=== PATIENT | female | born 1975 ===

== ENCOUNTER 2020-01-28 14:04 | Outpatient (REF) | payer OTHER, SELFPAY ==
[2020-01-29 14:53] LABS: CT PCR NOT DETECTED (Not Detect.); NG PCR NOT DETECTED (Not Detect.)
[2020-01-30 12:30] LABS: BV Int Neg Control Negative (Negative); BV Int Pos Control Positive (Positive)
== END 2020-01-28 14:05 | disposition home or self-care (01) ==
LOC: HO.LAB 14:04
PROVIDERS: PCP Internal Medicine; Visit Provider Obstetrics & Gynecology
DX: Z11.3 Encounter for screening for infections with a predominantly sexual mode of transmission (principal); Z11.8 Encounter for screening for other infectious and parasitic diseases
CPT/HCPCS: 87480; 87491; 87510; 87591; 87660

== ENCOUNTER → 2020-03-01 11:35 | Outpatient (BNVA) | payer OTHER, SELFPAY | PROVIDERS: PCP Internal Medicine; Referring Provider Internal Medicine; Visit Provider Advanced Practice Midwife | DX: Z76.89 Persons encountering health services in other specified circumstances (principal) ==

== ENCOUNTER → 2020-05-16 11:03 | Outpatient (BNVA) | payer OTHER, SELFPAY | PROVIDERS: PCP Internal Medicine; Visit Provider Surgery | DX: K64.8 Other hemorrhoids (principal) | CPT/HCPCS: 46600 ==

== ENCOUNTER 2020-08-25 11:00 | Outpatient (REF) | payer OTHER, SELFPAY ==
--- NOTE | ~2020-08-25 | MM_ITS ---
EXAMINATION: MM SCREENING DIGITAL BREAST TOMOSYNTHESIS, BILATERAL CLINICAL INFORMATION: Screening. Asymptomatic. The lifetime risk of breast cancer based on the Tyrer-Cuzick Model is 7%. COMPARISON: Mammography: 04/06/2017, 04/21/2012, breast ultrasound 04/17/2017 TECHNIQUE: Digital breast tomosynthesis is performed in both the craniocaudal and mediolateral oblique views along with computer-aided detection (CAD). Synthesized 2D images are generated from the tomosynthesis. FINDINGS: The breasts are heterogeneously dense, which may obscure small masses (ACR BI-RADS breast composition Category c). Breast tissue composition borders on average fibroglandular. There is fine fibronodular parenchymal pattern similar to prior exams. Circumscribed nodule anterior 3:00 left breast is stable. Cyst mid upper inner right breast is decreased in size since 2017. There is no interval developing density or architectural abnormality. No abnormal calcifications. The axilla and skin contours are unremarkable. MM/MM tomosynthesis screening BI IMPRESSION: No mammographic evidence of malignancy. Cyst upper inner right breast decreased since prior imaging 2017. ASSESSMENT: BI-RADS 2: Benign RECOMMENDATION: Routine annual mammography screening. This patient's information was entered into a reminder system with a target due date for their next mammogram.
== END 2020-08-25 11:01 | disposition home or self-care (01) ==
LOC: HO.MAMMO 11:00
PROVIDERS: Visit Provider Advanced Practice Midwife
DX: Z12.31 Encounter for screening mammogram for malignant neoplasm of breast (principal)
CPT/HCPCS: 77063; 77067

== ENCOUNTER 2020-09-20 10:32 | Emergency (ER) | payer OTHER, SELFPAY ==
--- NOTE | 2020-09-20 | ECG_ITS ---
Test Reason : CHEST PAIN Blood Pressure : / mmHG Vent. Rate : 075 BPM Atrial Rate : 075 BPM P-R Int : 172 ms QRS Dur : 072 ms QT Int : 388 ms P-R-T Axes : 039 035 030 degrees QTc Int : 433 ms Normal sinus rhythm Normal ECG When compared with ECG of 09-DEC-2014 13:25, No significant change was found Referred By: Generic ED Physician Electronically Signed By:REZA FOSTER
--- NOTE | ~2020-09-20 | XR_ITS ---
EXAMINATION: XR CHEST CLINICAL INFORMATION: Chest pressure COMPARISON: Previous chest x-ray and chest CTA December 2014 TECHNIQUE: 2 views of the chest were obtained. FINDINGS: No significant abnormality is noted involving the heart, lungs, mediastinum, bony thorax or soft tissues. XR/XR chest 2V IMPRESSION: Unremarkable examination.
[2020-09-20 10:51] VITALS: BP 160/89; PULSE 80; RESP 18; TEMP 36.6; O2SAT 99; BMI 26.5
[2020-09-20 12:09] LABS: Hemoglobin 15.5 g/dl (12.0-16.0); Imm Gran Abs Auto 0.02 X10*3/uL (0.00-0.03); Imm Gran Pct Auto 0.3 % (0.0-0.4); MANUAL DIFF FLAG SCAN; Mean Corpuscular Hemoglobin 32.8 pg (27.0-33.0); Neutrophils Percent Auto 72.1 % (45-73); PLT CLUMP 1; SCAN SMEAR FLAG 1
[2020-09-20 12:11] LABS: Basophils Absolute Auto 0.1 X10*3/uL (0.0-0.2); Basophils Percent Auto 0.7 % (0-2); Eosinophils Absolute Auto 0.1 X10*3/uL (0.0-0.4); Eosinophils Percent Auto 1.4 % (0-4); Hematocrit 45.4 % (37-47); Lymphocytes Absolute Auto 1.6 X10*3/uL (1.2-4.9); Lymphocytes Percent Auto 21.6 % (20-40); Mean Corpuscular HGB Conc 34.1 g/dl (31.0-35.0); Mean Corpuscular Volume 96.2 fL (80-98); Monocytes Absolute Auto 0.3 X10*3/uL (0.1-1.2); Monocytes Percent Auto 3.9 % (2-11); Neutrophils Absolute Auto 5.2 X10*3/uL (2.0-8.3); Red Blood Count 4.72 X10*6/uL (4.20-5.50); White Blood Count 7.2 X10*3/uL (4.8-10.8)
[2020-09-20 12:34] LABS: Anion Gap 15 (12-20); Blood Urea Nitrogen 9 mg/dL (9-16); Calcium 9.4 mg/dL (8.4-10.2); Carbon Dioxide 25 mmol/L (22-29); Chloride 105 mmol/L (96-108); Creatinine Clr Calc Pharmacy 81.9; Estimated Glomerular Filt Rate > 60; Glucose Random 100 mg/dL (60-115); Sodium 141 mmol/L (135-145)
[2020-09-20 12:37] LABS: Platelet Count 313 X10*3/uL (160-400)
[2020-09-20 12:39] LABS: Mean Platelet Volume 9.4 fL (9.4-12.3)
[2020-09-20 12:40] LABS: SLIDE REVIEW VERIFIED
[2020-09-20 12:41] LABS: Troponin-I High Sensitivity < 3.5 ng/L (<3.5-17.0)
--- NOTE | 2020-09-20 13:54 | ED_ITS ---
HPI - General Adult General Chief complaint: General Medical Stated complaint: Chest pain Time Seen by Provider: 09/20/20 13:54 Source: patient Mode of arrival: ambulatory Limitations: no limitations History of Present Illness HPI narrative: chest pain yesterday and again today. History of anxiety. patient is also concerned that she has a tick bite. Onset (ago): day(s) Quality: sharp Pain Consistency: intermittent Associated symptoms: other (anxiety) Related Data Home Medications Medication Instructions Recorded Confirmed amitriptyline 10 mg tablet 10 mg PO BEDTIME 01/25/20 05/16/20 Previous Rx's Medication Instructions Recorded amitriptyline 10 mg tablet 10 mg PO BEDTIME #90 tab 02/03/20 metronidazole 500 mg tablet 500 mg PO BID 7 Days #14 tab 05/03/20 tramadol 50 mg tablet 50 mg PO DAILY #90 tab 06/14/20 Allergies Allergy/AdvReac Type Severity Reaction Status Date / Time hydrocodone [From Vicodin] Allergy Mild RASH Verified 05/16/20 11:10 Vicodin Allergy Unknown rash Verified 05/16/20 11:10 Review of Systems Constitutional: Constitutional: Reports no additional constitutional complaints Eyes: Eyes: Reports no additional eye complaints ENT: Denies dizziness Cardiovascular: Cardiovascular: Reports no additional cardiovascular complaints Respiratory: Respiratory: Reports as per HPI Gastrointestinal: Gastrointestinal: Reports no additional gastrointestinal complaints Genitourinary: Genitourinary: Reports no additional female genitourinary complaints Musculoskeletal: Musculoskeletal: Reports no additional musculoskeletal complaints Integumentary/Breasts: Skin/Breast: Denies rash Neurologic: Reports system reviewed and no additional complaints, except as documented, Denies dizziness and Denies Sensory deficit (Neuro) Psychiatric: Psychiatric: Denies anxiety [facility] Past Medical History Medical History ASHIA positive Constipation Deep vein thrombosis (DVT) of calf muscle vein of left lower extremity Environmental allergies Fibromyalgia Genital herpes IBS (irritable bowel syndrome) Migraine headache Prolapsed hemorrhoids Pulmonary emboli Surgical History History of tubal ligation Status post reimplantation of ureter Family History Family History Mother DVT (deep venous thrombosis) Colonic mass Brother Autism Social History Social History Alcohol intake: current Alcohol intake frequency: a few times a week Cigarettes Per Day: 10 Advance Directives: No Advance Directives Information Provided: No Patient : No Gender identity: female Physical Exam 2 Vital Signs: Vital Signs: Last Vital Signs Temp 98 F 09/20/20 10:51 Pulse 80 09/20/20 10:51 Resp 18 09/20/20 10:51 BP 160/89 H 09/20/20 10:51 Pulse Ox 99 09/20/20 10:51 Body Mass Index 26.5 Const: General: healthy appearing Nutritional Appearance: average body habitus Orientation/consciousness: oriented to person and patient oriented x3 Limitations: no limitations HENMT: Head: Yes normal to inspection Ears: external ears normal General nose exam: Normal external nose present Mouth: Normal oral and palatal mucosa present and oropharynx normal Throat: Yes posterior oropharynx normal Eyes: General: appearance normal, both eyes and all related structures Neck: Other: supple Neck: Yes normal visual inspection Chest: Chest palpation & inspection: normal inspection of the chest Resp: Auscultation: clear to auscultation bilaterally Cardio: Jugular venous distension: no JVD Rate: regular rate Rhythm: regular rhythm Heart sounds: S1 normal heart sound present and S2 normal heart sound present GI: Inspection: Yes normal to inspection Palpation (GI): Soft to palpation, nontender and No hepatosplenomegaly present Auscultation: normal bowel sounds : General: Yes no CVA tenderness Back/Spine/Pelvis: Back: no CVA tenderness Skin: General skin exam: no rashes or lesions noted Neuro: General: oriented to person and patient oriented x3 Cranial nerves: Yes CN's II-XII intact bilaterally Motor exam (neuro): 5/5 motor strength present throughout Sensory Exam: No Sensory deficit (Neuro) Extrem: General: Yes normal to inspection Psych: Appearance: grossly normal Course Reevaluation(s) Reevaluation #1: Patient with no cardiac risk factors, normal EKG, troponin and normal exam. Patient with small insect bite that does not look like a tick bite and certainly does not look like lyme. Will dc home Time: 14:06 Medical Decision Making Lab Data Result diagrams: 09/20/20 12:04 09/20/20 12:04 Labs: Lab Results 09/20/20 09/20/2009/20/21 Range/Units 12:04 12:04 12:04 WBC 7.2 (4.8-10.8) X10*3/uL RBC 4.72 (4.20-5.50) X10*6/uL Hgb 15.5 (12.0-16.0) g/dl Hct 45.4 (37-47) % MCV 96.2 (80-98) fL MCH 32.8 (27.0-33.0) pg MCHC 34.1 (31.0-35.0) g/dl RDW 12.0 (11.0-16.0) % Plt Count 313 (160-400) X10*3/uL MPV 9.4 (9.4-12.3) fL Immature Gran % (Auto) 0.3 (0.0-0.4) % Neut % (Auto) 72.1 (45-73) % Lymph % (Auto) 21.6 (20-40) % [place] % (Auto) 3.9 (2-11) % Eos % (Auto) 1.4 (0-4) % Baso % (Auto) 0.7 (0-2) % Lymph # (Auto) 1.6 (1.2-4.9) X10*3/uL Oxford # (Auto) 0.3 (0.1-1.2) X10*3/uL Eos # (Auto) 0.1 (0.0-0.4) X10*3/uL Baso # (Auto) 0.1 (0.0-0.2) X10*3/uL Abs Immat Gran (auto) 0.02 (0.00-0.03) X10*3/uL Absolute Neuts (auto) 5.2 (2.0-8.3) X10*3/uL Absolute Nucleated RBC 0.000 (0.0-0.012) X10*3/uL Nucleated RBC % (auto) 0.0 (0.0-0.2) /100WBC Smear Tech's Comments VERIFIED Sodium 141 (135-145) mmol/L Potassium 4.0 (3.3-5.1) mmol/L Chloride 105 (96-108) mmol/L Carbon Dioxide 25 (22-29) mmol/L Anion Gap 15 (12-20) BUN 9 (9-16) mg/dL Creatinine 0.78 (0.5-1.4) mg/dL Estim Creat Clear Calc 81.9 Estimated GFR > 60 Random Glucose 100 (60-115) mg/dL Calcium 9.4 (8.4-10.2) mg/dL Troponin I High Sens < 3.5 (<3.5-17.0) ng/L ECG Data Attestation: I personally reviewed and interpreted this ECG as follows: Interpretation: normal sinus rate [address] or twave changes Discharge Plan Discharge Clinical Impression: Chest pain Qualifiers: Chest pain type: unspecified Qualified Code(s): R07.9 - Chest pain, unspecified Patient Disposition: Home, Self-Care Instructions: Chest Pain (ED) Prescriptions: No Action amitriptyline 10 mg tablet 10 mg PO BEDTIME Qty: 90 RF: 1 metronidazole [Flagyl] 500 mg tablet 500 mg PO BID 7 Days Qty: 14 RF: 0 tramadol 50 mg tablet 50 mg PO DAILY Qty: 90 RF: 1 amitriptyline 10 mg tablet 10 mg PO BEDTIME RF: 0 Referrals: Ashia Ventura MD [Primary Care Provider] - 1 week
[2020-09-20 14:44] VITALS: BP 159/93; PULSE 77; RESP 16; O2SAT 99
== END 2020-09-20 14:59 | disposition home or self-care (01) ==
PROVIDERS: Emergency Provider Emergency Medicine; PCP Internal Medicine
DX: R07.9 Chest pain, unspecified (principal); T14.8XXA Other injury of unspecified body region, initial encounter; W57.XXXA Bitten or stung by nonvenomous insect and other nonvenomous arthropods, initial encounter; Y93.9 Activity, unspecified; Y92.9 Unspecified place or not applicable; Y99.9 Unspecified external cause status
CPT/HCPCS: 36415; 71046; 80048; 84484; 85025; 93005; 99283; 99284

== ENCOUNTER 2020-09-28 17:29 | Outpatient (REF) | payer OTHER, SELFPAY ==
[2020-09-28 18:20] LABS: Appearance Urine HAZY; Color Urine YELLOW; Glucose Urine UA NEG (NEG); Leukocyte Esterase Urine NEG (NEG); Nitrite Urine NEG (NEG); Urine Blood 3+ (NEG); Urine Ketones NEG (NEG); Urine Protein 2+ MG/DL (NEG-TRACE)
[2020-09-28 18:30] LABS: Bacteria Urine 1+ /LPF; Squamous Epithelial Cell Urine 2+ /LPF; WBC Urine 0 /HPF (0-4)
== END 2020-09-28 17:30 | disposition home or self-care (01) ==
LOC: HO.LAB 17:29
PROVIDERS: PCP Internal Medicine; Visit Provider Internal Medicine
DX: R30.0 Dysuria (principal)
CPT/HCPCS: 81001

== ENCOUNTER 2020-10-18 06:16 | Day surgery (SDC) | payer OTHER, SELFPAY ==
--- NOTE | 2020-10-17 08:46 | HO.ANESPROP2 ---
Documented by User: Heather Garcianey 10/17/20 08:51 HPI - Anesthesia Eval Consult details Narrative: 45yo F for Hemorrhoidectomy, EUA h/o DVT/PE 2008 r/t control - no anticoag now PMFSH Active Problems Active Problems: All Active Problems (Updated 10/14/20 @ 13:36 by SOREN Snell) Gum lesion (Acute) Prolapsed hemorrhoids (Acute) IUD surveillance (Acute) Frequent headaches (Acute) Past Medical History Medical History SAMIA positive Constipation Deep vein thrombosis (DVT) of calf muscle vein of left lower extremity Environmental allergies Fibromyalgia Genital herpes IBS (irritable bowel syndrome) Migraine headache Prolapsed hemorrhoids Pulmonary emboli Family History Family History Mother DVT (deep venous thrombosis) Colonic mass Mental health disorder Brother Autism Surgical History Surgical History History of tubal ligation Status post reimplantation of ureter Social History Social History Housing: House Alcohol intake: current Alcohol intake frequency: a few times a week Patient Tobacco Use Status: Current everyday Tobacco user Tobacco use type: Cigarette Cigarettes Per Day: 10 Use of substances other than those prescribed or required for medical reasons: No Are you DNR?: No Advance Directives: No Advance Directives Information Provided: Yes service: No Current occupational status: employed Gender identity: female Meds Allergies Allergy/AdvReac Type Severity Reaction Status Date / Time sulfamethoxazole Allergy Severe throat Verified 10/18/20 06:23 [From Bactrim] closing trimethoprim [From Bactrim] Allergy Severe throat Verified 10/18/20 06:23 closing hydrocodone [From Vicodin] Allergy Mild RASH Verified 10/18/20 06:23 Vicodin Allergy Unknown rash Verified 10/18/20 06:23 Home Medications Medication Instructions Recorded Confirmed Last Taken Type amitriptyline 10 mg tablet 10 mg PO BEDTIME 01/25/20 10/14/20 Unknown History Exam Exam Date and Time: October 17, 2020 0846 Pertinent Lab Results Pertinent Lab Results: Laboratory Tests 09/20/20 09/20/20 12:04 12:04 WBC 7.2 Hgb 15.5 Hct 45.4 Plt Count 313 Sodium 141 Potassium 4.0 Chloride 105 Carbon Dioxide 25 BUN 9 Creatinine 0.78 Narrative Narrative: EKG 09/2020 Vent. Rate : 075 BPM Atrial Rate : 075 BPM P-R Int : 172 ms QRS Dur : 072 ms QT Int : 388 ms P-R-T Axes : 039 035 030 degrees QTc Int : 433 ms Normal sinus rhythm Normal ECG When compared with ECG of 09-DEC-2014 13:25, No significant change was found Assessment and Plan Assessment Anesthesia Assessment: Chart Reviewed Documented by User: Leann Lynch 10/18/20 07:00 PMFSH Past Medical History Medical History SAMIA positive Constipation Deep vein thrombosis (DVT) of calf muscle vein of left lower extremity Environmental allergies Fibromyalgia Genital herpes IBS (irritable bowel syndrome) Migraine headache Prolapsed hemorrhoids Pulmonary emboli Family History Family History Mother DVT (deep venous thrombosis) Colonic mass Mental health disorder Brother Autism Surgical History Surgical History History of tubal ligation Status post reimplantation of ureter Social History Social History Housing: House Alcohol intake: current Alcohol intake frequency: a few times a week Patient Tobacco Use Status: Current everyday Tobacco user Tobacco use type: Cigarette Cigarettes Per Day: 10 Use of substances other than those prescribed or required for medical reasons: No Are you DNR?: No Advance Directives: No Advance Directives Information Provided: Yes service: No Current occupational status: employed Gender identity: female Meds Allergies Allergy/AdvReac Type Severity Reaction Status Date / Time sulfamethoxazole Allergy Severe throat Verified 10/18/20 06:23 [From Bactrim] closing trimethoprim [From Bactrim] Allergy Severe throat Verified 07/13/21 06:23 closing hydrocodone [From Vicodin] Allergy Mild RASH Verified 10/18/20 06:23 Vicodin Allergy Unknown rash Verified 10/18/20 06:23 Home Medications Medication Instructions Recorded Confirmed Last Taken Type amitriptyline 10 mg tablet 10 mg PO BEDTIME 01/25/20 10/14/20 Unknown History Exam Airway Mallampati Class: II TM Dist: >3cm Neck ROM: Full Assessment and Plan Assessment Anesthesia Assessment: Anesthesia Plan Discussed and Chart Reviewed Final Anesthetic Review NPO: Yes ASA Class: II Final Preanesthetic Review: No Changes in Pt Med Stat, Meds/Allgs Chart Reviewed and Consent Obtained/Reviewed Patient Risk: Low Procedure Risk: Low Assessment/Block/Sedation in SS: Assess/Block/Sedation-SS Anesthetic Plan Anesthetic Plan: GA Disposition: Standard PACU
[2020-10-18] VITALS (8 sets, daily range): BP systolic 119–149; BP diastolic 67–115; PULSE 70–77; RESP 16–18; TEMP 36.4–36.6; O2SAT 97–100; BMI 27.2
[2020-10-18] MEDS: Lactated Ringers 1,000 ML 100 ML IVCONT (06:55)
--- NOTE | 2020-10-18 07:07 | MHC.SHP ---
Pre-Procedural Eval Section A Date of Service: 10/18/20 Section B Chief Complaint: Prolapsed hemorrhoids Details of Present Illness: has long hx of prolapsing hemorrhoids Relevant Family History (Specify if Yes): No Relevant Social History: None Present Medications: see Short Stay Collaborative assessment Medical History: No relevant PMH History of Previous Operations: No relevant previous surgery Allergies: Allergies Allergy/AdvReac Type Severity Reaction Status Date / Time sulfamethoxazole Allergy Severe throat Verified 10/18/20 06:23 [From Bactrim] closing trimethoprim [From Bactrim] Allergy Severe throat Verified 10/18/20 06:23 closing hydrocodone [From Vicodin] Allergy Mild RASH Verified 10/18/20 06:23 Vicodin Allergy Unknown rash Verified 10/18/20 06:23 Review of Systems Sugical H&P ROS: Negative: Constitution, Cardiovascular, Respiratory, Neurological, Psychiatric, Hem-Onc, Allergic/Immunologic, Gastrointestinal, Genitourinary, Musculoskeletal, Integumentary, Endocrine and Eyes/Ears/Nose/Throat Exam Surgical H&P Exam: Normal: HEENT, Normal: Heart, Normal: Lungs, Normal: Extremities, Normal: Abdomen, Normal: Skin and Normal: Neurological Plan Diagnosis/Plan: Unchanged I have reviewed the history and physical and performed a pertinent physical examination on my patient. No changes have occurred unless specified.
--- NOTE | 2020-10-18 08:05 | P.OP_ITS ---
Operative Note Operative Note Date of Service: 10/18/20 Narrative: Preop diagnosis: Prolapsed hemorrhoids Postop diagnosis: Prolapsed hemorrhoids Procedure: Exam under anesthesia, hemorrhoidectomy x2 columns Surgeon: Delroy Easley MD Patient is a 45-year-old female who has had chronic prolapse of her hemorrhoids. In view of discomfort associated with this, she wanted to proceed with hemorrhoidectomy. She understood the technique of the procedure. She was aware of the risks, benefits, and alternatives She was brought to the operating placed in prone jaylen-knife position under general anesthesia via LMA.. The buttocks were retracted with wide tape laterally. The perianal area was prepped and draped in the usual sterile fashion. A surgical time-out was done. The patient received Cefotan 2 g IV preoperatively. Examination of the anal orifice revealed a bulky prolapsing internal external hemorrhoidal column on the right anterior area. There was note of a moderate- sized external hemorrhoid on the left side as well. I inserted Macrina-Tao retractor and examined the anal canal circumferentially. Again this bulky mixed internal external hemorrhoid column was noted on the right anterior area. There were no other lesions seen in the anal canal. There was no bleeding. There was no induration or any fissure. I applied a Friedman grasper at the bulky hemorrhoidal column on the right side and retracted this out into the field. I made a mwjajf-bm-bcoxg stitch at the pedicle proximal to the dentate line. I made an incision around this hemorrhoidal column to the perianal skin using blade 15 and excised this hemorrhoidal column above the plane of the sphincters using Metzenbaum scissors. I closed this incision with a running chromic 3-0 stitch with additional hemostatic figure-eight sutures being placed for oozing areas. I then applied a Friedman grasper at the hemorrhoidal column on the left side. I made a hjblgq-ku-bqmop stitch at the pedicle using chromic 3-0 and made an incision around this hemorrhoidal column to the perianal skin using a blade 15. I excised this hemorrhoidal column above the plane of sphincters using scissors and closed this incision with a running chromic 3-0 stitch. Additional hemostatic sutures were placed. Once hemostasis was ensured I inserted a rolled Gelfoam packing into the anal canal. I infiltrated the perianal area with Marcaine 0.5% for postop analgesia. The procedure was then completed The patient tolerated procedure well. There were no complications noted. Initial fine counts of sponges and instruments were correct. Estimated blood loss was about 25 cc. The patient was then extubated and transferred to the recovery room with stable vital signs.
--- NOTE | 2020-10-18 08:10 | PM.OP ---
Brief Operative Note Date of Service: 10/18/20 Pre-op diagnosis: Prolapse hemorrhoids Post-op diagnosis: same Procedure: Exam under anesthesia, with hemorrhoidectomy x2 Surgeon: Delroy Easley MD Anesthesia: GLMA Was an [employer] used for this Procedure?: No Estimated blood loss (mL): 25 Pathology: other (Hemorrhoids x2) Condition: stable Disposition: PACU
[2020-10-18] MEDS: fentaNYL citrate/PF 100 MCG/2 ML VIAL 50 MCG IVPUSH ×2 (08:18→08:25)
[2020-10-18] MEDS: Acetaminophen 325 MG TABLET 650 MG PO (08:18)
[2020-10-18] MEDS: oxyCODONE HCl Immed Release 5 MG TABLET PO (08:18)
== END 2020-10-18 09:15 | disposition home or self-care (01) ==
PROVIDERS: PCP Internal Medicine; Visit Provider Surgery
PROC: (CPT 46260; principal; 2020-10-18 07:30)
DX: K64.8 Other hemorrhoids (principal); K58.9 Irritable bowel syndrome, unspecified; Z86.718 Personal history of other venous thrombosis and embolism; Z79.899 Other long term (current) drug therapy; Z88.2 Allergy status to sulfonamides; Z88.8 Allergy status to other drugs, medicaments and biological substances; F17.210 Nicotine dependence, cigarettes, uncomplicated
CPT/HCPCS: 46260; 88304; J1100; J2250; J2405; J3010

== ENCOUNTER → 2020-11-02 09:43 | Outpatient (BNVA) | payer OTHER, SELFPAY | PROVIDERS: PCP Internal Medicine; Visit Provider Surgery ==

== ENCOUNTER 2020-11-10 14:46 | Outpatient (REF) | payer OTHER, SELFPAY | END 2020-11-10 14:47 | disposition home or self-care (01) | LOC: HO.HMGCLDS 14:46 | PROVIDERS: PCP Internal Medicine; Visit Provider Internal Medicine | DX: Z20.822 Contact with and (suspected) exposure to COVID-19 (principal) | CPT/HCPCS: C9803; U0003; U0005 ==

== ENCOUNTER 2020-11-21 15:19 | Outpatient (REF) | payer OTHER, SELFPAY ==
[2020-11-21 16:53] LABS: Hematocrit 40.6 % (37-47); Hemoglobin 13.8 g/dl (12.0-16.0); Mean Corpuscular Hemoglobin 32.8 pg (27.0-33.0); Mean Corpuscular Volume 96.4 fL (80-98); Mean Platelet Volume 10.2 fL (9.4-12.3); Platelet Count 243 X10*3/uL (160-400); Red Blood Count 4.21 X10*6/uL (4.20-5.50); Red Cell Distribution Width 12.4 % (11.0-16.0); White Blood Count 6.1 X10*3/uL (4.8-10.8)
[2020-11-22 09:17] LABS: BV Int Neg Control Negative (Negative); BV Int Pos Control Positive (Positive)
[2020-11-22 09:24] LABS: CT PCR NOT DETECTED (Not Detect.); NG PCR NOT DETECTED (Not Detect.)
[2020-11-24 01:16] LABS: HPV mRNA E6/E7 rflx Not Detected (Not Detected)
== END 2020-11-21 15:20 | disposition home or self-care (01) ==
LOC: HO.LAB 15:19
PROVIDERS: PCP Internal Medicine; Visit Provider Advanced Practice Midwife
DX: Z01.419 Encounter for gynecological examination (general) (routine) without abnormal findings (principal); N93.9 Abnormal uterine and vaginal bleeding, unspecified; N92.1 Excessive and frequent menstruation with irregular cycle; F17.210 Nicotine dependence, cigarettes, uncomplicated
CPT/HCPCS: 36415; 84443; 85027; 87480; 87491; 87510; 87591; 87624; 87660; 88142

== ENCOUNTER 2020-12-01 16:14 | Emergency (ER) | payer OTHER, SELFPAY ==
[2020-12-01 16:18] VITALS: BP 150/85; PULSE 84; RESP 16; TEMP 37.1; O2SAT 98; BMI 27.1
--- NOTE | 2020-12-01 17:07 | ED_ITS ---
HPI - Female Genitourinary General Chief complaint: Urogenital-Female Stated complaint: UTI Time Seen by Provider: 12/01/20 16:40 Source: patient Mode of arrival: ambulatory Limitations: no limitations History of Present Illness HPI Narrative: 45 y/o female presenting with dysuria for the last 4 days. She has significant burning with urination and bladder pain. No blood in her urine. No vaginal discharge. She was recently diagnosed with BV and is on Flagyl - she was never symptomatic for this. She called her OB to try and get antibiotics for UTI, was told to call her PCP who told her Flagyl will cure it. She has had no fevers, N/V/D or back pain. MD elicited complaint: dysuria and UTI Pertinent past history: recurrent UTIs Onset (ago): day(s) (4) Location of symptoms: external genitalia and urethra Severity: moderate Female Urogenital Radiation: Non-Radiating Severity scale (1-10): 5 Quality of pain: burning Consistency: intermittent Vaginal discharge: none Vaginal bleeding: none Urinary symptoms: Dysuria, Urgency and Frequency Exacerbating factors: urination Relieving factors: none Associated symptoms: denies other symptoms Treatment prior to arrival: none Sexual activity: No Patient : No Related Data Home Medications Medication Instructions Recorded Confirmed amitriptyline 10 mg tablet 10 mg PO BEDTIME 01/25/20 10/14/20 Previous Rx's Medication Instructions Recorded tramadol 50 mg tablet 50 mg PO DAILY #90 tab 06/14/20 ibuprofen 600 mg tablet 600 mg PO Q6H PRN #30 tab 10/18/20 metronidazole 0.75 % vaginal gel 1 appful VAGINAL BEDTIME 5 Days 11/24/20 (Metrogel Vaginal) #70 g nitrofurantoin 100 mg PO Q12H 7 Days #14 cap 12/01/20 monohydrate/macrocrystals 100 mg capsule (Macrobid) phenazopyridine 100 mg tablet 100 mg PO Q8H PRN #6 tab 12/01/20 (Pyridium) Allergies Allergy/AdvReac Type Severity Reaction Status Date / Time sulfamethoxazole Allergy Severe throat Verified 11/21/20 15:49 [From Bactrim] closing trimethoprim [From Bactrim] Allergy Severe throat Verified 11/21/20 15:49 closing hydrocodone [From Vicodin] Allergy Mild RASH Verified 11/21/20 15:49 Vicodin Allergy Unknown rash Verified 11/21/20 15:49 Review of Systems Constitutional: Constitutional: Denies chills and Denies fever(s) Eyes: Eyes: Reports no additional eye complaints ENT: Reports Normal hearing present Gastrointestinal: Gastrointestinal: Denies abdominal pain, Denies diarrhea, Denies nausea and Denies vomiting Genitourinary: Genitourinary: Reports abnormal vaginal bleeding, Denies hematuria, Denies difficulty voiding, Reports dysmenorrhea, Reports dysuria, Reports pelvic pain, Denies flank pain, Denies urinary incontinence, Reports urinary urgency, Denies vaginal discharge and Denies vaginal pruritus Musculoskeletal: Musculoskeletal: Denies back pain Integumentary/Breasts: Skin/Breast: Denies pruritus, Denies lesions and Denies rash Neurologic: Reports Normal hearing present [facility] Past Medical History Attestation statement: The following information was validated with the patient. Medical History SAMIA positive Constipation Deep vein thrombosis (DVT) of calf muscle vein of left lower extremity Environmental allergies Fibromyalgia Genital herpes IBS (irritable bowel syndrome) Migraine headache Prolapsed hemorrhoids Pulmonary emboli Surgical History History of hemorrhoidectomy History of tubal ligation Status post reimplantation of ureter Family History Family History Mother DVT (deep venous thrombosis) Colonic mass Mental health disorder Brother Autism Social History Social History Housing: House Alcohol intake: current Alcohol intake frequency: a few times a week Patient Tobacco Use Status: Current everyday Tobacco user Tobacco use type: Cigarette Cigarettes Per Day: 10 Advance Directives: No Advance Directives Information Provided: No service: No Current occupational status: employed Gender identity: Female Physical Exam Vital Signs: Vital Signs: Last Vital Signs Temp 98.8 F 12/01/20 16:18 Pulse 84 12/01/20 16:18 Resp 16 12/01/20 16:18 BP 150/85 H 12/01/20 16:18 Pulse Ox 98 12/01/20 16:18 Body Mass Index 27.1 Appearance: Alert. Oriented X3. No acute distress. HEENT: Normal external inspection Neck: Normal inspection. Neck supple. CVS: Normal heart rate and rhythm. Pulses normal. Respiratory: No respiratory distress. Breath sounds normal. Abdomen: Soft, mild suprapubic tenderness, no rebound or guarding. No CVA tenderness. pelvic exam deferred. +BS x4 Skin: Skin warm and dry. Normal skin color. Normal skin turgor. No rashes. Neuro: Oriented X 3. No motor deficit. No sensory deficit. Neuro: Cranial nerves: Yes Normal hearing present Course Course Course Narrative: 45 y/o female presenting with dysuria and UTI symptoms x4 days. No systemic signs of infection. She appears well. UA consistent with infection. Will treat with macrobid and have her f/u with PCP. Stable for d/c home. Critical Care Time Critical Care Time Critical Care Time: No Discharge Plan Discharge Clinical Impression: Urinary tract infection Patient Disposition: Home, Self-Care Instructions: Urinary Tract Infection in Women (ED) Additional Instructions: Take the prescribed antibiotic as directed. Stay hydrated, drink plenty of water. Take Pyridium as needed for bladder pain - this will turn your urine orange, this is normal. Follow up with your doctor as needed. If you develop new or worsening symptoms call 911 or come back to the ER for further evaluation. Prescriptions: New phenazopyridine [Pyridium] 100 mg tablet 100 mg PO Q8H PRN (Reason: pain) Qty: 6 RF: 0 nitrofurantoin monohyd/m-cryst [Macrobid] 100 mg capsule 100 mg PO Q12H 7 Days Qty: 14 RF: 0 No Action tramadol 50 mg tablet 50 mg PO DAILY Qty: 90 RF: 1 metronidazole [Metrogel Vaginal] 0.75 % gel 1 appful vaginal BEDTIME 5 Days Qty: 70 RF: 0 ibuprofen 600 mg tablet 600 mg PO Q6H PRN (Reason: pain) Qty: 30 RF: 0 amitriptyline 10 mg tablet 10 mg PO BEDTIME RF: 0
[2020-12-01 17:11] LABS: Glucose Urine UA NEG (NEG); Leukocyte Esterase Urine 2+ (NEG); Nitrite Urine NEG (NEG); Specific Gravity - Urine >= 1.030 (1.005-1.025); UACC Culture Trigger YES; Urine Blood 3+ (NEG); Urine Ketones NEG (NEG); Urine Protein 2+ MG/DL (NEG-TRACE)
[2020-12-01 17:15] LABS: Appearance Urine CLOUDY; Color Urine YELLOW
[2020-12-01 17:59] LABS: Bacteria Urine 3+ /LPF; WBC Urine TNTC /HPF (0-4)
== END 2020-12-01 17:42 | disposition home or self-care (01) ==
LOC: HO.ED 17:11
PROVIDERS: Emergency Provider Emergency Medicine; PCP Internal Medicine
DX: N39.0 Urinary tract infection, site not specified (principal); F17.210 Nicotine dependence, cigarettes, uncomplicated
CPT/HCPCS: 81001; 87086; 87088; 87186; 99283

== ENCOUNTER 2020-12-06 15:54 | Outpatient (REF) | payer OTHER, SELFPAY ==
--- NOTE | ~2020-12-06 | US_ITS ---
EXAMINATION: US PELVIS CLINICAL INFORMATION: Abnormal uterine bleeding COMPARISON: Previous pelvic ultrasound most recent November [address] of the abdomen and pelvis November 2019 TECHNIQUE: Ultrasound of the pelvis is performed using both transabdominal and transvaginal transducers along with Doppler. Transvaginal imaging is performed due to inadequate visualization transabdominally. FINDINGS: The position of the uterus appears variable, anteverted transabdominally and retroverted transvaginally. No focal uterine lesion is seen. Endometrial thickness is normal measuring 0.6 cm. IUD appreciated on November 2019 exam is no longer seen. The ovaries are normal-appearing. The right ovary measures 3 x 1.5 x 2.2 cm. The left ovary measures 3.5 x 1.6 x 3.3 cm. There is no fluid in the pelvis. US/US pelvic and transvaginal IMPRESSION: Unremarkable pelvic ultrasound. IUD no longer seen compared to November 2019 exams.
== END 2020-12-06 15:55 | disposition home or self-care (01) ==
LOC: HO.US 15:54
PROVIDERS: Visit Provider Advanced Practice Midwife
DX: N92.0 Excessive and frequent menstruation with regular cycle (principal)
CPT/HCPCS: 76830; 76856

== ENCOUNTER → 2020-12-15 10:02 | Outpatient (BNVA) | payer OTHER, SELFPAY | PROVIDERS: Visit Provider Student in an Organized Health Care Education/Training Program ==

== ENCOUNTER → 2020-12-20 11:44 | Outpatient (BNVA) | payer OTHER, SELFPAY | PROVIDERS: PCP Internal Medicine; Visit Provider Advanced Practice Midwife ==

== ENCOUNTER 2021-01-09 16:46 | Outpatient (REF) | payer OTHER, SELFPAY | END 2021-01-09 16:47 | disposition home or self-care (01) | LOC: HO.LNP 16:46 | PROVIDERS: Visit Provider Physician Assistant Medical | DX: N39.0 Urinary tract infection, site not specified (principal) | CPT/HCPCS: 87086; 87088; 87186 ==

== ENCOUNTER 2021-01-12 13:56 | Outpatient (REF) | payer OTHER, SELFPAY | END 2021-01-12 13:57 | disposition home or self-care (01) | LOC: HO.LAB 13:56 | PROVIDERS: PCP Internal Medicine; Visit Provider Obstetrics & Gynecology | DX: N92.0 Excessive and frequent menstruation with regular cycle (principal); Z86.711 Personal history of pulmonary embolism; Z86.718 Personal history of other venous thrombosis and embolism | CPT/HCPCS: 58100; 88305 ==

== ENCOUNTER → 2021-02-07 09:44 | Outpatient (BNVA) | payer OTHER, SELFPAY | PROVIDERS: PCP Internal Medicine; Visit Provider Obstetrics & Gynecology ==

== ENCOUNTER 2021-03-15 14:51 | Outpatient (REF) | payer OTHER, SELFPAY | END 2021-03-15 14:52 | disposition home or self-care (01) | LOC: HO.LAB 14:51 | PROVIDERS: PCP Internal Medicine | DX: N39.0 Urinary tract infection, site not specified (principal); M79.7 Fibromyalgia; F17.210 Nicotine dependence, cigarettes, uncomplicated; Z96.89 Presence of other specified functional implants; Z88.1 Allergy status to other antibiotic agents; Z88.5 Allergy status to narcotic agent; Z88.2 Allergy status to sulfonamides | CPT/HCPCS: 87086; 87088; 87186 ==

== ENCOUNTER 2021-04-04 10:37 | Outpatient (REF) | payer OTHER, SELFPAY | END 2021-04-04 10:38 | disposition home or self-care (01) | LOC: HO.HMGCLDS 10:37 | PROVIDERS: Visit Provider Internal Medicine | DX: Z20.822 Contact with and (suspected) exposure to COVID-19 (principal) | CPT/HCPCS: C9803; U0003; U0005 ==

== ENCOUNTER → 2021-04-06 15:31 | Outpatient (BNVA) | payer OTHER, SELFPAY | DX: R30.0 Dysuria (principal); N39.0 Urinary tract infection, site not specified | CPT/HCPCS: 51798 ==

== ENCOUNTER 2021-05-25 14:24 | Outpatient (REF) | payer OTHER, SELFPAY ==
[2021-05-25 16:39] LABS: Urine Cytology See Pathology rpt
== END 2021-05-25 14:25 | disposition home or self-care (01) ==
LOC: HO.LNP 14:24
PROVIDERS: Urology; PCP Internal Medicine
DX: N39.0 Urinary tract infection, site not specified (principal)
CPT/HCPCS: 88112

== ENCOUNTER → 2021-06-01 08:29 | Outpatient (BNVA) | payer OTHER, SELFPAY | PROVIDERS: PCP Internal Medicine ==

== ENCOUNTER 2021-06-06 18:43 | Outpatient (REF) | payer OTHER, SELFPAY | END 2021-06-06 18:44 | disposition home or self-care (01) | LOC: HO.LNP 18:43 | PROVIDERS: Visit Provider Nurse Practitioner Family | DX: R39.15 Urgency of urination (principal); B96.20 Unspecified Escherichia coli [E. coli] as the cause of diseases classified elsewhere; Z16.11 Resistance to penicillins | CPT/HCPCS: 87086; 87088; 87186 ==

== ENCOUNTER → 2021-06-21 13:21 | Outpatient (BNVA) | payer OTHER, SELFPAY | PROVIDERS: PCP Internal Medicine; Visit Provider Nurse Practitioner Family | DX: M79.7 Fibromyalgia (principal); M54.30 Sciatica, unspecified side; Z86.718 Personal history of other venous thrombosis and embolism; F17.210 Nicotine dependence, cigarettes, uncomplicated; Z79.899 Other long term (current) drug therapy; Z86.16 Personal history of COVID-19 | CPT/HCPCS: 99212 ==

== ENCOUNTER 2021-07-13 08:28 | Outpatient (REF) | payer OTHER, SELFPAY ==
[2021-07-13 11:56] LABS: Alanine Aminotransferase 16 U/L (0-31); Albumin Level 3.9 g/dL (3.5-5.0); Alkaline Phosphatase 63 U/L (39-117); Anion Gap 12 (12-20); Aspartate Amino Transferase 14 U/L (5-31); Bilirubin Total 0.5 mg/dL (0.0-1.0); Blood Urea Nitrogen 17 mg/dL (9-16); Calcium 8.9 mg/dL (8.4-10.2); Carbon Dioxide 23 mmol/L (22-29); Chloride 106 mmol/L (96-108); Estimated Glomerular Filt Rate > 60; Glucose Random 101 mg/dL (60-115); Potassium 4.3 mmol/L (3.3-5.1); Sodium 137 mmol/L (135-145); Total Protein 6.8 g/dL (6.5-8.0)
== END 2021-07-13 08:29 | disposition home or self-care (01) ==
LOC: HO.HMGCLDS 08:28
PROVIDERS: Visit Provider Nurse Practitioner Family
DX: M79.7 Fibromyalgia (principal)
CPT/HCPCS: 36415; 80053

== ENCOUNTER 2021-08-28 16:21 | Outpatient (REF) | payer OTHER, SELFPAY ==
--- NOTE | ~2021-08-28 | MM_ITS ---
EXAMINATION: MM SCREENING DIGITAL BREAST TOMOSYNTHESIS, BILATERAL CLINICAL INFORMATION: Screening. Asymptomatic. The lifetime risk of breast cancer based on the Tyrer-Cuzick Model is 8%. COMPARISON: Mammography: 08/25/2020, 04/06/2017; targeted right breast ultrasound 04/17/2017. TECHNIQUE: Digital breast tomosynthesis is performed in both the craniocaudal and mediolateral oblique views along with computer-aided detection (CAD). Synthesized 2D images are generated from the tomosynthesis. FINDINGS: The breasts are heterogeneously dense, which may obscure small masses (ACR BI-RADS breast composition Category c). There are no significant masses, abnormal calcifications, or other abnormalities. There is fine fibronodular parenchymal pattern similar to prior studies. There is a smooth dominant nodule anterior 3:00 left breast similar to prior exams. No developing density or architectural abnormality. MM/MM tomosynthesis screening BI IMPRESSION: No mammographic evidence of malignancy. ASSESSMENT: BI-RADS 2: Benign RECOMMENDATION: Routine annual mammography screening. This patient's information was entered into a reminder system with a target due date for their next mammogram.
== END 2021-08-28 16:22 | disposition home or self-care (01) ==
LOC: HO.MAMMO 16:21
PROVIDERS: PCP Internal Medicine; Visit Provider Internal Medicine
DX: Z12.31 Encounter for screening mammogram for malignant neoplasm of breast (principal)
CPT/HCPCS: 77063; 77067

== ENCOUNTER 2022-02-14 10:26 | Outpatient (REF) | payer OTHER, SELFPAY ==
[2022-02-14 10:53] LABS: Binax Internal Control QC Valid; Binax Now Covid-19 Ag Negative (Negative)
== END 2022-02-14 10:27 | disposition home or self-care (01) ==
LOC: HO.HMGCLDS 10:26
PROVIDERS: PCP Internal Medicine; Visit Provider Nurse Practitioner Family
DX: Z20.822 Contact with and (suspected) exposure to COVID-19 (principal); J02.9 Acute pharyngitis, unspecified
CPT/HCPCS: 87811; C9803

== ENCOUNTER 2022-02-16 19:34 | Emergency (ER) | payer OTHER, SELFPAY ==
[2022-02-16 19:42] VITALS: BP 168/86; PULSE 94; RESP 20; TEMP 36.7; O2SAT 99; BMI 29.2
[2022-02-16 20:28] LABS: Influenza A PCR NEGATIVE (Negative); Influenza B PCR NEGATIVE (Negative); Resp Syncy Virus RNA Qual PCR NEGATIVE (Negative); SARS COV2 PCR INHOUSE NEGATIVE (Negative)
--- NOTE | 2022-02-16 22:17 | ED_ITS ---
HPI - URI/Sore Throat General Chief Complaint: Upper Respiratory Symptoms Stated Complaint: Sore throat, Cough Time Seen by Provider: 02/16/22 22:12 Source: patient Mode of arrival: ambulatory Limitations: no limitations History of Present Illness HPI Narrative: Patient comes to the emergency room complaining of a sore throat and cough for 2 days, no fever chills. Patient went to an urgent care 2 days ago, she was diagnosed with a viral infection. Patient states that she still has symptoms. Related Data Home Medications Medication Instructions Recorded Confirmed ibuprofen 800 mg tablet 800 mg PO Q8H 12/15/21 12/15/21 Previous Rx's Medication Instructions Recorded ascorbic acid (vitamin C) 1,000 mg 1 g PO DAILY 90 days #90 tabs 04/06/21 tablet methenamine hippurate 1 gram tablet 1 g PO BID #30 tabs 04/06/21 acetaminophen 500 mg tablet 1,000 mg PO Q6H PRN pain #20 tabs 06/06/21 levofloxacin 250 mg tablet 250 mg PO .COMPLEX 1 month #20 tabs 08/15/21 amitriptyline 10 mg tablet 10 mg PO BEDTIME #90 tabs 12/15/21 tramadol 50 mg tablet 50 mg PO BEDTIME pain #90 tabs 12/15/21 Allergies Allergy/AdvReac Type Severity Reaction Status Date / Time sulfamethoxazole Allergy Severe throat Verified 02/14/22 09:24 [From Bactrim] closing trimethoprim [From Bactrim] Allergy Severe throat Verified 02/14/22 09:24 closing hydrocodone [From Vicodin] Allergy Mild RASH Verified 02/14/22 09:24 Vicodin Allergy Unknown rash Verified 02/14/22 09:24 Review of Systems Review of Systems: Constitutional : No Weight loss, No Fever, No Chills, No Night Sweats, No Fatigue, No Malaise ENT/Mouth : No Hearing loss, No Ear Pain, No Nasal Congestion, No Sinus Pain, No Hoarseness, complaining of sore throat, No Rhinorrhea, No Swallowing Difficulty Eyes: No Eye Pain, No Swelling, No Redness, No Foreign Body, No Discharge, No Vision Changes Cardiovascular : No Chest Pain, No SOB, No Dyspnea on Exertion, No Orthopnea, No Edema, No Palpitations Respiratory : Complaining of dry Cough, No Sputum, No Wheezing, No Smoke Exposure, No Dyspnea Gastrointestinal : No Nausea, No Vomiting, No Diarrhea, No Constipation, No abdominal Pain, No Hematochezia, No Melena Genitourinary : no irregular bleeding, No Dysuria, No Urinary Frequency, No Hematuria, No Urinary Incontinence, No Urgency, No Flank Pain, No Urinary Flow Changes, No Hesitancy Musculoskeletal : No joint pain, No Myalgias, No Joint Swelling Skin : No Skin Lesions, No rash Neuro : No Weakness, No Numbness, No Paresthesias, No Loss of Consciousness, No Dizziness, No Headache Psych : No Anxiety/Panic, No Depression, No SI/HI/AH/VH, No Social Issues, Heme/Lymph: No Bruising, No Bleeding,No Lymphadenopathy Endocrine : No Polyuria, No Polydipsia, No Temperature Intolerance [facility] Past Medical History Medical History ASMIA positive Constipation Deep vein thrombosis (DVT) of calf muscle vein of left lower extremity Environmental allergies Fibromyalgia Frequent UTI Genital herpes IBS (irritable bowel syndrome) Migraine headache Prolapsed hemorrhoids Proteinuria Pulmonary emboli Surgical History History of hemorrhoidectomy History of tubal ligation Status post reimplantation of ureter Family History Family History Mother DVT (deep venous thrombosis) Colonic mass Mental health disorder Brother Autism Sister Arthritis Social History Social History Housing: House Alcohol intake: current Alcohol intake frequency: a few times a week Patient Tobacco Use Status: Current everyday Tobacco user Tobacco use type: Cigarette Cigarettes Per Day: 10 Second Hand Smoke Exposure: Yes Advance Directives: No Advance Directives Information Provided: No service: No Current occupational status: employed Current occupation: [employer] Physical Exam Vital Signs: Vital Signs: Last Vital Signs Temp 98.0 F 02/16/22 19:42 Pulse 94 02/16/22 19:42 Resp 20 02/16/22 19:42 BP 168/86 H 02/16/22 19:42 Pulse Ox 99 02/16/22 19:42 O2 Del Method 02/16/22 19:42 BMI result Body Mass Index 29.2 Const: Other: Appearance: Alert. Oriented X3. No acute distress. Well-appearing Eyes: Pupils equal, round and reactive to light. ENT: Pharynx normal. No exudates, no vesicles, no visualized abscesses Neck: Normal inspection. Neck supple. No lymph nodes noted. No crepitus CVS: Normal heart rate and rhythm. Pulses normal. Normal S1 and S2 Respiratory: No respiratory distress. Breath sounds normal. No Wheezing. No rales Abdomen: Soft and nontender. No rigidity. No distention. Skin: Skin warm and dry. Normal skin color. Normal skin turgor. Extremities: No lower extremity edema. No Lacerations. No Rash Neuro: Oriented X 3. No motor deficit. No sensory deficit. Moving all extremities. No slurred speech. CN 2 through 12 grossly intact Psych: calm, cooperative, normal affect Course Course Course Narrative: Patient's physical exam is normal. Patient tested negative for RSV/influenza/COVID. Lungs are clear, vitals stable. Oxygen saturation 99% on room air. Patient was given 1 dose of p.o. Decadron and viscous lidocaine. Patient likely has a viral infection MDM - URI/Sore Throat Lab Data Labs: Lab Results 02/16/22 Range/Units 19:46 Influenza Type A (PCR) NEGATIVE (Negative) Influenza Type B (PCR) NEGATIVE (Negative) RSV RNA Qual (PCR) NEGATIVE (Negative) SARS-CoV-2 RNA (RT-PCR) NEGATIVE (Negative) Discharge Plan Discharge Clinical Impression: Acute viral pharyngitis Patient Disposition: Home, Self-Care Instructions: Pharyngitis (ED) Additional Instructions: Please follow-up with your primary care physician tomorrow. If you have any w orsening or new symptoms, please return to the emergency room or call 911 Prescriptions: No Action levofloxacin 250 mg tablet 250 mg PO .COMPLEX MDD Prophylactic post coital 30 Days Qty: 20 0RF Rx Instructions: 250 mg PO Take as needed prophylactically post coital; acetaminophen 500 mg tablet 1,000 mg PO Q6H PRN (Reason: pain) Qty: 20 0RF ibuprofen 800 mg tablet 800 mg PO Q8H tramadol 50 mg tablet 50 mg PO BEDTIME Qty: 90 1RF amitriptyline 10 mg tablet 10 mg PO BEDTIME Qty: 90 1RF ascorbic acid (vitamin C) 1,000 mg tablet 1 g PO DAILY 90 Days Qty: 90 1RF methenamine hippurate 1 gram tablet 1 g PO BID Qty: 30 3RF
[2022-02-16 22:24] VITALS: BP 160/84; PULSE 94; RESP 18; TEMP 36.9; O2SAT 99
[2022-02-16] MEDS: dexAMETHasone 6 MG TABLET PO (22:24)
[2022-02-16] MEDS: Lidocaine HCl Viscous 2 % 15 ML SOLUTION MUCOUS MEM (22:24)
--- NOTE | 2022-02-16 22:31 | PC.NURSE ---
Pt was given meds on discharge, discharge instructions given and explained to patient, pt does not have any questions. Pt os alert and oriented, steady gait, and safely ambulates
== END 2022-02-16 22:32 | disposition home or self-care (01) ==
PROVIDERS: Emergency Provider Emergency Medicine; PCP Internal Medicine
DX: J02.8 Acute pharyngitis due to other specified organisms (principal); R05.9 Cough, unspecified; F17.210 Nicotine dependence, cigarettes, uncomplicated; Z20.822 Contact with and (suspected) exposure to COVID-19; Z71.6 Tobacco abuse counseling; Z79.899 Other long term (current) drug therapy
CPT/HCPCS: 0241U; 99283; J8540

== ENCOUNTER 2022-02-18 14:59 | Emergency (ER) | payer OTHER, SELFPAY ==
[2022-02-18 15:24] VITALS: BP 183/96; PULSE 87; RESP 18; TEMP 36.8; O2SAT 98; BMI 29.2
[2022-02-18 19:36] VITALS: BP 166/85; PULSE 80; RESP 20; TEMP 36.9; O2SAT 98
--- NOTE | 2022-02-18 19:46 | ED_ITS ---
HPI - Ear Problem General Chief complaint: Ear Problems Stated complaint: when moving neck ear hurts Time Seen by Provider: 02/18/22 19:46 Source: patient Mode of arrival: ambulatory Limitations: no limitations History of Present Illness HPI Narrative: 46 yo female here with 3 days of ear pain muffled sound with recent cough/congestion. no ear drainage or itching or tinnitus Related Data Home Medications Medication Instructions Recorded Confirmed ibuprofen 800 mg tablet 800 mg PO Q8H 12/15/21 12/15/21 Previous Rx's Medication Instructions Recorded ascorbic acid (vitamin C) 1,000 mg 1 g PO DAILY 90 days #90 tabs 04/06/21 tablet methenamine hippurate 1 gram tablet 1 g PO BID #30 tabs 04/06/21 acetaminophen 500 mg tablet 1,000 mg PO Q6H PRN pain #20 tabs 06/06/21 levofloxacin 250 mg tablet 250 mg PO .COMPLEX 1 month #20 tabs 08/15/21 amitriptyline 10 mg tablet 10 mg PO BEDTIME #90 tabs 12/15/21 tramadol 50 mg tablet 50 mg PO BEDTIME pain #90 tabs 12/15/21 amoxicillin 875 mg-potassium 1 tab PO BID #14 tabs 02/18/22 clavulanate 125 mg tablet ciprofloxacin 0.3 %-dexamethasone 4 drp otic (ears) BID 7 days #7.5 02/18/22 0.1 % ear drops,suspension mL (Ciprodex) Allergies Allergy/AdvReac Type Severity Reaction Status Date / Time sulfamethoxazole Allergy Severe throat Verified 02/14/22 09:24 [From Bactrim] closing trimethoprim [From Bactrim] Allergy Severe throat Verified 02/14/22 09:24 closing hydrocodone [From Vicodin] Allergy Mild RASH Verified 02/14/22 09:24 Vicodin Allergy Unknown rash Verified 02/14/22 09:24 Review of Systems Review of Systems: Yes all other systems are reviewed and are negative Constitutional: Constitutional: Reports no additional constitutional complaints, Denies body ache(s), Denies chills, Denies fever(s), Denies headache(s) and Denies weakness Eyes: Eyes: Reports no additional eye complaints and Denies change in vision ENT: Reports system reviewed and no additional complaints, except as documented, Denies dizziness, Denies ear discharge, Reports otalgia, Denies headache(s), Denies nasal congestion, Denies nasal discharge and Denies neck pain Cardiovascular: Cardiovascular: Reports no additional cardiovascular compl aints, Denies chest pain, Denies leg edema and Denies dyspnea Respiratory: Respiratory: Reports no additional respiratory complaints, Denies cough and Denies dyspnea Gastrointestinal: Gastrointestinal: Reports no additional gastrointestinal complaints, Denies abdominal pain, Denies diarrhea, Denies nausea and Denies vomiting Genitourinary: Genitourinary: Reports no additional female genitourinary complaints and Denies urinary incontinence Musculoskeletal: Musculoskeletal: Reports no additional musculoskeletal complaints, Denies back pain, Denies arthralgias, Denies joint swelling, Denies neck pain, Denies numbness and Denies tingling Integumentary/Breasts: Skin/Breast: Reports system reviewed and no additional complaints, except as docu and Denies rash Neurologic: Reports system reviewed and no additional complaints, except as documented, Denies Abnormal speech present, Denies dizziness, Denies headache(s), Denies numbness, Denies tingling and Denies weakness PMFSH Past Medical History Attestation statement: The following information was validated with the patient. Source: old records reviewed and nursing notes reviewed Medical History ASHIA positive Constipation Deep vein thrombosis (DVT) of calf muscle vein of left lower extremity Environmental allergies Fibromyalgia Frequent UTI Genital herpes IBS (irritable bowel syndrome) Migraine headache Prolapsed hemorrhoids Proteinuria Pulmonary emboli Surgical History History of hemorrhoidectomy History of tubal ligation Status post reimplantation of ureter Family History Family History Mother DVT (deep venous thrombosis) Colonic mass Mental health disorder Brother Autism Sister Arthritis Social History Social History Housing: House Alcohol intake: current Alcohol intake frequency: a few times a week Patient Tobacco Use Status: Current everyday Tobacco user Tobacco use type: Cigarette Cigarettes Per Day: 10 Second Hand Smoke Exposure: Yes Advance Directives: No Advance Directives Information Provided: No service: No Current occupational status: employed Current occupation: [employer] Physical Exam Vital Signs: Vital Signs: Last Vital Signs Temp 98.4 F 02/18/22 19:36 Pulse 80 02/18/22 19:36 Resp 20 02/18/22 19:36 BP 166/85 H 02/18/22 19:36 Pulse Ox 98 02/18/22 19:36 O2 Del Method 02/18/22 19:36 BMI result Body Mass Index 29.2 Const: General: cooperative, healthy appearing, comfortable and no acute distress Orientation/consciousness: patient oriented x3 Limitations: no limitations HEENT: Head: Yes normal to inspection Ears: hearing grossly normal bilaterally, mastoids normal, no periauricular adenopathy, Abnormal EAC present erythema, edema and EAC tenderness and TM abnormal erythematous bilateral General nose exam: Normal external nose present Face and sinus: Yes normal facial exam Mouth: Normal oral and palatal mucosa present Throat: Yes posterior oropharynx normal Eyes: General: appearance normal, both eyes and all related structures Pupils: Equal, round and reactive pupils present Neck: Neck: Yes normal visual inspection, Yes full ROM, Yes no lymphadenopathy and Yes no meningeal signs Chest: Chest palpation & inspection: normal inspection of the chest Resp: Effort & Inspection: normal respiratory effort Auscultation: clear to auscultation bilaterally Cardio: Rate: regular rate Rhythm: regular rhythm Peripheral pulses: Peripheral pulses 2+ throughout GI: Inspection: Yes normal to inspection Palpation (GI): Soft to palpation and nontender Auscultation: normal bowel sounds Back/Spine/Pelvis: Thoracic/Lumbar Spine: thoracic and lumbar spine normal to inspection Skin: General skin exam: no rashes or lesions noted Neuro: General: patient oriented x3, no meningeal signs, no focal motor deficits and normal sensation to monofilament Cranial nerves: Yes Equal, round and reactive pupils present Cognition (Neuro): normal cognition Speech: No Abnormal speech present Gait exam (Neuro): Normal gait present Motor exam (neuro): 5/5 motor strength present throughout Extrem: General: Yes normal to inspection MDM - Ear MDM Narrative Medical decision making narrative: 46-year-old female here with bilateral ear pain, popping sensation, muffled sound with a recent URI. Exam is consistent with bilateral otitis media and otitis externa. No evidence of mastoiditis. Patient will be treated with Augmentin, Ciprodex. Reviewed worrisome signs and symptoms when to return to the emergency room. Comfortable discharge home. Differential Diagnosis Differential diagnosis: Likely otitis externa and otitis media Medical Records Attestation: I reviewed the patient's medical records. Lab Data Attestation: I reviewed the patient's lab results. Discharge Plan Discharge Clinical Impression: Otitis externa, Otitis media Patient Disposition: Home, Self-Care Instructions: Otitis Externa (ED), How to Use Ear Drops (ED), Ear Infection (ED) Prescriptions: New amoxicillin-pot clavulanate 875-125 mg tablet 1 tab PO BID Qty: 14 0RF ciprofloxacin-dexamethasone [Ciprodex] 0.3-0.1 % drops,suspension 4 drp otic (ears) BID 7 Days Qty: 7.5 0RF No Action levofloxacin 250 mg tablet 250 mg PO .COMPLEX MDD Prophylactic post coital 30 Days Qty: 20 0RF Rx Instructions: 250 mg PO Take as needed prophylactically post coital; acetaminophen 500 mg tablet 1,000 mg PO Q6H PRN (Reason: pain) Qty: 20 0RF ibuprofen 800 mg tablet 800 mg PO Q8H tramadol 50 mg tablet 50 mg PO BEDTIME Qty: 90 1RF amitriptyline 10 mg tablet 10 mg PO BEDTIME Qty: 90 1RF ascorbic acid (vitamin C) 1,000 mg tablet 1 g PO DAILY 90 Days Qty: 90 1RF methenamine hippurate 1 gram tablet 1 g PO BID Qty: 30 3RF Referrals: Ashia eVntura MD [Primary Care Provider] - Stand Alone Forms: Work/School Release Interventions: ED Discharge Assessment Last Done: 02/18/22 19:57 Discharge Date/Time: 02/18/22 20:03
== END 2022-02-18 20:03 | disposition home or self-care (01) ==
PROVIDERS: Emergency Provider Emergency Medicine; PCP Internal Medicine
DX: H60.93 Unspecified otitis externa, bilateral (principal); H66.93 Otitis media, unspecified, bilateral; M54.2 Cervicalgia; R05.9 Cough, unspecified; Z79.899 Other long term (current) drug therapy; F17.210 Nicotine dependence, cigarettes, uncomplicated; Z71.6 Tobacco abuse counseling
CPT/HCPCS: 99282

== ENCOUNTER → 2022-06-15 14:01 | Outpatient (BNVA) | payer OTHER, SELFPAY | PROVIDERS: PCP Internal Medicine; Visit Provider Student in an Organized Health Care Education/Training Program | DX: Z13.89 Encounter for screening for other disorder (principal) ==

== ENCOUNTER 2022-09-15 09:59 | Outpatient (REF) | payer OTHER, SELFPAY ==
--- NOTE | ~2022-09-15 | MM_ITS ---
EXAMINATION: MM SCREENING DIGITAL BREAST TOMOSYNTHESIS, BILATERAL CLINICAL INFORMATION: Screening. Asymptomatic. The lifetime risk of breast cancer based on the Tyrer-Cuzick Model is 8%. COMPARISON: Mammography: 08/28/2021, 08/25/2020, 04/06/2017; outside mammography 04/21/2012 ([facility]). TECHNIQUE: Digital breast tomosynthesis is performed in both the craniocaudal and mediolateral oblique views along with computer-aided detection (CAD). Synthesized 2D images are generated from the tomosynthesis. FINDINGS: The breasts are heterogeneously dense, which may obscure small masses (ACR BI-RADS breast composition Category c). Fine fibronodular parenchymal pattern is similar to prior exam. No developing density or architectural abnormality. There are no significant masses, abnormal calcifications, or other abnormalities. The axilla and skin contours are unremarkable. MM/MM tomosynthesis screening BI IMPRESSION: No mammographic evidence of malignancy. ASSESSMENT: BI-RADS 2: Benign RECOMMENDATION: Routine annual mammography screening. This patient's information was entered into a reminder system with a target due date for their next mammogram.
== END 2022-09-15 10:00 | disposition home or self-care (01) ==
LOC: HO.MAMMO 09:59
PROVIDERS: PCP Internal Medicine; Visit Provider Internal Medicine
DX: Z12.31 Encounter for screening mammogram for malignant neoplasm of breast (principal)
CPT/HCPCS: 77063; 77067

== ENCOUNTER 2022-10-01 10:23 | Outpatient (REF) | payer OTHER, SELFPAY ==
--- NOTE | ~2022-10-01 | XR_ITS ---
EXAMINATION: XR CHEST CLINICAL INFORMATION: Cough, unspecified COMPARISON: September 2020. TECHNIQUE: 2 views of the chest were obtained. FINDINGS: No significant abnormality is noted involving the heart, lungs, mediastinum, bony thorax or soft tissues. XR/XR chest 2V IMPRESSION: Unremarkable examination.
[2022-10-01 12:56] LABS: Alanine Aminotransferase 15 U/L (0-31); Albumin Level 3.9 g/dL (3.5-5.0); Alkaline Phosphatase 68 U/L (39-117); Anion Gap 11 (12-20); Aspartate Amino Transferase 14 U/L (5-31); Bilirubin Total 0.5 mg/dL (0.0-1.0); Blood Urea Nitrogen 16 mg/dL (9-16); Calcium 8.8 mg/dL (8.4-10.2); Carbon Dioxide 25 mmol/L (22-29); Chloride 106 mmol/L (96-108); Cholesterol 238 mg/dL; Estimated Glomerular Filt Rate > 60; Glucose Fasting 101 mg/dL (60-99); HDL Cholesterol 47 mg/dL; LDL Cholesterol Calculated 161 mg/dl; Potassium 3.9 mmol/L (3.3-5.1); Sodium 138 mmol/L (135-145); Total Protein 7.1 g/dL (6.5-8.0); Triglycerides 151 mg/dL
[2022-10-01 13:00] LABS: Thyroid Stimulating Hormone 1.17 uIU/mL (0.32-4.0); Vitamin D 25-OH Total 21.5 ng/mL (>30)
== END 2022-10-01 10:24 | disposition home or self-care (01) ==
LOC: HO.HMGCLDS 10:23
PROVIDERS: PCP Internal Medicine; Visit Provider Internal Medicine
DX: R05.9 Cough, unspecified (principal); E66.9 Obesity, unspecified; Z68.31 Body mass index [BMI] 31.0-31.9, adult; E55.9 Vitamin D deficiency, unspecified; Z00.00 Encounter for general adult medical examination without abnormal findings
CPT/HCPCS: 36415; 71046; 80053; 80061; 82306; 84443

== ENCOUNTER 2022-12-17 14:36 | Outpatient (AMB) | payer OTHER, SELFPAY ==
[2022-12-17 14:42] VITALS: BP 140/82; PULSE 76; TEMP 36.3; BMI 30.2
--- NOTE | 2022-12-17 14:42 | MHC.OFFVIS ---
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 Accompanied by: Self / Same As Patient Allergies sulfamethoxazole [From Bactrim] Allergy (Severe, Verified 12/17/22 14:43) throat closing trimethoprim [From Bactrim] Allergy (Severe, Verified 12/17/22 14:43) throat closing hydrocodone [From Vicodin] Allergy (Mild, Verified 12/17/22 14:43) RASH acetaminophen [From Vicodin] Allergy (Unknown, Verified 12/17/22 14:43) Rash Medication List - Last Reconciled 12/17/22 by Sulma Kaba MD amitriptyline 10 mg PO BEDTIME ibuprofen 800 mg PO Q8H tramadol 50 mg PO BEDTIME HPI HPI Comments History of Present Illness Details 47-year-old female with fibromyalgia presents for follow-up. On tramadol 50 mg and amitriptyline 10 mg nightly. States that 3 days ago she woke up with acute onset of left upper back and neck pain. The pain radiates to her chest, left ear and shoulder all the way to her elbow. She does not recall any trauma to the area. Denies any heavy lifting. Initial history: 46-year-old female with history of positive SAMIA, history of DVT PE in 2008 and fibromyalgia is here for follow-up. Patient mentioned that in 2008 she had DVT and PE and it was attributed to oral contraceptive pills. She saw a supervisor roving department and she was on Coumadin for about 9 months. Since then she has not had any issues with blood clots. There is also history of proteinuria. She was seen by Nephrology and she was told that it was likely due to urinary tract infections. She does not have frequent UTIs right now. She uses Levaquin as needed. Overall she feels the same. She mentions having some swelling pain and numbness of the tips of her fingers especially in the morning. But this does not happen on the weekends. FORMERLY [facility] Medical History Proteinuria Frequent UTI Prolapsed hemorrhoids Deep vein thrombosis (DVT) of calf muscle vein of left lower extremity Environmental allergies Constipation Genital herpes Pulmonary emboli Migraine headache SAMIA positive Fibromyalgia IBS (irritable bowel syndrome) Surgical History History of hemorrhoidectomy Status post reimplantation of ureter History of tubal ligation Family History Mother DVT (deep venous thrombosis) Colonic mass, Onset Age: 66 Mental health disorder Brother Autism Sister Arthritis Father No problems noted. Social History Housing: House Alcohol intake: current Alcohol intake frequency: a few times a week Alcohol type: hard liquor Patient Tobacco Use Status: Current everyday Tobacco user Tobacco use type: Cigarette Cigarettes Per Day: 10 e-Cigarette/Vaping Use: Never Used Second Hand Smoke Exposure: Yes service: No Current occupational status: employed Current occupation: [employer] Current occupational exposures/hazards: No Cognitive needs: No Hearing needs: No Vision needs: No Female Reproductive History Menstrual Age of Menarche: 12 Review of Systems ENT Reports neck pain Musc Reports back pain, Reports arthralgias, Reports neck pain, Reports radiating pain into limb and Reports stiffness Physical Exam Vital Signs: Last Vital Signs Temp 97.4 F 12/17/22 14:42 Pulse 76 12/17/22 14:42 BP 140/82 H 12/17/22 14:42 BMI result Body Mass Index 30.2 Const General: cooperative, healthy appearing, comfortable and no acute distress Nutritional Appearance: overweight Orientation/consciousness: patient oriented x3 Limitations: no limitations HEENT Head: Yes normocephalic and Yes atraumatic Mouth: moist mucous membranes Resp Effort & Inspection: normal respiratory effort and able to speak in complete sentences Auscultation: clear to auscultation bilaterally Cardio Rate: regular rate Rhythm: regular rhythm Heart sounds: S1 normal heart sound present and S2 normal heart sound present GI Inspection: No distended Palpation (GI): Soft to palpation and nontender Neuro General: patient oriented x3 Extrem Other: Taught muscle band in the left trapezius muscle area, radiating tenderness towards the shoulder and left ear upon palpation hyperextensible PIPs, few fibromyalgia tender points, no synovitis, normal nailfold capillaroscopy General: Yes full ROM Office Procedures Joint Injection/Drain Joint Injection/Drain Details: Left trapezius muscle trigger point Procedure: The patient tolerated the procedure well Coding Details: The area over the myofascial spasm was prepped with ChloraPrep utilizing sterile technique. After isolating it between two palpating fingertips a 25-gauge needle was placed in the center of the myofascial tenderness and a negative aspiration was performed. Then 3.5 cc of 1% lidocaine was injected. The patient tolerated the procedure well without any apparent difficulties or complications. Additional procedure code (CPT) needed (Trigger point) Assessment & Plan Assessment & Plan (1) Fibromyalgia: Code(s): M79.7 - Fibromyalgia Plan: Symptoms overall well controlled. Patient can continue with tramadol 50 mg nightly and amitriptyline 10 mg nightly. (2) SAMIA positive: Code(s): R76.8 - Other specified abnormal immunological findings in serum Plan: She apparently has history of positive SAMIA when checked in the setting of DVT and PE in 2008. See no evidence of autoimmune rheumatic disease upon my evaluation today. No need to check any further serologies at this stage. Her blood clot seems to have been provoked by contraceptive pills. Can consider repeating workup for autoimmune rheumatic disease if patient develops signs and symptoms suspicious of such (3) Trigger point with back pain: Code(s): M54.9 - Dorsalgia, unspecified Plan: With patient's consent, Trigger point injected in clinic today. Will check a neck x-ray. Advised patient that if she does not have relief by tonight she can start taking Flexeril 5 mg nightly for 5 days. If no improvement she can follow up with her chiropractor Plan I spent 28 minutes reviewing patient's chart, evaluating patient, ordering diagnostic workup, counseling patient and documenting in the chart Orders: Orders XR cervical spine 4V Today M54.2 - Cervicalgia AMB Joint Injection/Aspiration Today M54.9 - Dorsalgia, unspecified Medications: New cyclobenzaprine 5 mg PO BEDTIME PRN 5 tabs 0RF muscle spasm Refilled tramadol 50 mg PO BEDTIME 90 tabs 1RF pain M47.816 - Spondylosis without myelopathy or radiculopathy, lumbar region amitriptyline 10 mg PO BEDTIME 90 tabs 1RF Coding Level of Care Code Est Pt Level 4 (01067) Diagnoses Fibromyalgia M79.7 SAMIA positive R76.8 Trigger point with back pain M54.9
== END 2022-12-17 15:30 | disposition home or self-care (01) ==
PROVIDERS: PCP Internal Medicine; Referring Provider Internal Medicine; Visit Provider Student in an Organized Health Care Education/Training Program
DX: M79.7 Fibromyalgia (principal); R76.8 Other specified abnormal immunological findings in serum; M54.9 Dorsalgia, unspecified
CPT/HCPCS: 99214

== ENCOUNTER → 2022-12-17 14:36 | Outpatient (BNVA) | payer OTHER, SELFPAY | PROVIDERS: PCP Internal Medicine; Referring Provider Internal Medicine; Visit Provider Student in an Organized Health Care Education/Training Program ==

== ENCOUNTER 2022-12-19 08:32 | Outpatient (AMB) | payer OTHER, SELFPAY ==
--- NOTE | 2022-12-19 08:33 | MHC.OFFWIV ---
Intake Vital Signs 12/19/22 08:42 Height 5 ft 2 in Weight 164 lb 4 oz BMI 30.0 BP 132/74 Blood Pressure Location Rt brachial Position Sitting Pulse 76 Pulse Source Pulse Oximeter Temp 98.0 F Temp Source Temporal Artery Scan Pulse Oximetry (%) 97 Oxygen Delivery Method Room Air Intake Visit Reasons: Ep, UTI? Intake Note: pt is here for possible uti Patient Tobacco Use Status: Current everyday Tobacco user Allergies sulfamethoxazole [From Bactrim] Allergy (Severe, Verified 12/19/22 08:43) throat closing trimethoprim [From Bactrim] Allergy (Severe, Verified 12/19/22 08:43) throat closing hydrocodone [From Vicodin] Allergy (Mild, Verified 12/19/22 08:43) RASH acetaminophen [From Vicodin] Allergy (Unknown, Verified 12/19/22 08:43) Rash Do you need a note to return to daycare/school/sports/work: Yes HPI Ep, UTI? HPI Details 47-year-old female patient presents today for possible UTI. She reports symptoms of burning, urgency, frequency see started yesterday. History of frequent UTIs. Has seen urology previously. She had been started on Levofloxacin preventatively post-coital, however she ran out of these quite sometime ago. REPLACED BY [facility] Medical History Proteinuria Frequent UTI Prolapsed hemorrhoids Deep vein thrombosis (DVT) of calf muscle vein of left lower extremity Environmental allergies Constipation Genital herpes Pulmonary emboli Migraine headache SAMIA positive Fibromyalgia IBS (irritable bowel syndrome) Surgical History History of hemorrhoidectomy Status post reimplantation of ureter History of tubal ligation Family History Mother DVT (deep venous thrombosis) Colonic mass, Onset Age: 66 Mental health disorder Brother Autism Sister Arthritis Father No problems noted. Social History Housing: House Alcohol intake: current Alcohol intake frequency: a few times a week Alcohol type: hard liquor Patient Tobacco Use Status: Current everyday Tobacco user Tobacco use type: Cigarette Cigarettes Per Day: 10 e-Cigarette/Vaping Use: Never Used Second Hand Smoke Exposure: Yes service: No Current occupational status: employed Current occupation: [employer] Current occupational exposures/hazards: No Cognitive needs: No Hearing needs: No Vision needs: No Female Reproductive History Menstrual Age of Menarche: 12 Review of Systems Const All systems reviewed & are unremarkable except as noted in HPI and below Physical Exam Vital Signs: Last Vital Signs Temp 98.0 F 12/19/22 08:42 Pulse 76 12/19/22 08:42 BP 132/74 12/19/22 08:42 Pulse Ox 97 12/19/22 08:42 Oxygen Delivery Method Room Air 12/19/22 08:42 BMI result Body Mass Index 30.0 Const General: cooperative, healthy appearing, comfortable and no acute distress Resp Effort & Inspection: normal respiratory effort and able to speak in complete sentences Auscultation: clear to auscultation bilaterally Cardio Jugular venous distension: no JVD Palpation: normal PMI Rate: regular rate Rhythm: regular rhythm General: Yes bladder normal to palpation and Yes no CVA tenderness Bimanual exam- vagina & uterus: bladder normal to palpation Back/Spine/Pelvis Back: no CVA tenderness Skin General skin exam: no rashes or lesions noted Psych Appearance: grossly normal Mental Status: mental status grossly normal Speech and movement: Normal speech and movement present Results AMB Urinalysis, Automated UA Leukoctes 15 Bev/uL Last Edit by NASIM Schumacher on 12/19/22 08:49 UA Nitrite Negative Last Edit by NASIM Schumacher on 12/19/22 08:49 UA Urobilinogen 0.2 mg/dL Last Edit by NASIM Schumacher on 12/19/22 08:49 UA Protein 300 mg/dL Last Edit by NASIM Schumacher on 12/19/22 08:49 UA pH 6.0 Last Edit by NASIM Schumacher on 12/19/22 08:49 UA Blood 200 Jeremy/uL Last Edit by NASIM Schumacher on 12/19/22 08:49 UA Specific [place] 1.030 Last Edit by NASIM Schumacher on 12/19/22 08:49 UA Ketone Negative Last Edit by NASIM Schumacher on 12/19/22 08:49 UA Bilirubin 0 mg/dL Last Edit by NASIM Schumacher on 12/19/22 08:49 UA Glucose 0 mg/dL Last Edit by NASIM Schumacher on 12/19/22 08:49 Assessment & Plan Assessment & Plan (1) Frequent UTI: Code(s): N39.0 - Urinary tract infection, site not specified (2) UTI (urinary tract infection): Code(s): N39.0 - Urinary tract infection, site not specified Qualifiers: Urinary tract infection type: acute cystitis Hematuria presence: with hematuria Qualified Code(s): N30.01 - Acute cystitis with hematuria Plan: Patient has done well on levofloxacin previously, so I have ordered this for her acute cystitis. I also refilled her dose of this medication to take post coital, prophylactically. She should return to the clinic if she does not improve with treatment. Advised increase hydration, and may take Tylenol/Motrin for any discomfort. She agrees to plan. Orders: Orders AMB Urinalysis Automated Today Z13.9 - Encounter for screening, unspecified Medications: New levofloxacin 250 mg PO DAILY PRN 20 tabs 1RF take one tab post-coital N39.0 - Urinary tract infection, site not specified levofloxacin 250 mg PO DAILY 3 days 3 tabs 0RF N39.0 - Urinary tract infection, site not specified Coding Level of Care Code Est Pt Level 3 (34597) Diagnoses Frequent UTI N39.0 Acute cystitis with hematuria N30.01 Urinary tract infection type: acute cystitis Hematuria presence: with hematuria
[2022-12-19 08:42] VITALS: BP 132/74; PULSE 76; TEMP 36.7; O2SAT 97
== END 2022-12-19 09:05 | disposition home or self-care (01) ==
PROVIDERS: PCP Internal Medicine; Visit Provider Nurse Practitioner Family
DX: N39.0 Urinary tract infection, site not specified (principal); R35.0 Frequency of micturition
CPT/HCPCS: 81003; 99213

== ENCOUNTER 2022-12-19 08:52 | Outpatient (REF) | payer OTHER, SELFPAY ==
--- NOTE | ~2022-12-19 | XR_ITS ---
EXAMINATION: XR CERVICAL SPINE CLINICAL INFORMATION: Cervicalgia. COMPARISON: Portions of the MRI cervical spine dated 08/05/2019. TECHNIQUE: 3 views of the cervical spine were obtained. FINDINGS: Vertebral body heights are normal. There is mild reversal of the normal lordotic curvature. At C5-C6, there is mild to moderate disc space narrowing. The remaining disc spaces are relatively well-maintained. No acute fracture or spondylolisthesis is seen. There is mild anterior spondylosis at C3-C4. The posterior elements are intact. There is bilateral neural foraminal narrowing at C5-C6. The dens is intact. No prevertebral soft tissue swelling is seen. XR/XR cervical spine 4V IMPRESSION: 1. At C5-C6, there is mild to moderate degenerative disc disease, and bilateral neural foraminal narrowing is seen. 2. There is mild anterior spondylosis at C3-C4. 3. There is mild reversal of the normal lordotic curvature, which can be associated with muscle spasm.
== END 2022-12-19 08:53 | disposition home or self-care (01) ==
LOC: HO.HMGCX 08:52
PROVIDERS: PCP Internal Medicine; Visit Provider Student in an Organized Health Care Education/Training Program
DX: M54.2 Cervicalgia (principal)
CPT/HCPCS: 72050

== ENCOUNTER 2022-12-21 17:59 | Emergency (ER) | payer OTHER, SELFPAY ==
--- NOTE | 2022-12-21 18:19 | ED.GENADULT ---
HPI - General Adult General Stated complaint: Cramping/?Eptopic preg Related Data Home Medications Medication Instructions Recorded Confirmed ibuprofen 800 mg tablet 800 mg PO Q8H 12/15/21 12/17/22 Previous Rx's Medication Instructions Recorded amitriptyline 10 mg tablet 10 mg PO BEDTIME #90 tabs 12/17/22 cyclobenzaprine 5 mg tablet 5 mg PO BEDTIME PRN muscle spasm 12/17/22 #5 tabs tramadol 50 mg tablet 50 mg PO BEDTIME pain #90 tabs 12/17/22 levofloxacin 250 mg tablet 250 mg PO DAILY 3 days #3 tabs 12/19/22 levofloxacin 250 mg tablet 250 mg PO DAILY PRN take one tab 12/19/22 post-coital #20 tabs Allergies Allergy/AdvReac Type Severity Reaction Status Date / Time sulfamethoxazole Allergy Severe throat Verified 12/19/22 08:43 [From Bactrim] closing trimethoprim [From Bactrim] Allergy Severe throat Verified 12/19/22 08:43 closing hydrocodone [From Vicodin] Allergy Mild RASH Verified 12/19/22 08:43 acetaminophen [From Vicodin] Allergy Unknown Rash Verified 12/19/22 08:43 PMF Past Medical History Medical History Proteinuria Frequent UTI Prolapsed hemorrhoids Deep vein thrombosis (DVT) of calf muscle vein of left lower extremity Environmental allergies Constipation Genital herpes Pulmonary emboli Migraine headache SAMIA positive Fibromyalgia IBS (irritable bowel syndrome) Surgical History History of hemorrhoidectomy Status post reimplantation of ureter History of tubal ligation Family History Family History Mother DVT (deep venous thrombosis) Colonic mass, Onset Age: 66 Mental health disorder Brother Autism Sister Arthritis Father No problems noted. Social History Social History Housing: House Alcohol intake: current Alcohol intake frequency: a few times a week Alcohol type: hard liquor Patient Tobacco Use Status: Current everyday Tobacco user Tobacco use type: Cigarette Cigarettes Per Day: 10 e-Cigarette/Vaping Use: Never Used Second Hand Smoke Exposure: Yes service: No Current occupational status: employed Current occupation: [employer] Current occupational exposures/hazards: No Cognitive needs: No Hearing needs: No Vision needs: No Course Course Course Narrative: Patient called multiple times in waiting room without response. Discharge Plan Discharge Clinical Impression: Abdominal cramping Patient Disposition: Left Without Being Seen Prescriptions: No Action levofloxacin 250 mg tablet 250 mg PO DAILY PRN (Reason: take one tab post-coital) Qty: 20 1RF levofloxacin 250 mg tablet 250 mg PO DAILY 3 Days Qty: 3 0RF ibuprofen 800 mg tablet 800 mg PO Q8H tramadol 50 mg tablet 50 mg PO BEDTIME Qty: 90 1RF amitriptyline 10 mg tablet 10 mg PO BEDTIME Qty: 90 1RF cyclobenzaprine 5 mg tablet 5 mg PO BEDTIME PRN (Reason: muscle spasm) Qty: 5 0RF Interventions: LWBS Worksheet Last Done: 12/21/22 19:13 Discharge Date/Time: 12/21/22 19:13
== END 2022-12-21 19:13 | disposition left against medical advice (07) ==
PROVIDERS: Emergency Provider Emergency Medicine; PCP Internal Medicine
DX: R10.9 Unspecified abdominal pain (principal); F17.210 Nicotine dependence, cigarettes, uncomplicated; Z79.899 Other long term (current) drug therapy

== ENCOUNTER 2022-12-27 09:54 | Outpatient (REF) | payer OTHER, SELFPAY ==
[2022-12-27 10:58] LABS: Hematocrit 39.7 % (37.0-47.0); Hemoglobin 13.8 g/dl (12.0-16.0); Mean Corpuscular HGB Conc 34.8 g/dl (31.0-35.0); Mean Platelet Volume 9.4 fL (9.4-12.3); Platelet Count 311 X10*3/uL (160-400); Red Blood Count 4.18 X10*6/uL (4.20-5.50); Red Cell Distribution Width 12.2 % (11.0-16.0); White Blood Count 5.8 X10*3/uL (4.8-10.8)
[2022-12-27 11:54] LABS: HCG Quantitative < 2 mIU/mL; TSH reflex Free T4 0.84 uIU/mL (0.32-4.0)
[2022-12-27 17:35] LABS: CT PCR NOT DETECTED (Not Detect.); NG PCR NOT DETECTED (Not Detect.)
[2022-12-29 02:22] LABS: Prolactin 3.7 ng/mL
== END 2022-12-27 09:55 | disposition home or self-care (01) ==
LOC: HO.LAB 09:54
PROVIDERS: PCP Internal Medicine; Visit Provider Obstetrics & Gynecology
DX: Z00.00 Encounter for general adult medical examination without abnormal findings (principal); N93.9 Abnormal uterine and vaginal bleeding, unspecified; N92.0 Excessive and frequent menstruation with regular cycle; Z20.2 Contact with and (suspected) exposure to infections with a predominantly sexual mode of transmission
CPT/HCPCS: 0353U; 84146; 84443; 84702; 85027

== ENCOUNTER 2022-12-27 09:54 | Outpatient (AMB) | payer OTHER, SELFPAY ==
--- NOTE | 2022-12-27 09:55 | MHC.OFFVIS ---
Intake Vital Signs 12/27/22 09:58 Height 5 ft 2 in Weight 162 lb BMI 29.6 BP 114/78 Intake Visit Reasons: ER follow up Intake Note: went ER 12/22/22 for extreme pain with period Allergies sulfamethoxazole [From Bactrim] Allergy (Severe, Verified 12/27/22 09:58) throat closing trimethoprim [From Bactrim] Allergy (Severe, Verified 12/27/22 09:58) throat closing hydrocodone [From Vicodin] Allergy (Mild, Verified 12/27/22 09:58) RASH acetaminophen [From Vicodin] Allergy (Unknown, Verified 12/27/22 09:58) Rash Is last menstrual period known: Yes Last menstrual period: 12/21/22 HPI HPI Comments History of Present Illness Details Presenting complaining of heavy menstrual cycle associated with passage of blood clots. Last co testing was negative in 09/26 Last mammogram was BI-RADS 2 in 09/28 Screening colonoscopy scheduled in February of 2023 [facility] Medical History Proteinuria Frequent UTI Prolapsed hemorrhoids Deep vein thrombosis (DVT) of calf muscle vein of left lower extremity Environmental allergies Constipation Genital herpes Pulmonary emboli Migraine headache SAMIA positive Fibromyalgia IBS (irritable bowel syndrome) Surgical History History of hemorrhoidectomy Status post reimplantation of ureter History of tubal ligation Family History Mother DVT (deep venous thrombosis) Colonic mass, Onset Age: 66 Mental health disorder Brother Autism Sister Arthritis Father No problems noted. Social History Housing: House Alcohol intake: current Alcohol intake frequency: a few times a week Alcohol type: hard liquor Patient Tobacco Use Status: Current everyday Tobacco user Tobacco use type: Cigarette Cigarettes Per Day: 10 e-Cigarette/Vaping Use: Never Used Second Hand Smoke Exposure: Yes service: No Current occupational status: employed Current occupation: [employer] Current occupational exposures/hazards: No Cognitive needs: No Hearing needs: No Vision needs: No Female Reproductive History Menstrual Age of Menarche: 12 Date of last menstrual period: 12/21/22 Review of Systems Const All systems reviewed & are unremarkable except as noted in HPI and below Card Reports as per HPI Resp Reports as per HPI GI Reports as per HPI and Reports no additional complaints Reports as per HPI Physical Exam Vital Signs: Last Vital Signs BP 114/78 12/27/22 09:58 BMI result Body Mass Index 29.6 Const General: cooperative, healthy appearing and comfortable Chest Chest palpation & inspection: normal inspection of the chest and normal palpation of entire chest wall Breast/axilla inspection: normal inspection of the breasts and normal inspection of the axillae Breast/axilla palpation: normal palpation of the breasts, normal palpation of the axillae and no axillary lymphadenopathy Resp Effort & Inspection: normal respiratory effort Auscultation: clear to auscultation bilaterally Percussion: percussion normal Cardio Palpation: normal PMI Rate: regular rate Rhythm: regular rhythm Heart sounds: no murmurs and no rubs Peripheral pulses: Peripheral pulses 2+ throughout GI Inspection: Yes normal to inspection Palpation (GI): Soft to palpation, nontender, no guarding, not rigid and No hepatosplenomegaly present Percussion: Yes normal to percussion Auscultation: normal bowel sounds Rectal Exam - Female: deferred General: Yes bladder normal to palpation External Female Exam: No lesion Speculum Exam - Vagina: normal appearance of the vagina, normal palpation, normal vaginal discharge and not erythematous Speculum Exam - Cervix: normal appearance of the cervix and normal palpation Bimanual exam- vagina & uterus: normal bimanual exam, normal palpation, uterine size normal, bladder normal to palpation, consistency normal and normal palpation Bimanual Exam- Adnexa, other: normal adnexae, no masses and no tenderness Assessment & Plan Assessment & Plan (1) Heavy menstrual bleeding: Comment: With history of DVT and PE Code(s): N92.0 - Excessive and frequent menstruation with regular cycle Plan: Co testing not indicated this, GC and chlamydia taken CBC, TSH, HCG, and pelvic ultrasound ordered. Discussed with the patient the different causes of abnormal bleeding including thyroid disorders, uterine and ovarian pathology, endometrial hyperplasia, carcinoma and other potential causes. Discussed with the patient the work up including CBC (to r/o anemia), TSH, pelvic Ultrasound, endometrial biopsy to r/o endometrial pathology. All questions answered and the patient verbalized understanding. Instructed the patient to schedule an appointment for an endometrial biopsy in 2 weeks. Orders: Orders TSH reflex Free T4 Today N93.9 - Abnormal uterine and vaginal bleeding, unspecified Prolactin Today N93.9 - Abnormal uterine and vaginal bleeding, unspecified CT NG by PCR Today Z00.00 - Encounter for general adult medical examination without abnormal findings HCG Quantitative Today N93.9 - Abnormal uterine and vaginal bleeding, unspecified Complete Blood Count no Diff Today N93.9 - Abnormal uterine and vaginal bleeding, unspecified US pelvic and transvaginal Today N93.9 - Abnormal uterine and vaginal bleeding, unspecified Coding Level of Care Code Est Pt Level 3 (91399) Diagnoses Heavy menstrual bleeding N92.0
[2022-12-27 09:58] VITALS: BP 114/78; BMI 29.6
== END 2022-12-27 10:19 | disposition home or self-care (01) ==
PROVIDERS: PCP Internal Medicine; Visit Provider Obstetrics & Gynecology
DX: N92.0 Excessive and frequent menstruation with regular cycle (principal)
CPT/HCPCS: 99213

== ENCOUNTER 2022-12-31 14:27 | Outpatient (AMB) | payer OTHER, SELFPAY ==
[2022-12-31 14:32] VITALS: BP 122/78; PULSE 76; TEMP 36.6; O2SAT 97; BMI 29.4
--- NOTE | 2022-12-31 14:32 | AM.OFFWIN_ITS ---
Intake Vital Signs 12/31/22 14:32 Height 5 ft 2 in Weight 161 lb BMI 29.4 BP 122/78 Blood Pressure Location Rt brachial Position Sitting Pulse 76 Pulse Source Pulse Oximeter Temp 97.8 F Temp Source Temporal Artery Scan Pulse Oximetry (%) 97 Oxygen Delivery Method Room Air Intake Visit Reasons: EP ?UTI Intake Note: pt is here for c/o uti Patient Tobacco Use Status: Current everyday Tobacco user Allergies sulfamethoxazole [From Bactrim] Allergy (Severe, Verified 12/31/22 15:22) throat closing trimethoprim [From Bactrim] Allergy (Severe, Verified 12/31/22 15:22) throat closing hydrocodone [From Vicodin] Allergy (Mild, Verified 12/31/22 15:22) RASH acetaminophen [From Vicodin] Allergy (Unknown, Verified 12/31/22 15:22) Rash Medication List - Last Reconciled 12/31/22 by Britton Sanchez MD amitriptyline 10 mg PO BEDTIME cyclobenzaprine 5 mg PO BEDTIME PRN ibuprofen 800 mg PO Q8H tramadol 50 mg PO BEDTIME Do you need a note to return to daycare/school/sports/work: Yes HPI EP ?UTI 2 HPI Details Patient presents for a sick visit. Reports symptoms of increased frequency of urination, burning on urination and discomfort in the suprapubic area. Symptoms started in the past few days. No fevers or chills. No nausea or vomiting. [facility] Medical History Proteinuria Frequent UTI Prolapsed hemorrhoids Deep vein thrombosis (DVT) of calf muscle vein of left lower extremity Environmental allergies Constipation Genital herpes Pulmonary emboli Migraine headache SAMIA positive Fibromyalgia IBS (irritable bowel syndrome) Surgical History History of hemorrhoidectomy Status post reimplantation of ureter History of tubal ligation Family History Mother DVT (deep venous thrombosis) Colonic mass, Onset Age: 66 Mental health disorder Brother Autism Sister Arthritis Father No problems noted. Social History Housing: House Alcohol intake: current Alcohol intake frequency: a few times a week Alcohol type: hard liquor Patient Tobacco Use Status: Current everyday Tobacco user Tobacco use type: Cigarette Cigarettes Per Day: 10 e-Cigarette/Vaping Use: Never Used Second Hand Smoke Exposure: Yes service: No Current occupational status: employed Current occupation: [employer] Current occupational exposures/hazards: No Cognitive needs: No Hearing needs: No Vision needs: No Female Reproductive History Menstrual Age of Menarche: 12 Physical Exam Vital Signs: Last Vital Signs Temp 97.8 F 12/31/22 14:32 Pulse 76 12/31/22 14:32 BP 122/78 12/31/22 14:32 Pulse Ox 97 12/31/22 14:32 Oxygen Delivery Method Room Air 12/31/22 14:32 BMI result Body Mass Index 29.4 General: Yes bladder normal to palpation and Yes no CVA tenderness Bimanual exam- vagina & uterus: bladder normal to palpation Back/Spine/Pelvis Back: no CVA tenderness Results AMB Urinalysis, Automated UA Leukoctes 70 Bev/uL Last Edit by Mark Pride CMA on 12/31/22 14:39 UA Nitrite Negative Last Edit by Mark Pride CMA on 12/31/22 14:39 UA Urobilinogen 0.2 mg/dL Last Edit by Mark Pride CMA on 12/31/22 14 :39 UA Protein 300 mg/dL Last Edit by Mark Pride CMA on 12/31/22 14:39 UA pH 6.0 Last Edit by Mark Pride CMA on 12/31/22 14:39 UA Blood 200 Jeremy/uL Last Edit by Mark Pride CMA on 12/31/22 14:39 UA Specific [place] 1.030 Last Edit by Mark Pride CMA on 12/31/22 14:39 UA Ketone Negative Last Edit by Mark Pride CMA on 12/31/22 14:39 UA Bilirubin 0 mg/dL Last Edit by Mark Pride CMA on 12/31/22 14:39 UA Glucose 0 mg/dL Last Edit by Mark Pride CMA on 12/31/22 14:39 Results Reviewed Results Reviewed: Laboratory Last Values Urine pH (Auto) 6.0 12/31/22 14:38 Specific [place] (Auto) 1.030 12/31/22 14:38 Urine Protein (Auto) 300 mg/dL 12/31/22 14:38 Glucose (UA)(Auto) 0 mg/dL 12/31/22 14:38 Urine Ketones (Auto) Negative 12/31/22 14:38 Urine Blood (Auto) 200 Jeremy/uL 12/31/22 14:38 Urine Nitrite (Auto) Negative 12/31/22 14:38 Urine Bilirubin (Auto) 0 mg/dL 12/31/22 14:38 Urine Urobilinogen (Auto) 0.2 mg/dL 12/31/22 14:38 Leukocyte Esterase (Auto) 70 Ebv/uL 12/31/22 14:38 Assessment & Plan Assessment & Plan (1) UTI (urinary tract infection): Code(s): N39.0 - Urinary tract infection, site not specified Qualifiers: Urinary tract infection type: acute cystitis Hematuria presence: with hematuria Qualified Code(s): N30.01 - Acute cystitis with hematuria Plan: Take antibiotics and Pyridium as directed. Increase fluid intake. If symptoms of burning persist, new onset of fever or lower back pain, to follow-up at the clinic. Orders: Orders AMB Urinalysis Automated Today Z13.9 - Encounter for screening, unspecified Coding Level of Care Code Est Pt Level 3 (46833) Diagnoses Acute cystitis with hematuria N30.01 Urinary tract infection type: acute cystitis Hematuria presence: with hematuria
== END 2022-12-31 15:34 | disposition home or self-care (01) ==
PROVIDERS: PCP Internal Medicine; Visit Provider Internal Medicine
DX: N30.01 Acute cystitis with hematuria (principal); R35.0 Frequency of micturition
CPT/HCPCS: 81003; 99213

== ENCOUNTER 2023-01-11 16:16 | Outpatient (REF) | payer OTHER, SELFPAY ==
--- NOTE | ~2023-01-11 | US_ITS ---
EXAMINATION: US PELVIS CLINICAL INFORMATION: Abnormal uterine bleeding; the last menstrual period was 3 weeks prior. COMPARISON: Pelvic ultrasound dated 12/06/2020. TECHNIQUE: Ultrasound of the pelvis is performed using both transabdominal and transvaginal transducers along with Doppler. Transvaginal imaging is performed due to inadequate visualization transabdominally. FINDINGS: Uterus: The uterus is anteverted and anteflexed. The uterus measures 11.1 x 4.7 x 6.2 cm. The double wall endometrial thickness is 0.6 mm. The uterus is smooth in contour and has normal myometrial echogenicity. No visible fibroid. Adnexa: Both ovaries are visualized. There is normal color flow to the adnexa. There is no ovarian torsion. There is no pelvic ascites or fluid collection. Right ovary measures 3.3 x 1.5 x 1.8 cm, volume 4.7 mL. Left ovary measures 3.0 x 2.1 x 2.5 cm, volume 8.2 mL. A 2.2 x 1.7 x 2.3 cm left ovarian resorbing corpus luteum cyst is seen. This requires no imaging follow-up. US/US pelvic and transvaginal IMPRESSION: Unremarkable examination.
== END 2023-01-11 16:17 | disposition home or self-care (01) ==
LOC: HO.US 16:16
PROVIDERS: PCP Internal Medicine; Visit Provider Obstetrics & Gynecology
DX: N93.9 Abnormal uterine and vaginal bleeding, unspecified (principal)
CPT/HCPCS: 76830; 76856

== ENCOUNTER 2023-02-25 15:23 | Outpatient (REF) | payer OTHER, SELFPAY | END 2023-02-25 15:24 | disposition home or self-care (01) | LOC: HO.LNP 15:23 | PROVIDERS: PCP Internal Medicine; Visit Provider Obstetrics & Gynecology | DX: N93.9 Abnormal uterine and vaginal bleeding, unspecified (principal); N92.0 Excessive and frequent menstruation with regular cycle; Z86.711 Personal history of pulmonary embolism; Z86.718 Personal history of other venous thrombosis and embolism | CPT/HCPCS: 58100; 81025; 88305 ==

== ENCOUNTER 2023-02-25 15:23 | Outpatient (AMB) | payer OTHER, SELFPAY ==
--- NOTE | 2023-02-25 15:27 | MHC.OFFVIS ---
Intake Vital Signs 02/25/23 15:28 Height 5 ft 2 in Weight 163 lb BMI 29.8 BP 132/86 Intake Visit Reasons: US FOLLOW UP/EMB Prior Authorization Technician: Prior Authorization Technician Present Allergies sulfamethoxazole [From Bactrim] Allergy (Severe, Verified 02/25/23 15:27) throat closing trimethoprim [From Bactrim] Allergy (Severe, Verified 02/25/23 15:27) throat closing hydrocodone [From Vicodin] Allergy (Mild, Verified 02/25/23 15:27) RASH Is last menstrual period known: Yes Last menstrual period: 02/09/23 HPI HPI Comments History of Present Illness Details Here for EMB [facility] Medical History (Updated 02/06/23 @ 19:33 by Denia Mejía RN) Smoker GERD (gastroesophageal reflux disease) History of migraine Proteinuria Frequent UTI Prolapsed hemorrhoids Deep vein thrombosis (DVT) of calf muscle vein of left lower extremity Environmental allergies Constipation Genital herpes Pulmonary emboli Migraine headache SAMIA positive Fibromyalgia IBS (irritable bowel syndrome) Surgical History (Updated 02/06/23 @ 19:34 by Denia Mejía RN) History of colonoscopy History of hemorrhoidectomy Status post reimplantation of ureter History of tubal ligation Family History Mother DVT (deep venous thrombosis) Colonic mass, Onset Age: 66 Mental health disorder Brother Autism Sister Arthritis Father No problems noted. Social History Housing: House Alcohol intake: current Alcohol intake frequency: a few times a month Alcohol type: hard liquor Patient Tobacco Use Status: Current everyday Tobacco user Tobacco use type: Cigarette Cigarette Packs Per Day: 0.5 Cigarettes Per Day: 10.0 Years Smoked: 30 e-Cigarette/Vaping Use: Never Used Second Hand Smoke Exposure: Yes service: No Current occupational status: employed Current occupation: [email or web address] Current occupational exposures/hazards: No Cognitive needs: No Hearing needs: No Vision needs: No Female Reproductive History Menstrual Age of Menarche: 12 Date of last menstrual period: 02/09/23 Physical Exam Vital Signs: Last Vital Signs BP 132/86 02/25/23 15:28 BMI result Body Mass Index 29.8 Office Procedures Endometrial Biopsy Details: The patient was counseled regarding the indication and benefits of endometrial sampling to rule out endometrial pathology including not limited to endometrial hyperplasia or endometrial cancer and others; The alternatives (Either do nothing vs. hysteroscopy D&C) & the risks were discussed with the patient including but not limited: pain, uterine perforation, bleeding, infection, possible injury to bladder, bowel, ureter, possible need for blood transfusion with all its possible risks. The patient verbalized understanding all questions answered and signed consent. Urine test done in the office was negative The patient was placed into the dorsal lithotomy position; a speculum was inserted in the vagina. Using aseptic technique for the procedure, the cervix was cleansed with Betadine. The anterior lip of the cervix was grasped with a single tooth tenaculum. The uterus was sounded to 7 cm with a 4 mm Pipelle was used. Tissues samples were obtained and placed in formalin, in a patient labeled container and sent to the pathology department. At the end of the procedure, there was minimal bleeding noted The patient tolerated the procedure well and was discharged in good condition with the following instructions: Nothing in the vagina until the bleeding stops. No sex until the bleeding stops, to call if any of the following occurs: fever (>100.4), flu-like symptoms, abdominal pain, heavy bleeding, four smelling vaginal discharge. The patient was instructed to schedule a Follow up appointment in 2 weeks to discuss pathology results of the biopsy and treatment options. This note was generated with a voice recognition program. Some errors may have been overlooked during the review of this note. Sometimes these errors may affect the content or meaning of a given sentence. [id number] Biopsy Results AMB Test Urine AMB Test Urine Negative Last Edit by ALEXANDER Armenta on 02/25/23 15:37 Results Reviewed Results Reviewed: Laboratory Last Values Tst Clinic Negative 02/25/23 15:36 Assessment & Plan Assessment & Plan (1) Heavy menstrual bleeding: Comment: With history of DVT and PE Code(s): N92.0 - Excessive and frequent menstruation with regular cycle Plan: EMB done, see procedure note Orders: Orders AMB HCG Urine Test Today Z32.02 - Encounter for test, result negative AMB Endometrial Biopsy Today N92.0 - Excessive and frequent menstruation with regular cycle Coding Level of Care Code Procedure Only Diagnoses Heavy menstrual bleeding N92.0 CPT Codes Endometrial Biopsy - CPT: 31078-[id number] Biopsy ([id number])
[2023-02-25 15:28] VITALS: BP 132/86; BMI 29.8
== END 2023-02-25 15:49 | disposition home or self-care (01) ==
LOC: HO.HWS 15:23
PROVIDERS: PCP Internal Medicine; Visit Provider Obstetrics & Gynecology
DX: N92.0 Excessive and frequent menstruation with regular cycle (principal); Z32.02 Encounter for pregnancy test, result negative
CPT/HCPCS: 58100

== ENCOUNTER 2023-03-18 15:38 | Outpatient (AMB) | payer OTHER, SELFPAY ==
[2023-03-18 15:48] VITALS: BP 130/70; BMI 29.4
--- NOTE | 2023-03-18 15:48 | A.OFFVIS_ITS ---
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 The following workup was done.: H&H= 13.8/39.7 TSH, hCG, GC and chlamydia were negative. Endometrial biopsy pathology showed early proliferative endometrium with no evidence of hyperplasia and/or malignancy. Co testing was done in 2020 was negative. Mammogram was done in 09/28 was BI-RADS 2 Pelvic ultrasound was unremarkable [facility] Medical History Smoker GERD (gastroesophageal reflux disease) History of migraine Proteinuria Frequent UTI Prolapsed hemorrhoids Deep vein thrombosis (DVT) of calf muscle vein of left lower extremity Environmental allergies Constipation Genital herpes Pulmonary emboli Migraine headache SAMIA positive Fibromyalgia IBS (irritable bowel syndrome) Surgical History History of colonoscopy History of hemorrhoidectomy Status post reimplantation of ureter History of tubal ligation Family History Mother DVT (deep venous thrombosis) Colonic mass, Onset Age: 66 Mental health disorder Brother Autism Sister Arthritis Father No problems noted. Social History Housing: House Alcohol intake: current Alcohol intake frequency: a few times a month Alcohol type: hard liquor Comment: medicated in pacu Patient Tobacco Use Status: Current everyday Tobacco user Tobacco use type: Cigarette Cigarette Packs Per Day: 0.5 Cigarettes Per Day: 10.0 Years Smoked: 30 e-Cigarette/Vaping Use: Never Used Second Hand Smoke Exposure: Yes service: No Current occupational status: employed Current occupation: [employer] Current occupational exposures/hazards: No Cognitive needs: No Hearing needs: No Vision needs: No Female Reproductive History Menstrual Age of Menarche: 12 Duration of menses: 3-5 days Date of last menstrual period: 03/08/23 Review of Systems Const All systems reviewed & are unremarkable except as noted in HPI and below Reports as per HPI and Reports no additional complaints GI Reports no additional complaints Reports no additional complaints Physical Exam Vital Signs: Last Vital Signs BP 130/70 03/18/23 15:48 BMI result Body Mass Index 29.4 Assessment & Plan Assessment & Plan (1) Abnormal uterine bleeding: Comment: With dysmenorrhea Code(s): N93.9 - Abnormal uterine and vaginal bleeding, unspecified Plan: Discussed with the patient the results of the work up done and options of treatment including Lysteda, BCP's, both contraindicated with history of PE, Mirena IUD, endometrial ablation and hysterectomy. All pros, cons, risks and benefits if each option was discussed with the patient and the patient decided to think about it and get back to us. All questions answered the patient verbalized understanding. Coding Level of Care Code Est Pt Level 3 (45909) Diagnoses Abnormal uterine bleeding N93.9
== END 2023-03-18 16:10 | disposition home or self-care (01) ==
LOC: HO.HWS 15:38
PROVIDERS: PCP Internal Medicine; Visit Provider Obstetrics & Gynecology
DX: N93.9 Abnormal uterine and vaginal bleeding, unspecified (principal)
CPT/HCPCS: 99213

== ENCOUNTER → 2023-03-18 15:38 | Outpatient (BNVA) | payer OTHER, SELFPAY | PROVIDERS: PCP Internal Medicine; Visit Provider Obstetrics & Gynecology ==

== ENCOUNTER 2023-03-19 15:35 | Outpatient (AMB) | payer OTHER, SELFPAY ==
--- NOTE | 2023-03-19 15:41 | A.OFFVIS_ITS ---
Intake Vital Signs 03/19/23 15:47 Height 5 ft 2 in Weight 169 lb 12.095 oz BMI 31.0 BP 110/100 H Blood Pressure Location Rt brachial Position Sitting Pulse 66 Pulse Source Pulse Oximeter Temp 97 F Temp Source Skin Pulse Oximetry (%) 99 Oxygen Delivery Method Room Air Intake Visit Reasons: FMS Intake Note: Patient last seen 12/17/22, presents today for follow up and test results. 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 Accompanied by: Self / Same As Patient Allergies sulfamethoxazole [From Bactrim] Allergy (Severe, Verified 03/19/23 15:42) throat closing trimethoprim [From Bactrim] Allergy (Severe, Verified 03/19/23 15:42) throat closing hydrocodone [From Vicodin] Allergy (Mild, Verified 03/19/23 15:42) RASH Medication List - Last Reconciled 03/19/23 by Sulma Kaba MD amitriptyline 10 mg PO BEDTIME bisacodyl (Dulcolax (bisacodyl)) 20 mg (4 x 5 mg) PO ONCE 1 day cyclobenzaprine 5 mg PO BEDTIME PRN ibuprofen 800 mg PO Q8H peg 3350-electrolytes 236-22.74-6.74 -5.86 gram 240 mL PO Q10M tramadol 50 mg PO BEDTIME HPI HPI Comments History of Present Illness Details 47-year-old female with fibromyalgia pre sents for follow-up. On tramadol 50 mg and amitriptyline 10 mg nightly. Trigger point injection done last visit was helpful. She did not need to take the Flexeril. She states that for the last 2 weeks she has been having a persistent headache. The headache is bitemporal, headache is constant. Nothing makes it better or worse. In the past ibuprofen use to help the headaches but not currently. Denies any vision changes. Denies any fevers. She denies symptoms suggestive of aura. Sitting in a quiet dark room does not help her symptoms. She has been having dysmenorrhea symptoms recently and she was recently worked up by OBGYN and according to patient the evaluation was unremarkable. Initial history: 46-year-old female with history of positive SAMIA, history of DVT PE in 2008 and fibromyalgia is here for follow-up. Patient mentioned that in 2008 she had DVT and PE and it was attributed to oral contraceptive pills. She saw a secret service agent and she was on Coumadin for about 9 months. Since then she has not had any issues with blood clots. There is also history of proteinuria. She was seen by Nephrology and she was told that it was likely due to urinary tract infections. She does not have frequent UTIs right now. She uses Levaquin as needed. Overall she feels the same. She mentions having some swelling pain and numbness of the tips of her fingers especially in the morning. But this does not happen on the weekends. [facility] Medical History Smoker GERD (gastroesophageal reflux disease) History of migraine Proteinuria Frequent UTI Prolapsed hemorrhoids Deep vein thrombosis (DVT) of calf muscle vein of left lower extremity Environmental allergies Constipation Genital herpes Pulmonary emboli Migraine headache SAMIA positive Fibromyalgia IBS (irritable bowel syndrome) Surgical History History of colonoscopy History of hemorrhoidectomy Status post reimplantation of ureter History of tubal ligation Family History Mother DVT (deep venous thrombosis) Colonic mass, Onset Age: 66 Mental health disorder Brother Autism Sister Arthritis Father No problems noted. Social History Housing: House Alcohol intake: current Alcohol intake frequency: a few times a month Alcohol type: hard liquor Comment: medicated in pacu Patient Tobacco Use Status: Current everyday Tobacco user Tobacco use type: Cigarette Cigarette Packs Per Day: 0.5 Cigarettes Per Day: 10.0 Years Smoked: 30 e-Cigarette/Vaping Use: Never Used Second Hand Smoke Exposure: Yes service: No Current occupational status: employed Current occupation: [employer] Current occupational exposures/hazards: No Cognitive needs: No Hearing needs: No Vision needs: No Female Reproductive History Menstrual Age of Menarche: 12 Review of Systems Const Reports headache(s) ENT Reports headache(s) Musc Reports back pain and Reports arthralgias Neuro Reports headache(s) Physical Exam Vital Signs: Last Vital Signs Temp 97 F 03/19/23 15:47 Pulse 66 03/19/23 15:47 BP 110/100 H 03/19/23 15:47 Pulse Ox 99 03/19/23 15:47 Oxygen Delivery Method Room Air 03/19/23 15:47 BMI result Body Mass Index 31.0 Const General: cooperative Nutritional Appearance: overweight Orientation/consciousness: patient oriented x3 Limitations: no limitations HEENT Other: Bitemporal tenderness Head: Yes normocephalic and Yes atraumatic Mouth: moist mucous membranes Resp Effort & Inspection: normal respiratory effort and able to speak in complete sentences Auscultation: clear to auscultation bilaterally Cardio Rate: regular rate Rhythm: regular rhythm Heart sounds: S1 normal heart sound present and S2 normal heart sound present GI Inspection: No distended Palpation (GI): Soft to palpation and nontender Skin General skin exam: no rashes or lesions noted Neuro General: patient oriented x3 Extrem Other: Normal range of motion of her neck hyperextensible PIPs, few fibromyalgia tender points, no synovitis, normal nailfold capillaroscopy General: Yes full ROM Assessment & Plan Assessment & Plan (1) Fibromyalgia: Code(s): M79.7 - Fibromyalgia Plan: Symptoms overall well controlled. Patient can continue with tramadol 50 mg nightly and amitriptyline 10 mg nightly. (2) SAMIA positive: Code(s): R76.8 - Other specified abnormal immunological findings in serum Plan: She apparently has history of positive SAMIA when checked in the setting of DVT and PE in 2008. See no evidence of autoimmune rheumatic disease upon my evalua tion today. No need to check any further serologies at this stage. Her blood clot seems to have been provoked by contraceptive pills. Can consider repeating workup for autoimmune rheumatic disease if patient develops signs and symptoms suspicious of such (3) Headache: Code(s): R51.9 - Headache, unspecified Qualifiers: Headache type: tension-type Headache chronicity pattern: unspecified pattern Intractability: not intractable Qualified Code(s): G44.209 - Tension- type headache, unspecified, not intractable Plan: Advised patient to reach out to her PCP. Consider referral to a neurologist Plan I spent 26 minutes reviewing patient's chart, evaluating patient, placing orders, counseling patient and documenting in the chart Medications: Refilled amitriptyline 10 mg PO BEDTIME 90 tabs 1RF tramadol 50 mg PO BEDTIME 90 tabs 1RF pain M47.816 - Spondylosis without myelopathy or radiculopathy, lumbar region Discontinued cyclobenzaprine Discontinued Reason: Patient Completed Course 5 mg PO BEDTIME PRN 5 tabs 0RF muscle spasm Coding Level of Care Code Est Pt Level 4 (40793) Diagnoses Fibromyalgia M79.7 SAMIA positive R76.8 Tension-type headache, not intractable, unspecified chronicity pattern G44.209 Headache type: tension-type Headache chronicity pattern: unspecified pattern Intractability: not intractable
[2023-03-19 15:47] VITALS: BP 110/100; PULSE 66; TEMP 36.1; O2SAT 99; BMI 31.0
== END 2023-03-19 15:58 | disposition home or self-care (01) ==
PROVIDERS: PCP Internal Medicine; Visit Provider Student in an Organized Health Care Education/Training Program
DX: M79.7 Fibromyalgia (principal); R76.8 Other specified abnormal immunological findings in serum; G44.209 Tension-type headache, unspecified, not intractable
CPT/HCPCS: 99214

== ENCOUNTER → 2023-03-19 15:35 | Outpatient (BNVA) | payer OTHER, SELFPAY | PROVIDERS: PCP Internal Medicine; Visit Provider Student in an Organized Health Care Education/Training Program ==

== ENCOUNTER 2023-05-13 14:17 | Outpatient (AMB) | payer OTHER, SELFPAY ==
[2023-05-13 14:21] VITALS: BP 132/86; BMI 30.9
--- NOTE | 2023-05-13 14:21 | MHC.PC.OV ---
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 Accompanied by: Self / Same As Patient Allergies sulfamethoxazole [From Bactrim] Allergy (Severe, Verified 05/13/23 14:35) throat closing trimethoprim [From Bactrim] Allergy (Severe, Verified 05/13/23 14:35) throat closing hydrocodone [From Vicodin] Allergy (Mild, Verified 05/13/23 14:35) RASH Medication List - Last Reconciled 05/13/23 by Ashia Park MD amitriptyline 10 mg PO BEDTIME bisacodyl (Dulcolax (bisacodyl)) 20 mg (4 x 5 mg) PO ONCE 1 day ibuprofen 800 mg PO Q8H peg 3350-electrolytes 236-22.74-6.74 -5.86 gram 240 mL PO Q10M tramadol 50 mg PO BEDTIME Tobacco use date assessed: 05/13/23 Dental Screening Dental Screen Date: 05/13/23 Did you have a dental visit in the last 12 months?: Yes Did you have a dental problem in the last 6 months where you did not have access to dental care?: No Was dental information given to patient?: Patient has dentist HPI HPI Comments History of Present Illness Details This is a 47-year-old female that comes for her physical exam. Last mammogram was September 2022. Last Pap smear was 2020. Last colonoscopy was 2013 and was normal but has family history of colon cancer in mother in her 60s. No chest pain or shortness of breath. Complains of frequent headaches that has been happening recently. Also has daily nausea and occasional vomiting with abdominal bloating. [facility] Medical History Smoker GERD (gastroesophageal reflux disease) History of migraine Proteinuria Frequent UTI Prolapsed hemorrhoids Deep vein thrombosis (DVT) of calf muscle vein of left lower extremity Environmental allergies Constipation Genital herpes Pulmonary emboli Migraine headache ASHIA positive Fibromyalgia IBS (irritable bowel syndrome) Surgical History History of colonoscopy History of hemorrhoidectomy Status post reimplantation of ureter History of tubal ligation Family History Mother DVT (deep venous thrombosis) Colonic mass, Onset Age: 66 Mental health disorder Brother Autism Sister Arthritis Father No problems noted. Social History Housing: House Alcohol intake: current Alcohol intake frequency: a few times a month Alcohol type: hard liquor Comment: medicated in pacu Patient Tobacco Use Status: Current everyday Tobacco user Tobacco use type: Cigarette Cigarette Packs Per Day: 0.5 Cigarettes Per Day: 10.0 Years Smoked: 30 e-Cigarette/Vaping Use: Never Used Second Hand Smoke Exposure: Yes service: No Current occupational status: employed Current occupation: [employer] Current occupational exposures/hazards: No Cognitive needs: No Hearing needs: No Vision needs: Yes Female Reproductive History Menstrual Age of Menarche: 12 Questionnaire PHQ-9 Over the last 2 weeks, how often have you been bothered by any of the following problems? 1. Little interest or pleasure in doing things: not at all 2. Feeling down, depressed, or hopeless: not at all 3. Trouble falling or staying asleep, or sleeping too much: not at all 4. Feeling tired or having little energy: not at all 5. Poor appetite or overeating: not at all 6. Feeling bad about yourself - or that you are a failure or have let yourself or your family down: not at all 7. Trouble concentrating on things, such as reading the newspaper or watching television: not at all 8. Moving or speaking so slowly that other people could have noticed. Or the opposite - being so fidgety or restless that you have been moving around a lot more than usual: not at all 9. Thoughts that you would be better off or of hurting yourself in some way: not at all Total score: 0 Depression Screening Interpretation: Negative Depression Screening Done: Yes 81585 - PHQ-9 Billing: Yes Source: Developed by Drs. Kenton Givens, Lori Dooley, Jeff Jordan and colleagues, with an educational dorota from [employer]. Thrive Questionnaire Date Thrive assessed: 05/13/23 I am a: Patient What is your living situation today?: I have a steady place to live Within the past 12 months, did the food you bought not last and you didn't have the money to get more?: Never true Within the past 12 months, did you worry whether your food would run out before you got money to buy more?: Never true Do you have trouble paying for medicines?: No Do you have trouble getting transportation to medical appointments?: No Do you have trouble paying your heating and electricity bill?: No Do you have trouble taking care of your child, family member or friend?: No Do you have trouble with day-to-day activities such as bathing, preparing meals, shopping, managing finances, etc.?: No Are you currently unemployed and looking for a job?: No Are you interested in more education?: No Please select the resources that you would like help with: None Currently or been in a relationship where the following occur: no concerns reported THRIVE Score: 0 AUDIT C Alcohol Use Questionnaire (AUDIT-C) 1. How often do you have a drink containing alcohol?: Monthly or less 2. How many drinks containing alcohol do you have on a typical day when you are drinking?: 1 or 2 3. How often do you have six or more drinks on one occasion?: Never Total Score: 1 BORA-7 AMB Questionnaire BORA-7 Date BORA - 7 assessed: 05/13/23 Feeling nervous, anxious, or on edge: 0 = Not at all Not being able to stop or control worryin = Not at all Worrying too much about different things: 0 = Not at all Trouble relaxin = Not at all Being so restless that it is hard to sit still: 0 = Not at all Becoming easily annoyed or irritable: 0 = Not at all Feeling afraid as if something awful might happen: 0 = Not at all Total BORA-7 score (0-4 normal; 5-9 mild; 10-14 moderate; 15-21 severe): 0 Source: Developed by Drs. Kenton Givens, Lori Dooley, Jeff Jordan and colleagues, with an educational dorota from [employer]. BORA-7 Assessment Billing BORA-7 Assessment Tool: BORA-7 Assessment 29488 Review of Systems Const All systems reviewed & are unremarkable except as noted in HPI and below Reports headache(s) Eyes Reports no additional complaints, Denies change in vision and Denies other visual disturbances ENT Reports headache(s) Card Denies chest pain at rest, Denies chest pain with activity, Denies edema, Denies irregular heart rhythm, Denies claudication, Denies dyspnea, Denies dyspnea on exertion, Denies orthopnea, Denies paroxysmal nocturnal dyspnea and Denies slow heart rate Resp Denies cough, Denies dyspnea and Denies dyspnea on exertion GI Denies abdominal pain, Reports bloating, Denies change in bowel habits, Denies excessive flatus, Reports nausea and Reports vomiting Denies urinary incontinence, Denies urinary hesitancy and Denies urinary urgency Musc Denies abnormal gait, Denies atrophy, Denies deformity and Denies limited range of motion Skin/Breast Denies bleeding lesions, Denies changing lesions and Denies rash Neuro Denies abnormal gait, Denies behavioral changes, Denies confusion, Reports headache(s) and Denies lack of coordination Psych Denies behavioral changes and Denies confusion Physical exam (Primary Care) Vital Signs: Last Vital Signs BP 132/86 05/13/23 14:21 BMI result Body Mass Index 30.9 Tobacco/Smoking Status: Tobacco use Status Tobacco use date assessed 05/13/23 05/13/23 14:30 Patient Tobacco Use Status Current everyday Tobacco 05/13/23 14:30 Tobacco use type Cigarette 05/13/23 14:30 e-Cigarette/Vaping Use Never Used 05/13/23 14:30 PHQ-9: PHQ-9 Score PHQ-9: Total score 0 05/13/23 14:30 Depression Screening Interpretation: Negative Thrive Assessment: Date of Thrive Assessment Date Thrive assessed 05/13/23 05/13/23 14:30 Currently or been in a relationship where the following occur: no concerns reported Const General: No confusion Orientation/consciousness: patient oriented x3 and No confusion HENMT Head: Yes normal to inspection, Yes normocephalic and Yes atraumatic Ears: external ears normal Eyes General: appearance normal, both eyes and all related structures Eyelids: Yes eyelids normal Conjunctivae: conjunctivae normal Neck Neck: Yes normal visual inspection and Yes supple Resp Effort & Inspection: normal respiratory effort Auscultation: clear to auscultation bilaterally Cardio Jugular venous distension: no JVD Rate: regular rate Rhythm: regular rhythm Heart sounds: S1 normal heart sound present and S2 normal heart sound present GI Inspection: Yes normal to inspection Palpation (GI): Soft to palpation and nontender Auscultation: normal bowel sounds Skin General skin exam: no rashes or lesions noted Neuro General: patient oriented x3, no focal motor deficits and No confusion Extrem General: Yes full ROM Psych Appearance: grossly normal Assessment and Plan Assessment & Plan (1) Physical exam: Code(s): Z00.00 - Encounter for general adult medical examination without abnormal findings Plan: Repeat in a year. Orders: Orders Lipid Panel Today E78.5 - Hyperlipidemia, unspecified IRON PROFILE Today D64.9 - Anemia, unspecified Vitamin D 25-OH Total Today E55.9 - Vitamin D deficiency, unspecified XR sinus ortiz view Today J34.89 - Other specified disorders of nose and nasal sinuses Comprehensive [place] [facility] Panel Fast Today Z00.00 - Encounter for general adult medical examination without abnormal findings Complete Blood Count Auto Diff Today D64.9 - Anemia, unspecified Referrals Neurology Referral R51.9 - Headache, unspecified Gastroenterology Referral R11.10 - Vomiting, unspecified, R14.0 - Abdominal distension (gaseous) Coding Level of Care Code Est Pt Prev Care 40-64y(59685) Diagnoses Physical exam Z00.00 Additional Codes BORA-7 Assessment Billing - BORA-7 Assessment Tool: BORA-7 Assessment 79838 ([id number]) Time Spent (min) 35
== END 2023-05-13 14:52 | disposition home or self-care (01) ==
PROVIDERS: Visit Provider Internal Medicine
DX: Z00.00 Encounter for general adult medical examination without abnormal findings (principal)
CPT/HCPCS: 99396

== ENCOUNTER 2023-07-09 14:55 | Outpatient (AMB) | payer OTHER, SELFPAY ==
[2023-07-09 15:00] VITALS: BP 130/72; PULSE 102; TEMP 36.6; O2SAT 98; BMI 30.7
--- NOTE | 2023-07-09 15:00 | MHC.OFFWIV ---
Intake Vital Signs 07/09/23 15:00 Height 5 ft 2 in Weight 168 lb BMI 30.7 BP 130/72 Blood Pressure Location Lt brachial Position Sitting Pulse 102 H Pulse Source Pulse Oximeter Temp 97.8 F Temp Source Temporal Artery Scan Pulse Oximetry (%) 98 Oxygen Delivery Method Room Air Intake Visit Reasons: EP Cold like symptoms/ Ear pain Intake Note: pt is here for body ache, chills, chest congestion, ear pain Patient Tobacco Use Status: Current everyday Tobacco user Allergies sulfamethoxazole [From Bactrim] Allergy (Severe, Verified 07/09/23 15:32) throat closing trimethoprim [From Bactrim] Allergy (Severe, Verified 07/09/23 15:32) throat closing hydrocodone [From Vicodin] Allergy (Mild, Verified 07/09/23 15:32) RASH Medication List - Last Reconciled 07/09/23 by Britton Sanchez MD amitriptyline 10 mg PO BEDTIME bisacodyl (Dulcolax (bisacodyl)) 20 mg (4 x 5 mg) PO ONCE 1 day ibuprofen 800 mg PO Q8H tramadol 50 mg PO BEDTIME Do you need a note to return to daycare/school/sports/work: Yes HPI EP Cold like symptoms/ Ear pain HPI Details Patient presents for a sick visit. Reporting symptoms of sinus congestion, sore throat and difficulty swallowing. Low-grade fever. No family member is sick. No recent travel. Patient reports symptoms of malaise and fatigue. [facility] Medical History (Updated 07/04/23 @ 16:09 by ARGELIA Mckenzie) Tenderness over frontal sinus Headache Trigger point with back pain Cervicalgia Hordeolum externum right lower eyelid Toe pain, bilateral Cough Physical exam Urinary urgency Impacted cerumen of right ear UTI (urinary tract infection) Dysuria Encounter to discuss test results Leg pain COVID-19 Gum lesion Prolapsed hemorrhoids IUD surveillance Frequent headaches Smoker GERD (gastroesophageal reflux disease) History of migraine Proteinuria Frequent UTI Deep vein thrombosis (DVT) of calf muscle vein of left lower extremity Environmental allergies Constipation Genital herpes Pulmonary emboli Migraine headache ASHIA positive Fibromyalgia IBS (irritable bowel syndrome) Surgical History History of colonoscopy History of hemorrhoidectomy Status post reimplantation of ureter History of tubal ligation Family History Mother DVT (deep venous thrombosis) Colonic mass, Onset Age: 66 Mental health disorder Brother Autism Sister Arthritis Father No problems noted. Social History Housing: House Alcohol intake: current Alcohol intake frequency: a few times a month Alcohol type: hard liquor Comment: medicated in pacu Patient Tobacco Use Status: Current everyday Tobacco user Tobacco use type: Cigarette Cigarette Packs Per Day: 0.5 Cigarettes Per Day: 10.0 Years Smoked: 30 e-Cigarette/Vaping Use: Never Used Second Hand Smoke Exposure: Yes service: No Current occupational status: employed Current occupation: [employer] Current occupational exposures/hazards: No Cognitive needs: No Hearing needs: No Vision needs: Yes Female Reproductive History Menstrual Age of Menarche: 12 Physical Exam Vital Signs: Last Vital Signs Temp 97.8 F 07/09/23 15:00 Pulse 102 H 07/09/23 15:00 BP 130/72 07/09/23 15:00 Pulse Ox 98 07/09/23 15:00 Oxygen Delivery Method Room Air 07/09/23 15:00 BMI result Body Mass Index 30.7 Const General: cooperative and healthy appearing Nutritional Appearance: well nourished Orientation/consciousness: patient oriented x3 Limitations: no limitations HEENT Head: Yes normal to inspection Eyes General: appearance normal, both eyes and all related structures Neck Neck: Yes normal visual inspection Chest Chest palpation & inspection: normal palpation of entire chest wall Resp Effort & Inspection: normal respiratory effort Neuro General: patient oriented x3 Assessment & Plan Assessment & Plan (1) Upper respiratory tract infection: Code(s): J06.9 - Acute upper respiratory infection, unspecified Plan: Antibiotics ordered. Increase fluid intake. Tylenol for aches and pains. If symptoms worsen, follow-up here for a recheck. Coding Level of Care Code Est Pt Level 3 (45357) Diagnoses Upper respiratory tract infection J06.9
== END 2023-07-09 15:39 | disposition home or self-care (01) ==
PROVIDERS: PCP Internal Medicine; Visit Provider Internal Medicine
DX: J06.9 Acute upper respiratory infection, unspecified (principal)
CPT/HCPCS: 99213

== ENCOUNTER 2023-08-27 08:45 | Outpatient (AMB) | payer OTHER, SELFPAY ==
[2023-08-27 08:49] VITALS: BP 137/76; PULSE 76; BMI 30.2
--- NOTE | 2023-08-27 08:49 | MHC.OFFVIS ---
Vital Signs 08/27/23 08:49 Height 5 ft 2 in Weight 165 lb 5.547 oz BMI 30.2 BP 137/76 Blood Pressure Location Lt brachial Position Sitting Pulse 76 Intake Visit Reasons: epigastric pain Intake Note: New patient in office today for evaluation and management of epigastric pain. CC: Patient c/o epigastric pain, acid reflux, constipation with a lot of pain (lower abdominal pain when pushing) with onset of symptoms about a year ago. She also reports random nausea usually in the morning, dizziness with onset of symptoms about 3 months ago. Patient states she gets abdominal bloating after eating even when meal portions are small. Cardiovascular Physician Assistant Required: No Allergies sulfamethoxazole [From Bactrim] Allergy (Severe, Verified 08/28/23 13:50) throat closing trimethoprim [From Bactrim] Allergy (Severe, Verified 08/28/23 13:50) throat closing hydrocodone [From Vicodin] Allergy (Mild, Verified 08/28/23 13:50) RASH HPI HPI epigastric pain: Details: 71-year-old female with past medical history of migraine, obesity, DVT, fibromyalgia is here today for initial consultation. Patient reports that for the past year or so she has been experiencing constipation no bowel movements for few days. Abdominal pain and cramping in the RLQ and LLQ. Patient denies any fever or chills. Feels like this is associated with her being constipation patient also reports epigastric pain and dyspepsia. Denies any dysphagia or odynophagia reports feeling nauseous in the morning. Occasionally eats late at night. Patient is trying to avoid food that is greasy or fried. Patient denies melena, hematochezia, unintentional weight loss or ribbon like stools. [facility] Medical History (Updated 09/01/23 @ 19:00 by Jenny Rea, GLIDING PILOT INSTRUCTOR-) Anemia Tenderness over frontal sinus Headache Trigger point with back pain Cervicalgia Hordeolum externum right lower eyelid Toe pain, bilateral Cough Physical exam Urinary urgency Impacted cerumen of right ear UTI (urinary tract infection) Dysuria Encounter to discuss test results Leg pain COVID-19 Gum lesion Prolapsed hemorrhoids IUD surveillance Frequent headaches Smoker GERD (gastroesophageal reflux disease) History of migraine Proteinuria Frequent UTI Deep vein thrombosis (DVT) of calf muscle vein of left lower extremity Environmental allergies Constipation Genital herpes Pulmonary emboli Migraine headache SAMIA positive Fibromyalgia IBS (irritable bowel syndrome) Surgical History History of colonoscopy History of hemorrhoidectomy Status post reimplantation of ureter History of tubal ligation Family History Mother DVT (deep venous thrombosis) Colonic mass, Onset Age: 66 Mental health disorder Colon cancer Brother Autism Sister Arthritis Father Cancer Social History Housing: House Alcohol intake: current Alcohol intake frequency: a few times a month Alcohol type: hard liquor Comment: medicated in pacu Patient Tobacco Use Status: Current everyday Tobacco user Tobacco use type: Cigarette Cigarette Packs Per Day: 0.5 Cigarettes Per Day: 10.0 Years Smoked: 30 e-Cigarette/Vaping Use: Never Used Second Hand Smoke Exposure: Yes service: No Current occupational status: employed Current occupation: [employer] Current occupational exposures/hazards: No Cognitive needs: No Hearing needs: No Vision needs: Yes Female Reproductive History Menstrual Age of Menarche: 12 Review of Systems Const Denies weight gain and Denies weight loss ENT Reports no additional complaints, Denies dysphagia and Denies odynophagia Card Reports no additional complaints Resp Reports no additional complaints GI Reports abdominal pain (LLQ, RLQ), Denies belching, Denies melena, Reports bloating, Reports constipation, Denies dysphagia, Denies excessive flatus, Reports dyspepsia, Reports heartburn, Denies diarrhea, Denies loose stools, Denies nausea, Denies odynophagia and Denies vomiting Reports no additional complaints Musc Reports no additional complaints Neuro Reports no additional complaints Psych Reports no additional complaints Endo Reports no additional complaints Physical Exam Vital Signs: Last Vital Signs Pulse 76 08/27/23 08:49 BP 137/76 08/27/23 08:49 BMI result Body Mass Index 30.2 Const General: healthy appearing and no acute distress Nutritional Appearance: obese Orientation/consciousness: patient oriented x3 Resp Effort & Inspection: normal respiratory effort, able to speak in complete sentences, no tracheal deviation and symmetric chest movement Auscultation: clear to auscultation bilaterally Cardio Rate: regular rate GI Inspection: Yes normal to inspection, No distended and Yes obesity Palpation (GI): Soft to palpation, not firm, nontender and No hepatosplenomegaly present Auscultation: normal bowel sounds General: Yes no CVA tenderness Back/Spine/Pelvis Back: no CVA tenderness Skin General skin exam: elasticity normal, turgor normal and dry skin Neuro General: patient oriented x3 Psych Appearance: grossly normal Mental Status: mental status grossly normal Assessment & Plan Assessment & Plan (1) Vomiting: Code(s): R11.10 - Vomiting, unspecified Category: Medical Qualifiers: Vomiting type: unspecified Nausea presence: with nausea Qualified Code(s): R11.2 - Nausea with vomiting, unspecified (2) Bloating: Code(s): R14.0 - Abdominal distension (gaseous) Category: Medical (3) LLQ abdominal pain: Code(s): R10.32 - Left lower quadrant pain (4) Postprandial abdominal bloating: Code(s): R14.0 - Abdominal distension (gaseous) Plan Patient reports postprandial epigastric pain will rule out H pylori. Will test in the office today and treat empirically if positive. Will rule out celiac. Patient reports to be constipated for almost a year now. Will check thyroid study. Patient will be started on omeprazole every morning half an hour before breakfast. Avoid dietary triggers and late night snacking. Staying upright for minimum 3 hours after meals discussed with patient. Patient will take Senokot to help her move bowels. If she will continue to be constipated she will call the office and we can switch to Dulcolax. Patient was encouraged to increase fluid intake and activity to promote better bowel motility. I will see patient in 6 months, sooner on as needed basis. Patient is agreeable to this plan and verbalizes understanding of instructions. She was given the opportunity to ask questions and all questions answered. Thank you for allowing me participate in her care Orders: Orders Transglutaminase IgA 08/27/23 R10.9 - Unspecified abdominal pain TSH reflex Free T4 08/27/23 K59.00 - Constipation, unspecified H Pylori Breath Test 08/28/23 K21.9 - Gastro-esophageal reflux disease without esophagitis Transglutaminase Ab IgG 08/27/23 R10.9 - Unspecified abdominal pain Medications: New sennosides (Natural Senna Laxative) 17.2 mg (2 x 8.6 mg) PO BEDTIME 60 tabs 3RF constipation K59.00 - Constipation, unspecified omeprazole 20 mg PO DAILY 30 caps 3RF K21.9 - Gastro-esophageal reflux disease without esophagitis Coding Level of Care Code New Pt Level 4 (61679) Diagnoses Nausea and vomiting, unspecified vomiting type R11.2 Vomiting type: unspecified Nausea presence: with nausea Bloating R14.0 LLQ abdominal pain R10.32 Postprandial abdominal bloating R14.0 Time Spent (min) 45 Comment 30 minutes spent with patient and additional 15 minutes spent reviewing her records
== END 2023-08-27 09:42 | disposition home or self-care (01) ==
PROVIDERS: PCP Internal Medicine; Visit Provider Nurse Practitioner Family
DX: R11.2 Nausea with vomiting, unspecified (principal); R14.0 Abdominal distension (gaseous); R10.32 Left lower quadrant pain
CPT/HCPCS: 99204

== ENCOUNTER → 2023-08-27 08:45 | Outpatient (BNVA) | payer OTHER, SELFPAY | PROVIDERS: PCP Internal Medicine; Visit Provider Nurse Practitioner Family ==

== ENCOUNTER 2023-08-27 17:26 | Outpatient (REF) | payer OTHER, SELFPAY ==
[2023-08-30 10:05] LABS: H Pylori Breath Test Negative (Negative)
== END 2023-08-27 17:27 | disposition home or self-care (01) ==
LOC: HO.LNP 17:26
PROVIDERS: Visit Provider Nurse Practitioner Family
DX: K21.9 Gastro-esophageal reflux disease without esophagitis (principal)
CPT/HCPCS: 83013

== ENCOUNTER 2023-08-28 13:28 | Outpatient (AMB) | payer OTHER, SELFPAY ==
--- NOTE | 2023-08-28 13:44 | A.OFFVIS_ITS ---
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 been getting headaches usually after my menstrual cycle and it last for a whole week. Very painful and over counter med doesn't help. Allergies sulfamethoxazole [From Bactrim] Allergy (Severe, Verified 08/28/23 13:50) throat closing trimethoprim [From Bactrim] Allergy (Severe, Verified 08/28/23 13:50) throat closing hydrocodone [From Vicodin] Allergy (Mild, Verified 08/28/23 13:50) RASH Medication List - Last Reconciled 08/28/23 by SOREN Weston amitriptyline 10 mg PO BEDTIME ibuprofen 800 mg PO Q8H PRN omeprazole 20 mg PO DAILY sennosides (Natural Senna Laxative) 17.2 mg (2 x 8.6 mg) PO BEDTIME tramadol 50 mg PO BEDTIME HPI Comments Details: 48-yr-old female presents for new pt evaluation of headache disorder. Pt reports she started having post-menstrual headache about 1-2 yrs ago. This is more severe, and does not repsond to ehr OTC analgesics. She has a history of migraine since early 20s, She has a migraine just every once in a while. The typical migraine responds a little to Ibuprfen. Pt endorses the following PMH/ROS:? Musculoskeletal disorders or injury: Has fibromyalgia, has upper back and lower back. Uses Tramadol 50mg qhs- helps her to work better during the day. Cramps: w/ the fibromyalgia Sleep d/o: insomnia- uses Amitriptyline for sleep CV disease: HLD- just recently was told mildly elevated lipids. Clotting or hematology d/o: PE in 2008 d/t her control, her mx has h/o mx DVTs, has + SAMIA- f/b rheumatology for ? lupus. History of seizure, syncope, or drop attacks: Once, as a teenager, had syncope after seeing her brother in the hospital- connected to medical equipment. GI d/o: Constipation and GERD- f/b GI. Was just told to try a FOD Mat diet. Pertinent denials include: History of concussion/head injury, Mood d/o, Respiratory d/o, Endocrine or metabolic d/o, Family history of migraine or other headache disorder Headache questionnaire:? Previous work-up: None Types of headache disorders: 2 Typical post-menstrual headache characteristics: Prodrome symptoms: Feels it come on- feels foggy, mild pain Aura: None Pain intensity: 10/10 Location, quality, characteristics: Bilateral temporal and retroorbital sharp and pressure type. Associated symptoms? Photophobia, phonophobia, nausea, if severe may vomit, brain fog, activity intolerence. Postdrome: lingers Menstrual triggers: Comes on the alst day of menstrual cycle. Menses is regular, but painful and heavy- using Ibuprofen 800mg prn for this. Time of day: Starts in the am but worsens as the day goes on. Duration and Frequency: Can last 2-3 days up to 1-2 weeks. How does headache impact your life? She tries not to miss work. Can miss out on her usual activities. Typical migraine headache characteristics: Prodrome symptoms: None Aura: Sees spots during the headache. Pain intensity: 7/10 Location, quality, characteristics: Unillateral right or left posterior temporal and occipital and behind the ipsilateral eye and ear. Associated symptoms? Photophobia, phonophobia, nausea, activity intolerance, brain fog. Postdrome: None Triggers: Sometimes alcohol. Maybe before her menses come. Time of day: Afternoon. Duration and Frequency: Hours to 1 day. This occurs every once in a while, sometimes not even monthly. How does headache impact your life? Misses her daily activities. Current acute medication use/interventions: Ibuporfen prn. Current preventative medication use: Amitriptyline 10mg qhs- again for sleep. Non-pharmacological interventions: Rest Lifestyle considerations: Sleep routine: Bedtime: 10pm, falls asleep by 1pm, Wake-up time: 6-6:30am. Sleep difficulties: Endorses: Snoring, Excessive daytime sleepiness and Fatigue- worse prior to period, rarely takes naps, has had normal in-lab PSG, Restless sleep, Leg Cramps. Caffeine use: coffee in the am, occasional espresso at lunch. Substance use: Tobacco- 10/day, , Alcohol- social. Exercise:?Started exercising 2 months ago- cycling- has a [place] at home. Employment:?Works in the [employer] Family planning: None PFSH Medical History Tenderness over frontal sinus Headache Trigger point with back pain Cervicalgia Hordeolum externum right lower eyelid Toe pain, bilateral Cough Physical exam Urinary urgency Impacted cerumen of right ear UTI (urinary tract infection) Dysuria Encounter to discuss test results Leg pain COVID-19 Gum lesion Prolapsed hemorrhoids IUD surveillance Frequent headaches Smoker GERD (gastroesophageal reflux disease) History of migraine Proteinuria Frequent UTI Deep vein thrombosis (DVT) of calf muscle vein of left lower extremity Environmental allergies Constipation Genital herpes Pulmonary emboli Migraine headache SAMIA positive Fibromyalgia IBS (irritable bowel syndrome) Surgical History History of colonoscopy History of hemorrhoidectomy Status post reimplantation of ureter History of tubal ligation Family History Mother DVT (deep venous thrombosis) Colonic mass, Onset Age: 66 Mental health disorder Colon cancer Brother Autism Sister Arthritis Father Cancer Social History Housing: House Alcohol intake: current Alcohol intake frequency: a few times a month Alcohol type: hard liquor Comment: medicated in pacu Patient Tobacco Use Status: Current everyday Tobacco user Tobacco use type: Cigarette Cigarette Packs Per Day: 0.5 Cigarettes Per Day: 10.0 Years Smoked: 30 e-Cigarette/Vaping Use: Never Used Second Hand Smoke Exposure: Yes service: No Current occupational status: employed Current occupation: [employer] Current occupational exposures/hazards: No Cognitive needs: No Hearing needs: No Vision needs: Yes Female Reproductive History Menstrual Age of Menarche: 12 Physical Exam Vital Signs: Last Vital Signs Pulse 75 08/28/23 13:51 BP 130/80 08/28/23 13:51 Pulse Ox 93 08/28/23 13:51 Oxygen Delivery Method Room Air 08/28/23 13:51 BMI result Body Mass Index 30.4 Const Orientation/consciousness: patient oriented x3 HEENT Other: No palpable scalp tenderness. Head: Yes normocephalic Resp Effort & Inspection: normal respiratory effort and able to speak in complete sentences Neuro Other: Bilateral posterior cervical tightness and tenderness. General: patient oriented x3 Cranial nerves: Yes CN's II-XII intact bilaterally Cognition (Neuro): normal cognition Gait exam (Neuro): Normal gait present Motor exam (neuro): 5/5 motor strength present throughout Deep tendon reflexes (DTR's): Right triceps reflex intensity grade: 2+, Left triceps reflex intensity grade: 2+, Rt Biceps (C5, C6): 2+, Left biceps reflex intensity grade: 2+, Right brachioradialis reflex intensity grade: 2+, Left brachioradialis reflex intensity grade: 2+, Right patellar reflex intensity grade: 2+ and Left patellar reflex intensity grade: 2+ Coordination: [id number] test normal, tandem gait normal and Romberg test negative Pupils: Normal pupillary reactivity/response: bilateral Psych Appearance: grossly normal Mental Status: mental status grossly normal Speech and movement: Normal speech and movement present Affect: normal affect Attitude: cooperative Thought process: Normal thought process present Assessment & Plan Assessment & Plan (1) Menstrual migraine: Code(s): G43.829 - Menstrual migraine, not intractable, without status migrainosus Category: Medical (2) Migraine with aura: Comment: episodic Code(s): G43.109 - Migraine with aura, not intractable, without status migrainosus Category: Medical Plan Pt advsied to have labs- ferritin, iron studies, b12/folate- drawn on the last day of her menses/1st day of menstrual migraine. For overall headache management: Optimize good self-care, including but not limited to maintaining a healthy diet, adequate fluid intake, adequate sleep, and engaging in regular physical activity. For headache triggers: Track headaches. For acute headache treatment: Discussed importance of taking acute medications at the first sign of headache, however stressed importance of avoiding acute medication overuse (especially with combined headache medications). Trial Sumatriptan 100mg tab, 1/2 - 1 tab (50-100mg) at onset of headache, may repeat in 2 hours. Max of 2 tabs (200mg) per 24 hours. May adjunct with Ibuprofen 800mg q 8 hours. Potential adverse effects of triptans, including but not limited to nausea, fatigue, chest tightness/tingling (usually passes within a few minutes), medication overuse headaches. Previous acute migraine medication trials: Ibuprofen- takes edge off. Acute migraine medication contraindications: None at this time For menstrual migraine: Start Sumatriptan 100mg tab- 1/2 - 1 tab at onset of headache, MR in 2 hrs, max 2 tabs/day or 12 tabs/week. For headache prevention medication: Preventative medications should be taken routinely as prescribed for best effect, it may take several weeks for full effect to take effect. Start Riboflavin 400mg qam Start Propranolol 10mg bid. Continue Amitriptyline 10mg qhs- higher doses causes am sedation. Potential adverse effects of betablockers, including but not limited to fatigue, hypotension, slow heart rate, mood changes, respiratory changes. Previous migraine prevention medication trials: OTC Mag Citrate caused nausea. Migraine prevention medication contraindications: None at this time Information also given on non-pharmacological interventions, such as Cefaly or Nerivio neuromodulation devices. Pt seen in collaboration w/ Dr Eneida Quintana. Pt to call with any untoward effects or concerns. Pt to follow-up in 6 months or sooner prn. Orders: Orders Ferritin Today D64.9 - Anemia, unspecified Vitamin B12 and Folate Today D64.9 - Anemia, unspecified Medications: New sumatriptan succinate (0.5 - 1 x 100 mg) 50 - 100 mg orally at onset of headache, may repeat in 2 hrs PRN; max 2 tabs per day or 12 tabs/week (may take with Ibuprofen) 30 days 12 tabs 6RF migraine headache riboflavin (vitamin B2) 400 mg PO DAILY 30 days 30 tabs 6RF propranolol 10 mg PO BID 30 days 60 tabs 6RF Coding Level of Care Code New Pt Level 4 (11941) Diagnoses Menstrual migraine G43.829 Migraine with aura G43.109
[2023-08-28 13:51] VITALS: BP 130/80; PULSE 75; O2SAT 93; BMI 30.4
== END 2023-08-28 15:02 | disposition home or self-care (01) ==
LOC: HO.HSMS 13:44
PROVIDERS: PCP Internal Medicine; Visit Provider Nurse Practitioner Family
DX: G43.829 Menstrual migraine, not intractable, without status migrainosus (principal); G43.109 Migraine with aura, not intractable, without status migrainosus
CPT/HCPCS: 99204

== ENCOUNTER → 2023-08-28 13:44 | Outpatient (BNVA) | payer OTHER, SELFPAY | PROVIDERS: PCP Internal Medicine; Visit Provider Nurse Practitioner Family ==

== ENCOUNTER 2023-09-07 09:52 | Outpatient (REF) | payer OTHER, SELFPAY ==
[2023-09-07 12:38] LABS: Ferritin 37 ng/mL (10-250)
[2023-09-07 12:44] LABS: Folate 11.4 ng/mL (> or = 4.0); Vitamin B12 556 pg/mL (200-900)
[2023-09-07 13:08] LABS: TSH reflex Free T4 1.24 uIU/mL (0.32-4.0)
[2023-09-10 13:52] LABS: Transglutaminase Ab IgG <1.0 U/mL; Transglutaminase IgA <1.0 U/mL
== END 2023-09-07 09:53 | disposition home or self-care (01) ==
LOC: HO.HMGCLDS 09:52
PROVIDERS: PCP Internal Medicine; Referring Provider Nurse Practitioner Family; Visit Provider Nurse Practitioner Family
DX: D64.9 Anemia, unspecified (principal); R10.9 Unspecified abdominal pain; K59.00 Constipation, unspecified
CPT/HCPCS: 36415; 82607; 82728; 82746; 84443; 86364

== ENCOUNTER 2023-10-07 12:39 | Outpatient (AMB) | payer OTHER, SELFPAY ==
[2023-10-07 12:40] VITALS: BP 130/68; BMI 30.2
--- NOTE | 2023-10-07 12:40 | A.OFFVIS_ITS ---
Vital Signs 10/07/23 12:40 Height 5 ft 2 in Weight 165 lb 5.547 oz BMI 30.2 BP 130/68 Blood Pressure Location Rt brachial Position Sitting Intake Visit Reasons: FMS/cm Intake Note: Pt seen today for FM follow up. 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 Accompanied by: Self / Same As Patient Allergies sulfamethoxazole [From Bactrim] Allergy (Severe, Verified 10/07/23 12:45) throat closing trimethoprim [From Bactrim] Allergy (Severe, Verified 10/07/23 12:45) throat closing hydrocodone [From Vicodin] Allergy (Mild, Verified 10/07/23 12:45) RASH Medication List - Last Reconciled 10/07/23 by Sulma Kaba MD amitriptyline 10 mg PO BEDTIME ibuprofen 800 mg PO Q8H PRN omeprazole 20 mg PO DAILY propranolol 10 mg PO BID 30 days riboflavin (vitamin B2) 400 mg PO DAILY 30 days sennosides (Natural Senna Laxative) 17.2 mg (2 x 8.6 mg) PO BEDTIME sumatriptan succinate 50 - 100 mg orally at onset of headache, may repeat in 2 hrs PRN; max 2 tabs per day or 12 tabs/week (may take with Ibuprofen) 30 days tramadol 50 mg PO BEDTIME HPI Comments Details: 48-year-old female with fibromyalgia presents for follow-up. On tramadol 50 mg and amitriptyline 10 mg nightly. She was recently evaluated by neurologist and started on medications for migraine. She uses the sumatriptan 4 to 5 times a month and it does help relieve the headache. When she forgets to take her tramadol gets restless legs. She gets intermittent pain the base of her thumbs and on the ulnar aspect of her hands, usually when the weather is humid. Initial history: 46-year-old female with history of positive SAMIA, history of DVT PE in 2008 and fibromyalgia is here for follow-up. Patient mentioned that in 2008 she had DVT and PE and it was attributed to oral contraceptive pills. She saw a business administration program chair and she was on Coumadin for about 9 months. Since then she has not had any issues with blood clots. There is also history of proteinuria. She was seen by Nephrology and she was told that it was likely due to urinary tract infections. She does not have frequent UTIs right now. She uses Levaquin as needed. Overall she feels the same. She mentions having some swelling pain and numbness of the tips of her fingers especially in the morning. But this does not happen on the weekends. [facility] Medical History Anemia Tenderness over frontal sinus Headache Trigger point with back pain Cervicalgia Hordeolum externum right lower eyelid Toe pain, bilateral Cough Physical exam Urinary urgency Impacted cerumen of right ear UTI (urinary tract infection) Dysuria Encounter to discuss test results Leg pain COVID-19 Gum lesion Prolapsed hemorrhoids IUD surveillance Frequent headaches Smoker GERD (gastroesophageal reflux disease) History of migraine Proteinuria Frequent UTI Deep vein thrombosis (DVT) of calf muscle vein of left lower extremity Environmental allergies Constipation Genital herpes Pulmonary emboli Migraine headache SAMIA positive Fibromyalgia IBS (irritable bowel syndrome) Surgical History History of colonoscopy History of hemorrhoidectomy Status post reimplantation of ureter History of tubal ligation Family History Mother DVT (deep venous thrombosis) Colonic mass, Onset Age: 66 Mental health disorder Colon cancer Brother Autism Sister Arthritis Father Cancer Social History Housing: House Alcohol intake: current Alcohol intake frequency: a few times a month Alcohol type: hard liquor Comment: medicated in pacu Patient Tobacco Use Status: Current everyday Tobacco user Tobacco use type: Cigarette Cigarette Packs Per Day: 0.5 Cigarettes Per Day: 10.0 Years Smoked: 30 e-Cigarette/Vaping Use: Never Used Second Hand Smoke Exposure: Yes service: No Current occupational status: employed Current occupation: [employer] Current occupational exposures/hazards: No Cognitive needs: No Hearing needs: No Vision needs: Yes Female Reproductive History Menstrual Age of Menarche: 12 Review of Systems Musc Reports arthralgias and Reports stiffness Physical Exam Const General: cooperative Nutritional Appearance: overweight Orientation/consciousness: patient oriented x3 Limitations: no limitations HEENT Head: Yes normocephalic and Yes atraumatic Mouth: moist mucous membranes Resp Effort & Inspection: normal respiratory effort and able to speak in complete sentences Auscultation: clear to auscultation bilaterally Cardio Rate: regular rate Rhythm: regular rhythm Heart sounds: S1 normal heart sound present and S2 normal heart sound present GI Inspection: No distended Palpation (GI): Soft to palpation and nontender Skin General skin exam: no rashes or lesions noted Neuro General: patient oriented x3 Extrem Other: Bilateral 1st CMC joint tenderness Negative Franklyn's test bilaterally hyperextensible PIPs, few fibromyalgia tender points, no synovitis, normal nailfold capillaroscopy Assessment & Plan Assessment & Plan (1) Fibromyalgia: Code(s): M79.7 - Fibromyalgia Category: Medical Plan: Symptoms overall well controlled on tramadol 50 mg daily and amitriptyline 10 mg daily. Patient states that when she misses her tramadol she gets restless legs symptoms. Advised patient to try taking the tablet of tramadol daily. If doing well for a month can stop tramadol. Patient stated that she could not tolerate gabapentin in the past. Other options that can be considered include duloxetine or Lyrica. Medications for restless legs can also be considered Patient takes sumatriptan 4 to 5 times a month (2) SAMIA positive: Code(s): R76.8 - Other specified abnormal immunological findings in serum Category: Medical Plan: She apparently has history of positive SAMIA when checked in the setting of DVT and PE in 2008. See no evidence of autoimmune rheumatic disease upon my evaluation today. No need to check any further serologies at this stage. Her blood clot seems to have been provoked by contraceptive pills. Can consider repeating workup for autoimmune rheumatic disease if patient develops signs and symptoms suspicious of such (3) Headache: Code(s): R51.9 - Headache, unspecified Category: Medical Qualifiers: Headache type: tension-type Headache chronicity pattern: unspecified pattern Intractability: not intractable Qualified Code(s): G44.209 - Tension- type headache, unspecified, not intractable Plan: Evaluated by neurologist and started on multiple medications for migraine including sumatriptan (4) Osteoarthritis of thumbs, bilateral: Code(s): M18.0 - Bilateral primary osteoarthritis of first carpometacarpal joints Category: Medical Plan: Voltaren gel trial Plan I spent 26 minutes reviewing patient's chart, evaluating patient, counseling patient and documenting in the chart Coding Level of Care Code Est Pt Level 4 (52477) Diagnoses Fibromyalgia M79.7 SAMIA positive R76.8 Tension-type headache, not intractable, unspecified chronicity pattern G44.209 Headache type: tension-type Headache chronicity pattern: unspecified pattern Intractability: not intractable Osteoarthritis of thumbs, bilateral M18.0
== END 2023-10-07 12:54 | disposition home or self-care (01) ==
PROVIDERS: PCP Internal Medicine; Visit Provider Student in an Organized Health Care Education/Training Program
DX: M79.7 Fibromyalgia (principal); R76.8 Other specified abnormal immunological findings in serum; G44.209 Tension-type headache, unspecified, not intractable; M18.0 Bilateral primary osteoarthritis of first carpometacarpal joints
CPT/HCPCS: 99214

== ENCOUNTER → 2023-10-07 12:39 | Outpatient (BNVA) | payer OTHER, SELFPAY | PROVIDERS: PCP Internal Medicine; Visit Provider Student in an Organized Health Care Education/Training Program ==

== ENCOUNTER 2023-10-24 14:56 | Outpatient (AMB) | payer OTHER, SELFPAY ==
--- NOTE | 2023-10-24 14:57 | MHC.PC.OV ---
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 Accompanied by: Self / Same As Patient Allergies sulfamethoxazole [From Bactrim] Allergy (Severe, Verified 10/24/23 15:19) throat closing trimethoprim [From Bactrim] Allergy (Severe, Verified 10/24/23 15:19) throat closing hydrocodone [From Vicodin] Allergy (Mild, Verified 10/24/23 15:19) RASH Medication List - Last Reconciled 10/24/23 by Ashia Park MD amitriptyline 10 mg PO BEDTIME ibuprofen 800 mg PO Q8H PRN omeprazole 20 mg PO DAILY propranolol 10 mg PO BID 30 days riboflavin (vitamin B2) 400 mg PO DAILY 30 days sennosides (Natural Senna Laxative) 17.2 mg (2 x 8.6 mg) PO BEDTIME sumatriptan succinate 50 - 100 mg orally at onset of headache, may repeat in 2 hrs PRN; max 2 tabs per day or 12 tabs/week (may take with Ibuprofen) 30 days Tobacco use date assessed: 05/13/23 Dental Screening Dental Screen Date: 05/13/23 HPI HPI Comments History of Present Illness Details This is a 48-year-old female with fibromyalgia, chronic idiopathic constipation and GERD that complains of restless leg syndrome that started recently. I will start her on ropinirole. Fibromyalgia somewhat stable with amitriptyline. Constipation well controlled with senna as needed. GERD stable with PPIs. She does have heavy menses in which have to be absent from work 3 days a month and needs [employer] papers for it. Denies any chest pain or shortness on breath. Has herpes simplex virus type 2 active and I will start her on valacyclovir. [facility] Medical History (Updated 10/25/23 @ 10:16 by Ashia Park MD) Anemia Tenderness over frontal sinus Headache Trigger point with back pain Cervicalgia Hordeolum externum right lower eyelid Toe pain, bilateral Cough Physical exam Urinary urgency Impacted cerumen of right ear UTI (urinary tract infection) Dysuria Encounter to discuss test results Leg pain COVID-19 Gum lesion Prolapsed hemorrhoids IUD surveillance Frequent headaches Smoker GERD (gastroesophageal reflux disease) History of migraine Proteinuria Frequent UTI Deep vein thrombosis (DVT) of calf muscle vein of left lower extremity Environmental allergies Constipation Genital herpes Pulmonary emboli Migraine headache ASHIA positive Fibromyalgia IBS (irritable bowel syndrome) Surgical History History of colonoscopy History of hemorrhoidectomy Status post reimplantation of ureter History of tubal ligation Family History Mother DVT (deep venous thrombosis) Colonic mass, Onset Age: 66 Mental health disorder Colon cancer Brother Autism Sister Arthritis Father Cancer Social History Housing: House Alcohol intake: current Alcohol intake frequency: a few times a month Alcohol type: hard liquor Comment: medicated in pacu Patient Tobacco Use Status: Current everyday Tobacco user Tobacco use type: Cigarette Cigarette Packs Per Day: 0.5 Cigarettes Per Day: 10.0 Years Smoked: 30 e-Cigarette/Vaping Use: Never Used Second Hand Smoke Exposure: Yes service: No Current occupational status: employed Current occupation: [employer] Current occupational exposures/hazards: No Cognitive needs: No Hearing needs: No Vision needs: Yes Female Reproductive History Menstrual Age of Menarche: 12 Questionnaire Thrive Questionnaire Date Thrive assessed: 05/13/23 BORA-7 AMB Questionnaire BORA-7 Date BORA - 7 assessed: 05/13/23 Source: Developed by Drs. Kenton Givens, Lori Dooley, Jeff Jordan and colleagues, with an educational dorota from [employer]. Review of Systems Const All systems reviewed & are unremarkable except as noted in HPI and below Card Denies chest pain at rest, Denies chest pain with activity, Denies edema, Denies irregular heart rhythm, Denies claudication, Denies dyspnea, Denies dyspnea on exertion, Denies orthopnea, Denies paroxysmal nocturnal dyspnea and Denies slow heart rate Resp Denies cough, Denies dyspnea and Denies dyspnea on exertion Physical exam (Primary Care) Vital Signs: Last Vital Signs BP 136/82 10/24/23 15:00 BMI result Body Mass Index 29.4 Tobacco/Smoking Status: Tobacco use Status Tobacco use date assessed 05/13/23 10/24/23 14:59 Patient Tobacco Use Status Current everyday Tobacco 10/24/23 14:59 Tobacco use type Cigarette 10/24/23 14:59 e-Cigarette/Vaping Use Never Used 10/24/23 14:59 Thrive Assessment: Date of Thrive Assessment Date Thrive assessed 05/13/23 10/24/23 14:59 Resp Effort & Inspection: normal respiratory effort Auscultation: clear to auscultation bilaterally Cardio Jugular venous distension: no JVD Rate: regular rate Rhythm: regular rhythm Heart sounds: S1 normal heart sound present and S2 normal heart sound present Extrem General: Yes full ROM Assessment and Plan Assessment & Plan (1) Restless leg syndrome: Code(s): G25.81 - Restless legs syndrome Plan: Start ropinirole. (2) Fibromyalgia: Code(s): M79.7 - Fibromyalgia Plan: Continue amitriptyline. (3) Chronic idiopathic constipation: Code(s): K59.04 - Chronic idiopathic constipation Plan: Continue senna as needed. (4) GERD (gastroesophageal reflux disease): Code(s): K21.9 - Gastro-esophageal reflux disease without esophagitis Qualifiers: Esophagitis presence: esophagitis presence not specified Qualified Code(s): K21.9 - Gastro-esophageal reflux disease without esophagitis Plan: Continue PPIs. (5) HSV-2 (herpes simplex virus 2) infection: Code(s): B00.9 - Herpesviral infection, unspecified Plan: Start valacyclovir. Orders: Orders IRON PROFILE 10/24/23 D64.9 - Anemia, unspecified Complete Blood Count Auto Diff 10/24/23 D64.9 - Anemia, unspecified Medications: New ropinirole administer 1-3 hours before bedtime 0.5 mg PO BEDTIME 30 tabs 1RF 30 days melatonin 10 mg PO BEDTIME PRN 30 caps 1RF sleep 30 days valacyclovir 1,000 mg PO Q12H 10 tabs 3RF 5 days Coding Level of Care Code Est Pt Level 4 (51628) Complex EM visit Add On G2211 Diagnoses Restless leg syndrome G25.81 Fibromyalgia M79.7 Chronic idiopathic constipation K59.04 Gastroesophageal reflux disease, unspecified whether esophagitis present K21.9 Esophagitis presence: esophagitis presence not specified HSV-2 (herpes simplex virus 2) infection B00.9 Time Spent (min) 24
[2023-10-24 15:00] VITALS: BP 136/82; BMI 29.4
== END 2023-10-24 15:39 | disposition home or self-care (01) ==
PROVIDERS: PCP Internal Medicine; Visit Provider Internal Medicine
DX: G25.81 Restless legs syndrome (principal); M79.7 Fibromyalgia; K59.04 Chronic idiopathic constipation; K21.9 Gastro-esophageal reflux disease without esophagitis; B00.9 Herpesviral infection, unspecified
CPT/HCPCS: 99214

== ENCOUNTER 2024-02-13 11:42 | Outpatient (REF) | payer OTHER, SELFPAY ==
[2024-02-13 13:21] LABS: Appearance Urine Clear; Color Urine Yellow; Glucose Urine UA Negative (Negative); Leukocyte Esterase Urine Negative (Negative); Nitrite Urine Negative (Negative); PH 5.5 (5.0-9.0); UMIC TRIGGER UACC YES; Urine Blood Large (3+) (Negative); Urine Ketones Negative (Negative); Urine Protein 300 (3+) mg/dL (Neg-Trace)
[2024-02-13 13:23] LABS: Iron 98 mcg/dL (30-160); Percent Iron Saturation 31 % (15-50); Total Iron Binding Capacity 318 mcg/dL (228-428); Unsaturated Iron Binding 220 ug/dL
[2024-02-13 13:24] LABS: Bacteria Urine 1+ (None Seen); Hyaline Casts Urine 0-2 /LPF (0-2); MANUAL DIFF FLAG NO; WBC Urine 0-5 /HPF (0-5)
[2024-02-13 13:35] LABS: Basophils Percent Auto 0.5 % (0-2); Eosinophils Absolute Auto 0.2 X10*3/uL (0.0-0.4); Eosinophils Percent Auto 2.5 % (0-4); Hematocrit 41.7 % (37.0-47.0); Hemoglobin 14.7 g/dl (12.0-16.0); Imm Gran Abs Auto 0.01 X10*3/uL (0.00-0.03); Imm Gran Pct Auto 0.2 % (0.0-0.4); Lymphocytes Absolute Auto 1.9 X10*3/uL (1.2-4.9); Mean Corpuscular HGB Conc 35.3 g/dl (31.0-35.0); Mean Corpuscular Hemoglobin 34.1 pg (27.0-33.0); Mean Corpuscular Volume 96.8 fL (80.0-98.0); Mean Platelet Volume 9.6 fL (9.4-12.3); Monocytes Absolute Auto 0.4 X10*3/uL (0.1-1.2); Monocytes Percent Auto 5.7 % (2-11); Neutrophils Percent Auto 62.1 % (45-73); Platelet Count 312 X10*3/uL (160-400); Red Blood Count 4.31 X10*6/uL (4.20-5.50); Red Cell Distribution Width 12.6 % (11.0-16.0); White Blood Count 6.5 X10*3/uL (4.8-10.8)
[2024-02-13 13:41] LABS: D Dimer High Sensitivity < 150 NG/ML
== END 2024-02-13 11:43 | disposition home or self-care (01) ==
LOC: HO.HMGCLDS 11:42
PROVIDERS: PCP Internal Medicine; Visit Provider Internal Medicine
DX: D64.9 Anemia, unspecified (principal); Z86.711 Personal history of pulmonary embolism
CPT/HCPCS: 36415; 81001; 81003; 83540; 85025; 85379

== ENCOUNTER 2024-03-12 13:40 | Outpatient (AMB) | payer OTHER, SELFPAY ==
--- NOTE | 2024-03-12 13:51 | MHC.OFFWIV ---
Intake Vital Signs 03/12/24 13:52 Weight 168 lb BP 120/78 Blood Pressure Location Lt brachial Position Sitting Pulse 82 Pulse Source Pulse Oximeter Pulse Oximetry (%) 96 Oxygen Delivery Method Room Air Intake Visit Reasons: EP ?sinus pressure Intake Note: Patient here for sinus pressure for about 1 week . Patient Tobacco Use Status: Current everyday Tobacco user Allergies sulfamethoxazole [From Bactrim] Allergy (Severe, Verified 03/12/24 13:53) throat closing trimethoprim [From Bactrim] Allergy (Severe, Verified 03/12/24 13:53) throat closing hydrocodone [From Vicodin] Allergy (Mild, Verified 03/12/24 13:53) RASH Do you need a note to return to daycare/school/sports/work: No HPI HPI Comments History of Present Illness Details History of Present Illness The patient is a 48-year-old female presenting with sinus pressure and nausea. The symptoms began a week ago, with nausea being particularly severe. She recently discontinued amitriptyline approximately two to three weeks ago and initially attributed her nausea to this medication change. However, the onset of sinus pressure and headaches a week ago has led her to suspect a sinus-related issue. The nausea has persisted as the primary troubling symptom. The patient noted an increasing change in nasal discharge from clear to thick and green in color. She has attempted to manage her symptoms with an [id number] sinus pill taken yesterday. No fever, changes in hearing, or respiratory symptoms like wheezing or shortness of breath were reported. She has also experienced ear fullness with recognition of earwax but has not scheduled an appointment for it. There is no chance of as she just finished menstruation Physical Exam General: Cooperative, healthy appearing, comfortable and no acute distress Orientation/consciousness: Patient oriented x3 Limitations: No limitations Head: Normal to inspection Ears: Hearing grossly normal bilaterally, external ears normal and TM's not visualized due to cerumen blockage Nose: Normal external nose present, Normal nares present and Nasal discharge present Face and sinus: Normal facial exam and Yes sinuses tender Mouth: Normal oral and palatal mucosa present and moist mucous membranes Throat: Yes tonsils normal, Yes uvula midline. Posterior oropharynx erythema Eyes: Appearance normal, both eyes and all related structures Neck: Normal visual inspection Respiratory: Normal respiratory effort, able to speak in complete sentences, no respiratory distress, not tachypneic, no tripod positioning and no use of accessory muscles Skin: No rashes or lesions noted Neuro: Patient oriented x3 Extremities: Normal to inspection and Yes no clubbing, cyanosis or edema PFSH Medical History (Updated 03/12/24 @ 14:21 by Freda Parson PA-C) Anemia Tenderness over frontal sinus Headache Trigger point with back pain Cervicalgia Hordeolum externum right lower eyelid Toe pain, bilateral Cough Physical exam Urinary urgency Impacted cerumen of right ear UTI (urinary tract infection) Dysuria Encounter to discuss test results Leg pain COVID-19 Gum lesion Prolapsed hemorrhoids IUD surveillance Frequent headaches Smoker GERD (gastroesophageal reflux disease) History of migraine Proteinuria Frequent UTI Deep vein thrombosis (DVT) of calf muscle vein of left lower extremity Environmental allergies Constipation Genital herpes Pulmonary emboli Migraine headache ASHIA positive Fibromyalgia IBS (irritable bowel syndrome) Surgical History History of colonoscopy History of hemorrhoidectomy Status post reimplantation of ureter History of tubal ligation Family History Mother DVT (deep venous thrombosis) Colonic mass, Onset Age: 66 Mental health disorder Colon cancer Brother Autism Sister Arthritis Father Cancer Social History Housing: House Alcohol intake: current Alcohol intake frequency: a few times a month Alcohol type: hard liquor Comment: medicated in pacu Patient Tobacco Use Status: Current everyday Tobacco user Tobacco use type: Cigarette Cigarette Packs Per Day: 0.5 Cigarettes Per Day: 10.0 Years Smoked: 30 e-Cigarette/Vaping Use: Never Used Second Hand Smoke Exposure: Yes service: No Current occupational status: employed Current occupation: [employer] Current occupational exposures/hazards: No Cognitive needs: No Hearing needs: No Vision needs: Yes Female Reproductive History Menstrual Age of Menarche: 12 Review of Systems Const All systems reviewed & are unremarkable except as noted in HPI and below Physical Exam Vital Signs: Last Vital Signs Pulse 82 03/12/24 13:52 BP 120/78 03/12/24 13:52 Pulse Ox 96 03/12/24 13:52 Oxygen Delivery Method Room Air 03/12/24 13:52 Office Procedures Cerumen Removal From which ear canal was the cerumen removed: bilateral Removal: irrigation Notes: patient tolerated procedure well, no complications and ear canal clear [id number] Irrigation/Lavage Assessment & Plan Assessment & Plan (1) Sinusitis: Code(s): J32.9 - Chronic sinusitis, unspecified Qualifiers: Chronicity: acute Recurrence: non-recurrent Sinusitis location: maxillary Qualified Code(s): J01.00 - Acute maxillary sinusitis, unspecified Plan: - Sinusitis: The patient will be tested for influenza, COVID-19, and RSV to determine any viral etiology. It was discussed that sinusitis is often viral and may resolve in a couple of weeks without antibiotics. The patient is advised to use Flonase nasal spray directed at the cheekbones to effectively administer the steroid directly into the sinuses. This is to be preceded by nasal irrigation with a neti pot to physically remove any virus, utilizing distilled water according to instruction. - Nausea: Prescription of Zofran, ten tablets, is provided, to be taken sublingually every eight hours as needed. Further evaluation by her primary care provider is advised if symptoms persist or no improvement is noted. Patient was informed and verbally consented to the use of an ambient scribe for clinic note documentation during this visit (2) Impacted cerumen of both ears: Code(s): H61.23 - Impacted cerumen, bilateral Plan: - Earwax Impaction: Ears flushed to remove earwax impaction by TOM Blair. Recommended Debrox drops for maintenance to prevent future impaction of cerumen Medications: New ondansetron 4 mg PO Q8H PRN 10 tabs 0RF nausea and vomiting Coding Level of Care Code Est Pt Level 4 (05734) Diagnoses Acute non-recurrent maxillary sinusitis J01.00 Chronicity: acute Recurrence: non-recurrent Sinusitis location: maxillary Impacted cerumen of both ears H61.23 CPT Codes Office Procedure - CPT: 74250-Dmp Irrigation/Lavage ([id number])
[2024-03-12 13:52] VITALS: BP 120/78; PULSE 82; O2SAT 96
== END 2024-03-12 14:59 | disposition home or self-care (01) ==
PROVIDERS: PCP Internal Medicine; Visit Provider Physician Assistant
DX: J01.00 Acute maxillary sinusitis, unspecified (principal); H61.23 Impacted cerumen, bilateral

== ENCOUNTER 2024-03-12 13:40 | Outpatient (REF) | payer OTHER, SELFPAY ==
[2024-03-13 13:34] LABS: Influenza A PCR NEGATIVE (Negative); Influenza B PCR NEGATIVE (Negative); Resp Syncy Virus RNA Qual PCR NEGATIVE (Negative); SARS COV2 PCR INHOUSE NEGATIVE (Negative)
== END 2024-03-12 13:41 | disposition home or self-care (01) ==
LOC: HO.LNP 13:40
PROVIDERS: PCP Internal Medicine; Visit Provider Physician Assistant
DX: R09.89 Other specified symptoms and signs involving the circulatory and respiratory systems (principal); H61.23 Impacted cerumen, bilateral; J32.9 Chronic sinusitis, unspecified
CPT/HCPCS: 0241U; 69209

== ENCOUNTER 2024-03-13 12:22 | Outpatient (REF) | payer OTHER, SELFPAY | END 2024-03-13 12:23 | disposition home or self-care (01) | LOC: HO.LNP 12:22 | PROVIDERS: Visit Provider Physician Assistant | DX: Z13.89 Encounter for screening for other disorder (principal) ==

== ENCOUNTER 2024-03-19 14:49 | Outpatient (AMB) | payer OTHER, SELFPAY ==
--- NOTE | 2024-03-19 14:58 | A.OFFVIS_ITS ---
Vital Signs 03/19/24 14:59 Height 5 ft 2 in Weight 163 lb 8 oz BMI 29.9 BP 114/86 Blood Pressure Location Lt brachial Position Sitting Pulse 87 Pulse Source Pulse Oximeter Pulse Oximetry (%) 96 Oxygen Delivery Method Room Air Intake Visit Reasons: 7 month F/U Vehicle Trimmer Required: No Allergies sulfamethoxazole [From Bactrim] Allergy (Severe, Verified 03/19/24 15:03) throat closing trimethoprim [From Bactrim] Allergy (Severe, Verified 03/19/24 15:03) throat closing hydrocodone [From Vicodin] Allergy (Mild, Verified 03/19/24 15:03) RASH Medication List - Last Reconciled 03/19/24 by SOREN Weston amoxicillin-pot clavulanate 875-125 mg 1 tab PO Q12H 7 days ibuprofen 800 mg PO Q8H PRN melatonin 10 mg PO BEDTIME PRN 30 days omeprazole 20 mg PO DAILY ondansetron 4 mg PO Q8H PRN riboflavin (vitamin B2) 400 mg PO DAILY 30 days ropinirole 0.5 mg PO BEDTIME 30 days sennosides (Natural Senna Laxative) 17.2 mg (2 x 8.6 mg) PO BEDTIME sumatriptan succinate 50 - 100 mg orally at onset of headache, may repeat in 2 hrs PRN; max 2 tabs per day or 12 tabs/week (may take with Ibuprofen) 30 days valacyclovir 1,000 mg PO Q12H 5 days Do you need a note to return to daycare/school/sports/work: No HPI Comments Details: 48-yr-old female presents for f/u headache d/o. Pt reports she stopped her Tramadol, and then about 6 weeks ago, she stopped Amitriptyline- as she was feeling overwhelmed by her med regimen, She started having nausea about 3 weeks ago, she started having nausea. Then about 2 weeks, she started having increased facial and head pressure a/w change in nasal drainage- thick and green. She states this had pressure is distinctly different than her typical migraine attacks. She saw urgent care last week, was advised to try Flonase- this irritated her nose, Neti-Pot which helps some. She is continuing to have the nasal and sinus congestion/green drng, face and head pressure, post-nasal drip cough. She has not recently taken antibiotics. She works in the [employer]. She continues to have menstrual migraine- now both and pre and post migraine. She did try propranolol 10 mg daily, was tolerating this well, was also stopped due to feeling overwhelmed by medication regimen. If needed, she would be open to retrying this. Sumatriptan is effective and well tolerated. Using sumatriptan for the pre and post menstrual migraine. Typical post-menstrual headache characteristics: Prodrome symptoms: Feels it come on- feels foggy, mild pain Aura: None Pain intensity: 10/10 Location, quality, characteristics: Bilateral temporal and retroorbital sharp and pressure type. Associated symptoms? Photophobia, phonophobia, nausea, if severe may vomit, brain fog, activity intolerence. Postdrome: lingers Typical migraine headache characteristics: Prodrome symptoms: None Aura: Sees spots during the headache. Pain intensity: 7/10 Location, quality, characteristics: Unillateral right or left posterior temporal and occipital and behind the ipsilateral eye and ear. Associated symptoms? Photophobia, phonophobia, nausea, activity intolerance, brain fog. Postdrome: None Triggers: Sometimes alcohol. Maybe before her menses come. [facility] Medical History Anemia Tenderness over frontal sinus Headache Trigger point with back pain Cervicalgia Hordeolum externum right lower eyelid Toe pain, bilateral Cough Physical exam Urinary urgency Impacted cerumen of right ear UTI (urinary tract infection) Dysuria Encounter to discuss test results Leg pain COVID-19 Gum lesion Prolapsed hemorrhoids IUD surveillance Frequent headaches Smoker GERD (gastroesophageal reflux disease) History of migraine Proteinuria Frequent UTI Deep vein thrombosis (DVT) of calf muscle vein of left lower extremity Environmental allergies Constipation Genital herpes Pulmonary emboli Migraine headache SAMIA positive Fibromyalgia IBS (irritable bowel syndrome) Surgical History History of colonoscopy History of hemorrhoidectomy Status post reimplantation of ureter History of tubal ligation Family History Mother DVT (deep venous thrombosis) Colonic mass, Onset Age: 66 Mental health disorder Colon cancer Brother Autism Sister Arthritis Father Cancer Social History Housing: House Alcohol intake: current Alcohol intake frequency: a few times a month Alcohol type: hard liquor Comment: medicated in pacu Patient Tobacco Use Status: Current everyday Tobacco user Tobacco use type: Cigarette Cigarette Packs Per Day: 0.5 Cigarettes Per Day: 10.0 Years Smoked: 30 e-Cigarette/Vaping Use: Never Used Second Hand Smoke Exposure: Yes service: No Current occupational status: employed Current occupation: [employer] Current occupational exposures/hazards: No Cognitive needs: No Hearing needs: No Vision needs: Yes Female Reproductive History Menstrual Age of Menarche: 12 Physical Exam Vital Signs: Last Vital Signs Pulse 87 03/19/24 14:59 BP 114/86 03/19/24 14:59 Pulse Ox 96 03/19/24 14:59 Oxygen Delivery Method Room Air 03/19/24 14:59 BMI result Body Mass Index 29.9 Const Orientation/consciousness: patient oriented x3 HEENT Other: Palpable left greater than right frontal and maxillary sinus tenderness. Mild left ear tenderness on pull Bilateral intranasal redness Audible nasal congestion Head: Yes normocephalic Ears: no periauricular adenopathy and TM abnormal with fluid behind the TM on the left and diffuse Resp Effort & Inspection: normal respiratory effort and able to speak in complete sentences Auscultation: clear to auscultation bilaterally Cardio Rate: regular rate Rhythm: regular rhythm Neuro Other: Bilateral posterior cervical tightness and tenderness. General: patient oriented x3 Cranial nerves: Yes CN's II-XII intact bilaterally Cognition (Neuro): normal cognition Gait exam (Neuro): Normal gait present Motor exam (neuro): 5/5 motor strength present throughout Psych Appearance: grossly normal Mental Status: mental status grossly normal Speech and movement: Normal speech and movement present Affect: normal affect Assessment & Plan Assessment & Plan (1) Menstrual migraine: Code(s): G43.829 - Menstrual migraine, not intractable, without status migrainosus Category: Medical (2) Migraine with aura: Comment: episodic Code(s): G43.109 - Migraine with aura, not intractable, without status migrainosus Category: Medical Plan As current sinusitis and left ear symptoms, are exacerbating patient's headache without associated red flag signs and without risk for antibiotic resistance, start Augmentin 875-125 mg p.o. b.i.d. for 7 days. For overall headache management: Optimize good self-care, including but not limited to maintaining a healthy diet, adequate fluid intake, adequate sleep, and engaging in regular physical activity. For headache triggers: Track headaches. For acute headache treatment: Discussed importance of taking acute medications at the first sign of headache, however stressed importance of avoiding acute medication overuse (especially with combined headache medications). Continue Sumatriptan 100mg tab, 1/2 - 1 tab (50-100mg) at onset of headache, may repeat in 2 hours. Max of 2 tabs (200mg) per 24 hours. May adjunct with Ibuprofen 800mg q 8 hours. Potential adverse effects of triptans, including but not limited to nausea, fatigue, chest tightness/tingling (usually passes within a few minutes), medication overuse headaches. Previous acute migraine medication trials: Ibuprofen- takes edge off. Acute migraine medication contraindications: None at this time For menstrual migraine: Continue Sumatriptan 100mg tab- 1/2 - 1 tab at onset of headache, MR in 2 hrs, max 2 tabs/day or 12 tabs/week. For headache prevention medication: Preventative medications should be taken routinely as prescribed for best effect, it may take several weeks for full effect to take effect. Continue Riboflavin 400mg qam Patient has stopped Propranolol 10mg q.d., may resume if headache frequency increases. Patient has stopped Amitriptyline 10mg qhs- higher doses causes am sedation. Previous migraine prevention medication trials: OTC Mag Citrate caused nausea. Amitriptyline 10mg qhs- higher doses causes am sedation. Migraine prevention medication contraindications: None at this time Updated information shared with patient on nonpharmacological migraine and menstrual migraine treatments, such as recent [employer] podcast article, neuromodulation devices. Pt to follow-up in 6 months or sooner prn. Medications: New amoxicillin-pot clavulanate 875-125 mg 1 tab PO Q12H 7 days 14 tabs 0RF Refilled sumatriptan succinate (0.5 - 1 x 100 mg) 50 - 100 mg orally at onset of headache, may repeat in 2 hrs PRN; max 2 tabs per day or 12 tabs/week (may take with Ibuprofen) 30 days 12 tabs 6RF migraine headache Coding Level of Care Code Est Pt Level 4 (08729) Diagnoses Menstrual migraine G43.829 Migraine with aura G43.109
[2024-03-19 14:59] VITALS: BP 114/86; PULSE 87; O2SAT 96; BMI 29.9
== END 2024-03-19 15:49 | disposition home or self-care (01) ==
LOC: HO.HSMS 14:49
PROVIDERS: PCP Internal Medicine; Visit Provider Nurse Practitioner Family
DX: G43.829 Menstrual migraine, not intractable, without status migrainosus (principal); G43.109 Migraine with aura, not intractable, without status migrainosus
CPT/HCPCS: 99214

== ENCOUNTER 2024-04-10 10:47 | Outpatient (REF) | payer OTHER, SELFPAY | END 2024-04-10 10:48 | disposition home or self-care (01) | LOC: HO.LAB 10:47 | PROVIDERS: PCP Internal Medicine | DX: N30.01 Acute cystitis with hematuria (principal) | CPT/HCPCS: 81003; 87086; 87088; 87186 ==

== ENCOUNTER 2024-04-10 10:47 | Outpatient (AMB) | payer OTHER, SELFPAY ==
--- NOTE | 2024-04-10 11:41 | MHC.OFFWIV ---
Intake Vital Signs 04/10/24 11:49 Height 5 ft 2 in BP 130/90 H Blood Pressure Location Lt brachial Position Sitting Pulse 68 Pulse Source Pulse Oximeter Temp 98.5 F Temp Source Oral Pulse Oximetry (%) 97 Oxygen Delivery Method Room Air Intake Visit Reasons: EP ?UTI Intake Note: Patient here for burning when urination, discomfort lower abd since yesterday Patient Tobacco Use Status: Current everyday Tobacco user Allergies sulfamethoxazole [From Bactrim] Allergy (Severe, Verified 04/10/24 11:50) throat closing trimethoprim [From Bactrim] Allergy (Severe, Verified 04/10/24 11:50) throat closing hydrocodone [From Vicodin] Allergy (Mild, Verified 04/10/24 11:50) RASH Do you need a note to return to daycare/school/sports/work: No HPI HPI Comments History of Present Illness Details History of Present Illness - The patient is a 48-year-old female presenting with a recurrent urinary tract infection. - She reports burning, pain during urination, and increased frequency without associated fever. - She has a longstanding history of recurrent UTIs. - The patient frequently grows the same pathogen, e coli, as per past cultures. - She took Azo recently, which could affect the presentation of her symptoms or test results. - Hematuria is not visibly present but noted in patient?s history. Physical Exam General: Cooperative, healthy appearing, comfortable, no acute distress and well developed Orientation: Patient oriented x3 Limitations: No limitations Head: Normal to inspection Ears: Hearing grossly normal bilaterally Nose: Normal Nxternal nose present Face and sinus: ormal facial exam Eyes: Appearance normal, both eyes and all related structures Neck: Normal visual inspection and Yes full ROM Respiratory: Normal respiratory effort and able to speak in complete sentences. Skin: No rashes or lesions noted Neuro: Patient oriented x3 Extremities: Normal to inspection [facility] Medical History (Updated 04/10/24 @ 11:56 by Freda Parson PA-C) UTI (urinary tract infection) Anemia Tenderness over frontal sinus Headache Trigger point with back pain Cervicalgia Hordeolum externum right lower eyelid Toe pain, bilateral Cough Physical exam Urinary urgency Impacted cerumen of right ear Dysuria Encounter to discuss test results Leg pain COVID-19 Gum lesion Prolapsed hemorrhoids IUD surveillance Frequent headaches Smoker GERD (gastroesophageal reflux disease) History of migraine Proteinuria Frequent UTI Deep vein thrombosis (DVT) of calf muscle vein of left lower extremity Environmental allergies Constipation Genital herpes Pulmonary emboli Migraine headache SAMIA positive Fibromyalgia IBS (irritable bowel syndrome) Surgical History History of colonoscopy History of hemorrhoidectomy Status post reimplantation of ureter History of tubal ligation Family History Mother DVT (deep venous thrombosis) Colonic mass, Onset Age: 66 Mental health disorder Colon cancer Brother Autism Sister Arthritis Father Cancer Social History Housing: House Alcohol intake: current Alcohol intake frequency: a few times a month Alcohol type: hard liquor Comment: medicated in pacu Patient Tobacco Use Status: Current everyday Tobacco user Tobacco use type: Cigarette Cigarette Packs Per Day: 0.5 Cigarettes Per Day: 10.0 Years Smoked: 30 e-Cigarette/Vaping Use: Never Used Second Hand Smoke Exposure: Yes service: No Current occupational status: employed Current occupation: [employer] Current occupational exposures/hazards: No Cognitive needs: No Hearing needs: No Vision needs: Yes Female Reproductive History Menstrual Age of Menarche: 12 Review of Systems Const All systems reviewed & are unremarkable except as noted in HPI and below Assessment & Plan Assessment & Plan (1) UTI (urinary tract infection): Code(s): N39.0 - Urinary tract infection, site not specified Qualifiers: Urinary tract infection type: acute cystitis Hematuria presence: with hematuria Qualified Code(s): N30.01 - Acute cystitis with hematuria Plan: Urinalysis unable to be interpreted as pt took Azo. Urine culture will be conducted to determine the pathogen causing the urinary tract infection. Based on the patient?s prior bacteriologic cultures and history, Ciprofloxacin is chosen for treatment. Ciprofloxacin is prescribed to be taken every 12 hours for three days, with the prescription sent to the patient's chosen pharmacy. Caution concerning physical activity was discussed due to its potential side effects on tendons. Alterations to the treatment will be made if the urine culture presents an unexpected pathogen or resistance. Patient was informed and verbally consented to the use of an ambient scribe for clinic note documentation during this visit. Orders: Orders Urine Culture Today N39.0 - Urinary tract infection, site not specified Medications: New ciprofloxacin HCl 250 mg PO Q12H 6 tabs 0RF Coding Level of Care Code Est Pt Level 3 (99005) Diagnoses Acute cystitis with hematuria N30.01 Urinary tract infection type: acute cystitis Hematuria presence: with hematuria
[2024-04-10 11:49] VITALS: BP 130/90; PULSE 68; TEMP 36.9; O2SAT 97
== END 2024-04-10 12:22 | disposition home or self-care (01) ==
PROVIDERS: PCP Internal Medicine; Visit Provider Physician Assistant
DX: N30.01 Acute cystitis with hematuria (principal); Z13.9 Encounter for screening, unspecified

== ENCOUNTER 2024-04-16 14:10 | Outpatient (AMB) | payer OTHER, SELFPAY ==
[2024-04-16 14:13] VITALS: BP 116/80; PULSE 70; BMI 29.8
--- NOTE | 2024-04-16 14:13 | MHC.OFFVIS ---
Vital Signs 04/16/24 14:13 Height 5 ft 2 in Weight 162 lb 11.218 oz BMI 29.8 BP 116/80 Blood Pressure Location Rt brachial Position Sitting Pulse 70 Pulse Source Pulse Oximeter Intake Visit Reasons: FMS Intake Note: Patient last seen by Doctor Sulma Kaba on 10/07/23. Presents today for FMS follow up. Materials Planning Manager Required: No Accompanied by: Self / Same As Patient Allergies sulfamethoxazole [From Bactrim] Allergy (Severe, Verified 04/16/24 14:17) throat closing trimethoprim [From Bactrim] Allergy (Severe, Verified 04/16/24 14:17) throat closing hydrocodone [From Vicodin] Allergy (Mild, Verified 04/16/24 14:17) RASH Medication List - Last Reconciled 04/16/24 by Sulma Kaba MD ibuprofen 800 mg PO Q8H PRN melatonin 10 mg PO BEDTIME PRN 30 days omeprazole 20 mg PO DAILY ondansetron 4 mg PO Q8H riboflavin (vitamin B2) 400 mg PO DAILY 30 days sennosides (Natural Senna Laxative) 17.2 mg (2 x 8.6 mg) PO BEDTIME sumatriptan succinate 50 - 100 mg orally at onset of headache, may repeat in 2 hrs PRN; max 2 tabs per day or 12 tabs/week (may take with Ibuprofen) 30 days valacyclovir 1,000 mg PO Q12H 5 days HPI Comments Details: 48-year-old female with fibromyalgia presents for follow-up. She has tapered herself off the amitriptyline and the tramadol. She was having much more pains initially but now her pains are tolerated, she does feel more pain now that she is off these meds but she does not want to restart them. She is worried about some discoloration of bilateral 5th toenails, he states that this has been chronic, she states that her toes hurt when she moves them. Initial history: 46-year-old female with history of positive SAMIA, history of DVT PE in 2008 and fibromyalgia is here for follow-up. Patient mentioned that in 2008 she had DVT and PE and it was attributed to oral contraceptive pills. She saw a outsole molder and she was on Coumadin for about 9 months. Since then she has not had any issues with blood clots. There is also history of proteinuria. She was seen by Nephrology and she was told that it was likely due to urinary tract infections. She does not have frequent UTIs right now. She uses Levaquin as needed. Overall she feels the same. She mentions having some swelling pain and numbness of the tips of her fingers especially in the morning. But this does not happen on the weekends. [facility] Medical History UTI (urinary tract infection) Anemia Tenderness over frontal sinus Headache Trigger point with back pain Cervicalgia Hordeolum externum right lower eyelid Toe pain, bilateral Cough Physical exam Urinary urgency Impacted cerumen of right ear Dysuria Encounter to discuss test results Leg pain COVID-19 Gum lesion Prolapsed hemorrhoids IUD surveillance Frequent headaches Smoker GERD (gastroesophageal reflux disease) History of migraine Proteinuria Frequent UTI Deep vein thrombosis (DVT) of calf muscle vein of left lower extremity Environmental allergies Constipation Genital herpes Pulmonary emboli Migraine headache SAMIA positive Fibromyalgia IBS (irritable bowel syndrome) Surgical History History of colonoscopy History of hemorrhoidectomy Status post reimplantation of ureter History of tubal ligation Family History Mother DVT (deep venous thrombosis) Colonic mass, Onset Age: 66 Mental health disorder Colon cancer Brother Autism Sister Arthritis Father Cancer Social History Housing: House Alcohol intake: current Alcohol intake frequency: a few times a month Alcohol type: hard liquor Comment: medicated in pacu Patient Tobacco Use Status: Current everyday Tobacco user Tobacco use type: Cigarette Cigarette Packs Per Day: 0.5 Cigarettes Per Day: 10.0 Years Smoked: 30 e-Cigarette/Vaping Use: Never Used Second Hand Smoke Exposure: Yes service: No Current occupational status: employed Current occupation: [employer] Current occupational exposures/hazards: No Cognitive needs: No Hearing needs: No Vision needs: Yes Female Reproductive History Menstrual Age of Menarche: 12 Physical Exam Vital Signs: Last Vital Signs Pulse 70 04/16/24 14:13 BP 116/80 04/16/24 14:13 BMI result Body Mass Index 29.8 Const General: cooperative Nutritional Appearance: overweight Orientation/consciousness: patient oriented x3 Limitations: no limitations HEENT Head: Yes normocephalic and Yes atraumatic Mouth: moist mucous membranes Resp Effort & Inspection: normal respiratory effort and able to speak in complete sentences Auscultation: clear to auscultation bilaterally Cardio Rate: regular rate Rhythm: regular rhythm Neuro General: patient oriented x3 Extrem Other: Multiple fibromyalgia tender points Bilateral dark discoloration of her 5th toenails. Assessment & Plan Assessment & Plan (1) Fibromyalgia: Code(s): M79.7 - Fibromyalgia Category: Medical Plan: Patient tapered herself off amitriptyline and tramadol. She does not want to take any meds for fibromyalgia Discussed management of fibromyalgia with patient. Is a noninflammatory, non-autoimmune central afferent processing disorder leading to a diffuse pain syndrome. I suggested that patient try to address her underlying psychiatric issues, anxiety. I suggested evaluation by a therapist and/or a psychiatrist. Try to follow sleep hygiene practices. Consider a referral for a sleep study from PCP to rule out LIBAN. Patient would benefit from increased physical activity, either through formal physical therapy or by joining a gym. Advised patient that she should start activity slowly and increase as tolerated. Consider low-impact exercises such as walking, swimming, aqua therapy stretching, yoga, exercise bike I provided patient with a booklet on fibromyalgia management Follow-up as needed (2) SAMIA positive: Code(s): R76.8 - Other specified abnormal immunological findings in serum Category: Medical Plan: She apparently has history of positive SAMIA when checked in the setting of DVT and PE in 2008. See no evidence of autoimmune rheumatic disease upon my evaluation today. No need to check any further serologies at this stage. Her blood clot seems to have been provoked by contraceptive pills. Can consider repeating workup for autoimmune rheumatic disease if patient develops signs and symptoms suspicious of such Advised patient to follow-up with marshmallow machine operator or mangle roller for her darkish discoloration of her bilateral 5th toes Plan I spent 16 minutes reviewing patient's chart, evaluating patient, counseling patient and documenting in the chart Coding Level of Care Code Est Pt Level 3 (40166) Diagnoses Fibromyalgia M79.7 SAMIA positive R76.8
== END 2024-04-16 14:38 | disposition home or self-care (01) ==
PROVIDERS: PCP Internal Medicine; Visit Provider Student in an Organized Health Care Education/Training Program
DX: M79.7 Fibromyalgia (principal); R76.8 Other specified abnormal immunological findings in serum
CPT/HCPCS: 99213

== ENCOUNTER 2024-05-04 10:50 | Outpatient (REF) | payer OTHER, SELFPAY ==
[2024-05-04 16:57] LABS: Urine Cytology See Pathology rpt
--- OUTSIDE RECORDS SUMMARY | 2024-05-04 17:03 | XMS_ITS | Clinical Summary ---
Author Organization [facility] Facility Address [address] [address] Care Team Providers Care Placer Miner Name Role Phone Ashia Ventura MD Primary Care Provider Allergies Active Allergy Reactions Criticality Noted Date [...] series) 07/14 Influenza Vaccine (#1) 2023 Insurance [facility] Care Teams Placer Miner Relationship Specialty Start Date End Date Ashia Ventura MD [address] [place], [place] PCP - General Internal Medicine 06/27/21
== END 2024-05-04 10:51 | disposition home or self-care (01) ==
LOC: HO.LAB 10:50
PROVIDERS: PCP Internal Medicine; Visit Provider Urology
DX: R31.9 Hematuria, unspecified (principal)
CPT/HCPCS: 81003; 88112

== ENCOUNTER 2024-05-04 10:50 | Outpatient (AMB) | payer OTHER, SELFPAY ==
--- NOTE | 2024-05-04 11:27 | MHC.OFFVIS ---
Intake Visit Reasons: proteinuria/hematuria Intake Note: New patient is present for Proteinuria/Hematuria Any Urology Med: Antibiotic Allergy: Sulfa, Trimethoprim Blood Thinner: None Financial Processing Clerk Required: No Accompanied by: Self / Same As Patient Allergies sulfamethoxazole [From Bactrim] Allergy (Severe, Verified 05/04/24 11:49) throat closing trimethoprim [From Bactrim] Allergy (Severe, Verified 05/04/24 11:49) throat closing hydrocodone [From Vicodin] Allergy (Mild, Verified 05/04/24 11:49) RASH Medication List - Last Reconciled 05/04/24 by Elliott Nino MD ibuprofen 800 mg PO Q8H PRN melatonin 10 mg PO BEDTIME PRN 30 days omeprazole 20 mg PO DAILY ondansetron 4 mg PO Q8H riboflavin (vitamin B2) 400 mg PO DAILY 30 days sennosides (Natural Senna Laxative) 17.2 mg (2 x 8.6 mg) PO BEDTIME sumatriptan succinate 50 - 100 mg orally at onset of headache, may repeat in 2 hrs PRN; max 2 tabs per day or 12 tabs/week (may take with Ibuprofen) 30 days valacyclovir 1,000 mg PO Q12H 5 days HPI Comments Details: 46-year-old female here for evaluation microscopic hematuria and proteinuria. Past medical history, follows with Rheumatology-history of positive SAMIA, fibromyalgia. history of DVT PE in 2008. In 2008 she had DVT and PE and it was attributed to oral contraceptive pills. She saw a pointing machine operator and she was on Coumadin for about 9 months. Since then she has not had any issues with blood clots. There is also history of proteinuria. She was seen by Nephrology many years ago and she was told that it was likely due to urinary tract infections. She does not have frequent UTIs right now. I have discussed reasons for blood in the urine may include but are not limited to kidney stones, cancer in the urinary tract, or inflammatory conditions of the urinary tract. I have discussed workup to include ultrasound of urinary tract, urine cytology, cystoscopy evaluation. [facility] Medical History UTI (urinary tract infection) Anemia Tenderness over frontal sinus Headache Trigger point with back pain Cervicalgia Hordeolum externum right lower eyelid Toe pain, bilateral Cough Physical exam Urinary urgency Impacted cerumen of right ear Dysuria Encounter to discuss test results Leg pain COVID-19 Gum lesion Prolapsed hemorrhoids IUD surveillance Frequent headaches Smoker GERD (gastroesophageal reflux disease) History of migraine Proteinuria Frequent UTI Deep vein thrombosis (DVT) of calf muscle vein of left lower extremity Environmental allergies Constipation Genital herpes Pulmonary emboli Migraine headache SAMIA positive Fibromyalgia IBS (irritable bowel syndrome) Surgical History History of colonoscopy History of hemorrhoidectomy Status post reimplantation of ureter History of tubal ligation Family History Mother DVT (deep venous thrombosis) Colonic mass, Onset Age: 66 Mental health disorder Colon cancer Brother Autism Sister Arthritis Father Cancer Social History Housing: House Alcohol intake: current Alcohol intake frequency: a few times a month Alcohol type: hard liquor Comment: medicated in pacu Patient Tobacco Use Status: Current everyday Tobacco user Tobacco use type: Cigarette Cigarette Packs Per Day: 0.5 Cigarettes Per Day: 10.0 Years Smoked: 30 e-Cigarette/Vaping Use: Never Used Second Hand Smoke Exposure: Yes service: No Current occupational status: employed Current occupation: [employer] Current occupational exposures/hazards: No Cognitive needs: No Hearing needs: No Vision needs: Yes Female Reproductive History Menstrual Age of Menarche: 12 Review of Systems Const All systems reviewed & are unremarkable except as noted in HPI and below Reports no additional complaints Eyes Reports no additional complaints ENT Reports no additional complaints Card Reports no additional complaints Resp Reports no additional complaints GI Reports no additional complaints Reports as per HPI Musc Reports no additional complaints Skin/Breast Reports system reviewed and no additional complaints, except as documented Neuro Reports no additional complaints Psych Reports no additional complaints Endo Reports no additional complaints Royal/Lymph Reports no additional complaints Aller/Immun Reports no additional complaints Physical Exam Const General: cooperative, healthy appearing and no acute distress Orientation/consciousness: patient oriented x3 HEENT Head: Yes normal to inspection, Yes normocephalic and Yes atraumatic Eyes Conjunctivae: conjunctivae normal Neck Neck: Yes normal visual inspection and Yes trachea midline Chest Chest palpation & inspection: normal inspection of the chest Resp Effort & Inspection: normal respiratory effort GI Inspection: Yes normal to inspection Neuro General: patient oriented x3 Psych Appearance: grossly normal Results AMB Urinalysis, Automated UA Leukoctes 0 Bev/uL Last Edit by Jennyfer Nino [facility] on 05/04/24 11:51 UA Nitrite Negative Last Edit by Jennyfer Nino [facility] on 05/04/24 11:51 UA Urobilinogen 0.2 mg/dL Last Edit by Jennyfer Nino [facility] on 05/04/24 11:51 UA Protein 300 mg/dL Last Edit by Jennyfer Nino A on 05/04/24 11:51 UA pH 6.0 Last Edit by Jennyfer Nino A on 05/04/24 11:51 UA Blood 200 Jeremy/uL Last Edit by Jennyfer Nino [facility] on 05/04/24 11:51 UA Specific Reserve 1.020 Last Edit by Jennyfer Nino [facility] on 05/04/24 11:51 UA Ketone Negative Last Edit by Jennyfer Nino [facility] on 05/04/24 11:51 UA Bilirubin 0 mg/dL Last Edit by Jennyfer Nino [facility] on 05/04/24 11:51 UA Glucose 0 mg/dL Last Edit by Jennyfer Nino [facility] on 05/04/24 11:51 Results Reviewed Results Reviewed: Laboratory Last Values Urine pH (Auto) 6.0 05/04/24 11:49 Specific Reserve (Auto) 1.020 05/04/24 11:49 Urine Protein (Auto) 300 mg/dL 05/04/24 11:49 Glucose (UA)(Auto) 0 mg/dL 05/04/24 11:49 Urine Ketones (Auto) Negative 05/04/24 11:49 Urine Blood (Auto) 200 Jeremy/uL 05/04/24 11:49 Urine Nitrite (Auto) Negative 05/04/24 11:49 Urine Bilirubin (Auto) 0 mg/dL 05/04/24 11:49 Urine Urobilinogen (Auto) 0.2 mg/dL 05/04/24 11:49 Leukocyte Esterase (Auto) 0 Bev/uL 05/04/24 11:49 Assessment & Plan Assessment & Plan (1) Proteinuria: Code(s): R80.9 - Proteinuria, unspecified Category: Medical (2) Microscopic hematuria: Code(s): R31.29 - Other microscopic hematuria Category: Medical Plan I have discussed workup to include ultrasound of urinary tract, urine cytology, cystoscopy evaluation. Orders: Orders AMB Urinalysis Automated Today Z13.9 - Encounter for screening, unspecified Urine Cytology Today R31.9 - Hematuria, unspecified US retroperitoneal comp Today R31.9 - Hematuria, unspecified Patient Instructions: The patient had an opportunity to ask questions regarding treatment plan. The patient expressed understanding and agreement with the above treatment plan. The patient is aware they should contact our office by phone for worsening of their current condition or the appearance of new symptoms. Compliance is encouraged with any medications and followup testing that is ordered. It is a privilege to be allowed the opportunity to participate in the urologic care of your patient. If you have any questions or concerns regarding treatment for the above conditions please do not hesitate to contact me. The office telephone contact is [phone]. This note is constructed in part using voice recognition software. While every effort has been made to ensure accuracy oil and gas field technician errors may have been included. Yours sincerely, Elliott Nino MD Coding Level of Care Code New Pt Level 4 (69653) Diagnoses Proteinuria R80.9 Microscopic hematuria R31.29
--- OUTSIDE RECORDS SUMMARY | 2024-05-04 15:42 | XMS_ITS | Clinical Summary ---
Author Organization [facility] Facility Address [address] [address] Care Team Providers Care Pulp And Paper Tester Name Role Phone Ashia Ventura MD Primary Care Provider [phone] Allergies Active Allergy Reactions Criticality Noted Date Comments Hydrocodone-Acetaminophen Rash,Other (se e comments) Low 06/07/2021 rash Sulfamethoxazole Other (see comments) High 06/07/2021 Throat closing Sulfamethoxazole-Trimethop rim 12/16/2020 Trimethoprim Other (see comments) High 06/07/2021 Throat closing Medications ascorbic acid (VITAMIN C) 100 MG tablet Take 100 mg by mouth 1 (one) time each day Active methenamine (HIPREX) 1 g tablet Take 1 g by mouth in the morning and 1 g in the evening. Take with meals. Active traMADol (ULTRAM) 50 MG tablet Take 50 mg by mouth 1 (one) time each day 03/27/2021 Active levoFLOXacin (LEVAQUIN) 250 MG tablet Take 1 tablet by mouth 1 (one) time each day if needed 04/27/2021 Active amitriptyline (ELAVIL) 10 MG tablet Take 10 mg by mouth every night Active Active Problems Problem Noted Date Diagnosed Date Recurrent urinary tract infection 06/27/2021 Proteinuria 06/07/2021 Constipation 06/07/2021 Deep venous thrombosis 06/07/2021 Environmental allergy 06/07/2021 Fibromyalgia 06/07/2021 Genital herpes simplex 06/07/2021 Irritable bowel syndrome 06/07/2021 Migraine 06/07/2021 Prolapsed hemorrhoids 06/07/2021 Pulmonary embolism 06/07/2021 Dysuria 06/07/2021 Urinary tract infection 06/07/2021 Family History Medical History Relation Comments Autism Brother Colonic polyp Mother Deep vein thrombosis Mother Mental illness Mother Relation Status Comments Brother Mother Social History Tobacco Use Types Packs/Day Years Used Date Smoking Tobacco: Every Day Cigarettes Smokeless Tobacco: Never Alcohol Use Standard Drinks/Week Comments Yes 0 (1 standard drink = 0.6 oz pur e alcohol) few times a week Comments Unknown Sex and Gender Information Value Date Recorded Sex Assigned at Not on file Legal Sex Female 4:48 PM EST Gender Identity Not on file Sexual Orientation Not on file Last Filed Vital Signs Vital Sign Reading Time Taken Comments Blood Pressure 122/80 06/27/2021 3:20 PM EDT Pulse 85 06/27/2021 3:20 PM EDT Temperature - - Respiratory Rate - - Oxygen Saturation 97% 06/27/2021 3:20 PM EDT Inhaled Oxygen Concentration - - Weight 72.1 kg (159 lb) 06/27/2021 3:20 PM EDT Height 157.5 cm (5' 2 ) 06/27/2021 3:20 PM EDT Body Mass Index 29.08 06/27/2021 3:20 PM EDT Plan of Treatment Health Maintenance Due Date Last Done Comments Pneumococcal Vaccine: Pediat rics (0 to 5 Years) and At-Risk Patients (6 to 64 Years) (1 of 2 - PCV) 1982 Hepatitis B Vaccine (1 of 3 - 19+ 3-dose series) 07/14 Influenza Vaccine (#1) 2023 Insurance [facility] Care Teams Pulp And Paper Tester Relationship Specialty Start Date End Date Ashia Ventura MD [address] [place], [place] PCP - General Internal Medicine 06/27/21
== END 2024-05-04 12:18 | disposition home or self-care (01) ==
PROVIDERS: PCP Internal Medicine; Visit Provider Urology
DX: R80.9 Proteinuria, unspecified (principal); R31.29 Other microscopic hematuria; Z13.9 Encounter for screening, unspecified
CPT/HCPCS: 99204

== ENCOUNTER 2024-06-17 10:27 | Outpatient (REF) | payer OTHER, SELFPAY ==
--- NOTE | ~2024-06-17 | US_ITS ---
EXAMINATION: US RETROPERITONEAL COMPLETE (RENAL) CLINICAL INFORMATION: Hematuria. COMPARISON: December 26, 2012. Correlated to CT dated November 16, 2019. TECHNIQUE: Real-time imaging of the kidneys and bladder using grayscale and color Doppler technique. FINDINGS: RIGHT KIDNEY: 12 x 5 x 5 cm (SAG x AP x TRV). Renal cortical thinning. Normal echotexture. No hydronephrosis. No solid or cystic lesion. Normal flow on color Doppler interrogation of the renal hilum. LEFT KIDNEY: 11 x 5 x 6. cm (SAG x AP x TRV). Cortical thinning. Normal echotexture. No hydronephrosis no solid or cystic lesion. Focal cortical defect in the upper pole. Normal flow on color Doppler interrogation of the renal hilum. BLADDER: Fluid-filled. Bilateral ureteral jets are demonstrated. Prevoid bladder volume is 407 mL. Postvoid bladder volume is 23 mL. US/US retroperitoneal comp IMPRESSION: No hydronephrosis or nephrolithiasis. 23 cc retained urine in a post void image. Focal renal cortical defect upper pole left kidney.. Electronically signed by: Georges Grant MD 06/17/2024 02:19 PM EDT
--- OUTSIDE RECORDS SUMMARY | 2024-06-17 12:01 | XMS_ITS | Clinical Summary ---
Author Organization [facility] Facility Address [address] [address] Care Team Providers Care Rn Complex Care Name Role Phone Ashia Ventura MD Primary Care Provider [phone] Allergies Active Allergy Reactions Criticality Noted Date [...] series) 07/14 Influenza Vaccine (#1) 2023 Insurance [facility] Care Teams Rn Complex Care Relationship Specialty Start Date End Date Ashia Ventura MD [address] [place], [place] PCP - General Internal Medicine 06/27/21
== END 2024-06-17 10:28 | disposition home or self-care (01) ==
LOC: HO.HMGCX 10:27
PROVIDERS: PCP Internal Medicine; Visit Provider Urology
DX: R31.9 Hematuria, unspecified (principal)
CPT/HCPCS: 76770

== ENCOUNTER → 2024-06-17 10:28 | Outpatient (BNV) | payer OTHER, SELFPAY | PROVIDERS: PCP Internal Medicine; Visit Provider Radiology Diagnostic Radiology | DX: R31.9 Hematuria, unspecified (principal) | CPT/HCPCS: 76770 ==

== ENCOUNTER 2024-06-18 11:03 | Emergency (ER) | payer OTHER, SELFPAY ==
--- NOTE | ~2024-06-18 | CT_ITS ---
EXAMINATION: CT HEAD WITHOUT IV CONTRAST HISTORY: headache. TECHNIQUE: Unenhanced helical CT of the head was performed per standard departmental protocol. Coronal and sagittal reformats of the head were also evaluated. One or more of the following techniques was used for dose reduction: Automated exposure control, adjustment of the mA and/or kV according to patient size, use of iterative reconstruction technique. DLP: 670 mGy-cm COMPARISON: There are no prior studies for comparison. FINDINGS: BRAIN: The brain parenchyma is unremarkable. There is normal bell/white differentiation. The ventricular system is normal in size and configuration. There is no mass effect or midline shift. No intra- or extra-axial fluid collections are identified. SINUSES: The visualized paranasal sinuses are clear. The mastoid air cells and middle ear cavities are well pneumatized. ORBITS: The visualized orbits are unremarkable. BONES/SOFT TISSUES: The extracranial soft tissues are unremarkable. The calvarium is intact. No suspicious lytic or sclerotic lesions. CT/CT head/brain wo IV con IMPRESSION: Unremarkable unenhanced head CT. Electronically signed by: Kenton Posey MD 06/18/2024 12:32 PM EDT
--- NOTE | ~2024-06-18 | XR_ITS ---
EXAMINATION: XR WRIST 3 OR MORE VIEWS RIGHT HISTORY: pain COMPARISON: There are no prior studies available for comparison. FINDINGS: Four views of the right wrist including a scaphoid view are submitted. Osseous mineralization is normal. There is no fracture or dislocation. The joint spaces are preserved. The soft tissues are unremarkable. XR/XR wrist RT min 3V IMPRESSION: Unremarkable examination of the right wrist. Electronically signed by: Kenton Posey MD 06/18/2024 12:15 PM EDT
[2024-06-18 11:36] VITALS: BP 157/84; PULSE 67; RESP 16; TEMP 36.4; O2SAT 99; BMI 30.1
--- NOTE | 2024-06-18 11:40 | ED_ITS ---
HPI - General Adult General Chief complaint: General Medical Stated complaint: Pain/weakness R side of body, head pain Time Seen by Provider: 06/18/24 13:38 Source: patient, RN notes reviewed and old records reviewed Mode of arrival: ambulatory History of Present Illness ED Provider: Denia Mcmillan PA-C HPI narrative: 48-year-old female with a past medical history of anemia, GERD, PE, fibromyalgia, IBS, GERD, presenting to the ED complaining of right wrist pain x6 days which progressed to RUE & RLE pain/reported weakness. states pain worse with movement and palpation. Also reports intermittent headache. denies headache at present. Also reports some blurry vision. Denies known injury, trauma, fall, numbness / tingling, CP/SOB Related Data Home Medications ?Medication ?Instructions ?Recorded ?Confirmed ibuprofen 800 mg tablet 800 mg PO Q8H PRN 08/27/23 05/04/24 ondansetron 4 mg disintegrating 4 mg PO Q8H 04/16/24 05/04/24 tablet Previous Rx's ?Medication ?Instructions ?Recorded riboflavin (vitamin B2) 400 mg 400 mg PO DAILY 30 days #30 tabs 08/28/23 tablet valacyclovir 1 gram tablet 1,000 mg PO Q12H 5 days #10 tabs 10/24/23 omeprazole 20 mg capsule,delayed 20 mg PO DAILY #30 caps 01/03/24 release sennosides 8.6 mg tablet (Natural 17.2 mg (2 x 8.6 mg) PO BEDTIME 01/28/24 Senna Laxative) constipation #60 tabs melatonin 10 mg capsule 10 mg PO BEDTIME PRN sleep 30 days 02/25/24 #30 caps sumatriptan succinate 100 mg tablet 50 - 100 mg (0.5 - 1 x 100 mg) PO 03/19/24 .COMPLEX PRN migraine headache 30 days #12 tabs Allergies Allergy/AdvReac Type Severity Reaction Status Date / Time sulfamethoxazole Allergy Severe throat Verified 06/18/24 11:37 [From Bactrim] closing trimethoprim [From Bactrim] Allergy Severe throat Verified 06/18/24 11:37 closing hydrocodone [From Vicodin] Allergy Mild RASH Verified 06/18/24 11:37 Review of Systems 2 Review of Systems: Yes all other systems are reviewed and are negative Constitutional: Constitutional: Reports as per HPI Neurologic: Denies Abnormal speech present [facility] Past Medical History Attestation statement: The following information was validated with the patient. Source: old records reviewed Medical History UTI (urinary tract infection) Anemia Tenderness over frontal sinus Headache Trigger point with back pain Cervicalgia Hordeolum externum right lower eyelid Toe pain, bilateral Cough Physical exam Urinary urgency Impacted cerumen of right ear Dysuria Encounter to discuss test results Leg pain COVID-19 Gum lesion Prolapsed hemorrhoids IUD surveillance Frequent headaches Smoker GERD (gastroesophageal reflux disease) History of migraine Proteinuria Frequent UTI Deep vein thrombosis (DVT) of calf muscle vein of left lower extremity Environmental allergies Constipation Genital herpes Pulmonary emboli Migraine headache ASHIA positive Fibromyalgia IBS (irritable bowel syndrome) Surgical History History of colonoscopy History of hemorrhoidectomy Status post reimplantation of ureter History of tubal ligation Family History Family History Mother DVT (deep venous thrombosis) Colonic mass, Onset Age: 66 Mental health disorder Colon cancer Brother Autism Sister Arthritis Father Cancer Social History Social History Housing: House Alcohol intake: current Alcohol intake frequency: 0-2 drinks per day Alcohol type: hard liquor Comment: medicated in pacu Patient Tobacco Use Status: Current everyday Tobacco user Tobacco use type: Cigarette Cigarette Packs Per Day: 0.5 Cigarettes Per Day: 10.0 Years Smoked: 30 Smoked in Last 30 Days: Yes e-Cigarette/Vaping Use: Never Used Second Hand Smoke Exposure: Yes Use of substances other than those prescribed or required for medical reasons: No Advance Directives: No Advance Directives Information Provided: Yes service: No Current occupational status: employed Current occupation: [employer] Current occupational exposures/hazards: No Cognitive needs: No Hearing needs: No Vision needs: Yes Physical Exam ED Vital Signs: Vital Signs - 24 hr 06/18/24 11:36 06/18/24 15:07 Temperature 97.6 F 97.6 F Pulse Rate 67 67 Respiratory Rate 16 16 Blood Pressure 157/84 H 157/84 H Pulse Oximetry 99 99 Oxygen Delivery Method Room Air Room Air BMI result Body Mass Index 30.1 Const General: cooperative, healthy appearing and no acute distress Orientation/consciousness: patient oriented x3 Limitations: no limitations HENMT Head: Yes normal to inspection and Yes atraumatic Ears: hearing grossly normal bilaterally General nose exam: Normal external nose present Face and sinus: Yes normal facial exam Mouth: Normal oral and palatal mucosa present and no drooling Throat: Yes posterior oropharynx normal and Yes uvula midline Eyes General: appearance normal, both eyes and all related structures Pupils: Equal, round and reactive pupils present EOM: EOMs intact bilaterally Neck Neck: Yes normal visual inspection and Yes no meningeal signs Resp Effort & Inspection: normal respiratory effort and no respiratory distress Auscultation: clear to auscultation bilaterally, no crackles, no rales, no rhonchi and no wheezes Cardio Rate: regular rate Heart sounds: S1 normal heart sound present and S2 normal heart sound present GI Inspection: Yes normal to inspection Palpation (GI): Soft to palpation, nontender, no guarding and not rigid Back/Spine/Pelvis Other: No midline cervical/thoracic/lumbar spinous tenderness/step-off or deformity Skin Rashes: no rashes Wounds: no wounds Neuro General: patient oriented x3, gait normal, tone normal, moves all extremities, no meningeal signs, no focal motor deficits and CN's II-XI intact bilaterally Cranial nerves: Yes CN's II-XII intact bilaterally, Yes Equal, round and reactive pupils present and Yes Bilaterally intact EOM present Cognition (Neuro): normal cognition Speech: No Abnormal speech present Gait exam (Neuro): Normal gait present Motor exam (neuro): 5/5 motor strength present throughout and Pronator motor function not present Extrem Other: Right wrist without appreciable deformity, no erythema/ warmth or crepitus. Mildly tender. Neurovascularly intact. Full range of motion intact. Right shoulder/ elbow nontender no RUE edema General: Yes normal to inspection Course Course Course Narrative: This is an RME: Additional HPI, ROS, PE not included below will be deferred to primary provider. RME assessment and note performed by: Kathia Reyes PA-C This is a 48-year-old female, with a past medical history of fibromyalgia, and a positive, GERD, and pulmonary embolism in the early 1999s, not currently anticoagulated who presents with multiple complaints. Patient states that right wrist was causing her to have pain, unable to make a fist, she felt as though the pain spread up into her arm and down her right leg. She also reports headache. She states that she has had weakness in any increased pain. No focal neurologic deficits on examination. Patient also endorsing pain radiating into her chest. States that she has a history of headaches however states that this headache is different. Plan: Labs, EKG, x-ray right wrist, CT head, further ER evaluation needed. - labs reassuring including negative troponin - viral testing negative XR wrist RT min 3V IMPRESSION: Unremarkable examination of the right wrist. CT head/brain wo IV con IMPRESSION: Unremarkable unenhanced head CT. Results discussed with patient including worrisome signs and symptoms and strict return precautions, and when to return to the emergency department. They verbalized understanding and feel safe for discharge at this time. Medical Decision Making Medical Decision Making [facility] Narrative: 48-year-old female with a past medical history of anemia, GERD, PE, fibromyalgia, IBS, GERD, presenting to the ED complaining of right wrist pain x6 days which progressed to RUE & RLE pain/reported weakness w/ intermittent headache & some blurry vision. on exam vital signs stable, NAD, nontoxic appearing, no midline spinous tenderness, no focal neuro deficits, ambulating with steady gait, no appreciable extremity trauma/ injury deformity. Concern for fibromyalgia vs OA vs atypical ACS vs ?complicated migraine although headache is intermittent. low suspicion for acute CVA /TIA, meningitis or encephalitis. No evidence of septic joint / arthritis. Plan: EKG, labs, wrist x-ray, head CT, re-evaluate Please refer to course for remaining clinical decision making, interpretation of labs/imaging results, and discussions with consultants and/or family members. Differential Diagnosis Differential Diagnoses: The differential diagnosis associated with the presentation includes As above Admission/Observation Consideration of admission/observation: Escalation of care including admission/observation considered Lab Data [facility] Lab Attestation statement: I reviewed the patient's lab results. 06/18/24 12:01 06/18/24 12:01 Labs: Lab Results 06/18/24 Range/Units 12:01 WBC 7.2 (4.8-10.8) X10*3/uL RBC 4.33 (4.20-5.50) X10*6/uL Hgb 14.7 (12.0-16.0) g/dl Hct 40.9 (37.0-47.0) % MCV 94.5 (80.0-98.0) fL MCH 33.9 H (27.0-33.0) pg MCHC 35.9 H (31.0-35.0) g/dl RDW 12.5 (11.0-16.0) % Plt Count 312 (160-400) X10*3/uL MPV 9.1 L (9.4-12.3) fL Immature Gran % (Auto) 0.3 (0.0-0.4) % Neut % (Auto) 67.3 (45-73) % Lymph % (Auto) 23.1 (20-40) % [place] % (Auto) 6.5 (2-11) % Eos % (Auto) 2.2 (0-4) % Baso % (Auto) 0.6 (0-2) % Lymph # (Auto) 1.7 (1.2-4.9) X10*3/uL [place] # (Auto) 0.5 (0.1-1.2) X10*3/uL Eos # (Auto) 0.2 (0.0-0.4) X10*3/uL Baso # (Auto) 0.0 (0.0-0.2) X10*3/uL Abs Immat Gran (auto) 0.02 (0.00-0.03) X10*3/uL Absolute Neuts (auto) 4.9 (2.0-8.3) x10*3/uL Absolute Nucleated RBC 0.000 (0.0-0.012) X10*3/uL Nucleated RBC % (auto) 0.0 (0.0-0.2) /100WBC Sodium 140 (135-145) mmol/L Potassium 3.9 (3.3-5.1) mmol/L Chloride 109 H (96-108) mmol/L Carbon Dioxide 25 (22-29) mmol/L Anion Gap 10 L (12-20) BUN 18 H (9-16) mg/dL Creatinine 0.74 (0.5-1.4) mg/dL Estim Creat Clear Calc 88.9 Estimated GFR > 60 Random Glucose 98 (60-115) mg/dL Calcium 8.5 (8.4-10.2) mg/dL Magnesium 1.6 (1.6-2.6) mg/dL Total Bilirubin 0.5 (0.0-1.0) mg/dL Direct Bilirubin 0.2 (0.0-0.5) mg/dL AST 18 (5-31) U/L ALT 16 (0-31) U/L Alkaline Phosphatase 70 (39-117) U/L Troponin I High Sens < 2.7 (<3.5-17.0) ng/L Total Protein 6.9 (6.5-8.0) g/dL Albumin 3.5 (3.5-5.0) g/dL Influenza Type A (PCR) NEGATIVE (Negative) Influenza Type B (PCR) NEGATIVE (Negative) RSV RNA Qual (PCR) NEGATIVE (Negative) SARS-CoV-2 RNA (RT-PCR) NEGATIVE (Negative) Independent Interpretation I performed an independent interpretation of an: EKG ( my interpretation EKG sinus bradycardia rate of 57. MD interval 176. QTC 412. No significant change when compared to prior. No STEMI), Plain X-Ray and CT Scan Radiology Impression Discussion of test interpretation with radiology: I have reviewed the radiologist's reading. External Record Review External record reviewed: Inpatient record, Office record, Outpatient record, Prior outpatient labs, Prior outpatient radiology, Primary care record and Outside ED record Tests considered The following testing was considered but not selected: As above Prescription Management I considered prescription management with: Pain Medication Chronic Conditions Patient?s care impacted by: Other ( fibromyalgia) Social Determinants Patient?s care significantly limited by Social Determinants of Health including: Other Social Determinant of Health Discharge Plan Discharge Clinical Impression: Right wrist pain, Pain of right side of body, Intermittent headache Patient Disposition: Home, Self-Care Instructions: Acute Headache (DC), Arthralgia (ED) Additional Instructions: your blood work and imaging studies are reassuring Please have close follow-up with your doctor as well as Neurology. Call to make an appointment If your symptoms persist or worsen, you develop focal weakness, persistent or worsening headache, nausea/vomiting return to the ED Prescriptions: No Action omeprazole 20 mg capsule,delayed release(DR/EC) 20 mg PO DAILY Qty: 30 3RF sennosides [Natural Senna Laxative] 8.6 mg tablet 17.2 mg PO BEDTIME Qty: 60 3RF melatonin 10 mg capsule 10 mg PO BEDTIME PRN (Reason: sleep) 30 Days Qty: 30 1RF valacyclovir 1 gram tablet 1,000 mg PO Q12H 5 Days Qty: 10 3RF ibuprofen 800 mg tablet 800 mg PO Q8H PRN riboflavin (vitamin B2) 400 mg tablet 400 mg PO DAILY 30 Days Qty: 30 6RF sumatriptan succinate 100 mg tablet 50 - 100 mg PO .COMPLEX PRN (Reason: migraine headache) 30 Days Qty: 12 6RF Rx Instructions: 50 - 100 mg orally at onset of headache, may repeat in 2 hrs PRN; max 2 tabs per day or 12 tabs/week (may take with Ibuprofen) ondansetron 4 mg tablet,disintegrating 4 mg PO Q8H Referrals: [facility] [Provider Group] - 1 week Ashia Ventura MD [Primary Care Provider] - 5 days Interventions: ED Discharge Assessment Last Done: 06/18/24 15:07 Discharge Date/Time: 06/18/24 15:08 Print Language: Libyan
--- NOTE | 2024-06-18 11:50 | ECG_ITS ---
Test Reason : CHEST PAIN Blood Pressure : */* mmHG Vent. Rate : 57 BPM Atrial Rate : 57 BPM P-R Int : 176 ms QRS Dur : 74 ms QT Int : 424 ms P-R-T Axes : 22 17 15 degrees QTcB Int : 412 ms Sinus bradycardia Otherwise normal ECG When compared with ECG of 20-Sep-2020 11:03, No significant change was found Referred By: Kathia Reyes Electronically Signed By: REZA FOSTER
[2024-06-18 12:06] LABS: MANUAL DIFF FLAG NO
[2024-06-18 12:10] LABS: Basophils Percent Auto 0.6 % (0-2); Eosinophils Absolute Auto 0.2 X10*3/uL (0.0-0.4); Eosinophils Percent Auto 2.2 % (0-4); Hematocrit 40.9 % (37.0-47.0); Hemoglobin 14.7 g/dl (12.0-16.0); Imm Gran Abs Auto 0.02 X10*3/uL (0.00-0.03); Imm Gran Pct Auto 0.3 % (0.0-0.4); Lymphocytes Absolute Auto 1.7 X10*3/uL (1.2-4.9); Lymphocytes Percent Auto 23.1 % (20-40); Mean Corpuscular HGB Conc 35.9 g/dl (31.0-35.0); Mean Corpuscular Hemoglobin 33.9 pg (27.0-33.0); Mean Corpuscular Volume 94.5 fL (80.0-98.0); Mean Platelet Volume 9.1 fL (9.4-12.3); Monocytes Absolute Auto 0.5 X10*3/uL (0.1-1.2); Monocytes Percent Auto 6.5 % (2-11); Neutrophils Absolute Auto 4.9 x10*3/uL (2.0-8.3); Neutrophils Percent Auto 67.3 % (45-73); Platelet Count 312 X10*3/uL (160-400); Red Blood Count 4.33 X10*6/uL (4.20-5.50); Red Cell Distribution Width 12.5 % (11.0-16.0); White Blood Count 7.2 X10*3/uL (4.8-10.8)
--- NOTE | 2024-06-18 12:10 | PC.NURSE ---
NA to name for ED room at 12:10.
--- NOTE | 2024-06-18 12:18 | PC.NURSE ---
NA at 12:10pm for room in ED.
[2024-06-18 12:32] LABS: Alanine Aminotransferase 16 U/L (0-31); Albumin Level 3.5 g/dL (3.5-5.0); Alkaline Phosphatase 70 U/L (39-117); Anion Gap 10 (12-20); Aspartate Amino Transferase 18 U/L (5-31); Bilirubin Direct 0.2 mg/dL (0.0-0.5); Bilirubin Total 0.5 mg/dL (0.0-1.0); Blood Urea Nitrogen 18 mg/dL (9-16); Calcium 8.5 mg/dL (8.4-10.2); Carbon Dioxide 25 mmol/L (22-29); Chloride 109 mmol/L (96-108); Creatinine Clr Calc Pharmacy 88.9; Estimated Glomerular Filt Rate > 60; Glucose Random 98 mg/dL (60-115); Magnesium 1.6 mg/dL (1.6-2.6); Potassium 3.9 mmol/L (3.3-5.1); Sodium 140 mmol/L (135-145); Total Protein 6.9 g/dL (6.5-8.0)
[2024-06-18 12:45] LABS: Influenza A PCR NEGATIVE (Negative); Influenza B PCR NEGATIVE (Negative); Resp Syncy Virus RNA Qual PCR NEGATIVE (Negative); SARS COV2 PCR INHOUSE NEGATIVE (Negative)
[2024-06-18 12:53] LABS: Troponin-I High Sensitivity < 2.7 ng/L (<3.5-17.0)
--- NOTE | 2024-06-18 13:50 | ED_ITS ---
HPI - General Adult General Chief complaint: General Medical Stated complaint: Pain/weakness R side of body, head pain Time Seen by Provider: 06/18/24 13:38 Source: patient, RN notes reviewed and old records reviewed Mode of arrival: ambulatory History of Present Illness ED Provider: Denia Mcmillan PA-C HPI narrative: 48-year-old female with a past medical history of anemia, GERD, PE, fibromyalgia, IBS Related Data Home Medications ?Medication ?Instructions ?Recorded ?Confirmed ibuprofen 800 mg tablet 800 mg PO Q8H PRN 08/27/23 05/04/24 ondansetron 4 mg disintegrating 4 mg PO Q8H 04/16/24 05/04/24 tablet Previous Rx's ?Medication ?Instructions ?Recorded riboflavin (vitamin B2) 400 mg 400 mg PO DAILY 30 days #30 tabs 08/28/23 tablet valacyclovir 1 gram tablet 1,000 mg PO Q12H 5 days #10 tabs 10/24/23 omeprazole 20 mg capsule,delayed 20 mg PO DAILY #30 caps 01/03/24 release sennosides 8.6 mg tablet (Natural 17.2 mg (2 x 8.6 mg) PO BEDTIME 01/28/24 Senna Laxative) constipation #60 tabs melatonin 10 mg capsule 10 mg PO BEDTIME PRN sleep 30 days 02/25/24 #30 caps sumatriptan succinate 100 mg tablet 50 - 100 mg (0.5 - 1 x 100 mg) PO 03/19/24 .COMPLEX PRN migraine headache 30 days #12 tabs Allergies Allergy/AdvReac Type Severity Reaction Status Date / Time sulfamethoxazole Allergy Severe throat Verified 06/18/24 11:37 [From Bactrim] closing trimethoprim [From Bactrim] Allergy Severe throat Verified 06/18/24 11:37 closing hydrocodone [From Vicodin] Allergy Mild RASH Verified 06/18/24 11:37 Review of Systems 2 Review of Systems: Yes all other systems are reviewed and are negative Constitutional: Constitutional: Reports as per [facility] Past Medical History Attestation statement: The following information was validated with the patient. Source: old records reviewed Medical History UTI (urinary tract infection) Anemia Tenderness over frontal sinus Headache Trigger point with back pain Cervicalgia Hordeolum externum right lower eyelid Toe pain, bilateral Cough Physical exam Urinary urgency Impacted cerumen of right ear Dysuria Encounter to discuss test results Leg pain COVID-19 Gum lesion Prolapsed hemorrhoids IUD surveillance Frequent headaches Smoker GERD (gastroesophageal reflux disease) History of migraine Proteinuria Frequent UTI Deep vein thrombosis (DVT) of calf muscle vein of left lower extremity Environmental allergies Constipation Genital herpes Pulmonary emboli Migraine headache SAMIA positive Fibromyalgia IBS (irritable bowel syndrome) Surgical History History of colonoscopy History of hemorrhoidectomy Status post reimplantation of ureter History of tubal ligation Family History Family History Mother DVT (deep venous thrombosis) Colonic mass, Onset Age: 66 Mental health disorder Colon cancer Brother Autism Sister Arthritis Father Cancer Social History Social History Housing: House Alcohol intake: current Alcohol intake frequency: 0-2 drinks per day Alcohol type: hard liquor Comment: medicated in pacu Patient Tobacco Use Status: Current everyday Tobacco user Tobacco use type: Cigarette Cigarette Packs Per Day: 0.5 Cigarettes Per Day: 10.0 Years Smoked: 30 Smoked in Last 30 Days: Yes e-Cigarette/Vaping Use: Never Used Second Hand Smoke Exposure: Yes Use of substances other than those prescribed or required for medical reasons: No Advance Directives: No Advance Directives Information Provided: Yes service: No Current occupational status: employed Current occupation: [employer] Current occupational exposures/hazards: No Cognitive needs: No Hearing needs: No Vision needs: Yes Physical Exam ED Vital Signs: Vital Signs - 24 hr 06/18/24 11:36 Temperature 97.6 F Pulse Rate 67 Respiratory Rate 16 Blood Pressure 157/84 H Pulse Oximetry 99 Oxygen Delivery Method Room Air BMI result Body Mass Index 30.1 Const General: cooperative, healthy appearing and no acute distress Orientation/consciousness: patient oriented x3 Limitations: no limitations HENMT Head: Yes normal to inspection and Yes atraumatic Ears: hearing grossly normal bilaterally General nose exam: Normal external nose present Face and sinus: Yes normal facial exam Eyes General: appearance normal, both eyes and all related structures EOM: EOMs intact bilaterally Neck Neck: Yes normal visual inspection and Yes no meningeal signs Resp Effort & Inspection: normal respiratory effort and no respiratory distress Auscultation: clear to auscultation bilaterally Cardio Rate: regular rate Heart sounds: S1 normal heart sound present and S2 normal heart sound present GI Inspection: Yes normal to inspection Palpation (GI): Soft to palpation, nontender, no guarding and not rigid General: Yes no CVA tenderness Back/Spine/Pelvis Back: no CVA tenderness Skin Rashes: no rashes Wounds: no wounds Neuro General: patient oriented x3, tone normal and no meningeal signs Cranial nerves: Yes CN's II-XII intact bilaterally Gait exam (Neuro): Normal gait present Extrem General: Yes normal to inspection Medical Decision Making Medical Decision Making MDM Narrative: Please refer to course for remaining clinical decision making, interpretation of labs/imaging results, and discussions with consultants and/or family members. Differential Diagnosis Differential Diagnoses: The differential diagnosis associated with the presentation includes As above Admission/Observation Consideration of admission/observation: Escalation of care including admission/observation considered Lab Data [facility] Lab Attestation statement: I reviewed the patient's lab results. 06/18/24 12:01 06/18/24 12:01 Labs: Lab Results 06/18/24 Range/Units 12:01 WBC 7.2 (4.8-10.8) X10*3/uL RBC 4.33 (4.20-5.50) X10*6/uL Hgb 14.7 (12.0-16.0) g/dl Hct 40.9 (37.0-47.0) % MCV 94.5 (80.0-98.0) fL MCH 33.9 H (27.0-33.0) pg MCHC 35.9 H (31.0-35.0) g/dl RDW 12.5 (11.0-16.0) % Plt Count 312 (160-400) X10*3/uL MPV 9.1 L (9.4-12.3) fL Immature Gran % (Auto) 0.3 (0.0-0.4) % Neut % (Auto) 67.3 (45-73) % Lymph % (Auto) 23.1 (20-40) % [place] % (Auto) 6.5 (2-11) % Eos % (Auto) 2.2 (0-4) % Baso % (Auto) 0.6 (0-2) % Lymph # (Auto) 1.7 (1.2-4.9) X10*3/uL [place] # (Auto) 0.5 (0.1-1.2) X10*3/uL Eos # (Auto) 0.2 (0.0-0.4) X10*3/uL Baso # (Auto) 0.0 (0.0-0.2) X10*3/uL Abs Immat Gran (auto) 0.02 (0.00-0.03) X10*3/uL Absolute Neuts (auto) 4.9 (2.0-8.3) x10*3/uL Absolute Nucleated RBC 0.000 (0.0-0.012) X10*3/uL Nucleated RBC % (auto) 0.0 (0.0-0.2) /100WBC Sodium 140 (135-145) mmol/L Potassium 3.9 (3.3-5.1) mmol/L Chloride 109 H (96-108) mmol/L Carbon Dioxide 25 (22-29) mmol/L Anion Gap 10 L (12-20) BUN 18 H (9-16) mg/dL Creatinine 0.74 (0.5-1.4) mg/dL Estim Creat Clear Calc 88.9 Estimated GFR > 60 Random Glucose 98 (60-115) mg/dL Calcium 8.5 (8.4-10.2) mg/dL Magnesium 1.6 (1.6-2.6) mg/dL Total Bilirubin 0.5 (0.0-1.0) mg/dL Direct Bilirubin 0.2 (0.0-0.5) mg/dL AST 18 (5-31) U/L ALT 16 (0-31) U/L Alkaline Phosphatase 70 (39-117) U/L Troponin I High Sens < 2.7 (<3.5-17.0) ng/L Total Protein 6.9 (6.5-8.0) g/dL Albumin 3.5 (3.5-5.0) g/dL Influenza Type A (PCR) NEGATIVE (Negative) Influenza Type B (PCR) NEGATIVE (Negative) RSV RNA Qual (PCR) NEGATIVE (Negative) SARS-CoV-2 RNA (RT-PCR) NEGATIVE (Negative) Radiology Impression Discussion of test interpretation with radiology: I have reviewed the radiologist's reading. External Record Review External record reviewed: Inpatient record, Office record, Outpatient record, Prior outpatient labs, Prior outpatient radiology, Primary care record and Outside ED record Tests considered The following testing was considered but not selected: As above Discharge Plan Discharge Prescriptions: No Action omeprazole 20 mg capsule,delayed release(DR/EC) 20 mg PO DAILY Qty: 30 3RF sennosides [Natural Senna Laxative] 8.6 mg tablet 17.2 mg PO BEDTIME Qty: 60 3RF melatonin 10 mg capsule 10 mg PO BEDTIME PRN (Reason: sleep) 30 Days Qty: 30 1RF valacyclovir 1 gram tablet 1,000 mg PO Q12H 5 Days Qty: 10 3RF ibuprofen 800 mg tablet 800 mg PO Q8H PRN riboflavin (vitamin B2) 400 mg tablet 400 mg PO DAILY 30 Days Qty: 30 6RF sumatriptan succinate 100 mg tablet 50 - 100 mg PO .COMPLEX PRN (Reason: migraine headache) 30 Days Qty: 12 6RF Rx Instructions: 50 - 100 mg orally at onset of headache, may repeat in 2 hrs PRN; max 2 tabs per day or 12 tabs/week (may take with Ibuprofen) ondansetron 4 mg tablet,disintegrating 4 mg PO Q8H Print Language: Malagasy
[2024-06-18 15:07] VITALS: BP 157/84; PULSE 67; RESP 16; TEMP 36.4; O2SAT 99
--- OUTSIDE RECORDS SUMMARY | 2024-06-18 16:04 | XMS_ITS | Clinical Summary ---
Author Organization [facility] Facility Address [address] [address] Care Team Providers Care Microbiology Supervisor Name Role Phone Ashia Ventura MD Primary Care Provider [phone] Allergies Active Allergy Reactions Criticality Noted Date [...] series) 07/14 Influenza Vaccine (#1) 2023 Insurance [facility] Care Teams Microbiology Supervisor Relationship Specialty Start Date End Date Ashia Ventura MD [address] [place], [place] PCP - General Internal Medicine 06/27/21
== END 2024-06-18 15:08 | disposition home or self-care (01) ==
PROVIDERS: Physician Assistant Medical; Emergency Provider Emergency Medicine; PCP Internal Medicine
DX: M25.531 Pain in right wrist (principal); R51.9 Headache, unspecified; M79.7 Fibromyalgia; H53.8 Other visual disturbances; R53.1 Weakness; R07.89 Other chest pain; R00.1 Bradycardia, unspecified; F17.210 Nicotine dependence, cigarettes, uncomplicated; Z03.818 Encounter for observation for suspected exposure to other biological agents ruled out; Z79.899 Other long term (current) drug therapy
CPT/HCPCS: 0241U; 36415; 70450; 73110; 80048; 80076; 83735; 84484; 85025; 93005; 99284

== ENCOUNTER → 2024-06-18 11:50 | Outpatient (BNV) | payer OTHER, SELFPAY | PROVIDERS: Emergency Provider Emergency Medicine; PCP Internal Medicine; Visit Provider Internal Medicine | DX: R00.1 Bradycardia, unspecified (principal) | CPT/HCPCS: 93010 ==

== ENCOUNTER → 2024-06-18 11:50 | Outpatient (BNV) | payer OTHER, SELFPAY | PROVIDERS: PCP Internal Medicine; Visit Provider Radiology Diagnostic Radiology | DX: R51.9 Headache, unspecified (principal); M25.531 Pain in right wrist | CPT/HCPCS: 70450; 73110 ==

== ENCOUNTER 2024-06-25 09:09 | Outpatient (REF) | payer OTHER, SELFPAY ==
--- NOTE | ~2024-06-25 | XR_ITS ---
EXAMINATION: XR CERVICAL SPINE CLINICAL INFORMATION: M54.2 - Cervicalgia COMPARISON: December 19, 2022. TECHNIQUE: 6 views of the cervical spine, inclusive of flexion and extension views, were obtained. FINDINGS: Craniocervical junction is intact. No gross malalignment. Neutral, flexion and or extension position. Mild multilevel neuroforamina narrowing bilaterally on a degenerative basis from C3-4 to C5-6 more conspicuous at C5-6 on the left side. Mild marginal osteophyte formation C4-5 and C5-6. No lytic or blastic lesions. No acute cortical disruption. XR/XR cervical spine w flex/ext IMPRESSION: Mild multilevel cervical spondylosis more conspicuous at C5-6 resulting in left neuroforamina narrowing. Electronically signed by: Georges Grant MD 06/26/2024 08:10 AM EDT
--- OUTSIDE RECORDS SUMMARY | 2024-06-25 09:47 | XMS_ITS | Clinical Summary ---
Author Organization [facility] Facility Address [address] [address] Care Team Providers Care Wardrobe Technician Name Role Phone Ashia Ventura MD Primary Care Provider [phone] Allergies Active Allergy Reactions Criticality Noted Date [...] 07/14 Influenza Vaccine (#1) 2023 Insurance [facility] Care Teams Wardrobe Technician Relationship Specialty Start Date End Date Ashia Ventura MD [address] [place], [place] PCP - General Internal Medicine 06/27/21
[2024-06-25 13:30] LABS: D Dimer High Sensitivity 172 NG/ML
== END 2024-06-25 09:10 | disposition home or self-care (01) ==
LOC: HO.HMGCX 09:09
PROVIDERS: PCP Internal Medicine; Visit Provider Internal Medicine
DX: M54.2 Cervicalgia (principal); Z86.711 Personal history of pulmonary embolism
CPT/HCPCS: 36415; 72052; 85379

== ENCOUNTER → 2024-06-25 09:13 | Outpatient (BNV) | payer OTHER, SELFPAY | PROVIDERS: PCP Internal Medicine; Visit Provider Radiology Diagnostic Radiology | DX: M54.2 Cervicalgia (principal) | CPT/HCPCS: 72052 ==

== ENCOUNTER 2024-07-06 14:21 | Outpatient (AMB) | payer OTHER, SELFPAY ==
--- NOTE | 2024-07-06 14:34 | A.OFFVIS_ITS ---
Intake Visit Reasons: cysto/US Intake Note: Patient is present for cystoscopy/US Any Urology Med:none Antibiotic Allergy: Sulfa, Trimethoprim Blood Thinner: None Housekeeping And Laundry Team Leader Required: No Accompanied by: Self / Same As Patient Allergies sulfamethoxazole [From Bactrim] Allergy (Severe, Verified 08/21/24 14:59) throat closing trimethoprim [From Bactrim] Allergy (Severe, Verified 08/21/24 14:59) throat closing hydrocodone [From Vicodin] Allergy (Mild, Verified 08/21/24 14:59) RASH HPI Comments Details: 07/06/24--here for office cystoscopy: Past medical history, follows with Rheumatology-history of positive SAMIA, fibromyalgia. history of DVT PE in 2008. In 2008 she had DVT and PE and it was attributed to oral contraceptive pills. Cystoscopy findings: bladder within normal limits, no suspicious lesions. Will refer to Nephrology for proteinuria 05/04/24--46-year-old female here for evaluation microscopic hematuria and proteinuria. Past medical history, follows with Rheumatology-history of positive SAMIA, fibromyalgia. history of DVT PE in 2008. In 2008 she had DVT and PE and it was attributed to oral contraceptive pills. She saw a stone engraver and she was on Coumadin for about 9 months. Since then she has not had any issues with blood clots. There is also history of proteinuria. She was seen by Nephrology many years ago and she was told that it was likely due to urinary tract infections. She does not have frequent UTIs right now. I have discussed reasons for blood in the urine may include but are not limited to kidney stones, cancer in the urinary tract, or inflammatory conditions of the urinary tract. I have discussed workup to include ultrasound of urinary tract, urine cytology, cystoscopy evaluation. [facility] Medical History (Updated 08/09/24 @ 17:00 by Cornelius Jo MD) Urinary tract infection symptoms UTI (urinary tract infection) Anemia Tenderness over frontal sinus Headache Trigger point with back pain Cervicalgia Hordeolum externum right lower eyelid Toe pain, bilateral Cough Physical exam Urinary urgency Impacted cerumen of right ear Dysuria Encounter to discuss test results Leg pain COVID-19 Gum lesion Prolapsed hemorrhoids IUD surveillance Frequent headaches Smoker GERD (gastroesophageal reflux disease) History of migraine Proteinuria Frequent UTI Deep vein thrombosis (DVT) of calf muscle vein of left lower extremity Environmental allergies Constipation Genital herpes Pulmonary emboli Migraine headache SAMIA positive Fibromyalgia IBS (irritable bowel syndrome) Surgical History History of colonoscopy History of hemorrhoidectomy Status post reimplantation of ureter History of tubal ligation Family History Mother DVT (deep venous thrombosis) Colonic mass, Onset Age: 66 Mental health disorder Colon cancer Brother Autism Sister Arthritis Father Cancer Social History Housing: House Alcohol intake: current Alcohol intake frequency: 0-2 drinks per day Alcohol type: hard liquor Comment: medicated in pacu Patient Tobacco Use Status: Current everyday Tobacco user Tobacco use type: Cigarette Cigarette Packs Per Day: 0.5 Cigarettes Per Day: 10.0 Years Smoked: 30 e-Cigarette/Vaping Use: Never Used Second Hand Smoke Exposure: Yes service: No Current occupational status: employed Current occupation: [employer] Current occupational exposures/hazards: No Cognitive needs: No Hearing needs: No Vision needs: Yes Female Reproductive History Menstrual Age of Menarche: 12 Office Procedures Cystoscopy Consent Discussed risk and benefit or proposed procedure with the patient. Information consent for procedure given to the patient. Discussed technical aspects, risks, benefits and alternatives in full. Addressed all of the patient's questions and concerns regarding the procedure. The patient demonstrated knowledge and understanding. They wish to proceed with this procedure. Preparation The patient was prepped in the usual manner. A burr grinder was present and in the room. Genitalia was prepped with betadine solution in a sterile manner. Lidocaine Jelly 2% was placed into the urethra and 16Fr flexible Olympus cystoscope was inserted into the meatus after adequate lubrication. Procedure Time out per protocol performed. Speculum used as indicated for adequate visualization of urethra, the flexible cystoscope is passed transurethrally: The bladder was inspected in its entirety with utilization retroflexion displaying: Tumor(s): no suspicious bladder lesions visualized Trabeculation: NA Mucosal Erthema: NA Orifices: normal shape and position Urethra: normal Cystoscopy findings: WNL, no suspicious bladder lesions visualized [id number] DISPOSABLE SCOPE URO-G FLEXIBLE SCOPE Procedure code (CPT) selection complete Office Meds lidocaine HCl 2 % mucosal jelly in applicator Performing Provider: Elliott Nino MD Performing Location: [facility] [place] [facility] Administered by: Michelle Spencer RN on 07/06/24 14:57 Dose Route Admin Location Dispensed Lot Number Expiration Date NDC Fruit Or Nut Farmworker 10 mL intra-urethral 10 mL ciprofloxacin HCl 500 mg tablet Performing Provider: Elliott Nino MD Performing Location: [facility] [place] [facility] Administered by: Michelle Spencer RN on 07/06/24 14:57 Dose Route Admin Location Dispensed Lot Number Expiration Date NDC Fruit Or Nut Farmworker 500 mg PO 1 tab phenazopyridine 200 mg tablet Performing Provider: Elliott Nino MD Performing Location: [facility] [place] [facility] Administered by: Michelle Spencer RN on 07/06/24 14:57 Dose Route Admin Location Dispensed Lot Number Expiration Date NDC Fruit Or Nut Farmworker 200 mg PO 1 tab Results AMB Urinalysis, Automated UA Leukoctes 0 Bev/uL Last Edit by Gunjan Riddle on 07/06/24 16:26 UA Nitrite Negative Last Edit by Crystal Riddle on 07/06/24 16:26 UA Urobilinogen 3.5 mg/dL Last Edit by Crystal Riddle on 07/06/24 16:26 UA Protein 1.0 mg/dL Last Edit by Crystal Riddle on 07/06/24 16:26 UA pH 5.5 Last Edit by Crystal Riddle on 07/06/24 16:26 UA Blood 200 Jeremy/uL Last Edit by Crystal Riddle on 07/06/24 16:26 UA Specific [place] 1.010 Last Edit by Gunjan Riddle on 07/06/24 16:26 UA Ketone Negative Last Edit by Crystal Riddle on 07/06/24 16:26 UA Bilirubin 0 mg/dL Last Edit by Crystal Riddle on 07/06/24 16:26 UA Glucose 0 mg/dL Last Edit by Crystal Riddle on 07/06/24 16:26 Results Reviewed Results Reviewed: Laboratory Last Values Urine pH (Auto) 5.5 07/06/24 16:23 Specific [place] (Auto) 1.010 07/06/24 16:23 Urine Protein (Auto) 1.0 mg/dL 07/06/24 16:23 Glucose (UA)(Auto) 0 mg/dL 07/06/24 16:23 Urine Ketones (Auto) Negative 07/06/24 16:23 Urine Blood (Auto) 200 Jeremy/uL 07/06/24 16:23 Urine Nitrite (Auto) Negative 07/06/24 16:23 Urine Bilirubin (Auto) 0 mg/dL 07/06/24 16:23 Urine Urobilinogen (Auto) 3.5 mg/dL 07/06/24 16:23 Leukocyte Esterase (Auto) 0 Bev/uL 07/06/24 16:23 Date of Service: 06/17/24 S RETROPERITONEAL COMPLETE (RENAL) CLINICAL INFORMATION: Hematuria. COMPARISON: December 26, 2012. Correlated to CT dated November 16, 2019. TECHNIQUE: Real-time imaging of the kidneys and bladder using grayscale and color Doppler technique. FINDINGS: RIGHT KIDNEY: 12 x 5 x 5 cm (SAG x AP x TRV). Renal cortical thinning. Normal echotexture. No hydronephrosis. No solid or cystic lesion. Normal flow on color Doppler interrogation of the renal hilum. LEFT KIDNEY: 11 x 5 x 6. cm (SAG x AP x TRV). Cortical thinning. Normal echotexture. No hydronephrosis no solid or cystic lesion. Focal cortical defect in the upper pole. Normal flow on color Doppler interrogation of the renal hilum. You BLADDER: Fluid-filled. Bilateral ureteral jets are demonstrated. Prevoid bladder volume is 407 mL. Postvoid bladder volume is 23 mL. IMPRESSION: No hydronephrosis or nephrolithiasis. 23 cc retained urine in a post void image. Focal renal cortical defect upper pole left kidney.. Assessment & Plan Assessment & Plan (1) Proteinuria: Code(s): R80.9 - Proteinuria, unspecified Category: Medical (2) Microscopic hematuria: Code(s): R31.29 - Other microscopic hematuria Category: Medical Plan Cystoscopy findings: bladder within normal limits, no suspicious lesions. Nephrology referral for proteinuria Orders: Orders AMB Cystoscopy 07/06/24 N30.01 - Acute cystitis with hematuria, R31.29 - Other microscopic hematuria AMB Urinalysis Automated 07/06/24 Z13.9 - Encounter for screening, unspecified Referrals Nephrology Referral R80.9 - Proteinuria, unspecified Patient Instructions: The patient had an opportunity to ask questions regarding treatment plan. The patient expressed understanding and agreement with the above treatment plan. The patient is aware they should contact our office by phone for worsening of their current condition or the appearance of new symptoms. Compliance is encouraged with any medications and followup testing that is ordered. It is a privilege to be allowed the opportunity to participate in the urologic care of your patient. If you have any questions or concerns regarding treatment for the above conditions please do not hesitate to contact me. The office telephone contact is [phone]. This note is constructed in part using voice recognition software. While every effort has been made to ensure accuracy mechanical facilities technician errors may have been included. Yours sincerely, Elliott Nino MD Coding Level of Care Code Procedure Only Diagnoses Proteinuria R80.9 Microscopic hematuria R31.29 CPT Codes Cystoscopy - CPT: [id number] ([id number])
--- OUTSIDE RECORDS SUMMARY | 2024-07-06 16:12 | XMS_ITS | Clinical Summary ---
Author Organization [facility] Facility Address [address] [address] Care Team Providers Care Cullet Crusher And Washer Name Role Phone Ashia Ventura MD Primary Care Provider [phone] Allergies Active Allergy Reactions Criticality Noted Date [...] series) 07/14 Influenza Vaccine (#1) 2023 Insurance [facility] Care Teams Cullet Crusher And Washer Relationship Specialty Start Date End Date Ashia Ventura MD [address] [place], [place] PCP - General Internal Medicine 06/27/21
== END 2024-07-06 15:08 | disposition home or self-care (01) ==
LOC: HO.HUSH 14:22
PROVIDERS: PCP Internal Medicine; Visit Provider Urology
DX: N30.01 Acute cystitis with hematuria (principal); R31.29 Other microscopic hematuria; Z13.9 Encounter for screening, unspecified
CPT/HCPCS: 52000

== ENCOUNTER → 2024-07-06 14:21 | Outpatient (BNVA) | payer OTHER, SELFPAY | PROVIDERS: PCP Internal Medicine; Visit Provider Urology | DX: R80.9 Proteinuria, unspecified (principal); R31.29 Other microscopic hematuria | CPT/HCPCS: 52000; 81003 ==

== ENCOUNTER 2024-07-13 08:06 | Outpatient (AMB) | payer OTHER, SELFPAY ==
--- OUTSIDE RECORDS SUMMARY | 2024-07-13 08:19 | XMS_ITS | Clinical Summary ---
Author Organization [facility] Facility Address [address] [address] Care Team Providers Care Software Engineer Sales Name Role Phone Ashia Ventura MD Primary Care Provider [phone] Allergies Active Allergy Reactions Criticality Noted Date [...] - 19+ 3-dose series) 07/14 Influenza Vaccine (Season Ended) 2024 Insurance [facility] Care Teams Software Engineer Sales Relationship Specialty Start Date End Date Ashia Ventura MD [address] [place], [place] PCP - General Internal Medicine 06/27/21
--- NOTE | 2024-07-13 08:43 | AM.OFFWIN_ITS ---
Intake Vital Signs 07/13/24 08:47 Weight 164 lb BP 114/76 Blood Pressure Location Rt brachial Position Sitting Pulse 71 Pulse Source Pulse Oximeter Temp 98.3 F Temp Source Oral Pulse Oximetry (%) 98 Oxygen Delivery Method Room Air Intake Visit Reasons: EP ?UTI Intake Note: Patient here for burning sensation on urination, bladder pain tat started ye sterday. Patient Tobacco Use Status: Current everyday Tobacco user Allergies sulfamethoxazole [From Bactrim] Allergy (Severe, Verified 07/13/24 08:47) throat closing trimethoprim [From Bactrim] Allergy (Severe, Verified 07/13/24 08:47) throat closing hydrocodone [From Vicodin] Allergy (Mild, Verified 07/13/24 08:47) RASH Do you need a note to return to daycare/school/sports/work: No HPI HPI Comments History of Present Illness Details 48 y/o female patient who presents to [facility] walk [facility] clinic with c/o Urinary symptoms since yesterday. Pt reports Urinary frequency and burning. C/o Suprapubic Abdominal cramping. She has chronic Hematuria, and follows with Urology - S/p Cystoscopy a week ago. [facility] Medical History (Updated 07/13/24 @ 09:15 by Wen Sánchez NP) Urinary tract infection symptoms UTI (urinary tract infection) Anemia Tenderness over frontal sinus Headache Trigger point with back pain Cervicalgia Hordeolum externum right lower eyelid Toe pain, bilateral Cough Physical exam Urinary urgency Impacted cerumen of right ear Dysuria Encounter to discuss test results Leg pain COVID-19 Gum lesion Prolapsed hemorrhoids IUD surveillance Frequent headaches Smoker GERD (gastroesophageal reflux disease) History of migraine Proteinuria Frequent UTI Deep vein thrombosis (DVT) of calf muscle vein of left lower extremity Environmental allergies Constipation Genital herpes Pulmonary emboli Migraine headache SAMIA positive Fibromyalgia IBS (irritable bowel syndrome) Surgical History History of colonoscopy History of hemorrhoidectomy Status post reimplantation of ureter History of tubal ligation Family History Mother DVT (deep venous thrombosis) Colonic mass, Onset Age: 66 Mental health disorder Colon cancer Brother Autism Sister Arthritis Father Cancer Social History Housing: House Alcohol intake: current Alcohol intake frequency: 0-2 drinks per day Alcohol type: hard liquor Comment: medicated in pacu Patient Tobacco Use Status: Current everyday Tobacco user Tobacco use type: Cigarette Cigarette Packs Per Day: 0.5 Cigarettes Per Day: 10.0 Years Smoked: 30 e-Cigarette/Vaping Use: Never Used Second Hand Smoke Exposure: Yes service: No Current occupational status: employed Current occupation: [employer] Current occupational exposures/hazards: No Cognitive needs: No Hearing needs: No Vision needs: Yes Female Reproductive History Menstrual Age of Menarche: 12 Review of Systems Const All systems reviewed & are unremarkable except as noted in HPI and below Physical Exam Vital Signs: Last Vital Signs Temp 98.3 F 07/13/24 08:47 Pulse 71 07/13/24 08:47 BP 114/76 07/13/24 08:47 Pulse Ox 98 07/13/24 08:47 Oxygen Delivery Method Room Air 07/13/24 08:47 Const General: no acute distress Nutritional Appearance: overweight Orientation/consciousness: patient oriented x3 GI Palpation (GI): Soft to palpation, not firm, Tenderness to palpation present (GI) suprapubicly, no guarding, not rigid and No hepatosplenomegaly present Auscultation: normal bowel sounds Other: Pelvic Exam Deferred. General: Yes no CVA tenderness Back/Spine/Pelvis Back: no CVA tenderness Neuro General: patient oriented x3 Assessment & Plan Assessment & Plan (1) Urinary tract infection symptoms: Code(s): R39.9 - Unspecified symptoms and signs involving the genitourinary system Plan: Urinalysis Negative. Follow up with Urology. Coding Level of Care Code Est Pt Level 4 (61280) Diagnoses Urinary tract infection symptoms R39.9 Time Spent (min) 20
[2024-07-13 08:47] VITALS: BP 114/76; PULSE 71; TEMP 36.8; O2SAT 98
== END 2024-07-13 09:11 | disposition home or self-care (01) ==
PROVIDERS: PCP Internal Medicine; Visit Provider Nurse Practitioner Family
DX: R39.9 Unspecified symptoms and signs involving the genitourinary system (principal); Z13.9 Encounter for screening, unspecified

== ENCOUNTER → 2024-07-13 08:06 | Outpatient (BNVA) | payer OTHER, SELFPAY | PROVIDERS: PCP Internal Medicine; Visit Provider Nurse Practitioner Family | DX: R39.9 Unspecified symptoms and signs involving the genitourinary system (principal) | CPT/HCPCS: 81003 ==

== ENCOUNTER 2024-07-16 08:41 | Outpatient (AMB) | payer OTHER, SELFPAY ==
[2024-07-16 09:00] VITALS: BP 118/72; PULSE 76; O2SAT 98
--- NOTE | 2024-07-16 09:00 | AM.OFFWIN_ITS ---
Intake Vital Signs 07/16/24 09:00 Height 5 ft 2 in Weight 164 lb BMI 30.0 BP 118/72 Blood Pressure Location Rt brachial Position Sitting Pulse 76 Pulse Source Pulse Oximeter Pulse Oximetry (%) 98 Oxygen Delivery Method Room Air Intake Visit Reasons: EP UTI? Patient Tobacco Use Status: Current everyday Tobacco user Allergies sulfamethoxazole [From Bactrim] Allergy (Severe, Verified 07/16/24 09:00) throat closing trimethoprim [From Bactrim] Allergy (Severe, Verified 07/16/24 09:00) throat closing hydrocodone [From Vicodin] Allergy (Mild, Verified 07/16/24 09:00) RASH Do you need a note to return to daycare/school/sports/work: No HPI HPI Comments History of Present Illness Details History of Present Illness - The patient is a 49-year-old female pr esenting with urinary tract infection symptoms. - Symptoms have been worsening over the last 5days, with localized lower abdominal discomfort. - The patient denies low back pain but e xperiences significant pain upon urination and reports cold sweats without fevers. - There is a past history of blood in he r urine; the patient sees urology - Recently underwent cystoscopy last , which could have contributed to current infection Physical Exam General: Cooperative, healthy appearing, comfortable, no acute distress and well developed Orientation: Patient oriented x3 Limitations: No limitations Head: Normal to inspection Ears: Hearing grossly normal bilaterally Nose: Normal External nose present Face and sinus: Normal facial exam Eyes: Appearance normal, both eyes and all related structures Neck: Normal visual inspection and Yes full ROM Respiratory: Normal respiratory effort and able to speak in complete sentences. Skin: No rashes or lesions noted Neuro: Patient oriented x3 Extremities: Normal to inspection [facility] Medical History (Updated 07/13/24 @ 09:15 by Wen Sánchez NP) Urinary tract infection symptoms UTI (urinary tract infection) Anemia Tenderness over frontal sinus Headache Trigger point with back pain Cervicalgia Hordeolum externum right lower eyelid Toe pain, bilateral Cough Physical exam Urinary urgency Impacted cerumen of right ear Dysuria Encounter to discuss test results Leg pain COVID-19 Gum lesion Prolapsed hemorrhoids IUD surveillance Frequent headaches Smoker GERD (gastroesophageal reflux disease) History of migraine Proteinuria Frequent UTI Deep vein thrombosis (DVT) of calf muscle vein of left lower extremity Environmental allergies Constipation Genital herpes Pulmonary emboli Migraine headache SAMIA positive Fibromyalgia IBS (irritable bowel syndrome) Surgical History History of colonoscopy History of hemorrhoidectomy Status post reimplantation of ureter History of tubal ligation Family History Mother DVT (deep venous thrombosis) Colonic mass, Onset Age: 66 Mental health disorder Colon cancer Brother Autism Sister Arthritis Father Cancer Social History Housing: House Alcohol intake: current Alcohol intake frequency: 0-2 drinks per day Alcohol type: hard liquor Comment: medicated in pacu Patient Tobacco Use Status: Current everyday Tobacco user Tobacco use type: Cigarette Cigarette Packs Per Day: 0.5 Cigarettes Per Day: 10.0 Years Smoked: 30 e-Cigarette/Vaping Use: Never Used Second Hand Smoke Exposure: Yes service: No Current occupational status: employed Current occupation: Be[employer] Current occupational exposures/hazards: No Cognitive needs: No Hearing needs: No Vision needs: Yes Female Reproductive History Menstrual Age of Menarche: 12 Review of Systems Const All systems reviewed & are unremarkable except as noted in HPI and below Physical Exam Vital Signs: Last Vital Signs Pulse 76 07/16/24 09:00 BP 118/72 07/16/24 09:00 Pulse Ox 98 07/16/24 09:00 Oxygen Delivery Method Room Air 07/16/24 09:00 BMI result Body Mass Index 30.0 Results AMB Urinalysis, Automated UA Leukoctes 500 Bev/uL Last Edit by Mark Pride CMA on 07/16/24 09:1 1 UA Nitrite Negative Last Edit by Mark Pride CMA on 07/16/24 09:11 UA Urobilinogen 0.2 mg/dL Last Edit by Mark Pride CMA on 07/16/24 09 :11 UA Protein 300 mg/dL Last Edit by Mark Pride CMA on 07/16/24 09:11 UA pH 6.0 Last Edit by Mark Pride CMA on 07/16/24 09:11 UA Blood 200 Jeremy/uL Last Edit by Mark Pride CMA on 07/16/24 09:11 UA Specific [place] 1.025 Last Edit by Mark Pride CMA on 07/16/24 09:11 UA Ketone Negative Last Edit by Mark Pride CMA on 07/16/24 09:11 UA Bilirubin 0 mg/dL Last Edit by Mark Pride CMA on 07/16/24 09:11 UA Glucose 0 mg/dL Last Edit by Mark Pride CMA on 07/16/24 09:11 Results Reviewed Results Reviewed: Laboratory Last Values Urine pH (Auto) 6.0 07/16/24 09:11 Specific [place] (Auto) 1.025 07/16/24 09:11 Urine Protein (Auto) 300 mg/dL 07/16/24 09:11 Glucose (UA)(Auto) 0 mg/dL 07/16/24 09:11 Urine Ketones (Auto) Negative 07/16/24 09:11 Urine Blood (Auto) 200 Jeremy/uL 07/16/24 09:11 Urine Nitrite (Auto) Negative 07/16/24 09:11 Urine Bilirubin (Auto) 0 mg/dL 07/16/24 09:11 Urine Urobilinogen (Auto) 0.2 mg/dL 07/16/24 09:11 Leukocyte Esterase (Auto) 500 Bev/uL 07/16/24 09:11 Assessment & Plan Assessment & Plan (1) UTI (urinary tract infection): Code(s): N39.0 - Urinary tract infection, site not specified Qualifiers: Urinary tract infection type: acute cystitis Hematuria presence: with hematuria Qualified Code(s): N30.01 - Acute cystitis with hematuria Plan: UA 3+ leuks, 3+ protein, 3+ blod, neg nitrites. Will treat for UTI. The patient will begin a five-day course of cefuroxime, dosed at twice daily, to treat the urinary tract infection, covering common causative bacteria. A urine culture has been ordered to ensure the appropriate antibiotic selection, enabling treatment adjustment if required. For symptomatic relief of dysuria, phenazopyridine has been prescribed with strict adherence to the dosing schedule. The patient has been advised to monitor for any worsening of symptoms, particularly watchful for fever or intensified pain, and to report these promptly. Additionally, the connection between her recent cystoscopy and current symptoms was recognized, considering procedural irritation as a contributing factor. Patient was informed and verbally consented to the use of an ambient scribe for clinic note documentation during this visit. Orders: Orders AMB Urinalysis Automated Today Z13.9 - Encounter for screening, unspecified Urine Culture Today N39.0 - Urinary tract infection, site not specified Medications: New cefuroxime axetil 500 mg PO Q12H 10 tabs 0RF phenazopyridine 200 mg (2 x 100 mg) PO Q8H PRN 6 tabs 0RF Pain Coding Level of Care Code Est Pt Level 3 (43055) Diagnoses Acute cystitis with hematuria N30.01 Urinary tract infection type: acute cystitis Hematuria presence: with hematuria
--- OUTSIDE RECORDS SUMMARY | 2024-07-16 09:00 | XMS_ITS | Clinical Summary ---
Author Organization [facility] Facility Address [address] [address] Care Team Providers Care Spot Worker Name Role Phone Ashia Ventura MD Primary Care Provider [phone] Allergies Active Allergy Reactions Criticality Noted Date [...] Due Date Last Done Comments Pneumococcal Vaccine: Peds ( 0 to 5 Years) and At-Risk Patients (6 to 49 Years) (1 of 2 - PCV) 1982 Hepatitis B Vaccine (1 of 3 - 19+ 3-dose series) 07/14 Influenza Vaccine (Season Ended) 2024 Insurance [facility] Care Teams Spot Worker Relationship Specialty Start Date End Date Ashia Ventura MD [address] [place], [place] PCP - General Internal Medicine 06/27/21
== END 2024-07-16 09:19 | disposition home or self-care (01) ==
PROVIDERS: PCP Internal Medicine; Visit Provider Physician Assistant
DX: Z13.9 Encounter for screening, unspecified (principal); N30.01 Acute cystitis with hematuria

== ENCOUNTER 2024-07-16 08:41 | Outpatient (REF) | payer OTHER, SELFPAY ==
--- OUTSIDE RECORDS SUMMARY | 2024-07-16 09:54 | XMS_ITS | Clinical Summary ---
Author Organization [facility] Facility Address [address] [address] Care Team Providers Care Tobacco Feeder Catcher Name Role Phone Ashia Ventura MD Primary Care Provider [phone] Allergies Active Allergy Reactions Criticality Noted Date [...] 07/14 Influenza Vaccine (Season Ended) 2024 Insurance [facility] Care Teams Tobacco Feeder Catcher Relationship Specialty Start Date End Date Ashia Ventura MD [address] [place], [place] PCP - General Internal Medicine 06/27/21
== END 2024-07-16 08:42 | disposition home or self-care (01) ==
LOC: HO.LAB 08:41
PROVIDERS: PCP Internal Medicine; Visit Provider Physician Assistant
DX: N39.0 Urinary tract infection, site not specified (principal)
CPT/HCPCS: 81003

== ENCOUNTER 2024-07-24 14:16 | Outpatient (AMB) | payer OTHER, SELFPAY ==
--- OUTSIDE RECORDS SUMMARY | 2024-07-24 14:37 | XMS_ITS | Clinical Summary ---
Author Organization [facility] Facility Address [address] [address] Care Team Providers Care K 9 Handler/ Deputy Name Role Phone Ashia Ventura MD Primary Care Provider [phone] Allergies Active Allergy Reactions Criticality Noted Date [...] Health Maintenance Due Date Last Done Comments Hepatitis B Vaccine (1 of 3 - 19+ 3-dose series) 07/14 Pneumococcal Vaccine: Peds ( 0 to 5 Years) and At-Risk Patients (6 to 49 Years) (1 of 2 - PCV) 07/15/1995 Influenza Vaccine (Season Ended) 2024 Insurance [facility] Care Teams K 9 Handler/ Deputy Relationship Specialty Start Date End Date Ashia Ventura MD [address] [place], [place] PCP - General Internal Medicine 06/27/21
--- NOTE | 2024-07-24 14:45 | HO.NEPHOV ---
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 She has seen Urology and has even undergone cystoscopy as well as imaging. She has H/O positive SAMIA as well as history of DVT PE in 2008. (DVT and PE and it was attributed to oral contraceptive pills & was on Coumadin for about 9 months). She has history of proteinuria and was thought it was likely due to urinary tract infections, she had at that time. She has normal renal functions. Her BP has been above the target goal. She has no epistaxis, photosensitivity, hearing deficits, recurrent sinusitis, new bone or back pain. She has no H/O malignancy and does not take excessive NSAID's. [facility] Medical History (Updated 08/09/24 @ 17:00 by Conrelius Jo MD) Urinary tract infection symptoms UTI (urinary tract infection) Anemia Tenderness over frontal sinus Headache Trigger point with back pain Cervicalgia Hordeolum externum right lower eyelid Toe pain, bilateral Cough Physical exam Urinary urgency Impacted cerumen of right ear Dysuria Encounter to discuss test results Leg pain COVID-19 Gum lesion Prolapsed hemorrhoids IUD surveillance Frequent headaches Smoker GERD (gastroesophageal reflux disease) History of migraine Proteinuria Frequent UTI Deep vein thrombosis (DVT) of calf muscle vein of left lower extremity Environmental allergies Constipation Genital herpes Pulmonary emboli Migraine headache SAMIA positive Fibromyalgia IBS (irritable bowel syndrome) Surgical History History of colonoscopy History of hemorrhoidectomy Status post reimplantation of ureter History of tubal ligation Family History Mother DVT (deep venous thrombosis) Colonic mass, Onset Age: 66 Mental health disorder Colon cancer Brother Autism Sister Arthritis Father Cancer Social History Housing: House Alcohol intake: current Alcohol intake frequency: 0-2 drinks per day Alcohol type: hard liquor Comment: medicated in pacu Patient Tobacco Use Status: Current everyday Tobacco user Tobacco use type: Cigarette Cigarette Packs Per Day: 0.5 Cigarettes Per Day: 10.0 Years Smoked: 30 e-Cigarette/Vaping Use: Never Used Second Hand Smoke Exposure: Yes service: No Current occupational status: employed 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 Current occupational exposures/hazards: No Cognitive needs: No Hearing needs: No Vision needs: Yes Female Reproductive History Menstrual Age of Menarche: 12 Review of Systems Const All systems reviewed & are unremarkable except as noted in HPI and below Physical Exam Vital Signs: Last Vital Signs BP 140/94 H 07/24/24 14:51 BMI result Body Mass Index 30.0 Const General: comfortable and no acute distress Orientation/consciousness: patient oriented x3 HEENT Head: Yes normocephalic Mouth: Normal oral and palatal mucosa present Eyes EOM: EOMs intact bilaterally Neck Neck: Yes supple Resp Auscultation: clear to auscultation bilaterally Cardio Jugular venous distension: no JVD Rate: regular rate GI Palpation (GI): Soft to palpation Auscultation: normal bowel sounds General: Yes no CVA tenderness Back/Spine/Pelvis Back: no CVA tenderness Skin General skin exam: no rashes or lesions noted Neuro General: patient oriented x3 and moves all extremities Extrem General: Yes no pedal edema Results Reviewed Nephrology Results: Hgb 14.7 g/dl (12.0-16.0) 06/18/24 WBC 7.2 X10*3/uL (4.8-10.8) 06/18/24 Plt Count 312 X10*3/uL (160-400) 06/18/24 Sodium 140 mmol/L (135-145) 06/18/24 Potassium 3.9 mmol/L (3.3-5.1) 06/18/24 Chloride 109 mmol/L (96-108) H 06/18/24 Carbon Dioxide 25 mmol/L (22-29) 06/18/24 BUN 18 mg/dL (9-16) H 06/18/24 Creatinine 0.74 mg/dL (0.5-1.4) 06/18/24 Calcium 8.5 mg/dL (8.4-10.2) 06/18/24 Assessment & Plan Assessment & Plan (1) Microscopic hematuria: Code(s): R31.29 - Other microscopic hematuria Category: Medical (2) Proteinuria: Code(s): R80.9 - Proteinuria, unspecified Category: Medical Qualifiers: Proteinuria type: other Qualified Code(s): R80.8 - Other proteinuria Plan Tonia has microscopic hematuria and protienuria. Her cystoscopy was unremarkable. Her last USS showed right kidney 12 x 5 x 5 cm with renal cortical thinning. It showed normal echotexture. No hydronephrosis. No solid or cystic lesion. Normal flow on color Doppler interrogation of the renal hilum. Left kidney was 11 x 5 x 6. cm with cortical thinning. Normal echotexture. No hydronephrosis no solid or cystic lesion. Focal cortical defect in the upper pole. Normal flow on color Doppler interrogation of the renal hilum. She may have IgA nephropathy. Differential diagnosis includes Alport's syndrome or thin membrane disease. Her renal functions are normal. Her BP was higher than goal. I ordered detailed work up . She may need renal biopsy based on evolving data. I started her on losartan 25 mg daily after explaining all its common side effects and interactions. Answered all questions and follow up given Orders: Orders Protein, 24 Hr Urine Group 07/24/24 R31.29 - Other microscopic hematuria, R80.9 - Proteinuria, unspecified Myeloperoxidase Antibody 07/24/24 R31.29 - Other microscopic hematuria, R80.9 - Proteinuria, unspecified Anti Glomerular Basement Memb 07/24/24 R3.29 - Other microscopic hematuria, R80.9 - Proteinuria, unspecified Complement C3 07/24/24 R31.29 - Other microscopic hematuria, R80.9 - Proteinuria, unspecified Immunofixation Pnl, Serum 07/24/24 R3. - Other microscopic hematuria, R80.9 - Proteinuria, unspecified Phospholipase A2 Receptor Pnl 07/24/24 R31.29 - Other microscopic hematuria, R80.9 - Proteinuria, unspecified Protein Creatinine Ratio, Ur 07/24/24 R31.29 - Other microscopic hematuria, R80.9 - Proteinuria, unspecified Complete Blood Count Auto Diff 07/24/24 R3.29 - Other microscopic hematuria, R80.9 - Proteinuria, unspecified Creatinine 07/24/24 R31.29 - Other microscopic hematuria, R80.9 - Proteinuria, unspecified Anti DNA DS Antibody 07/24/24 R3. - Other microscopic hematuria, R80.9 - Proteinuria, unspecified Proteinase 3 PR3 Antibodies 07/24/24 R3. - Other microscopic hematuria, R80.9 - Proteinuria, unspecified Complement C4 07/24/24 R3. - Other microscopic hematuria, R80.9 - Proteinuria, unspecified Prothrombin Time INR 07/24/24 R3.29 - Other microscopic hematuria, R80.9 - Proteinuria, unspecified Electrolytes 07/24/24 R3. - Other microscopic hematuria, R80.9 - Proteinuria, unspecified Blood Urea Nitrogen 07/24/24 R3. - Other microscopic hematuria, R80.9 - Proteinuria, unspecified Medications: New losartan 25 mg PO DAILY 30 tabs 3RF 30 days Coding Level of Care Code New Pt Level 4 (23617) Diagnoses Microscopic hematuria R31.29 Other proteinuria R80.8 Proteinuria type: other
[2024-07-24 14:51] VITALS: BP 140/94
== END 2024-07-24 15:31 | disposition home or self-care (01) ==
LOC: HO.HKA 14:17
PROVIDERS: PCP Internal Medicine; Referring Provider Urology; Visit Provider Internal Medicine Nephrology
DX: R31.29 Other microscopic hematuria (principal); R80.8 Other proteinuria
CPT/HCPCS: 99204

== ENCOUNTER → 2024-07-24 14:16 | Outpatient (BNVA) | payer OTHER, SELFPAY | PROVIDERS: PCP Internal Medicine; Referring Provider Urology; Visit Provider Internal Medicine Nephrology ==

== ENCOUNTER 2024-08-18 09:12 | Outpatient (REF) | payer OTHER, SELFPAY ==
--- OUTSIDE RECORDS SUMMARY | 2024-08-18 09:40 | XMS_ITS | Clinical Summary ---
Author Organization [facility] Facility Address [address] [address] Care Team Providers Care Logistics Engineer Name Role Phone Ashia Ventura MD Primary Care Provider [phone] Allergies Active Allergy Reactions Criticality Noted Date [...] 07/15/1995 Influenza Vaccine (Season Ended) 2024 Insurance [facility] Care Teams Logistics Engineer Relationship Specialty Start Date End Date Ashia Ventura MD [address] [place], [place] PCP - General Internal Medicine 06/27/21
[2024-08-18 10:08] LABS: MANUAL DIFF FLAG NO
[2024-08-18 10:25] LABS: Basophils Percent Auto 0.7 % (0-2); Eosinophils Absolute Auto 0.2 X10*3/uL (0.0-0.4); Hematocrit 40.4 % (37.0-47.0); Hemoglobin 13.7 g/dl (12.0-16.0); INTERNATIONAL NORM RATIO 0.9 (0.9-1.1); Imm Gran Abs Auto 0.02 X10*3/uL (0.00-0.03); Imm Gran Pct Auto 0.3 % (0.0-0.4); Lymphocytes Absolute Auto 1.3 X10*3/uL (1.2-4.9); Lymphocytes Percent Auto 23.2 % (20-40); Mean Corpuscular HGB Conc 33.9 g/dl (31.0-35.0); Mean Corpuscular Hemoglobin 32.8 pg (27.0-33.0); Mean Corpuscular Volume 96.7 fL (80.0-98.0); Mean Platelet Volume 9.8 fL (9.4-12.3); Monocytes Absolute Auto 0.4 X10*3/uL (0.1-1.2); Monocytes Percent Auto 6.5 % (2-11); Neutrophils Absolute Auto 3.8 x10*3/uL (2.0-8.3); Neutrophils Percent Auto 66.3 % (45-73); Platelet Count 270 X10*3/uL (160-400); Prothrombin Time 9.8 SEC (10.9-12.4); Red Blood Count 4.18 X10*6/uL (4.20-5.50); Red Cell Distribution Width 12.1 % (11.0-16.0); White Blood Count 5.7 X10*3/uL (4.8-10.8)
[2024-08-18 11:19] LABS: Anion Gap 13 (12-20); Blood Urea Nitrogen 20 mg/dL (9-16); Carbon Dioxide 22 mmol/L (22-29); Chloride 108 mmol/L (96-108); Estimated Glomerular Filt Rate > 60; Potassium 3.9 mmol/L (3.3-5.1); Sodium 139 mmol/L (135-145)
[2024-08-19 20:29] LABS: Complement C3 153 mg/dL (83-193)
[2024-08-20 23:09] LABS: IgA 259 mg/dL (47-310); IgG 934 mg/dL (600-1640); IgM 160 mg/dL (50-300)
[2024-08-21 22:09] LABS: Anti DNA DS Antibody 1 IU/mL; Anti Glomerular Basement Memb <1.0 AI; Myeloperoxidase Antibody <1.0 AI; Proteinase 3 PR3 Antibodies <1.0 AI
[2024-08-23 16:14] LABS: Phospholipase A2 IgG ELISA <4 RU/mL; Phospholipase A2 IgG IFA NEGATIVE (NEGATIVE)
== END 2024-08-18 09:13 | disposition home or self-care (01) ==
LOC: HO.HMGCLDS 09:12
PROVIDERS: PCP Internal Medicine; Visit Provider Internal Medicine Nephrology
DX: R31.29 Other microscopic hematuria (principal); R80.9 Proteinuria, unspecified
CPT/HCPCS: 36415; 80051; 82565; 82784; 83520; 84520; 85025; 85610; 86021; 86160; 86225; 86255; 86334

== ENCOUNTER 2024-08-19 07:15 | Outpatient (REF) | payer OTHER, SELFPAY ==
--- OUTSIDE RECORDS SUMMARY | 2024-08-19 08:51 | XMS_ITS | Clinical Summary ---
Author Organization [facility] Facility Address [address] [address] Care Team Providers Care Art Coordinator Name Role Phone Ashia Ventura MD Primary Care Provider [phone] Allergies Active Allergy Reactions Criticality Noted Date [...] 07/15/1995 Influenza Vaccine (Season Ended) 2024 Insurance [facility] Care Teams Art Coordinator Relationship Specialty Start Date End Date Ashia Ventura MD [address] [place], [place] PCP - General Internal Medicine 06/27/21
[2024-08-19 10:25] LABS: Creatinine Urine 69.12 mg/dL; Total Protein Urine Random 159 mg/dL (<12)
[2024-08-19 10:44] LABS: Creatinine, mg/dL 59.64; Protein mg/dL 121 mg/dL
[2024-08-19 12:27] LABS: Creatinine, 24Hr Urine 1.3 G/Day (1.0-2.0); Protein 24 Hr Urine 2723 mg/Day (<150); Total Volume 24 Hour Urine 2250 mL
== END 2024-08-19 07:16 | disposition home or self-care (01) ==
LOC: HO.HMGCLNP 07:15
PROVIDERS: PCP Internal Medicine; Visit Provider Internal Medicine Nephrology
DX: R31.29 Other microscopic hematuria (principal); R80.9 Proteinuria, unspecified; N39.0 Urinary tract infection, site not specified
CPT/HCPCS: 82570; 84156; 87086

== ENCOUNTER 2024-08-21 14:48 | Outpatient (AMB) | payer OTHER, SELFPAY ==
--- OUTSIDE RECORDS SUMMARY | 2024-08-21 14:52 | XMS_ITS | Clinical Summary ---
Author Organization [facility] Facility Address [address] [address] Care Team Providers Care Sales Representative Meats Name Role Phone Ashia Ventura MD Primary Care Provider [phone] Allergies Active Allergy Reactions Criticality Noted Date [...] 07/15/1995 Influenza Vaccine (Season Ended) 2024 Insurance [facility] Care Teams Sales Representative Meats Relationship Specialty Start Date End Date Ashia Ventura MD [address] [place], [place] PCP - General Internal Medicine 06/27/21
--- NOTE | 2024-08-21 14:58 | HO.NEPHOV ---
Vital Signs 08/21/24 14:59 Height 5 ft 2 in Weight 162 lb 6 oz BMI 29.7 BP 110/66 Blood Pressure Location Rt brachial Position Sitting Intake Visit Reasons: 1 MO FU-Conf Pleat Patternmaker Required: No Accompanied by: Self / Same As Patient Allergies sulfamethoxazole [From Bactrim] Allergy (Severe, Verified 08/21/24 14:59) throat closing trimethoprim [From Bactrim] Allergy (Severe, Verified 08/21/24 14:59) throat closing hydrocodone [From Vicodin] Allergy (Mild, Verified 08/21/24 14:59) RASH HPI Comments Details: I had the privilege of seeing Tonia who is a 46-year old female for follow up of microscopic hematuria and proteinuria. She has seen Urology and has even undergone cystoscopy as well as imaging. She has H/O positive SAMIA as well as history of DVT. PE in 2008.(DVT and PE and it was attributed to oral contraceptive pills & was on Coumadin for about 9 months). She has history of proteinuria and was thought it was likely due to urinary tract infections, she had at that time. She has normal renal functions. Her BP has been above the target goal. She has no epistaxis, photosensitivity, hearing deficits, recurrent sinusitis, new bone or back pain. She has no H/O malignancy and does not take excessive NSAID's. [facility] Medical History (Updated 08/09/24 @ 17:00 by Cornelius Jo MD) Urinary tract infection symptoms UTI (urinary tract infection) Anemia Tenderness over frontal sinus Headache Trigger point with back pain Cervicalgia Hordeolum externum right lower eyelid Toe pain, bilateral Cough Physical exam Urinary urgency Impacted cerumen of right ear Dysuria Encounter to discuss test results Leg pain COVID-19 Gum lesion Prolapsed hemorrhoids IUD surveillance Frequent headaches Smoker GERD (gastroesophageal reflux disease) History of migraine Proteinuria Frequent UTI Deep vein thrombosis (DVT) of calf muscle vein of left lower extremity Environmental allergies Constipation Genital herpes Pulmonary emboli Migraine headache SAMIA positive Fibromyalgia IBS (irritable bowel syndrome) Surgical History History of colonoscopy History of hemorrhoidectomy Status post reimplantation of ureter History of tubal ligation Family History Mother DVT (deep venous thrombosis) Colonic mass, Onset Age: 66 Mental health disorder Colon cancer Brother Autism Sister Arthritis Father Cancer Social History Housing: House Alcohol intake: current Alcohol intake frequency: 0-2 drinks per day Alcohol type: hard liquor Comment: medicated in pacu Patient Tobacco Use Status: Current everyday Tobacco user Tobacco use type: Cigarette Cigarette Packs Per Day: 0.5 Cigarettes Per Day: 10.0 Years Smoked: 30 e-Cigarette/Vaping Use: Never Used Second Hand Smoke Exposure: Yes service: No Current occupational status: employed Current occupation: [employer] Current occupational exposures/hazards: No Cognitive needs: No Hearing needs: No Vision needs: Yes Female Reproductive History Menstrual Age of Menarche: 12 Review of Systems Const All systems reviewed & are unremarkable except as noted in HPI and below Physical Exam Vital Signs: Last Vital Signs BP 110/66 08/21/24 14:59 BMI result Body Mass Index 29.7 Const General: comfortable and no acute distress Orientation/consciousness: patient oriented x3 HEENT Head: Yes normocephalic Mouth: Normal oral and palatal mucosa present Eyes EOM: EOMs intact bilaterally Neck Neck: Yes supple Resp Auscultation: clear to auscultation bilaterally Cardio Jugular venous distension: no JVD Rate: regular rate Heart sounds: Murmur heart sound present GI Palpation (GI): Soft to palpation Auscultation: normal bowel sounds General: Yes no CVA tenderness Back/Spine/Pelvis Back: no CVA tenderness Skin General skin exam: no rashes or lesions noted Neuro General: patient oriented x3 and moves all extremities Extrem General: Yes edema Results Reviewed Nephrology Results: Hgb 13.7 g/dl (12.0-16.0) 08/18/24 WBC 5.7 X10*3/uL (4.8-10.8) 08/18/24 Plt Count 270 X10*3/uL (160-400) 08/18/24 Sodium 139 mmol/L (135-145) 08/18/24 Potassium 3.9 mmol/L (3.3-5.1) 08/18/24 Chloride 108 mmol/L (96-108) 08/18/24 Carbon Dioxide 22 mmol/L (22-29) 08/18/24 BUN 20 mg/dL (9-16) H 08/18/24 Creatinine 0.74 mg/dL (0.5-1.4) 08/18/24 Urine Creatinine 69.12 mg/dL 08/19/24 Protein/Creatinin Ratio 2.30 (<0.2) H 08/19/24 Assessment & Plan Assessment & Plan (1) Proteinuria: Code(s): R80.9 - Proteinuria, unspecified Category: Medical Qualifiers: Proteinuria type: other Qualified Code(s): R80.8 - Other proteinuria Plan Tonia has microscopic hematuria and protienuria. Her cystoscopy was unremarkable. Her last USS showed right kidney 12 x 5 x 5 cm with renal cortical thinning. It showed normal echotexture. No hydronephrosis. No solid or cystic lesion. Normal flow on color Doppler interrogation of the renal hilum. Left kidney was 11 x 5 x 6. cm with cortical thinning. Normal echotexture. No hydronephrosis no solid or cystic lesion. Focal cortical defect in the upper pole. Normal flow on color Doppler interrogation of the renal hilum. She may have IgA nephropathy. Differential diagnosis includes Alport's syndrome or thin membrane disease. Her renal functions are normal. Her BP was higher than goal. I ordered detailed work up, some results are pending . She may need renal biopsy based on evolving data. I increased her losartan to 50 mg daily after explaining all its common side effects and interactions. Answered all questions and follow up given Orders: Orders Blood Urea Nitrogen 1 Month R80.8 - Other proteinuria Electrolytes 1 Month R80.8 - Other proteinuria Creatinine 1 Month R80.8 - Other proteinuria Protein Creatinine Ratio, Ur 1 Month R80.8 - Other proteinuria Medications: Changed From losartan 25 mg PO DAILY 30 days 30 tabs 3RF To losartan 50 mg (2 x 25 mg) PO DAILY 30 days 60 tabs 3RF Coding Level of Care Code Est Pt Level 4 (71077) Diagnoses Other proteinuria R80.8 Proteinuria type: other
[2024-08-21 14:59] VITALS: BP 110/66; BMI 29.7
== END 2024-08-21 15:31 | disposition home or self-care (01) ==
LOC: HO.HKA 14:49
PROVIDERS: PCP Internal Medicine; Visit Provider Internal Medicine Nephrology
DX: R80.8 Other proteinuria (principal)
CPT/HCPCS: 99214

== ENCOUNTER → 2024-08-21 14:48 | Outpatient (BNVA) | payer OTHER, SELFPAY | PROVIDERS: PCP Internal Medicine; Visit Provider Internal Medicine Nephrology ==

== ENCOUNTER 2024-09-29 13:22 | Outpatient (REF) | payer OTHER, SELFPAY ==
--- OUTSIDE RECORDS SUMMARY | 2024-09-29 15:21 | XMS_ITS | Clinical Summary ---
Author Organization [facility] Facility Address [address] [address] Care Team Providers Care Drier Tender Naphthalene Name Role Phone Ashia Ventura MD Primary [...] Influenza Vaccine (Season Ended) 2024 Insurance [facility] Care Teams Drier Tender Naphthalene Relationship Specialty Start Date End Date Ashia Ventura MD [address] [place], [place] PCP - General Internal Medicine 06/27/21
[2024-09-29 16:26] LABS: Anion Gap 13 (12-20); Blood Urea Nitrogen 14 mg/dL (9-16); Carbon Dioxide 23 mmol/L (22-29); Chloride 108 mmol/L (96-108); Estimated Glomerular Filt Rate > 60; Potassium 3.5 mmol/L (3.3-5.1); Sodium 140 mmol/L (135-145)
[2024-09-29 17:17] LABS: Creatinine Urine 56.74 mg/dL; Total Protein Urine Random 187 mg/dL (<12)
== END 2024-09-29 13:23 | disposition home or self-care (01) ==
LOC: HO.HMGCLDS 13:22
PROVIDERS: PCP Internal Medicine; Visit Provider Internal Medicine Nephrology
DX: R80.8 Other proteinuria (principal)
CPT/HCPCS: 36415; 80051; 82565; 82570; 84156; 84520

== ENCOUNTER 2024-09-30 14:46 | Outpatient (AMB) | payer OTHER, SELFPAY ==
--- NOTE | 2024-09-30 14:54 | HO.NEPHOV ---
Vital Signs 09/30/24 14:55 Height 5 ft 2 in Weight 164 lb 2 oz BMI 30.0 BP 120/80 Blood Pressure Location Lt brachial Position Sitting Pulse 66 Pulse Source Pulse Oximeter Pulse Oximetry (%) 96 Oxygen Delivery Method Room Air Intake Visit Reasons: 1 MO FU Intake Note: Patient here for a follow-up. Print Journalist Required: No Accompanied by: Self / Same As Patient Allergies sulfamethoxazole (From Bactrim) Allergy (Severe, Verified 09/30/24 14:57) throat closing trimethoprim (From Bactrim) Allergy (Severe, Verified 09/30/24 14:57) throat closing hydrocodone (From Vicodin) Allergy (Mild, Verified 09/30/24 14:57) RASH Do you need a note to return to daycare/school/sports/work: No HPI Comments Details: Tonia who is a 49-year old female for follow up of microscopic hematuria and proteinuria. She has seen Urology and has even undergone cystoscopy as well as imaging. She has H/O positive SAMIA as well as history of DVT. PE in 2008.(DVT and PE and it was attributed to oral contraceptive pills & was on Coumadin for about 9 months). She has history of proteinuria and was thought it was likely due to urinary tract infections, she had at that time. She has normal renal functions. Her BP has been above the target goal. She has no epistaxis, photosensitivity, hearing deficits, recurrent sinusitis, new bone or back pain. She has no H/O malignancy and does not take excessive NSAID's. She has been started on ARB with no improvement in proteinuria. [facility] Medical History Urinary tract infection symptoms UTI (urinary tract infection) Anemia Tenderness over frontal sinus Headache Trigger point with back pain Cervicalgia Hordeolum externum right lower eyelid Toe pain, bilateral Cough Physical exam Urinary urgency Impacted cerumen of right ear Dysuria Encounter to discuss test results Leg pain COVID-19 Gum lesion Prolapsed hemorrhoids IUD surveillance Frequent headaches Smoker GERD (gastroesophageal reflux disease) History of migraine Proteinuria Frequent UTI Deep vein thrombosis (DVT) of calf muscle vein of left lower extremity Environmental allergies Constipation Genital herpes Pulmonary emboli Migraine headache SAMIA positive Fibromyalgia IBS (irritable bowel syndrome) Surgical History History of colonoscopy History of hemorrhoidectomy Status post reimplantation of ureter History of tubal ligation Family History Mother DVT (deep venous thrombosis) Colonic mass, Onset Age: 66 Mental health disorder Colon cancer Brother Autism Sister Arthritis Father Cancer Social History Housing: House Alcohol intake: current Alcohol intake frequency: 0-2 drinks per day Alcohol type: hard liquor Comment: medicated in pacu Patient Tobacco Use Status: Current everyday Tobacco user Tobacco use type: Cigarette Cigarette Packs Per Day: 0.5 Cigarettes Per Day: 10.0 Years Smoked: 30 e-Cigarette/Vaping Use: Never Used Second Hand Smoke Exposure: Yes service: No Current occupational status: employed Current occupation: [employer] Current occupational exposures/hazards: No Cognitive needs: No Hearing needs: No Vision needs: Yes Female Reproductive History Menstrual Age of Menarche: 12 Review of Systems Const All systems reviewed & are unremarkable except as noted in HPI and below Physical Exam Vital Signs: Last Vital Signs Pulse 66 09/30/24 14:55 BP 120/80 09/30/24 14:55 Pulse Ox 96 09/30/24 14:55 Oxygen Delivery Method Room Air 09/30/24 14:55 BMI result Body Mass Index 30.0 Const General: comfortable and no acute distress Orientation/consciousness: patient oriented x3 HEENT Head: Yes normocephalic Mouth: Normal oral and palatal mucosa present Eyes EOM: EOMs intact bilaterally Neck Neck: Yes supple Resp Auscultation: clear to auscultation bilaterally Cardio Jugular venous distension: no JVD Rate: regular rate GI Palpation (GI): Soft to palpation Auscultation: normal bowel sounds General: Yes no CVA tenderness Back/Spine/Pelvis Back: no CVA tenderness Skin General skin exam: no rashes or lesions noted Neuro General: patient oriented x3 and moves all extremities Results Reviewed Nephrology Results: Hgb, (12.0-16.0) 13.7 g/dl 08/18/24 WBC, (4.8-10.8) 5.7 X10*3/uL 08/18/24 Plt Count, (160-400) 270 X10*3/uL 08/18/24 Sodium, (135-145) 140 mmol/L 09/29/24 Potassium, (3.3-5.1) 3.5 mmol/L 09/29/24 Chloride, (96-108) 108 mmol/L 09/29/24 Carbon Dioxide, (22-29) 23 mmol/L 09/29/24 BUN, (9-16) 14 mg/dL 09/29/24 Creatinine, (0.5-1.4) 0.71 mg/dL 09/29/24 Urine Creatinine 56.74 mg/dL 09/29/24 Protein/Creatinin Ratio, (<0.2) 3.30 H 09/29/24 Assessment & Plan Assessment & Plan (1) Proteinuria: Code(s): R80.9 - Proteinuria, unspecified Category: Medical Qualifiers: Proteinuria type: other Qualified Code(s): R80.8 - Other proteinuria (2) Hematuria: Code(s): R31.9 - Hematuria, unspecified Category: Medical Qualifiers: Hematuria type: asymptomatic microscopic Qualified Code(s): R31.21 - Asymptomatic microscopic hematuria Plan Tonia has microscopic hematuria and protienuria. Her cystoscopy was unremarkable. Her last USS showed right kidney 12 x 5 x 5 cm with renal cortical thinning. It showed normal echotexture. No hydronephrosis. No solid or cystic lesion. Normal flow on color Doppler interrogation of the renal hilum. Left kidney was 11 x 5 x 6. cm with cortical thinning. Normal echotexture. No hydronephrosis no solid or cystic lesion. Focal cortical defect in the upper pole. Normal flow on color Doppler interrogation of the renal hilum. She may have IgA nephropathy. Differential diagnosis includes Alport's syndrome or thin membrane disease. Her renal functions are normal. Her BP is at goal. I increased her losartan to 50 mg twice daily after explaining all its common side effects and interactions. I ordered renal biopsy.Answered all questions and follow up given Orders: Orders Electrolytes 4 Weeks R80.8 - Other proteinuria Protein Creatinine Ratio, Ur 4 Weeks R80.8 - Other proteinuria Creatinine 4 Weeks R80.8 - Other proteinuria Blood Urea Nitrogen 4 Weeks R80.8 - Other proteinuria CT biopsy renal LT Today R31.9 - Hematuria, unspecified, R80.8 - Other proteinuria Medications: Changed From losartan 50 mg (2 x 25 mg) PO DAILY 30 days 60 tabs 3RF To losartan 50 mg PO BID 60 tabs 3RF 30 days Coding Level of Care Code Est Pt Level 4 (42478) Diagnoses Other proteinuria R80.8 Proteinuria type: other Asymptomatic microscopic hematuria R31.21 Hematuria type: asymptomatic microscopic
[2024-09-30 14:55] VITALS: BP 120/80; PULSE 66; O2SAT 96
--- OUTSIDE RECORDS SUMMARY | 2024-09-30 17:40 | XMS_ITS | Clinical Summary ---
Author Organization [facility] Facility Address [address] [address] Care Team Providers Care Conveyor Belt Installer Name Role Phone Ashia Ventura MD Primary Care Provider [phone] Allergies Active Allergy Reactions Criticality Noted Date [...] 07/15/1995 Influenza Vaccine (Season Ended) 2024 Insurance [facility] Care Teams Conveyor Belt Installer Relationship Specialty Start Date End Date Ashia Ventura MD [address] [place], [place] PCP - General Internal Medicine 06/27/21
== END 2024-09-30 15:23 | disposition home or self-care (01) ==
LOC: HO.HKA 14:46
PROVIDERS: PCP Internal Medicine; Visit Provider Internal Medicine Nephrology
DX: R80.8 Other proteinuria (principal); R31.21 Asymptomatic microscopic hematuria
CPT/HCPCS: 99214

== ENCOUNTER 2024-10-14 15:44 | Outpatient (AMB) | payer OTHER, SELFPAY ==
--- OUTSIDE RECORDS SUMMARY | 2024-10-14 15:46 | XMS_ITS | Clinical Summary ---
Author Organization [facility] Facility Address [address] [address] Care Team Providers Care Nurse Wound Care Name Role Phone Ashia Ventura MD Primary Care Provider [phone] Allergies Active Allergy Reactions Criticality Noted Date [...] of 2 - PCV) 07/15/1995 Influenza Vaccine (#1) 2024 Insurance [facility] Care Teams Nurse Wound Care Relationship Specialty Start Date End Date Ashia Ventura MD [address] [place], [place] PCP - General Internal Medicine 06/27/21
--- NOTE | 2024-10-14 15:56 | A.OFFPC_ITS ---
Vital Signs 10/14/24 16:01 Height 5 ft 2 in Weight 161 lb BMI 29.4 BP 130/82 Blood Pressure Location Lt brachial Position Sitting Intake Visit Reasons: f/u Home Care Aide Required: No Accompanied by: Self / Same As Patient Allergies sulfamethoxazole (From Bactrim) Allergy (Severe, Verified 10/14/24 16:17) throat closing trimethoprim (From Bactrim) Allergy (Severe, Verified 10/14/24 16:17) throat closing hydrocodone (From Vicodin) Allergy (Mild, Verified 10/14/24 16:17) RASH Medication List - Last Reconciled 10/14/24 by Ashia Park MD ibuprofen 800 mg PO Q8H PRN losartan 50 mg PO BID 30 days omeprazole 20 mg PO DAILY propranolol 10 mg PO .Once a day sennosides (senna) 17.2 mg (2 x 8.6 mg) PO BEDTIME sumatriptan succinate 50 - 100 mg orally at onset of headache, may repeat in 2 hrs PRN; max 2 tabs per day or 12 tabs/week (may take with Ibuprofen) 30 days valacyclovir 1,000 mg PO Q12H 30 days Tobacco use date assessed: 10/14/24 Dental Screening Dental Screen Date: 10/14/24 Did you have a dental visit in the last 12 months?: Yes Did you have a dental problem in the last 6 months where you did not have access to dental care?: No Was dental information given to patient?: Patient has dentist HPI HPI Comments History of Present Illness Details The patient is a 49-year-old female presenting for follow-up on her chronic conditions including GERD, constipation, fibromyalgia, migraines, essential hypertension, proteinuria, and abnormal uterine bleeding. Gastroesophageal Reflux Disease (GERD) has been stable with dietary management and the use of proton pump inhibitors (PPIs). Constipation is noted but not further elaborated upon in the conversation. The patient experiences migraines for which she uses sumatriptan as needed and propranolol for prophylaxis. These interventions have been effective in managing her migraine symptoms. Fibromyalgia is well-controlled with ibuprofen as needed, indicating effective symptom management. The patient has essential hypertension, which is well-managed with losartan, resulting in good blood pressure control. Proteinuria is being monitored by nephrology, and a renal biopsy is planned to further investigate the condition. Abnormal uterine bleeding is under the care of an toll line inspector-multiple tube winding machine operator, and the patient expresses a desire for hormone testing due to associated fatigue and tiredness. The patient is attempting to manage her weight through diet and exercise but reports difficulty in losing weight. [facility] Medical History (Updated 10/14/24 @ 16:33 by Ashia Park MD) Urinary tract infection symptoms UTI (urinary tract infection) Anemia Tenderness over frontal sinus Headache Trigger point with back pain Cervicalgia Hordeolum externum right lower eyelid Toe pain, bilateral Cough Physical exam Urinary urgency Impacted cerumen of right ear Dysuria Encounter to discuss test results Leg pain COVID-19 Gum lesion Prolapsed hemorrhoids IUD surveillance Frequent headaches Smoker GERD (gastroesophageal reflux disease) History of migraine Proteinuria Frequent UTI Deep vein thrombosis (DVT) of calf muscle vein of left lower extremity Environmental allergies Constipation Genital herpes Pulmonary emboli Migraine headache ASHIA positive Fibromyalgia IBS (irritable bowel syndrome) Surgical History History of colonoscopy History of hemorrhoidectomy Status post reimplantation of ureter History of tubal ligation Family History Mother DVT (deep venous thrombosis) Colonic mass, Onset Age: 66 Mental health disorder Colon cancer Brother Autism Sister Arthritis Father Cancer Social History (Updated 10/14/24 @ 16:23 by Ashia Park MD) Housing: House Alcohol intake: current Alcohol intake frequency: 0-2 drinks per day Alcohol type: hard liquor Comment: medicated in pacu Patient Tobacco Use Status: Current everyday Tobacco user Tobacco use type: Cigarette Cigarette Packs Per Day: 0.5 Cigarettes Per Day: 10.0 Years Smoked: 30 e-Cigarette/Vaping Use: Never Used Second Hand Smoke Exposure: Yes service: No Current occupational status: employed Current occupation: [employer] Current occupational exposures/hazards: No Cognitive needs: No Hearing needs: No Vision needs: Yes Female Reproductive History Menstrual Age of Menarche: 12 Questionnaire PHQ-9 Over the last 2 weeks, how often have you been bothered by any of the following problems? 1. Little interest or pleasure in doing things: not at all 2. Feeling down, depressed, or hopeless: not at all 3. Trouble falling or staying asleep, or sleeping too much: several days 4. Feeling tired or having little energy: nearly every day 5. Poor appetite or overeating: not at all 6. Feeling bad about yourself - or that you are a failure or have let yourself or your family down: not at all 7. Trouble concentrating on things, such as reading the newspaper or watching television: not at all 8. Moving or speaking so slowly that other people could have noticed. Or the opposite - being so fidgety or restless that you have been moving around a lot more than usual: not at all 9. Thoughts that you would be better off or of hurting yourself in some way: not at all Total score: 4 Depression Screening Interpretation: Negative Depression Screening Done: Yes 12761 - PHQ-9 Billing: Yes Source: Developed by Drs. Kenton Givens, Lori Dooley, Jeff Jordan and colleagues, with an educational dorota from [employer]. Thrive Questionnaire Date Thrive assessed: 10/14/24 I am a: Patient What is your living situation today?: I have a steady place to live Within the past 12 months, did the food you bought not last and you didn't have the money to get more?: Never true Within the past 12 months, did you worry whether your food would run out before you got money to buy more?: Never true Do you have trouble paying for medicines?: No Do you have trouble getting transportation to medical appointments?: No Do you have trouble paying your heating and electricity bill?: No Do you have trouble taking care of your child, family member or friend?: No Do you have trouble with day-to-day activities such as bathing, preparing meals, shopping, managing finances, etc.?: No Are you currently unemployed and looking for a job?: No Are you interested in more education?: No Please select the resources that you would like help with: None Currently or been in a relationship where the following occur: No concerns reported THRIVE Score: 0 AUDIT C Alcohol Use Questionnaire (AUDIT-C) 1. How often do you have a drink containing alcohol?: 2-3 times a week 2. How many drinks containing alcohol do you have on a typical day when you are drinking?: 1 or 2 3. How often do you have six or more drinks on one occasion?: Never Total Score: 3 BORA-7 AMB Questionnaire BORA-7 Date BORA - 7 assessed: 10/14/24 Feeling nervous, anxious, or on edge: 0 = Not at all Not being able to stop or control worryin = Not at all Worrying too much about different things: 0 = Not at all Trouble relaxin = Not at all Being so restless that it is hard to sit still: 0 = Not at all Becoming easily annoyed or irritable: 0 = Not at all Feeling afraid as if something awful might happen: 0 = Not at all Total BORA-7 score (0-4 normal; 5-9 mild; 10-14 moderate; 15-21 severe): 0 Source: Developed by Drs. Kenton Givens, Lori Dooley, Jeff Jordan and colleagues, with an educational dorota from [employer]. BORA-7 Assessment Billing BORA-7 Assessment Tool: BORA-7 Assessment 28772 Review of Systems Const All systems reviewed & are unremarkable except as noted in HPI and below Card Denies chest pain at rest, Denies chest pain with activity, Denies edema, Denies irregular heart rhythm, Denies claudication, Denies dyspnea, Denies dyspnea on exertion, Denies orthopnea, Denies paroxysmal nocturnal dyspnea and Denies slow heart rate Resp Denies cough, Denies dyspnea and Denies dyspnea on exertion GI Denies abdominal pain, Denies change in bowel habits, Denies excessive flatus, Denies nausea and Denies vomiting Denies urinary incontinence, Denies urinary hesitancy and Denies urinary urgency Physical exam (Primary Care) Vital Signs: Last Vital Signs BP 130/82 10/14/24 16:01 BMI result Body Mass Index 29.4 Tobacco/Smoking Status: Tobacco use Status Tobacco use date assessed 10/14/24 10/14/24 16:08 Patient Tobacco Use Status Current everyday Tobacco 10/14/24 16:23 Tobacco use type Cigarette 10/14/24 16:23 e-Cigarette/Vaping Use Never Used 10/14/24 16:23 PHQ-9: PHQ-9 Score PHQ-9: Total score 4 10/14/24 16:24 Depression Screening Interpretation: Negative Thrive Assessment: Date of Thrive Assessment Date Thrive assessed 10/14/24 10/14/24 16:01 Currently or been in a relationship where the following occur: No concerns reported Resp Effort & Inspection: normal respiratory effort Auscultation: clear to auscultation bilaterally Cardio Jugular venous distension: no JVD Rate: regular rate Rhythm: regular rhythm Heart sounds: S1 normal heart sound present and S2 normal heart sound present Extrem General: Yes full ROM Coding Level of Care Code Est Pt Level 4 (91491) Complex EM visit Add On G2211 Diagnoses Chronic idiopathic constipation K59.04 Gastroesophageal reflux disease, unspecified whether esophagitis present K21.9 Esophagitis presence: esophagitis presence not specified Abnormal uterine bleeding N93.9 Fibromyalgia M79.7 Other proteinuria R80.8 Proteinuria type: other Additional Codes BORA-7 Assessment Billing - BORA-7 Assessment Tool: BORA-7 Assessment 74291 ([id number]) PHQ-9 - 68731 - PHQ-9 Billing: Yes ([id number]) Time Spent (min) 25 Assessment & Plan Assessment & Plan (1) Chronic idiopathic constipation: Code(s): K59.04 - Chronic idiopathic constipation Category: Medical (2) GERD (gastroesophageal reflux disease): Code(s): K21.9 - Gastro-esophageal reflux disease without esophagitis Category: Medical Qualifiers: Esophagitis presence: esophagitis presence not specified Qualified Code(s): K21.9 - Gastro-esophageal reflux disease without esophagitis (3) Abnormal uterine bleeding: Comment: With dysmenorrhea Code(s): N93.9 - Abnormal uterine and vaginal bleeding, unspecified Category: Medical (4) Fibromyalgia: Code(s): M79.7 - Fibromyalgia Category: Medical (5) Proteinuria: Code(s): R80.9 - Proteinuria, unspecified Category: Medical Qualifiers: Proteinuria type: other Qualified Code(s): R80.8 - Other proteinuria Plan The patient will continue with dietary management and proton pump inhibitors for GERD, as these have been effective in maintaining stability. For migraines, the patient will continue using sumatriptan as needed and propranolol for prophylaxis, given their effectiveness in symptom control. Fibromyalgia management with ibuprofen as needed will continue, as it has been effective in controlling symptoms. Essential hypertension will continue to be managed with losartan, which has resulted in good blood pressure control. Proteinuria will be further evaluated with a renal biopsy as planned by nephrology. The patient will follow up with her toll line inspector-multiple tube winding machine operator for abnormal uterine bleeding and pursue hormone testing to address fatigue and tiredness. Orders: Orders Saliva Cortisol Today R63.4 - Abnormal weight loss Lutenizing Hormone Today N93.9 - Abnormal uterine and vaginal bleeding, unspecified Follicle Stimulating Hormone Today N93.9 - Abnormal uterine and vaginal bleeding, unspecified Magnesium Today R25.2 - Cramp and spasm Potassium Today R25.2 - Cramp and spasm Estrogen Today N92.6 - Irregular menstruation, unspecified Progesterone Today N93.9 - Abnormal uterine and vaginal bleeding, unspecified Medications: New magnesium oxide 400 mg PO DAILY 90 tabs 1RF 90 days
[2024-10-14 16:01] VITALS: BP 130/82; BMI 29.4
== END 2024-10-14 16:35 | disposition home or self-care (01) ==
LOC: HO.HMCH 15:45
PROVIDERS: PCP Internal Medicine; Visit Provider Internal Medicine
DX: K59.04 Chronic idiopathic constipation (principal); K21.9 Gastro-esophageal reflux disease without esophagitis; N93.9 Abnormal uterine and vaginal bleeding, unspecified; M79.7 Fibromyalgia; R80.8 Other proteinuria

== ENCOUNTER → 2024-10-14 15:44 | Outpatient (BNVA) | payer OTHER, SELFPAY | PROVIDERS: PCP Internal Medicine; Visit Provider Internal Medicine | DX: K21.9 Gastro-esophageal reflux disease without esophagitis (principal); M79.7 Fibromyalgia; K59.04 Chronic idiopathic constipation; G43.909 Migraine, unspecified, not intractable, without status migrainosus; I10 Essential (primary) hypertension; N93.9 Abnormal uterine and vaginal bleeding, unspecified; R80.8 Other proteinuria | CPT/HCPCS: 96127 ==

== ENCOUNTER 2024-10-29 08:47 | Day surgery (SDC) | payer OTHER, SELFPAY ==
--- OUTSIDE RECORDS SUMMARY | 2024-10-21 13:09 | XMS_ITS | Clinical Summary ---
Author Organization [facility] Facility Address [address] [address] Care Team Providers Care Hanging Flags Decorator Name Role Phone Ashia Ventura MD Primary [...] PCV) 07/15/1995 Influenza Vaccine (#1) 2024 Insurance [facility] Care Teams Hanging Flags Decorator Relationship Specialty Start Date End Date Ashia Ventura MD [address] [place], [place] PCP - General Internal Medicine 06/27/21
[2024-10-29] VITALS (13 sets, daily range): BP systolic 123–155; BP diastolic 62–101; PULSE 63–82; RESP 12–18; TEMP 36.6–36.8; O2SAT 95–100; BMI 29.4
--- NOTE | ~2024-10-29 | CT_ITS ---
PROCEDURE: CT GUIDED BIOPSY, KIDNEY CLINICAL INFORMATION: Proteinuria, hematuria and compression renal insufficiency COMPARISON: None available. TECHNIQUE: Following explaining CT fluoroscopy guided left renal biopsy procedure, benefits and risk a written consent was obtained. Patient was placed prone on fluoroscopy table and coronary CT imaging was obtained through the posterior abdomen. An optimal slice was selected and lead markers were placed along the left posterior abdomen and repeat CT imaging was performed. An optimal marker was selected and marked on the skin site. The skin site was cleaned and draped with 2% chlorhexidine solution. 1% lidocaine was injected at puncture site. There is small skin incision a 20-gauge short guide needle was inserted from the skin site into the left renal cortex. Coaxially a 20-gauge biopsy gun was administered and 3 pass core biopsy of kidney was performed. Repeat CT imaging was performed post procedure revealed no evidence of perinephric hematoma. Sterile dressing applied post procedure without immediate complications. Conscious sedation was utilized during exam and patient monitored by and IR nurse and IR physician. This CT examination was performed using dose optimization techniques as appropriate, variously including the following: *Automated exposure control *Adjustment of mA and/or kV according to patient size (this includes techniques or standardized protocols for targeted exams where dose is matched to indication/reason for exam; i.e. extremities or head) *Use of iterative reconstruction technique DLP: 147 mGy/cm. FINDINGS: On coronary CT imaging both kidneys are symmetrical in size, position and cortical thickness. A CT fluoroscopy guided left renal core biopsy was performed x3. There were no immediate complications. Specimen was sent on saline infused tefla to pathology. Post procedure CT imaging revealed no perinephric hematoma. CT/CT biopsy renal LT IMPRESSION: Successful CT fluoroscopy guided left renal core biopsy performed. Electronically signed by: Gustavo Aldrich MD 10/29/2024 03:21 PM EDT
[2024-10-29 09:20] LABS: UPreg QC Valid YES
[2024-10-29 09:34] LABS: MANUAL DIFF FLAG NO
[2024-10-29 09:35] LABS: Hematocrit 38.8 % (37.0-47.0); Hemoglobin 13.4 g/dl (12.0-16.0); Imm Gran Abs Auto 0.02 X10*3/uL (0.00-0.03); Imm Gran Pct Auto 0.3 % (0.0-0.4); Lymphocytes Absolute Auto 1.6 X10*3/uL (1.2-4.9); Mean Corpuscular HGB Conc 34.5 g/dl (31.0-35.0); Mean Corpuscular Hemoglobin 33.2 pg (27.0-33.0); Mean Corpuscular Volume 96.0 fL (80.0-98.0); NRBC Abs Auto 0.000 X10*3/uL (0.0-0.012); NRBC Pct Auto 0.0 /100WBC (0.0-0.2); Platelet Count 268 X10*3/uL (160-400); Red Blood Count 4.04 X10*6/uL (4.20-5.50); White Blood Count 5.9 X10*3/uL (4.8-10.8)
[2024-10-29 09:50] LABS: INTERNATIONAL NORM RATIO 0.8 (0.9-1.1); Prothrombin Time 9.7 SEC (10.9-12.4)
== END 2024-10-29 13:00 | disposition home or self-care (01) ==
PROVIDERS: Anesthesiology; Radiology Diagnostic Radiology; PCP Internal Medicine; Visit Provider Internal Medicine Nephrology
DX: R80.8 Other proteinuria (principal); R31.29 Other microscopic hematuria; N19 Unspecified kidney failure; R39.15 Urgency of urination; R30.0 Dysuria; Z87.440 Personal history of urinary (tract) infections; D64.9 Anemia, unspecified; R03.0 Elevated blood-pressure reading, without diagnosis of hypertension; J30.2 Other seasonal allergic rhinitis; M79.7 Fibromyalgia; R51.9 Headache, unspecified; Z86.2 Personal history of diseases of the blood and blood-forming organs and certain disorders involving the immune mechanism; Z86.718 Personal history of other venous thrombosis and embolism; Z86.711 Personal history of pulmonary embolism; Z88.2 Allergy status to sulfonamides; Z88.5 Allergy status to narcotic agent; Z87.898 Personal history of other specified conditions; F17.210 Nicotine dependence, cigarettes, uncomplicated
CPT/HCPCS: 36415; 50200; 77012; 81025; 85025; 85610; 86850; 86900; 86901; 88300; 88305; 88313; 88346; 88348; 88350; 99152; J2003; J2250; J3010

== ENCOUNTER → 2024-10-29 10:36 | Outpatient (BNV) | payer OTHER, SELFPAY | PROVIDERS: PCP Internal Medicine; Visit Provider Radiology Diagnostic Radiology | DX: R80.9 Proteinuria, unspecified (principal); R31.9 Hematuria, unspecified; N28.9 Disorder of kidney and ureter, unspecified | CPT/HCPCS: 50200; 77012 ==

== ENCOUNTER 2024-11-02 16:01 | Outpatient (REF) | payer OTHER, SELFPAY ==
--- OUTSIDE RECORDS SUMMARY | 2024-11-02 16:09 | XMS_ITS | Clinical Summary ---
Author Organization [facility] Facility Address [address] [address] Care Team Providers Care Leather Production Worker Name Role Phone Ashia Ventura MD Primary Care Provider [phone] Allergies Active Allergy Reactions Criticality Noted Date [...] PCV) 07/15/1995 Influenza Vaccine (#1) 2024 Insurance [facility] Care Teams Leather Production Worker Relationship Specialty Start Date End Date Ashia Ventura MD [address] [place], [place] PCP - General Internal Medicine 06/27/21
[2024-11-02 17:30] LABS: Anion Gap 13 (12-20); Blood Urea Nitrogen 19 mg/dL (9-16); Carbon Dioxide 23 mmol/L (22-29); Chloride 110 mmol/L (96-108); Estimated Glomerular Filt Rate 59; Magnesium 1.7 mg/dL (1.6-2.6); Potassium 4.0 mmol/L (3.3-5.1); Sodium 142 mmol/L (135-145)
[2024-11-02 17:43] LABS: Protein/Creatinine Ratio, Ur 2.16 (<0.2); Total Protein Urine Random 239 mg/dL (<12)
[2024-11-03 06:54] LABS: Follicle Stimulating Hormone 2.7 mIU/mL
== END 2024-11-02 16:02 | disposition home or self-care (01) ==
LOC: HO.LAB 16:01
PROVIDERS: Absent Provider Internal Medicine; PCP Internal Medicine; Visit Provider Internal Medicine Nephrology
DX: N93.9 Abnormal uterine and vaginal bleeding, unspecified (principal); N92.6 Irregular menstruation, unspecified; R25.2 Cramp and spasm; R80.8 Other proteinuria
CPT/HCPCS: 36415; 80051; 82565; 82570; 82672; 83001; 83002; 83735; 84144; 84156; 84520

== ENCOUNTER 2024-11-04 14:52 | Outpatient (AMB) | payer OTHER, SELFPAY ==
--- NOTE | 2024-11-04 14:57 | HO.NEPHOV ---
Vital Signs 11/04/24 14:59 Height 5 ft 2 in Weight 161 lb 8 oz BMI 29.5 BP 104/70 Blood Pressure Location Rt brachial Position Sitting Intake Visit Reasons: 1 MO FU-Conf Dethistler Operator Required: No Accompanied by: Self / Same As Patient Allergies sulfamethoxazole (From Bactrim) Allergy (Severe, Verified 11/04/24 14:58) throat closing trimethoprim (From Bactrim) Allergy (Severe, Verified 11/04/24 14:58) throat closing hydrocodone (From Vicodin) Allergy (Mild, Verified 11/04/24 14:58) RASH HPI Comments Details: Tonia who is a 49-year old female for follow up of microscopic hematuria and proteinuria. She has seen Urology and has even undergone cystoscopy as well as imaging. She has H/O positive ASHIA as well as history of DVT. PE in 2008.(DVT and PE and it was attributed to oral contraceptive pills & was on Coumadin for about 9 months). She has history of proteinuria and was thought it was likely due to urinary tract infections, she had at that time. She has normal renal functions. Her BP has been at goal. She has no epistaxis, photosensitivity, hearing deficits, recurrent sinusitis, new bone or back pain. She has no H/O malignancy and does not take excessive NSAID's. She has been started on ARB with some improvement in proteinuria. She had renal biopsy of left kidney 2 days ago and has been having left flank pain with radiation to left groin without any hematuria. [facility] Medical History Urinary tract infection symptoms UTI (urinary tract infection) Anemia Tenderness over frontal sinus Headache Trigger point with back pain Cervicalgia Hordeolum externum right lower eyelid Toe pain, bilateral Cough Physical exam Urinary urgency Impacted cerumen of right ear Dysuria Encounter to discuss test results Leg pain COVID-19 Gum lesion Prolapsed hemorrhoids IUD surveillance Frequent headaches Smoker GERD (gastroesophageal reflux disease) History of migraine Proteinuria Frequent UTI Deep vein thrombosis (DVT) of calf muscle vein of left lower extremity Environmental allergies Constipation Genital herpes Pulmonary emboli Migraine headache ASHIA positive Fibromyalgia IBS (irritable bowel syndrome) Surgical History History of colonoscopy History of hemorrhoidectomy Status post reimplantation of ureter History of tubal ligation Family History Mother DVT (deep venous thrombosis) Colonic mass, Onset Age: 66 Mental health disorder Colon cancer Brother Autism Sister Arthritis Father Cancer Social History Housing: House Are you a primary small animal caretaker to a significant other at home: No Do you presently have visiting nurse or other home services: No Alcohol intake: current Alcohol intake frequency: 0-2 drinks per day Alcohol type: hard liquor Comment: medicated in pacu Patient Tobacco Use Status: Current everyday Tobacco user Tobacco use type: Cigarette Cigarette Packs Per Day: 0.5 Cigarettes Per Day: 10 Years Smoked: 30 e-Cigarette/Vaping Use: Never Used Second Hand Smoke Exposure: Yes service: No Current occupational status: employed Current occupation: [employer] Current occupational exposures/hazards: No Cognitive needs: No Hearing needs: No Vision needs: Yes Female Reproductive History Menstrual Age of Menarche: 12 Review of Systems Const All systems reviewed & are unremarkable except as noted in HPI and below Physical Exam Vital Signs: Last Vital Signs BP 104/70 11/04/24 14:59 BMI result Body Mass Index 29.5 Const General: comfortable and no acute distress Orientation/consciousness: patient oriented x3 HEENT Head: Yes normocephalic Mouth: Normal oral and palatal mucosa present Eyes EOM: EOMs intact bilaterally Neck Neck: Yes supple Resp Auscultation: clear to auscultation bilaterally Cardio Jugular venous distension: no JVD Rate: regular rate GI Palpation (GI): Soft to palpation Auscultation: normal bowel sounds General: Yes no CVA tenderness Back/Spine/Pelvis Back: no CVA tenderness Skin General skin exam: no rashes or lesions noted Neuro General: patient oriented x3 and moves all extremities Extrem General: Yes no pedal edema Results Reviewed Nephrology Results: Hgb, (12.0-16.0) 13.4 g/dl 10/29/24 WBC, (4.8-10.8) 5.9 X10*3/uL 10/29/24 Plt Count, (160-400) 268 X10*3/uL 10/29/24 Sodium, (135-145) 142 mmol/L 11/02/24 Potassium, (3.3-5.1) 4.0 mmol/L 11/02/24 Chloride, (96-108) 110 mmol/L H 11/02/24 Carbon Dioxide, (22-29) 23 mmol/L 11/02/24 BUN, (9-16) 19 mg/dL H 11/02/24 Creatinine, (0.5-1.4) 1.00 mg/dL 11/02/24 Urine Creatinine 110.50 mg/dL 11/02/24 Protein/Creatinin Ratio, (<0.2) 2.16 H 11/02/24 Assessment & Plan Assessment & Plan (1) Proteinuria: Code(s): R80.9 - Proteinuria, unspecified Category: Medical Qualifiers: Proteinuria type: other Qualified Code(s): R80.8 - Other proteinuria Plan Tonia who is a 49-year old female for follow up of microscopic hematuria and proteinuria. She has seen Urology and has even undergone cystoscopy as well as imaging. She has H/O positive ASHIA as well as history of DVT. PE in 2008.(DVT and PE and it was attributed to oral contraceptive pills & was on Coumadin for about 9 months). She has history of proteinuria and was thought it was likely due to urinary tract infections, she had at that time. She has normal renal functions. Her BP has been above the target goal. She has no epistaxis, photosensitivity, hearing deficits, recurrent sinusitis, new bone or back pain. She has no H/O malignancy and does not take excessive NSAID's. She has been started on ARB with marginal improvement in proteinuria. I increased her losartan to 25 mg PO bid. She needs an urgent CT scan with IV contrast to R/O herminia renal hematoma. She was asked to hold ARB on the day of IV contrast. I also started her on Prednisone 60 mg daily to be taken at 8 AM with food after explaining its side effects. She may need Jardiance. Further continued care is based on evolving data. Time spent co ordianting care, reaching out to [facility] for biopsy report, organising CT scan, patient encounter and documentation 40 minutes. Answered all questions Orders: Orders Protein Creatinine Ratio, Ur 3 Weeks R80.8 - Other proteinuria Creatinine 3 Weeks R80.8 - Other proteinuria Electrolytes 3 Weeks R80.8 - Other proteinuria Albumin Level 3 Weeks R80.8 - Other proteinuria Blood Urea Nitrogen 3 Weeks R80.8 - Other proteinuria CT abdomen pelvis w IV con Today R80.8 - Other proteinuria Medications: New prednisone 60 mg (3 x 20 mg) PO DAILY 90 tabs 1RF 30 days Coding Level of Care Code Est Pt Level 5 (35974) Diagnoses Other proteinuria R80.8 Proteinuria type: other
[2024-11-04 14:59] VITALS: BP 104/70; BMI 29.5
--- OUTSIDE RECORDS SUMMARY | 2024-11-04 15:36 | XMS_ITS | Clinical Summary ---
Author Organization [facility] Facility Address [address] [address] Care Team Providers Care Toe Former Stitchdowns Name Role Phone Ashia Ventura MD Primary Care Provider [phone] Allergies Active Allergy Reactions Criticality Noted Date [...] PCV) 07/15/1995 Influenza Vaccine (#1) 2024 Insurance [facility] Care Teams Toe Former Stitchdowns Relationship Specialty Start Date End Date Ashia Ventura MD [address] [place], [place] PCP - General Internal Medicine 06/27/21
== END 2024-11-04 15:37 | disposition home or self-care (01) ==
LOC: HO.HKA 14:53
PROVIDERS: PCP Internal Medicine; Visit Provider Internal Medicine Nephrology
DX: R80.8 Other proteinuria (principal)
CPT/HCPCS: 99215

== ENCOUNTER 2024-11-06 13:18 | Outpatient (REF) | payer OTHER, SELFPAY ==
--- NOTE | ~2024-11-06 | CT_ITS ---
EXAMINATION: CT ABDOMEN AND PELVIS WITH CONTRAST CLINICAL INFORMATION: Proteinuria , posterior inferior left renal biopsy on October 29, 2024 COMPARISON: 10/29/2024 biopsy and November 16, 2019 TECHNIQUE: Multidetector volumetric images were obtained from the superior aspect of the liver through the pubic symphysis following administration 85 mL of Omnipaque 350 intravenous contrast. Sagittal and coronal reformatted images were obtained on the technologist's workstation. Oral contrast: No This CT examination was performed using dose optimization techniques as appropriate, variously including the following: *Automated exposure control *Adjustment of mA and/or kV according to patient size (this includes techniques or standardized protocols for targeted exams where dose is matched to indication/reason for exam; i.e. extremities or head) *Use of iterative reconstruction technique DLP: 384 mGY*cm FINDINGS: LUNG BASES: The visualized lung bases are unremarkable. LIVER, GALLBLADDER, AND BILIARY TREE: Hypoattenuating lesion in the liver dome probably represents a small simple hepatic cyst Liver and gallbladder are otherwise unremarkable. PANCREAS: Unremarkable. SPLEEN: Unremarkable. ADRENAL GLANDS: Unremarkable. KIDNEYS AND URETERS: Small linear hypodensity is seen in the posterior lower pole the left kidney related to recent biopsy. There is trace perinephric fluid. There is no associated mass effect. Kidneys and ureters are otherwise unremarkable. BLADDER: Unremarkable. GASTROINTESTINAL TRACT: The small and large bowel are unremarkable. The appendix is nonvisualized.. ABDOMINAL WALL: No significant hernia is appreciated. LYMPH NODES: Normal. VASCULAR: Unremarkable. PELVIC VISCERA: Uterus and ovaries are unremarkable. OSSEOUS STRUCTURES: Severe facet arthropathy is present in the right at L5-S1. CT/CT abdomen pelvis w IV con IMPRESSION: Trace perinephric fluid/hematoma following biopsy of the lower pole the left kidney. Severe facet arthropathy is present on the right at L5-S1. Fleischner guidelines were followed. Electronically signed by: Howard Sneed MD 11/06/2024 02:23 PM EDT
--- OUTSIDE RECORDS SUMMARY | 2024-11-06 13:22 | XMS_ITS | Clinical Summary ---
Author Organization [facility] Facility Address [address] [address] Care Team Providers Care Laborer Prestressed Concrete Name Role Phone Ashia Ventura MD Primary Care Provider [phone] Allergies Active Allergy Reactions Criticality Noted Date [...] PCV) 07/15/1995 Influenza Vaccine (#1) 2024 Insurance [facility] Care Teams Laborer Prestressed Concrete Relationship Specialty Start Date End Date Ashia Ventura MD [address] [place], [place] PCP - General Internal Medicine 06/27/21
[2024-11-06] MEDS: iohexoL 350 MG/ML 100 ML INFUS..BTL IV (14:07)
== END 2024-11-06 13:19 | disposition home or self-care (01) ==
LOC: HO.CT 13:18
PROVIDERS: PCP Internal Medicine; Visit Provider Internal Medicine Nephrology
DX: R80.8 Other proteinuria (principal)
CPT/HCPCS: 74177; Q9967

== ENCOUNTER → 2024-11-06 13:21 | Outpatient (BNV) | payer OTHER, SELFPAY | PROVIDERS: PCP Internal Medicine; Visit Provider Radiology Diagnostic Radiology | DX: R80.9 Proteinuria, unspecified (principal) | CPT/HCPCS: 74177 ==

== ENCOUNTER 2024-11-18 06:42 | Outpatient (REF) | payer OTHER, SELFPAY ==
--- OUTSIDE RECORDS SUMMARY | 2024-11-20 08:41 | XMS_ITS | Clinical Summary ---
Author Organization [facility] Facility Address [address] [address] Care Team Providers Care Yard Warehouse Worker Name Role Phone Ashia Ventura MD Primary Care Provider [phone] Allergies Active Allergy Reactions Criticality Noted Date [...] PCV) 07/15/1995 Influenza Vaccine (#1) 2024 Insurance [facility] Care Teams Yard Warehouse Worker Relationship Specialty Start Date End Date Ashia Ventura MD [address] [place], [place] PCP - General Internal Medicine 06/27/21
[2024-11-27 20:38] LABS: Saliva Cortisol 0.05 mcg/dL
== END 2024-11-18 06:43 | disposition home or self-care (01) ==
LOC: HO.HMGCLNP 06:42
PROVIDERS: PCP Internal Medicine; Visit Provider Internal Medicine
DX: R63.4 Abnormal weight loss (principal)
CPT/HCPCS: 82530

== ENCOUNTER 2024-11-25 08:05 | Outpatient (REF) | payer OTHER, SELFPAY ==
[2024-11-25 11:26] LABS: Protein/Creatinine Ratio, Ur 3.10 (<0.2); Total Protein Urine Random 199 mg/dL (<12)
[2024-11-25 11:48] LABS: Albumin Level 3.7 g/dL (3.5-5.0); Anion Gap 15 (12-20); Blood Urea Nitrogen 22 mg/dL (9-16); Carbon Dioxide 20 mmol/L (22-29); Chloride 106 mmol/L (96-108); Estimated Glomerular Filt Rate > 60; Potassium 3.8 mmol/L (3.3-5.1); Sodium 137 mmol/L (135-145)
== END 2024-11-25 08:06 | disposition home or self-care (01) ==
LOC: HO.HMGCLDS 08:05
PROVIDERS: PCP Internal Medicine; Visit Provider Internal Medicine Nephrology
DX: R80.8 Other proteinuria (principal); R31.29 Other microscopic hematuria
CPT/HCPCS: 36415; 80051; 82040; 82565; 82570; 84156; 84520

== ENCOUNTER 2024-11-25 15:43 | Outpatient (AMB) | payer OTHER, SELFPAY ==
--- NOTE | 2024-11-25 15:49 | HO.NEPHOV ---
Vital Signs 11/25/24 15:52 Height 5 ft 2 in Weight 164 lb BMI 30.0 BP 112/80 Blood Pressure Location Lt brachial Position Sitting Intake Visit Reasons: 3 wk fu w/ labs&CT scan-Conf Front Attendant Required: No Accompanied by: Self / Same As Patient Allergies sulfamethoxazole (From Bactrim) Allergy (Severe, Verified 11/25/24 15:52) throat closing trimethoprim (From Bactrim) Allergy (Severe, Verified 11/25/24 15:52) throat closing hydrocodone (From Vicodin) Allergy (Mild, Verified 11/25/24 15:52) RASH HPI Comments Details: Tonia who is a 49-year old female for follow up of microscopic hematuria and proteinuria. She has seen Urology and has even undergone cystoscopy as well as imaging. She has H/O positive ASHIA as well as history of DVT. PE in 2008.(DVT and PE and it was attributed to oral contraceptive pills & was on Coumadin for about 9 months). She has history of proteinuria and was thought it was likely due to urinary tract infections, she had at that time. She has normal renal functions. Her BP has been at goal. She has no epistaxis, photosensitivity, hearing deficits, recurrent sinusitis, new bone or back pain. She has no H/O malignancy and does not take excessive NSAID's. She has been started on ARB which she is tolerating well. She had her grandma on HD ? 2 to DM. 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 Her daughter has M/S hematuria. She has been having edema. [facility] Medical History Urinary tract infection symptoms UTI (urinary tract infection) Anemia Tenderness over frontal sinus Headache Trigger point with back pain Cervicalgia Hordeolum externum right lower eyelid Toe pain, bilateral Cough Physical exam Urinary urgency Impacted cerumen of right ear Dysuria Encounter to discuss test results Leg pain COVID-19 Gum lesion Prolapsed hemorrhoids IUD surveillance Frequent headaches Smoker GERD (gastroesophageal reflux disease) History of migraine Proteinuria Frequent UTI Deep vein thrombosis (DVT) of calf muscle vein of left lower extremity Environmental allergies Constipation Genital herpes Pulmonary emboli Migraine headache ASHIA positive Fibromyalgia IBS (irritable bowel syndrome) Surgical History History of colonoscopy History of hemorrhoidectomy Status post reimplantation of ureter History of tubal ligation Family History Mother DVT (deep venous thrombosis) Colonic mass, Onset Age: 66 Mental health disorder Colon cancer Brother Autism Sister Arthritis Father Cancer Social History Housing: House Are you a primary animal daycare provider to a significant other at home: No Do you presently have visiting nurse or other home services: No Alcohol intake: current Alcohol intake frequency: 0-2 drinks per day Alcohol type: hard liquor Comment: medicated in pacu Patient Tobacco Use Status: Current everyday Tobacco user Tobacco use type: Cigarette Cigarette Packs Per Day: 0.5 Cigarettes Per Day: 10 Years Smoked: 30 e-Cigarette/Vaping Use: Never Used Second Hand Smoke Exposure: Yes service: No Current occupational status: employed Current occupation: [employer] Current occupational exposures/hazards: No Cognitive needs: No Hearing needs: No Vision needs: Yes Female Reproductive History Menstrual Age of Menarche: 12 Review of Systems Const All systems reviewed & are unremarkable except as noted in HPI and below Physical Exam Vital Signs: Last Vital Signs BP 112/80 11/25/24 15:52 BMI result Body Mass Index 30.0 Const General: comfortable and no acute distress Orientation/consciousness: patient oriented x3 HEENT Head: Yes normocephalic Mouth: Normal oral and palatal mucosa present Eyes EOM: EOMs intact bilaterally Neck Neck: Yes supple Resp Auscultation: clear to auscultation bilaterally Cardio Jugular venous distension: no JVD Rate: regular rate GI Palpation (GI): Soft to palpation Auscultation: normal bowel sounds General: Yes no CVA tenderness Back/Spine/Pelvis Back: no CVA tenderness Skin General skin exam: no rashes or lesions noted Neuro General: patient oriented x3 and moves all extremities Extrem General: Yes no pedal edema Results Reviewed Nephrology Results: Hgb, (12.0-16.0) 13.4 g/dl 10/29/24 WBC, (4.8-10.8) 5.9 X10*3/uL 10/29/24 Plt Count, (160-400) 268 X10*3/uL 07/24/25 Sodium, (135-145) 137 mmol/L Today Potassium, (3.3-5.1) 3.8 mmol/L Today Chloride, (96-108) 106 mmol/L Today Carbon Dioxide, (22-29) 20 mmol/L L Today BUN, (9-16) 22 mg/dL H Today Creatinine, (0.5-1.4) 0.87 mg/dL Today Urine Creatinine 64.17 mg/dL Today Protein/Creatinin Ratio, (<0.2) 3.10 H Today Assessment & Plan Assessment & Plan (1) Microscopic hematuria: Code(s): R31.29 - Other microscopic hematuria Category: Medical (2) Proteinuria: Code(s): R80.9 - Proteinuria, unspecified Category: Medical Qualifiers: Proteinuria type: other Qualified Code(s): R80.8 - Other proteinuria Plan Tonia who is a 49-year old female for follow up of microscopic hematuria and proteinuria. She has seen Urology and has even undergone cystoscopy as well as imaging. She has H/O positive ASHIA as well as history of DVT. PE in 2008.(DVT and PE and it was attributed to oral contraceptive pills & was on Coumadin for about 9 months). She has history of proteinuria and was thought it was likely due to urinary tract infections, she had at that time. She has normal renal functions. Her BP has been above the target goal. She has no epistaxis, photosensitivity, hearing deficits, recurrent sinusitis, new bone or back pain. She has no H/O malignancy and does not take excessive NSAID's. She has been started on ARB. 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 She also has thin basemement membrane. She will need Jardiance. Further continued care is based on evolving data. Orders: Orders Creatinine 3 Months R31.29 - Other microscopic hematuria, R80.8 - Other proteinuria Blood Urea Nitrogen 3 Months R31.29 - Other microscopic hematuria, R80.8 - Other proteinuria Electrolytes 3 Months R31.29 - Other microscopic hematuria, R80.8 - Other proteinuria Protein Creatinine Ratio, Ur 3 Months R31.29 - Other microscopic hematuria, R80.8 - Other proteinuria Coding Level of Care Code Est Pt Level 4 (96521) Diagnoses Microscopic hematuria R31.29 Other proteinuria R80.8 Proteinuria type: other
[2024-11-25 15:52] VITALS: BP 112/80
--- OUTSIDE RECORDS SUMMARY | 2024-11-25 16:28 | XMS_ITS | Clinical Summary ---
Author Organization [facility] Facility Address [address] [address] Care Team Providers Care Body Sander Name Role Phone Ashia Ventura MD Primary Care Provider [phone] Allergies Active Allergy Reactions Criticality Noted Date [...] PCV) 07/15/1995 Influenza Vaccine (#1) 2024 Insurance [facility] Care Teams Body Sander Relationship Specialty Start Date End Date Ashia Ventura MD [address] [place], [place] PCP - General Internal Medicine 06/27/21
== END 2024-11-25 16:28 | disposition home or self-care (01) ==
LOC: HO.HKA 15:44
PROVIDERS: PCP Internal Medicine; Visit Provider Internal Medicine Nephrology
DX: R31.29 Other microscopic hematuria (principal); R80.8 Other proteinuria
CPT/HCPCS: 99214

== ENCOUNTER 2025-01-07 13:18 | Outpatient (AMB) | payer OTHER, SELFPAY ==
[2025-01-07 13:21] VITALS: BP 148/88; PULSE 68; TEMP 36.8; O2SAT 98; BMI 30.9
--- NOTE | 2025-01-07 13:21 | AM.OFFWIN_ITS ---
Intake Vital Signs 01/07/25 13:21 Height 5 ft 2 in Weight 169 lb BMI 30.9 BP 148/88 H Blood Pressure Location Rt brachial Position Sitting Pulse 68 Pulse Source Pulse Oximeter Temp 98.3 F Temp Source Oral Pulse Oximetry (%) 98 Oxygen Delivery Method Room Air Intake Visit Reasons: ep dizziness since this morning Intake Note: pt presents with dizziness since this morning, nauseous and sinus drainage Patient Tobacco Use Status: Current everyday Tobacco user Allergies sulfamethoxazole (From Bactrim) Allergy (Severe, Verified 01/07/25 13:24) throat closing trimethoprim (From Bactrim) Allergy (Severe, Verified 01/07/25 13:24) throat closing hydrocodone (From Vicodin) Allergy (Mild, Verified 01/07/25 13:24) RASH Medication List - Last Reconciled 01/07/25 by Wen Sánchez NP bumetanide 0.5 mg PO DAILY PRN losartan 100 mg PO .qhs meclizine 25 mg PO BID omeprazole 20 mg PO DAILY PRN propranolol 10 mg PO DAILY PRN 30 days sennosides (senna) 17.2 mg (2 x 8.6 mg) PO BEDTIME sumatriptan succinate 50 - 100 mg orally at onset of headache, may repeat in 2 hrs PRN; max 2 tabs per day or 12 tabs/week (may take with Ibuprofen) 30 days valacyclovir 1,000 mg PO Q12H PRN Do you need a note to return to daycare/school/sports/work: Yes HPI HPI Comments History of Present Illness Details 49 y/o Female patient who presents to [facility] walk in clinic with c/o Feeling dizziness since this morning. Reports feeling unbalanced like she is going to fall to the ground. Pt has h/o Vertigo in the past but it was resolved on its own. Pt does have seasonal allergies - more so during Spring and Fall. She does not take allergy medications. Pt's Computer Aided Design Technician recently increased the Losartan dose to 100 mg (takes 2 tabs of 50 mg) at Bedtime. Pt wondering if this could have contributed to her dizziness. Denies fevers, chills, nausea but no Vomiting. Denies Diarrhea, constipation, or Abdominal pain. Denies bladder or vaginal symptoms. Pt is sexually active with - no condoms. LMP: 01/04/25. [facility] Medical History (Updated 01/07/25 @ 13:45 by Wen Sánchez NP) Dizziness Urinary tract infection symptoms UTI (urinary tract infection) Anemia Tenderness over frontal sinus Headache Trigger point with back pain Cervicalgia Hordeolum externum right lower eyelid Toe pain, bilateral Cough Physical exam Urinary urgency Impacted cerumen of right ear Dysuria Encounter to discuss test results Leg pain COVID-19 Gum lesion Prolapsed hemorrhoids IUD surveillance Frequent headaches Smoker GERD (gastroesophageal reflux disease) History of migraine Proteinuria Frequent UTI Deep vein thrombosis (DVT) of calf muscle vein of left lower extremity Environmental allergies Constipation Genital herpes Pulmonary emboli Migraine headache ASHIA positive Fibromyalgia IBS (irritable bowel syndrome) Surgical History History of colonoscopy History of hemorrhoidectomy Status post reimplantation of ureter History of tubal ligation Family History Mother DVT (deep venous thrombosis) Colonic mass, Onset Age: 66 Mental health disorder Colon cancer Brother Autism Sister Arthritis Father Cancer Social History Housing: House Are you a primary reproductive healthcare assistant to a significant other at home: No Do you presently have visiting nurse or other home services: No Alcohol intake: current Alcohol intake frequency: 0-2 drinks per day Alcohol type: hard liquor Comment: medicated in pacu Patient Tobacco Use Status: Current everyday Tobacco user Tobacco use type: Cigarette Cigarette Packs Per Day: 0.5 Cigarettes Per Day: 10 Years Smoked: 30 e-Cigarette/Vaping Use: Never Used Second Hand Smoke Exposure: Yes service: No Current occupational status: employed Current occupation: [employer] Current occupational exposures/hazards: No Cognitive needs: No Hearing needs: No Vision needs: Yes Female Reproductive History Menstrual Age of Menarche: 12 Review of Systems Const All systems reviewed & are unremarkable except as noted in HPI and below Physical Exam Vital Signs: Last Vital Signs Temp 98.3 F 01/07/25 13:21 Pulse 68 01/07/25 13:21 BP 148/88 H 01/07/25 13:21 Pulse Ox 98 01/07/25 13:21 Oxygen Delivery Method Room Air 01/07/25 13:21 BMI result Body Mass Index 30.9 Const General: no acute distress Nutritional Appearance: obese Orientation/consciousness: patient oriented x3 HEENT Head: Yes normocephalic Ears: external ears normal and TM's normal bilaterally General nose exam: Normal external nose present and Nasal discharge present Face and sinus: Yes sinuses nontender Mouth: moist mucous membranes Neuro General: patient oriented x3 Assessment & Plan Assessment & Plan (1) Dizziness: Code(s): R42 - Dizziness and giddiness Plan: Urinalysis Negative. HCG Urine Negative. Ordered Resp Path Panel Ordered Meclizine BID. Advised to Take Losartan (50 mg AM and 50 mg PM) and see if symptoms resolve. Hydrate well with plenty of fluids. Orders: Orders Resp Pathogen Panel - [facility] [place] Today Wen Sánchez NP J06.9 - Acute upper respiratory infection, unspecified Medications: New meclizine 25 mg PO BID 60 tabs 0RF dizziness Wen Sánchez NP R42 - Dizziness and giddiness Changed From omeprazole 20 mg PO DAILY 90 caps 1RF To omeprazole 20 mg PO DAILY PRN SOREN Marino-BC From losartan 50 mg PO BID 30 days 60 tabs 3RF To losartan 100 mg PO .qhs Cornelius Jo MD From bumetanide 0.5 mg PO DAILY 90 tabs 1RF for edema To bumetanide 0.5 mg PO DAILY PRN Cornelius Jo MD From valacyclovir 1,000 mg PO Q12H 30 days 60 tabs 3RF To valacyclovir 1,000 mg PO Q12H PRN Ashia Park MD Coding Level of Care Code Est Pt Level 4 (23740) Diagnoses Dizziness R42 Time Spent (min) 20
--- OUTSIDE RECORDS SUMMARY | 2025-01-07 14:47 | XMS_ITS | Clinical Summary ---
Author Organization [facility] Facility Address [address] [address] Care Team Providers Care Roll Forming Supervisor Name Role Phone Ashia Ventura MD Primary Care Provider [phone] Allergies Active Allergy Reactions Criticality Noted Date [...] PCV) 07/15/1995 Influenza Vaccine (#1) 2024 Insurance [facility] Care Teams Roll Forming Supervisor Relationship Specialty Start Date End Date Ashia Ventura MD [address] [place], [place] PCP - General Internal Medicine 06/27/21
== END 2025-01-07 14:02 | disposition home or self-care (01) ==
PROVIDERS: PCP Internal Medicine; Visit Provider Nurse Practitioner Family
DX: R42 Dizziness and giddiness (principal); Z13.9 Encounter for screening, unspecified

== ENCOUNTER 2025-01-07 13:18 | Outpatient (REF) | payer OTHER, SELFPAY ==
[2025-01-08 09:49] LABS: Chlamydia pneumoniae PCR Not Detected (Not Detect.); Coronavirus 229E PCR Not Detected (Not Detect.); Coronavirus HKU1 PCR Not Detected (Not Detect.); Coronavirus NL63 PCR Not Detected (Not Detect.); Coronavirus OC43 PCR Not Detected (Not Detect.); RSV PCR Not Detected (Not Detect.); Rhino/Enterovirus PCR Not Detected (Not Detect.)
[2025-01-08 09:57] LABS: Influenza A H1 PCR Not Detected (Not Detect.); Influenza A H1-2009 PCR Not Detected (Not Detect.); Influenza A H3 PCR Not Detected (Not Detect.); SARS-CoV-2 PCR Not Detected (Not Detect.)
== END 2025-01-07 13:19 | disposition home or self-care (01) ==
LOC: HO.LAB 13:18
PROVIDERS: PCP Internal Medicine; Visit Provider Nurse Practitioner Family
DX: R42 Dizziness and giddiness (principal); J06.9 Acute upper respiratory infection, unspecified
CPT/HCPCS: 81003; 81025; 87633

== ENCOUNTER 2025-02-04 14:43 | Outpatient (AMB) | payer OTHER, SELFPAY ==
--- NOTE | 2025-02-04 14:49 | MHC.OFFVIS ---
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 Complaining of right areolar inflammation and discharge over the last three-month Last Pap/HPV was in 11/26 was negative Last Mammogram was BI-RADS 2 in 09/28 No previous screening colonoscopy PFSH Medical History Dizziness Urinary tract infection symptoms UTI (urinary tract infection) Anemia Tenderness over frontal sinus Headache Trigger point with back pain Cervicalgia Hordeolum externum right lower eyelid Toe pain, bilateral Cough Physical exam Urinary urgency Impacted cerumen of right ear Dysuria Encounter to discuss test results Leg pain COVID-19 Gum lesion Prolapsed hemorrhoids IUD surveillance Frequent headaches Smoker GERD (gastroesophageal reflux disease) History of migraine Proteinuria Frequent UTI Deep vein thrombosis (DVT) of calf muscle vein of left lower extremity Environmental allergies Constipation Genital herpes Pulmonary emboli Migraine headache SAMIA positive Fibromyalgia IBS (irritable bowel syndrome) Surgical History History of colonoscopy History of hemorrhoidectomy Status post reimplantation of ureter History of tubal ligation Family History Mother DVT (deep venous thrombosis) Colonic mass, Onset Age: 66 Mental health disorder Colon cancer Brother Autism Sister Arthritis Father Cancer Social History Housing: House Are you a primary rn urgent care to a significant other at home: No Do you presently have visiting nurse or other home services: No Alcohol intake: current Alcohol intake frequency: 0-2 drinks per day Alcohol type: hard liquor Comment: medicated in pacu Patient Tobacco Use Status: Current everyday Tobacco user Tobacco use type: Cigarette Cigarette Packs Per Day: 0.5 Cigarettes Per Day: 10 Years Smoked: 30 e-Cigarette/Vaping Use: Never Used Second Hand Smoke Exposure: Yes Patient : No service: No Current occupational status: employed Current occupation: [employer] Current occupational exposures/hazards: No Cognitive needs: No Hearing needs: No Vision needs: Yes Female Reproductive History Menstrual Age of Menarche: 12 Duration of menses: 3-5 days Date of last menstrual period: 01/27/25 control method: none Total pregnancies: 7 Full term: 4 Date of last pap smear: 11/21/20 (negative pap smear, negative hpv ) Date of Mammogram: 09/15/22 (bi rad 2) Review of Systems Const All systems reviewed & are unremarkable except as noted in HPI and below Card Reports as per HPI Resp Reports as per HPI GI Reports as per HPI and Reports no additional complaints Reports as per HPI Physical Exam Vital Signs: Last Vital Signs BP 128/78 02/04/25 14:59 BMI result Body Mass Index 31.1 Const General: cooperative, healthy appearing and comfortable Chest Chest palpation & inspection: normal inspection of the chest and normal palpation of entire chest wall Breast/axilla inspection: inspection of breasts abnormal (Left breast with a normal, right breast areolar inflammation) and normal inspection of the axillae Breast/axilla palpation: normal palpation of the breasts, normal palpation of the axillae and no axillary lymphadenopathy Resp Effort & Inspection: normal respiratory effort Auscultation: clear to auscultation bilaterally Percussion: percussion normal Cardio Palpation: normal PMI Rate: regular rate Rhythm: regular rhythm Heart sounds: no murmurs and no rubs Peripheral pulses: Peripheral pulses 2+ throughout GI Inspection: Yes normal to inspection Palpation (GI): Soft to palpation, nontender, no guarding, not rigid and No hepatosplenomegaly present Percussion: Yes normal to percussion Auscultation: normal bowel sounds Rectal Exam - Female: deferred General: Yes bladder normal to palpation External Female Exam: No lesion Speculum Exam - Vagina: normal appearance of the vagina, normal palpation, normal vaginal discharge and not erythematous Speculum Exam - Cervix: normal appearance of the cervix and normal palpation Bimanual exam- vagina & uterus: normal bimanual exam, normal palpation, uterine size normal, bladder normal to palpation, consistency normal and normal palpation Bimanual Exam- Adnexa, other: normal adnexae, no masses and no tenderness Assessment & Plan Assessment & Plan (1) Well woman exam: Code(s): Z01.419 - Encounter for gynecological examination (general) (routine) without abnormal findings Category: Medical Plan: Cotesting done. Diagnostic Mammogram ordered. GI referral placed for screening colonoscopy Counseled the patient about the recommended dietary allowance of 1000 mg of Calcium & 600 IU of vitamin D. The patient was instructed to perform monthly self-breast exams and to schedule an annual exam in a year; All questions answered and the patient verbalized understanding. Instructed the patient to schedule annual exam in a year (2) Breast inflammation: Comment: Right areola Code(s): N61.0 - Mastitis without abscess Category: Medical Plan: Discussed with the patient the finding on breast exam will order diagnostic bilateral mammogram and refer to general surgery Instructed the patient to call our office back in case a referral appointment is not scheduled, missed or canceled so that we will assist on rescheduling another appointment, the patient verbalized understanding agreed with the plan. Orders: Orders MM tomosynthesis diagnostic BI Today N61.0 - Mastitis without abscess Referrals General Surgery Referral N61.0 - Mastitis without abscess Coding Level of Care Code Est Pt Prev Care 40-64y(94844) Diagnoses Well woman exam Z01.419 Breast inflammation N61.0
[2025-02-04 14:59] VITALS: BP 128/78; BMI 31.1
--- OUTSIDE RECORDS SUMMARY | 2025-02-04 17:40 | XMS_ITS | Clinical Summary ---
Author Organization [facility] Facility Address [address] [address] Care Team Providers Care Stockroom Helper Name Role Phone Ashia Ventura MD Primary Care Provider [phone] Allergies Active Allergy Reactions Criticality Noted Date [...] 07/15/1995 Influenza Vaccine (#1) 2024 Insurance [facility] Care Teams Stockroom Helper Relationship Specialty Start Date End Date Ashia Ventura MD [address] [place], [place] PCP - General Internal Medicine 06/27/21
== END 2025-02-04 15:35 | disposition home or self-care (01) ==
LOC: HO.HWS 14:44
PROVIDERS: PCP Internal Medicine; Visit Provider Obstetrics & Gynecology
DX: Z01.419 Encounter for gynecological examination (general) (routine) without abnormal findings (principal); N61.0 Mastitis without abscess
CPT/HCPCS: 99396; 99459

== ENCOUNTER 2025-02-04 14:43 | Outpatient (REF) | payer OTHER, SELFPAY | END 2025-02-04 14:44 | disposition home or self-care (01) | LOC: HO.LNP 14:43 | PROVIDERS: PCP Internal Medicine; Visit Provider Obstetrics & Gynecology | DX: Z01.419 Encounter for gynecological examination (general) (routine) without abnormal findings (principal); N61.0 Mastitis without abscess; Z98.51 Tubal ligation status | CPT/HCPCS: 87626; 88175 ==

== ENCOUNTER 2025-02-11 14:48 | Outpatient (REF) | payer OTHER, SELFPAY ==
[2025-02-11 17:35] LABS: MANUAL DIFF FLAG NO
[2025-02-11 17:47] LABS: Hematocrit 42.5 % (37.0-47.0); Hemoglobin 14.6 g/dl (12.0-16.0); Imm Gran Abs Auto 0.02 X10*3/uL (0.00-0.03); Imm Gran Pct Auto 0.3 % (0.0-0.4); Lymphocytes Absolute Auto 2.0 X10*3/uL (1.2-4.9); Mean Corpuscular HGB Conc 34.4 g/dl (31.0-35.0); Mean Corpuscular Hemoglobin 33.7 pg (27.0-33.0); Mean Corpuscular Volume 98.2 fL (80.0-98.0); NRBC Abs Auto 0.000 X10*3/uL (0.0-0.012); NRBC Pct Auto 0.0 /100WBC (0.0-0.2); Platelet Count 311 X10*3/uL (160-400); Red Blood Count 4.33 X10*6/uL (4.20-5.50); White Blood Count 7.1 X10*3/uL (4.8-10.8)
[2025-02-11 18:14] LABS: Alanine Aminotransferase 17 U/L (0-31); Albumin Level 3.9 g/dL (3.5-5.0); Alkaline Phosphatase 61 U/L (39-117); Anion Gap 13 (12-20); Aspartate Amino Transferase 22 U/L (5-31); Blood Urea Nitrogen 18 mg/dL (9-16); Calcium 9.2 mg/dL (8.4-10.2); Carbon Dioxide 24 mmol/L (22-29); Chloride 107 mmol/L (96-108); Estimated Glomerular Filt Rate > 60; Iron 108 mcg/dL (30-160); Magnesium 1.8 mg/dL (1.6-2.6); Percent Iron Saturation 31 % (15-50); Potassium 4.0 mmol/L (3.3-5.1); Sodium 140 mmol/L (135-145); Total Iron Binding Capacity 346 mcg/dL (228-428); Total Protein 6.9 g/dL (6.5-8.0); Unsaturated Iron Binding 238 ug/dL
[2025-02-11 18:30] LABS: Ferritin 19 ng/mL (10-250)
[2025-02-11 18:41] LABS: Folate 9.2 ng/mL (> or = 4.0); Vitamin B12 424 pg/mL (200-900)
[2025-02-15 16:47] LABS: Vitamin D 25-OH, D2 <4 ng/mL; Vitamin D 25-OH, D3 16 ng/mL; Vitamin D 25-OH, Total 16 ng/mL (30-100)
== END 2025-02-11 14:49 | disposition home or self-care (01) ==
LOC: HO.HKASLDS 14:48
PROVIDERS: PCP Internal Medicine; Visit Provider Nurse Practitioner Family
DX: G43.829 Menstrual migraine, not intractable, without status migrainosus (principal); G43.109 Migraine with aura, not intractable, without status migrainosus; R25.2 Cramp and spasm; D64.9 Anemia, unspecified; M18.0 Bilateral primary osteoarthritis of first carpometacarpal joints; R80.8 Other proteinuria; E51.9 Thiamine deficiency, unspecified; E55.9 Vitamin D deficiency, unspecified
CPT/HCPCS: 36415; 80053; 82306; 82550; 82607; 82728; 82746; 83540; 83735; 84207; 84425; 85025

== ENCOUNTER 2025-02-11 14:48 | Outpatient (AMB) | payer OTHER, SELFPAY ==
--- NOTE | 2025-02-11 14:54 | MHC.OFFVIS ---
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 Required: No Accompanied by: Self / Same As Patient Allergies sulfamethoxazole (From Bactrim) Allergy (Severe, Verified 02/11/25 15:03) throat closing trimethoprim (From Bactrim) Allergy (Severe, Verified 02/11/25 15:03) throat closing hydrocodone (From Vicodin) Allergy (Mild, Verified 02/11/25 15:03) RASH Medication List - Last Reconciled 02/11/25 by SOREN Weston losartan 100 mg PO .qhs melatonin 10 mg PO BEDTIME PRN omeprazole 20 mg PO DAILY PRN propranolol 10 mg PO DAILY PRN 30 days sennosides (senna) 17.2 mg (2 x 8.6 mg) PO BEDTIME Do you need a note to return to daycare/school/sports/work: No HPI Comments Details: 49-yr-old female presents for follow-up of migraine. Patient was last seen by me in March of 2024. Interval history: Development of microscopic hematuria, proteinuria and HTN. She is followed by Urology and nephrology, Dr Jo. Currently on losartan, in per last nephrology note, there is consideration for starting Jardiance She also notes that she has been having very bothersome nocturnal BLE (foot, calf, or thigh) cramps. Sometimes, she can also feel her feet starting to cramp when walking, and then she later at rest, she will develop full leg cramps. She also notes that she has chronic low back pain, which radiates down either R > L lower extremity, and the recent abd CT showed incidental severe facet arthropathy is present on the right at L5-S1. She does endorse some restless leg symptoms as well. 2023 ferritin was low in the 40s. She reports, after last visit, she had tried to hold the propranolol, however her migraine burden increase. Since, she reports her migraine attacks are better with taking the propranolol 10mg daily. She does get a low-level building migraine before and after her menstrual cycle. She tried the Sumatriptan, which helped but then caused bothersome nausea. She has had a few episodes of severe, stop her in her tracks, pain in the right occipital region, in the lesser JOANN distribution. Had an ER eval earlier this year, where head CT was normal. She notes that she tends to keep tension in her shoulders and neck, and this is where her fibromyalgia symptoms seem to be worse. The last episode was briefer. Typical post-menstrual headache characteristics: Prodrome symptoms: Feels it come on- feels foggy, mild pain Aura: None Pain intensity: 10/10 Location, quality, characteristics: Bilateral temporal and retroorbital sharp and pressure type. Associated symptoms? Photophobia, phonophobia, nausea, if severe may vomit, brain fog, activity intolerance. Postdrome: lingers Typical migraine headache characteristics: Prodrome symptoms: None Aura: Sees spots during the headache. Pain intensity: 7/10 Location, quality, characteristics: Unillateral right or left posterior temporal and occipital and behind the ipsilateral eye and ear. Associated symptoms? Photophobia, phonophobia, nausea, activity intolerance, brain fog. Postdrome: None Triggers: Sometimes alcohol. Maybe before her menses come. [facility] Medical History Dizziness Urinary tract infection symptoms UTI (urinary tract infection) Anemia Tenderness over frontal sinus Headache Trigger point with back pain Cervicalgia Hordeolum externum right lower eyelid Toe pain, bilateral Cough Physical exam Urinary urgency Impacted cerumen of right ear Dysuria Encounter to discuss test results Leg pain COVID-19 Gum lesion Prolapsed hemorrhoids IUD surveillance Frequent headaches Smoker GERD (gastroesophageal reflux disease) History of migraine Proteinuria Frequent UTI Deep vein thrombosis (DVT) of calf muscle vein of left lower extremity Environmental allergies Constipation Genital herpes Pulmonary emboli Migraine headache SAMIA positive Fibromyalgia IBS (irritable bowel syndrome) Surgical History History of colonoscopy History of hemorrhoidectomy Status post reimplantation of ureter History of tubal ligation Family History Mother DVT (deep venous thrombosis) Colonic mass, Onset Age: 66 Mental health disorder Colon cancer Brother Autism Sister Arthritis Father Cancer Social History Housing: House Are you a primary in home caregiver to a significant other at home: No Do you presently have visiting nurse or other home services: No Alcohol intake: current Alcohol intake frequency: 0-2 drinks per day Alcohol type: hard liquor Comment: medicated in pacu Patient Tobacco Use Status: Current everyday Tobacco user Tobacco use type: Cigarette Cigarette Packs Per Day: 0.5 Cigarettes Per Day: 10 Years Smoked: 30 e-Cigarette/Vaping Use: Never Used Second Hand Smoke Exposure: Yes service: No Current occupational status: employed Current occupation: [employer] Current occupational exposures/hazards: No Cognitive needs: No Hearing needs: No Vision needs: Yes Female Reproductive History Menstrual Age of Menarche: 12 Physical Exam Vital Signs: BMI result Body Mass Index 30.5 Const Orientation/consciousness: patient oriented x3 HEENT Other: Palpable left greater than right frontal and maxillary sinus tenderness. Mild left ear tenderness on pull Bilateral intranasal redness Audible nasal congestion Head: Yes normocephalic Ears: no periauricular adenopathy and TM abnormal with fluid behind the TM on the left and diffuse Resp Effort & Inspection: normal respiratory effort and able to speak in complete sentences Auscultation: clear to auscultation bilaterally Cardio Rate: regular rate Rhythm: regular rhythm Neuro Other: Bilateral occipital region without palpable scalp tenderness Bilateral posterior cervical tightness General: patient oriented x3 Cranial nerves: Yes CN's II-XII intact bilaterally Cognition (Neuro): normal cognition Gait exam (Neuro): Normal gait present Motor exam (neuro): 5/5 motor strength present throughout Psych Appearance: grossly normal Mental Status: mental status grossly normal Speech and movement: Normal speech and movement present Affect: normal affect Assessment & Plan Assessment & Plan (1) Menstrual migraine: Code(s): G43.829 - Menstrual migraine, not intractable, without status migrainosus Category: Medical Qualifiers: Status migrainosus presence: without status migrainosus Intractability: not intractable Qualified Code(s): G43.829 - Menstrual migraine, not intractable, without status migrainosus (2) Migraine with aura: Comment: episodic Code(s): G43.109 - Migraine with aura, not intractable, without status migrainosus Category: Medical Qualifiers: Status migrainosus presence: without status migrainosus Intractability: not intractable Qualified Code(s): G43.109 - Migraine with aura, not intractable, without status migrainosus (3) Muscle cramps: Code(s): R25.2 - Cramp and spasm Category: Medical (4) Anemia: Code(s): D64.9 - Anemia, unspecified Category: Medical Qualifiers: Anemia type: unspecified type Qualified Code(s): D64.9 - Anemia, unspecified Plan For increasing muscle cramps in the setting of restless leg syndrome and chronic low back pain: Check labs for underlying etiologies Upon review, consider starting magnesium and/or iron supplementation, PT For overall headache management: Optimize good self-care, including but not limited to maintaining a healthy diet, adequate fluid intake, adequate sleep, and engaging in regular physical activity. For headache triggers: Track headaches. For new episodic right occipital headache, c/w occipital neuralgia: She has not had a recent attack, however if these can consider arranging for a right lesser occipital nerve block. For acute headache treatment: Discussed importance of taking acute medications at the first sign of headache, however stressed importance of avoiding acute medication overuse (especially with combined headache medications). Discontinue Sumatriptan 100mg order. Trial Naratriptan 2.5mg tab, 1/2 - 1 tab (1.25-2.5mg) at onset of headache, may repeat in 4 hours. Max of 2 tabs (5mg) per 24 hours. May adjunct with OTC Tylenol 650-1000 mg every 4-6 hours as needed. Potential adverse effects of triptans, include but are not limited to nausea, fatigue, chest tightness/tingling (usually passes within a few minutes), medication overuse headaches. Resume ondansetron 4 mg tab, 1 tab every 4 hours as needed for migraine associated with nausea Previous acute migraine medication trials: Ibuprofen- takes edge off. 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 Sumatriptan was effective but began to cause significant nausea. For menstrual migraine: Trial naratriptan as above. For headache prevention medication: Preventative medications should be taken routinely as prescribed for best effect, it may take several weeks for full effect to take effect. Continue Riboflavin 400mg qam Continue Propranolol 10mg daily Previous migraine prevention medication trials: OTC Mag Citrate caused nausea. Amitriptyline 10mg qhs- higher doses causes am sedation. Migraine prevention medication contraindications: None at this time Will follow-up upon review of above and patient to follow-up in clinic in 6 months or sooner prn. Orders: Orders Complete Blood Count Auto Diff Today D64.9 - Anemia, unspecified, M18.0 - Bilateral primary osteoarthritis of first carpometacarpal joints, R25.2 - Cramp and spasm, R80.8 - Other proteinuria Creatine Kinase Total Today D64.9 - Anemia, unspecified, M18.0 - Bilateral primary osteoarthritis of first carpometacarpal joints, R25.2 - Cramp and spasm, R80.8 - Other proteinuria Vitamin B1 Today D64.9 - Anemia, unspecified, E51.9 - Thiamine deficiency, unspecified, M18.0 - Bilateral primary osteoarthritis of first carpometacarpal joints, R25.2 - Cramp and spasm, R80.8 - Other proteinuria Vitamin B6 Today D64.9 - Anemia, unspecified, M18.0 - Bilateral primary osteoarthritis of first carpometacarpal joints, R25.2 - Cramp and spasm, R80.8 - Other proteinuria Ferritin Today D64.9 - Anemia, unspecified, M18.0 - Bilateral primary osteoarthritis of first carpometacarpal joints, R25.2 - Cramp and spasm, R80.8 - Other proteinuria Comprehensive Met. Panel Today D64.9 - Anemia, unspecified, M18.0 - Bilateral primary osteoarthritis of first carpometacarpal joints, R25.2 - Cramp and spasm, R80.8 - Other proteinuria Magnesium Today D64.9 - Anemia, unspecified, M18.0 - Bilateral primary osteoarthritis of first carpometacarpal joints, R25.2 - Cramp and spasm, R80.8 - Other proteinuria Vitamin B12 and Folate Today D64.9 - Anemia, unspecified, M18.0 - Bilateral primary osteoarthritis of first carpometacarpal joints, R25.2 - Cramp and spasm, R80.8 - Other proteinuria Vitamin D 25-OH (D2 and D3) Today D64.9 - Anemia, unspecified, E55.9 - Vitamin D deficiency, unspecified, M18.0 - Bilateral primary osteoarthritis of first carpometacarpal joints, R25.2 - Cramp and spasm, R80.8 - Other proteinuria IRON PROFILE Today D64.9 - Anemia, unspecified, M18.0 - Bilateral primary osteoarthritis of first carpometacarpal joints, R25.2 - Cramp and spasm, R80.8 - Other proteinuria Medications: New ondansetron HCl 4 mg PO Q4H PRN 20 tabs 1RF nausea and vomiting 30 days naratriptan take 1/2 - 1 tab at onset of headache; if no relief may repeat 1 tab after at least 4 hrs; max = 2 tabs/24 hrs orally PRN; may take with tylenol. 12 tabs 6RF migraine headache 30 days Changed From propranolol 10 mg PO DAILY 30 days PRN 30 tabs 6RF migraine headache To propranolol 10 mg PO DAILY 30 tabs 6RF migraine headache 30 days Coding Level of Care Code Est Pt Level 4 (88134) Diagnoses Menstrual migraine without status migrainosus, not intractable G43.829 Status migrainosus presence: without status migrainosus Intractability: not intractable Migraine with aura and without status migrainosus, not intractable G43.109 Status migrainosus presence: without status migrainosus Intractability: not intractable Muscle cramps R25.2 Anemia, unspecified type D64.9 Anemia type: unspecified type
[2025-02-11 14:55] VITALS: BMI 30.5
--- OUTSIDE RECORDS SUMMARY | 2025-02-11 17:56 | XMS_ITS | Clinical Summary ---
Author Organization [facility] Facility Address [address] [address] Care Team Providers Care Firer Diesel Locomotive Name Role Phone Ashia Ventura MD Primary Care Provider [phone] Allergies Active Allergy Reactions Criticality Noted Date [...] PCV) 07/15/1995 Influenza Vaccine (#1) 2024 Insurance [facility] Care Teams Firer Diesel Locomotive Relationship Specialty Start Date End Date Ashia Ventura MD [address] [place], [place] PCP - General Internal Medicine 06/27/21
== END 2025-02-11 15:54 | disposition home or self-care (01) ==
LOC: HO.HSMS 14:49
PROVIDERS: PCP Internal Medicine; Visit Provider Nurse Practitioner Family
DX: G43.829 Menstrual migraine, not intractable, without status migrainosus (principal); G43.109 Migraine with aura, not intractable, without status migrainosus; R25.2 Cramp and spasm; D64.9 Anemia, unspecified
CPT/HCPCS: 99214

== ENCOUNTER 2025-02-15 15:42 | Outpatient (AMB) | payer OTHER, SELFPAY ==
--- NOTE | 2025-02-15 15:52 | MHC.PC.OV ---
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 30 days omeprazole 20 mg PO DAILY PRN ondansetron HCl 4 mg PO Q4H PRN 30 days propranolol 10 mg PO DAILY 30 days sennosides (senna) 17.2 mg (2 x 8.6 mg) PO BEDTIME Tobacco use date assessed: 02/15/25 Dental Screening Dental Screen Date: 02/15/25 Did you have a dental visit in the last 12 months?: Yes Did you have a dental problem in the last 6 months where you did not have access to dental care?: No Was dental information given to patient?: Patient has dentist HPI HPI Comments History of Present Illness Details The patient is a 49-year-old female presenting for a follow-up visit to review chronic conditions and recent test results. The patient has a history of kidney disease and was seen by a employee wellness/fitness coordinator, undergoing a kidney biopsy in November, which was complicated by bleeding. 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 She has proteinuria and is taking losartan 50 mg once daily for this condition. The patient has a history of mastitis without abscess and is scheduled to see a surgeon this week, with a diagnostic mammogram to follow. Her medical history is also significant for migraines, for which she takes naratriptan as needed, and heartburn, managed with omeprazole. She also takes ondansetron, propranolol, and senna for constipation. She has very mild depression with a PHQ-9 score of 4 and takes melatonin as needed. She has allergies to sulfa and Vicodin. Recent lab work ordered by her neurologist showed a normal CBC, good kidney function, a blood sugar of 88, and normal liver enzymes. Vitamin B12 and folic acid levels were normal, though other vitamin tests are pending. A recent Pap smear was negative. The patient smokes half a pack of cigarettes per day and is not currently ready to quit. Her BMI is 30.8, and she has been advised by her employee wellness/fitness coordinator to lose weight, believing it will improve her kidney function. [facility] Medical History (Updated 02/15/25 @ 17:24 by Ashia Park MD) Dizziness Urinary tract infection symptoms UTI (urinary tract infection) Anemia Tenderness over frontal sinus Headache Trigger point with back pain Cervicalgia Hordeolum externum right lower eyelid Toe pain, bilateral Cough Physical exam Urinary urgency Impacted cerumen of right ear Dysuria Encounter to discuss test results Leg pain COVID-19 Gum lesion Prolapsed hemorrhoids IUD surveillance Frequent headaches Smoker GERD (gastroesophageal reflux disease) History of migraine Proteinuria Frequent UTI Deep vein thrombosis (DVT) of calf muscle vein of left lower extremity Environmental allergies Constipation Genital herpes Pulmonary emboli Migraine headache ASHIA positive Fibromyalgia IBS (irritable bowel syndrome) Surgical History History of colonoscopy History of hemorrhoidectomy Status post reimplantation of ureter History of tubal ligation Family History Mother DVT (deep venous thrombosis) Colonic mass, Onset Age: 66 Mental health disorder Colon cancer Brother Autism Sister Arthritis Father Cancer Social History Housing: House Are you a primary day care home mother to a significant other at home: No Do you presently have visiting nurse or other home services: No Alcohol intake: current Alcohol intake frequency: 0-2 drinks per day Alcohol type: hard liquor Comment: medicated in pacu Patient Tobacco Use Status: Current everyday Tobacco user Tobacco use type: Cigarette Cigarette Packs Per Day: 0.5 Cigarettes Per Day: 10 Years Smoked: 30 e-Cigarette/Vaping Use: Never Used Second Hand Smoke Exposure: Yes service: No Current occupational status: employed Current occupation: [employer] Current occupational exposures/hazards: No Cognitive needs: No Hearing needs: No Vision needs: Yes Female Reproductive History Menstrual Age of Menarche: 12 Questionnaire PHQ-9 Over the last 2 weeks, how often have you been bothered by any of the following problems? 1. Little interest or pleasure in doing things: not at all 2. Feeling down, depressed, or hopeless: not at all 3. Trouble falling or staying asleep, or sleeping too much: several days 4. Feeling tired or having little energy: nearly every day 5. Poor appetite or overeating: not at all 6. Feeling bad about yourself - or that you are a failure or have let yourself or your family down: not at all 7. Trouble concentrating on things, such as reading the newspaper or watching television: not at all 8. Moving or speaking so slowly that other people could have noticed. Or the opposite - being so fidgety or restless that you have been moving around a lot more than usual: not at all 9. Thoughts that you would be better off or of hurting yourself in some way: not at all Total score: 4 Depression Screening Interpretation: Positive Depression Screening Follow-up: Existing condition and Follow-up Visit Requested Depression Screening Done: Yes 14969 - PHQ-9 Billing: Yes Source: Developed by Drs. Kenton Givens, Lori Dooley, Jeff Jordan and colleagues, with an educational dorota from [employer]. Thrive Questionnaire Date Thrive assessed: 10/14/24 I am a: Patient What is your living situation today?: I have a steady place to live Within the past 12 months, did the food you bought not last and you didn't have the money to get more?: Never true Within the past 12 months, did you worry whether your food would run out before you got money to buy more?: Never true Do you have trouble paying for medicines?: No Do you have trouble getting transportation to medical appointments?: No Do you have trouble paying your heating and electricity bill?: No Do you have trouble taking care of your child, family member or friend?: No Do you have trouble with day-to-day activities such as bathing, preparing meals, shopping, managing finances, etc.?: No Are you currently unemployed and looking for a job?: No Are you interested in more education?: No Please select the resources that you would like help with: None Currently or been in a relationship where the following occur: No concerns reported THRIVE Score: 0 AUDIT C Alcohol Use Questionnaire (AUDIT-C) 1. How often do you have a drink containing alcohol?: 2-3 times a week 2. How many drinks containing alcohol do you have on a typical day when you are drinking?: 1 or 2 3. How often do you have six or more drinks on one occasion?: Never Total Score: 3 BORA-7 AMB Questionnaire BORA-7 Date BORA - 7 assessed: 10/14/24 Feeling nervous, anxious, or on edge: 0 = Not at all Not being able to stop or control worryin = Not at all Worrying too much about different things: 0 = Not at all Trouble relaxin = Not at all Being so restless that it is hard to sit still: 0 = Not at all Becoming easily annoyed or irritable: 0 = Not at all Feeling afraid as if something awful might happen: 0 = Not at all Total BORA-7 score (0-4 normal; 5-9 mild; 10-14 moderate; 15-21 severe): 0 Source: Developed by Drs. Kenton Givens, Lori Dooley, Jeff Jordan and colleagues, with an educational dorota from [employer]. BORA-7 Assessment Billing BORA-7 Assessment Tool: BORA-7 Assessment 46986 Review of Systems Const All systems reviewed & are unremarkable except as noted in HPI and below Card Denies chest pain at rest, Denies chest pain with activity, Denies edema, Denies irregular heart rhythm, Denies claudication, Denies dyspnea, Denies dyspnea on exertion, Denies orthopnea, Denies paroxysmal nocturnal dyspnea and Denies slow heart rate Resp Denies cough, Denies dyspnea and Denies dyspnea on exertion GI Denies abdominal pain, Denies change in bowel habits, Denies excessive flatus, Denies nausea and Denies vomiting Physical exam (Primary Care) Vital Signs: Last Vital Signs Temp 97.1 F 02/15/25 15:53 Pulse 83 02/15/25 15:53 BP 138/88 02/15/25 15:53 Pulse Ox 98 02/15/25 15:53 Oxygen Delivery Method Room Air 02/15/25 15:53 BMI result Body Mass Index 30.8 BMI Assessment/Plan discussion: High BMI High, discussed plan: lifestyle, weight reduction, dietary and physical activity Tobacco/Smoking Status: Tobacco use Status Tobacco use date assessed 02/15/25 02/15/25 15:56 Patient Tobacco Use Status Current everyday Tobacco 02/15/25 15:56 Tobacco use type Cigarette 02/15/25 15:56 e-Cigarette/Vaping Use Never Used 02/15/25 15:56 Are you ready to quit: No Tobacco cessation counseling provided: Yes Items discussed: Nicotine replacement and QuitWorks Relapse Prevention: discussed the importance of a supportive environment, discussed negative mood or depression after quitting, weight gain after smoking is common and discussed dietary, exercise and/or lifestyle changes Number of minutes spent counselin CPT code: 14802 - 4-10 Minutes PHQ-9: PHQ-9 Score PHQ-9: Total score 4 02/15/25 16:11 Depression Screening Interpretation: Positive Depression Screening Follow-up: Existing condition and Follow-up Visit Requested Thrive Assessment: Date of Thrive Assessment Date Thrive assessed 10/14/24 02/15/25 15:56 Currently or been in a relationship where the following occur: No concerns reported Resp Effort & Inspection: normal respiratory effort Auscultation: clear to auscultation bilaterally Cardio Jugular venous distension: no JVD Rate: regular rate Rhythm: regular rhythm Heart sounds: S1 normal heart sound present and S2 normal heart sound present Extrem General: Yes full ROM Coding Level of Care Code Est Pt Level 4 (52209) Complex EM visit Add On G2211 Diagnoses Migraine with aura and without status migrainosus, not intractable G43.109 Status migrainosus presence: without status migrainosus Intractability: not intractable Other proteinuria R80.8 Proteinuria type: other Essential hypertension I10 Gastroesophageal reflux disease, unspecified whether esophagitis present K21.9 Esophagitis presence: esophagitis presence not specified Additional Codes BORA-7 Assessment Billing - BORA-7 Assessment Tool: BORA-7 Assessment 83588 ([id number]) PHQ-9 - 26670 - PHQ-9 Billing: Yes ([id number]) Vital Signs *Quality* - CPT code: 74117 - 4-10 Minutes ([id number]) Time Spent (min) 23 Assessment & Plan Assessment & Plan (1) Migraine with aura: Comment: episodic Code(s): G43.109 - Migraine with aura, not intractable, without status migrainosus Category: Medical Qualifiers: Status migrainosus presence: without status migrainosus Intractability: not intractable Qualified Code(s): G43.109 - Migraine with aura, not intractable, without status migrainosus (2) Proteinuria: Code(s): R80.9 - Proteinuria, unspecified Category: Medical Qualifiers: Proteinuria type: other Qualified Code(s): R80.8 - Other proteinuria (3) Essential hypertension: Code(s): I10 - Essential (primary) hypertension Category: Medical (4) GERD (gastroesophageal reflux disease): Code(s): K21.9 - Gastro-esophageal reflux disease without esophagitis Category: Medical Qualifiers: Esophagitis presence: esophagitis presence not specified Qualified Code(s): K21.9 - Gastro-esophageal reflux disease without esophagitis Plan Plan 1. Chronic Kidney Disease And Proteinuria The patient presents with a history of a kidney biopsy that showed a 40% loss of nephrons, despite current lab results indicating good kidney function. Proteinuria persists, which is being managed with losartan. Blood pressure is well-controlled, which is important for managing her kidney condition. No new lab work will be ordered at this visit, as recent labs were drawn by her neurologist. The patient will continue her current medications and is scheduled to follow up with her employee wellness/fitness coordinator next month. 2. Mastitis Without Abscess The patient reports recurrent inflammation consistent with mastitis without an abscess. She has an appointment scheduled with a surgeon this week to address this, and a diagnostic mammogram is planned to be completed afterward. 3. Obesity With a BMI of 30.8, the patient is classified as obese. Her employee wellness/fitness coordinator has recommended weight loss to potentially improve kidney function. The patient is encouraged to continue following up with weight management despite a prior negative experience. 4. Tobacco Use Disorder The patient smokes approximately half a pack of cigarettes daily but is not currently ready to quit. Information on the [employer]uit[employer] program was provided, along with anticipatory guidance regarding the challenges of cessation, such as potential weight gain and mood changes.
[2025-02-15 15:53] VITALS: BP 138/88; PULSE 83; TEMP 36.2; O2SAT 98; BMI 30.8
== END 2025-02-15 16:23 | disposition home or self-care (01) ==
LOC: HO.HMCH 15:43
PROVIDERS: PCP Internal Medicine; Visit Provider Internal Medicine
DX: G43.109 Migraine with aura, not intractable, without status migrainosus (principal); R80.8 Other proteinuria; I10 Essential (primary) hypertension; K21.9 Gastro-esophageal reflux disease without esophagitis

== ENCOUNTER → 2025-02-15 15:42 | Outpatient (BNVA) | payer OTHER, SELFPAY | PROVIDERS: PCP Internal Medicine; Visit Provider Internal Medicine | DX: G43.109 Migraine with aura, not intractable, without status migrainosus (principal); I10 Essential (primary) hypertension; K21.9 Gastro-esophageal reflux disease without esophagitis; R80.8 Other proteinuria | CPT/HCPCS: 96127 ==

== ENCOUNTER 2025-02-17 09:36 | Outpatient (AMB) | payer OTHER, SELFPAY ==
--- NOTE | 2025-02-17 09:44 | A.OFFVIS_ITS ---
Vital Signs 02/17/25 09:50 Height 5 ft 2 in Weight 170 lb BMI 31.1 BP 143/75 H Blood Pressure Location Lt brachial Position Sitting Pulse 83 Intake Visit Reasons: Mastitis without abscess Intake Note: Patient presents for an assessment for mastitis without abscess. Pt c/o; has a lump on the right breast for the past 2 months, admits to swollen, painful and discharge from the nipple, a mm was order by Dr Ac still has not received a call to [facility], denies prior breast concerns Consumer Credit Counselor Required: No Principal Military Analyst: Principal Military Analyst Present Accompanied by: Self / Same As Patient Allergies sulfamethoxazole (From Bactrim) Allergy (Severe, Verified 02/17/25 09:46) throat closing trimethoprim (From Bactrim) Allergy (Severe, Verified 02/17/25 09:46) throat closing hydrocodone (From Vicodin) Allergy (Mild, Verified 02/17/25 09:46) RASH HPI HPI Mastitis without abscess: Details: [age] year old female referred for question of mastitis. She describes having an area of the right nipple. She says that for about a month now, there had been 5 instances wherein she had an area on the superolateral aspect of the areola that swells up and would drain. She was therefore referred to me She says that this has currently not draining. She denies any significant pain Her last mammogram was in 2022 and she says she is supposed to have this done again this year. Her menarche was at the age of 12. She had 5 pregnancies. Her 1st was the age of 18. She still has her periods. Denies any family history of breast cancer. [facility] Medical History Nipple discharge Dizziness Urinary tract infection symptoms UTI (urinary tract infection) Anemia Tenderness over frontal sinus Headache Trigger point with back pain Cervicalgia Hordeolum externum right lower eyelid Toe pain, bilateral Cough Physical exam Urinary urgency Impacted cerumen of right ear Dysuria Encounter to discuss test results Leg pain COVID-19 Gum lesion Prolapsed hemorrhoids IUD surveillance Frequent headaches Smoker GERD (gastroesophageal reflux disease) History of migraine Proteinuria Frequent UTI Deep vein thrombosis (DVT) of calf muscle vein of left lower extremity Environmental allergies Constipation Genital herpes Pulmonary emboli Migraine headache SAMIA positive Fibromyalgia IBS (irritable bowel syndrome) Surgical History History of colonoscopy History of hemorrhoidectomy Status post reimplantation of ureter History of tubal ligation Family History Mother DVT (deep venous thrombosis) Colonic mass, Onset Age: 66 Mental health disorder Colon cancer Brother Autism Sister Arthritis Father Cancer Social History Housing: House Are you a primary wound care technician to a significant other at home: No Do you presently have visiting nurse or other home services: No Alcohol intake: current Alcohol intake frequency: 0-2 drinks per day Alcohol type: hard liquor Comment: medicated in pacu Patient Tobacco Use Status: Current everyday Tobacco user Tobacco use type: Cigarette Cigarette Packs Per Day: 0.5 Cigarettes Per Day: 10 Years Smoked: 30 e-Cigarette/Vaping Use: Never Used Second Hand Smoke Exposure: Yes service: No Current occupational status: employed Current occupation: [employer] Current occupational exposures/hazards: No Cognitive needs: No Hearing needs: No Vision needs: Yes Female Reproductive History Menstrual Age of Menarche: 12 Date of last menstrual period: 01/27/25 Total pregnancies: 5 Number of Living Children: 4 Review of Systems Const Denies chills and Denies fever(s) Card Denies chest pain, Denies dyspnea and Denies dyspnea on exertion Resp Denies cough, Denies dyspnea and Denies dyspnea on exertion GI Denies hematochezia and Denies change in bowel habits Denies hematuria Musc Denies back pain and Denies limited range of motion Neuro Denies focal weakness and Denies convulsions Psych Denies depression and Denies mood swings Physical Exam Const General: comfortable and no acute distress Orientation/consciousness: patient oriented x3 Neck Neck: Yes no lymphadenopathy Chest Other: No palpable breast masses, no axillary lymphadenopathy, no obvious drainage, induration on the right nipple-areolar complex Resp Auscultation: clear to auscultation bilaterally Cardio Rhythm: regular rhythm GI Palpation (GI): Soft to palpation, nontender and no guarding Neuro General: patient oriented x3 Assessment & Plan Assessment & Plan (1) Nipple discharge: Code(s): N64.52 - Nipple discharge Category: Medical Plan: I am going to order for an ultrasound of the right breast to see if there is any underlying abscess. She does not have any induration or tenderness currently I have also reminded to make sure that she undergoes a mammogram as she has already do I will see her in the office again once she has her ultrasound. In the meantime, I advised her on doing warm compresses to the area if she has any swelling or induration. Orders: Orders US breast RT limited Today N64.52 - Nipple discharge Coding Level of Care Code New Pt Level 3 (51639) Diagnoses Nipple discharge N64.52
[2025-02-17 09:50] VITALS: BP 143/75; PULSE 83; BMI 31.1
--- OUTSIDE RECORDS SUMMARY | 2025-02-17 10:55 | XMS_ITS | Clinical Summary ---
Author Organization [facility] Facility Address [address] [address] Care Team Providers Care Casing Splitter Name Role Phone Ashia Ventura MD Primary Care Provider [phone] Allergies Active Allergy Reactions Criticality Noted Date [...] PCV) 07/15/1995 Influenza Vaccine (#1) 2024 Insurance [facility] Care Teams Casing Splitter Relationship Specialty Start Date End Date Ashia Ventura MD [address] [place], [place] PCP - General Internal Medicine 06/27/21
== END 2025-02-17 09:59 | disposition home or self-care (01) ==
LOC: HO.HGS 09:37
PROVIDERS: PCP Internal Medicine; Visit Provider Surgery
DX: N64.52 Nipple discharge (principal)
CPT/HCPCS: 99203

== ENCOUNTER 2025-03-06 10:50 | Outpatient (REF) | payer OTHER, SELFPAY ==
--- OUTSIDE RECORDS SUMMARY | 2025-03-06 10:53 | XMS_ITS | Clinical Summary ---
Author Organization [facility] Facility Address [address] [address] Care Team Providers Care Claims Manager Name Role Phone Ashia Ventura MD Primary Care Provider [phone] Allergies Active Allergy Reactions Criticality Noted Date [...] PCV) 07/15/1995 Influenza Vaccine (#1) 2024 Insurance [facility] Care Teams Claims Manager Relationship Specialty Start Date End Date Ashia Ventura MD [address] [place], [place] PCP - General Internal Medicine 06/27/21
[2025-03-06 12:09] LABS: Anion Gap 12 (12-20); Blood Urea Nitrogen 14 mg/dL (9-16); Carbon Dioxide 26 mmol/L (22-29); Chloride 105 mmol/L (96-108); Estimated Glomerular Filt Rate > 60; Potassium 4.3 mmol/L (3.3-5.1); Sodium 139 mmol/L (135-145)
[2025-03-06 12:57] LABS: Protein/Creatinine Ratio, Ur 3.92 (<0.2); Total Protein Urine Random 391 mg/dL (<12)
== END 2025-03-06 10:51 | disposition home or self-care (01) ==
LOC: HO.LAB 10:50
PROVIDERS: PCP Internal Medicine; Visit Provider Internal Medicine Nephrology
DX: R80.8 Other proteinuria (principal); R31.29 Other microscopic hematuria
CPT/HCPCS: 36415; 80051; 82565; 82570; 84156; 84520

== ENCOUNTER 2025-03-10 16:09 | Outpatient (AMB) | payer OTHER, SELFPAY ==
--- NOTE | 2025-03-10 16:13 | HO.NEPHOV ---
Vital Signs 03/10/25 16:15 Height 5 ft 2 in Weight 172 lb 4 oz BMI 31.5 BP 112/80 Blood Pressure Location Lt brachial Position Sitting Pulse 82 Pulse Source Pulse Oximeter Pulse Oximetry (%) 97 Oxygen Delivery Method Room Air Intake Visit Reasons: 3mon f/u w/labs-Conf Business Liaison Officer Required: No Accompanied by: Self / Same As Patient Allergies sulfamethoxazole (From Bactrim) Allergy (Severe, Verified 03/10/25 16:14) throat closing trimethoprim (From Bactrim) Allergy (Severe, Verified 03/10/25 16:14) throat closing hydrocodone (From Vicodin) Allergy (Mild, Verified 03/10/25 16:14) RASH HPI Comments Details: Tonia who is a 49-year old female for follow up of microscopic hematuria and proteinuria. She has seen Urology and has even undergone cystoscopy as well as imaging. She has H/O positive SAMIA as well as history of DVT. PE in 2008.(DVT and PE and it was attributed to oral contraceptive pills & was on Coumadin for about 9 months). She has history of proteinuria and was thought it was likely due to urinary tract infections, she had at that time. She has normal renal functions. Her BP has been at goal. She has no epistaxis, photosensitivity, hearing deficits, recurrent sinusitis, new bone or back pain. She has no H/O malignancy and does not take excessive NSAID's. She has been started on ARB which she is tolerating well. She had her grandma on HD ? 2 to DM. 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 Her daughter has M/S hematuria. [facility] Medical History Nipple discharge Dizziness Urinary tract infection symptoms UTI (urinary tract infection) Anemia Tenderness over frontal sinus Headache Trigger point with back pain Cervicalgia Hordeolum externum right lower eyelid Toe pain, bilateral Cough Physical exam Urinary urgency Impacted cerumen of right ear Dysuria Encounter to discuss test results Leg pain COVID-19 Gum lesion Prolapsed hemorrhoids IUD surveillance Frequent headaches Smoker GERD (gastroesophageal reflux disease) History of migraine Proteinuria Frequent UTI Deep vein thrombosis (DVT) of calf muscle vein of left lower extremity Environmental allergies Constipation Genital herpes Pulmonary emboli Migraine headache SAMIA positive Fibromyalgia IBS (irritable bowel syndrome) Surgical History History of colonoscopy History of hemorrhoidectomy Status post reimplantation of ureter History of tubal ligation Family History Mother DVT (deep venous thrombosis) Colonic mass, Onset Age: 66 Mental health disorder Colon cancer Brother Autism Sister Arthritis Father Cancer Social History Housing: House Are you a primary care director rn to a significant other at home: No Do you presently have visiting nurse or other home services: No Alcohol intake: current Alcohol intake frequency: 0-2 drinks per day Alcohol type: hard liquor Comment: medicated in pacu Patient Tobacco Use Status: Current everyday Tobacco user Tobacco use type: Cigarette Cigarette Packs Per Day: 0.5 Cigarettes Per Day: 10 Years Smoked: 30 e-Cigarette/Vaping Use: Never Used Second Hand Smoke Exposure: Yes service: No Current occupational status: employed Current occupation: [employer] Current occupational exposures/hazards: No Cognitive needs: No Hearing needs: No Vision needs: Yes Female Reproductive History Menstrual Age of Menarche: 12 Review of Systems Const All systems reviewed & are unremarkable except as noted in HPI and below Physical Exam Vital Signs: Last Vital Signs Pulse 82 03/10/25 16:15 BP 112/80 03/10/25 16:15 Pulse Ox 97 03/10/25 16:15 Oxygen Delivery Method Room Air 03/10/25 16:15 BMI result Body Mass Index 31.5 Const General: comfortable and no acute distress Orientation/consciousness: patient oriented x3 HEENT Head: Yes normocephalic Mouth: Normal oral and palatal mucosa present Eyes EOM: EOMs intact bilaterally Neck Neck: Yes supple Resp Auscultation: clear to auscultation bilaterally Cardio Jugular venous distension: no JVD Rate: regular rate GI Palpation (GI): Soft to palpation Auscultation: normal bowel sounds General: Yes no CVA tenderness Back/Spine/Pelvis Back: no CVA tenderness Skin General skin exam: no rashes or lesions noted Neuro General: patient oriented x3 and moves all extremities Extrem General: Yes no pedal edema Results Reviewed Nephrology Results: Hgb, (12.0-16.0) 14.6 g/dl 02/11/25 WBC, (4.8-10.8) 7.1 X10*3/uL 02/11/25 Plt Count, (160-400) 311 X10*3/uL 02/11/25 Sodium, (135-145) 139 mmol/L 03/06/25 Potassium, (3.3-5.1) 4.3 mmol/L 03/06/25 Chloride, (96-108) 105 mmol/L 03/06/25 Carbon Dioxide, (22-29) 26 mmol/L 03/06/25 BUN, (9-16) 14 mg/dL 03/06/25 Creatinine, (0.5-1.4) 0.85 mg/dL 03/06/25 Calcium, (8.4-10.2) 9.2 mg/dL Δ 02/11/25 Urine Creatinine 99.72 mg/dL 03/06/25 Protein/Creatinin Ratio, (<0.2) 3.92 H 03/06/25 Assessment & Plan Assessment & Plan (1) Microscopic hematuria: Code(s): R31.29 - Other microscopic hematuria Category: Medical (2) Proteinuria: Code(s): R80.9 - Proteinuria, unspecified Category: Medical Qualifiers: Proteinuria type: other Qualified Code(s): R80.8 - Other proteinuria Plan Tonia who is a 49-year old female for follow up of microscopic hematuria and proteinuria. She has seen Urology and has even undergone cystoscopy as well as imaging. She has H/O positive SAMIA as well as history of DVT. PE in 2008.(DVT and PE and it was attributed to oral contraceptive pills & was on Coumadin for about 9 months). She has history of proteinuria and was thought it was likely due to urinary tract infections, she had at that time. She has normal renal functions. Her BP has been above the target goal. She has no H/O malignancy and does not take excessive NSAID's. She has been started on ARB. 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 She also has thin basemement membrane. She will need Jardiance. Further continued care is based on evolving data. Orders: Orders Protein Creatinine Ratio, Ur 2 Months R80.8 - Other proteinuria Coding Level of Care Code Est Pt Level 4 (64862) Diagnoses Microscopic hematuria R31.29 Other proteinuria R80.8 Proteinuria type: other
[2025-03-10 16:15] VITALS: BP 112/80; PULSE 82; O2SAT 97; BMI 31.5
== END 2025-03-10 16:39 | disposition home or self-care (01) ==
LOC: HO.HKA 16:10
PROVIDERS: PCP Internal Medicine; Visit Provider Internal Medicine Nephrology
DX: R31.29 Other microscopic hematuria (principal); R80.8 Other proteinuria
CPT/HCPCS: 99214

== ENCOUNTER 2025-03-31 08:57 | Outpatient (AMB) | payer OTHER, SELFPAY ==
--- OUTSIDE RECORDS SUMMARY | 2025-03-31 09:02 | XMS_ITS | Clinical Summary ---
Author Organization [facility] Facility Address [address] [address] Care Team Providers Care Experimental Electronics Developer Name Role Phone Ashia Ventura MD Primary Care Provider [phone] Allergies Active Allergy Reactions Criticality Noted Date [...] PCV) 07/15/1995 Influenza Vaccine (#1) 2024 Insurance [facility] Care Teams Experimental Electronics Developer Relationship Specialty Start Date End Date Ashia Ventura MD [address] [place], [place] PCP - General Internal Medicine 06/27/21
--- NOTE | 2025-03-31 12:48 | A.OFFVIS_ITS ---
VS Expanded 03/31/25 13:12 Height 5 ft 2 in Weight 164 lb 8 oz BMI 30.1 Body Fat % 37.6 Body Fat Mass 62 Fat Free Mass 102.8 Visceral Fat Rating 8 Body Water % 44.4 Body Water Mass 73.2 Basal Metabolic Rate/Score 1,413 Intake Visit Reasons: TV LICENSED MARRIAGE AND FAMILY THERAPIST MWL BMI 30.2 Allergies sulfamethoxazole (From Bactrim) Allergy (Severe, Verified 03/31/25 12:54) throat closing trimethoprim (From Bactrim) Allergy (Severe, Verified 03/31/25 12:54) throat closing hydrocodone (From Vicodin) Allergy (Mild, Verified 03/31/25 12:54) RASH Medication List - Last Reconciled 03/31/25 by Gus Conde MD cholecalciferol (vitamin D3) 1,250 mcg PO QWEEK 12 weeks losartan 50 mg PO BID melatonin 10 mg PO BEDTIME PRN naratriptan take 1/2 - 1 tab at onset of headache; if no relief may repeat 1 tab after at least 4 hrs; max = 2 tabs/24 hrs orally PRN; may take with tylenol. 30 days omeprazole 20 mg PO DAILY PRN ondansetron HCl 4 mg PO Q4H PRN 30 days propranolol 10 mg PO DAILY 30 days sennosides (senna) 17.2 mg (2 x 8.6 mg) PO BEDTIME HPI HPI TV LICENSED MARRIAGE AND FAMILY THERAPIST MWL BMI 30.2: Details: Start time: 12.47pm, End time: 1.32pm ?I spent 40 minutes speaking with the patient on the phone plus an additional 5 minutes reviewing and updating records for a total of 45 minutes HPI Comments Details: Previous weight loss efforts: low calories, keto diet Wakes up: 6am, Sleeps: 11pm Breakfast: skips Lunch: 1.30pm (eggs, sandwich) Dinner: 7pm (meat with rice and vegetables, pasta) Snacks: 10am (meat stick), 4pm (cheese sticks with crackers) Exercise: has home [employer] stationary bike Beverages: Coffee (2 cups/d with cream and sugar), Tea: none, Soda: none, Juice: Cranberry juice, ETOH: 1-2 coctails daily with cranberry juice PFSH Medical History (Updated 03/31/25 @ 13:27 by Gus Conde MD) 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 Insomnia BMI 30.0-30.9,adult Obesity Nipple discharge Dizziness Urinary tract infection symptoms UTI (urinary tract infection) Anemia Tenderness over frontal sinus Headache Trigger point with back pain Cervicalgia Hordeolum externum right lower eyelid Toe pain, bilateral Cough Physical exam Urinary urgency Impacted cerumen of right ear Dysuria Encounter to discuss test results Leg pain COVID-19 Gum lesion Prolapsed hemorrhoids IUD surveillance Frequent headaches Smoker GERD (gastroesophageal reflux disease) History of migraine Proteinuria Frequent UTI Deep vein thrombosis (DVT) of calf muscle vein of left lower extremity Environmental allergies Constipation Genital herpes Pulmonary emboli Migraine headache SAMIA positive Fibromyalgia IBS (irritable bowel syndrome) Surgical History History of colonoscopy History of hemorrhoidectomy Status post reimplantation of ureter History of tubal ligation Family History Mother DVT (deep venous thrombosis) Colonic mass, Onset Age: 66 Mental health disorder Colon cancer Brother Autism Sister Arthritis Father Cancer Social History Housing: House Are you a primary anesthesiologist and critical care to a significant other at home: No Do you presently have visiting nurse or other home services: No Alcohol intake: current Alcohol intake frequency: 0-2 drinks per day Alcohol type: hard liquor Comment: medicated in pacu Patient Tobacco Use Status: Current everyday Tobacco user Tobacco use type: Cigarette Cigarette Packs Per Day: 0.5 Cigarettes Per Day: 10 Years Smoked: 30 e-Cigarette/Vaping Use: Never Used Second Hand Smoke Exposure: Yes service: No Current occupational status: employed Current occupation: [employer] Current occupational exposures/hazards: No Cognitive needs: No Hearing needs: No Vision needs: Yes Female Reproductive History Menstrual Age of Menarche: 12 Telehealth Telehealth Telehealth Platform: Telephone Location of provider rendering services: practice address Location of patient: address on file Patient Identification confirmed using: Name, : Yes Telehealth method: voice only Patient verbally consented to treatment: Yes Patient verbally consented to billing insurance company: Yes Patient informed of any privacy concerns related to visit: Yes Minutes spent on Phone/Video with Pt.: 45 Assessment & Plan Assessment & Plan (1) Obesity: Code(s): E66.9 - Obesity, unspecified Category: Medical Qualifiers: Obesity type: due to excess calories Obesity classification: adult class 1 (BMI 30 - 34.9) Serious obesity comorbidity presence: with serious comorbidity Body mass index: BMI 30.0-30.9 Qualified Code(s): E66.811 - Obesity, class 1; E66.09 - Other obesity due to excess calories; Z68.30 - Body mass index [BMI] 30.0-30.9, adult Plan: ?1. As we discussed, based on your present BMI you are approximately 30lbs overweight. In my opinion, for any weight loss strategy to be successful should have a high probability to help you lose all of the extra weight you carry. ?We discussed in detail the available therapeutic options: ?1) our lifestyle intervention program that has an average weight loss of 10% in 3 months.?Some patients continue it for longer and have lost over 50lbs but this is not common. Our lifestyle program can be provided by me. I will provide you with a link to use the juanjose if you choose to do so. We use protein shakes and protein bars to replace some of the meals of the day and cover your appetite better. We will decide together the exact combination ?2) Weight loss medications: these can be used in conjunction with our lifestyle program or you may choose to use them without following a lifestyle program from my program but your own. One option is the Phentermine pill which is affordable as self pay option. It is well tolerated and most common side effects include blood pressure elevation, dry mouth, difficulty sleeping and heart palpitations. However, it can raise the blood pressure and it may not be the best option for you since you have high blood pressure already. It?s a temporary solution however and most patients tend to put the weight back once the medication is stopped. 3) Your insurance does not cover the new weight loss shots. We also discussed that you can self pay for the weight loss injections and the cost is $249 for the first month and $499 for any other month thereafter. These payments go to the drug company directly and not to us. As we discussed, this is not a correction solution, as most patients put all the weight back once they are off the medication. There is also an option to get generic versions from compound pharmacies at cheaper rates but their efficacy and how they are manufactured is not that clear. ?4) We also discussed about the lap sleeve gastrectomy. In my opinion this is the best option to solve your problem based on your situation. ??I emphasized the importance of close follow-up, adherence to instructions and good communication. The surgery does not replace the need to change your lifestlyle which is the cause of the obesity problem. The surgery provides the motivation to try again to change your lifestyle, it reduces the appetite and make the transition to a better lifestyle easier and doubles the amount of weight you would lose compared to doing the lifestyle change without the surgery. You will need to be on a liquid diet with protein shakes for 2 weeks before surgery to maximize weight loss and boost your nutritional status to recover better from surgery and also for the first two weeks after surgery to let the stomach heal before we introduce other foods. After the first 2 weeks we will introduce protein bars and soft foods like scrambled eggs, cottage cheese and yogurt and after the 6th week will introduce meat, fish and cooked vegetables in small amounts. Over time you should be able to eat everything in small amounts. Side effects like nausea, vomiting, heartburn or abdominal pain are not common in the practice unless you are not following in the practice. This operation requires lifetime commitment to following in our practice and communication with me. You will much less weight and experience side effects if you don?t communicate or not following in the practice. Complications are rare and in our practice is about 1/10 of the national average. 5) Very Important: We do extensive research in this practice. In very recent research we did, we found that patients who did the lifestyle program without medications followed by weight loss surgery, lost twice as much as they would lose if they used the shots for the same period of time and with the two groups being completely matched in terms of demographics and starting weights. Another research study we did found that when we compared patients who did our lifestyle program without or with the weight loss shots, they lost the same weight but they did not lose any muscle mass. The patients who used the shots lost about 3% of their muscle mass in 3 months which translates to 5-15lbs of actual muscle mass depending on each patient's initial weight. That's not good because it makes you frail and weak and reduces your metabolism. In another research study we did, we found that losing 10-20% of your initial weight before the weight loss surgery, followed by surgery at the lowest possible weight, gives you a significant boost in correction weight loss 6 years or more after surgery, that makes a difference in the long-term success. Preoperative weight loss is not commonly used by many practices especially at this magnitude, but it is our philosophy and makes a huge difference. Due to the significant kidney issue with 40% loss of kidney function (the patient's application lead recommended urgent weight loss to protect her kidneys), plus hypertension on 2 medications and history of pulmonary embolism, I think Zepbound is indicated. . I ordered a medication to help you with the weight loss which is called Zepbound. My office will try to authorize it. Please let me know when you receive it so I can give you a meal and exercise plan. Common side effects include nausea, vomiting, constipation, diarrhea, abdominal pain. Please let me know if you develop any of these symptoms. Medications: New tirzepatide (weight loss) (Zepbound) for 4 weeks 2.5 mg (0.5 mL) subcut QWEEK 2 mL 0RF E66.09 - Other obesity due to excess calories, E66.811 - Obesity, class 1, E66.9 - Obesity, unspecified, I10 - Essential (primary) hypertension, K21.9 - Gastro-esophageal reflux disease without esophagitis, N05.1 - Unspecified nephritic syndrome with focal and segmental glomerular lesions, Z68.30 - Body mass index [BMI] 30.0-30.9, adult, Z68.31 - Body mass index [BMI] 31.0-31.9, adult, Z86.711 - Personal history of pulmonary embolism
[2025-03-31 13:12] VITALS: BMI 30.1
== END 2025-03-31 13:33 | disposition home or self-care (01) ==
LOC: HO.HBS 08:57
PROVIDERS: PCP Internal Medicine; Visit Provider Surgery
DX: E66.811 Obesity, class 1 (principal); E66.09 Other obesity due to excess calories; Z68.30 Body mass index [BMI] 30.0-30.9, adult
CPT/HCPCS: 99204

== ENCOUNTER 2025-04-05 08:48 | Outpatient (REF) | payer OTHER, SELFPAY ==
--- NOTE | ~2025-04-05 | US_ITS ---
EXAMINATION(S): 1. MM DIAGNOSTIC DIGITAL BREAST TOMOSYNTHESIS, BILATERAL 2. TARGETED ULTRASOUND OF THE RIGHT BREAST CLINICAL INFORMATION: Right nipple discharge white mixed with blood for one and half months. COMPARISON: Comparison made to multiple prior, most recent September 15, 2022, and most remote April 06, 2017. TECHNIQUE: Digital breast tomosynthesis is performed in both the mediolateral oblique and craniocaudal views along with computer-aided detection (CAD). Synthesized 2D images are generated from the tomosynthesis. FINDINGS: BREAST COMPOSITION: There are scattered areas of fibroglandular density. RIGHT BREAST: No significant masses, suspicious calcifications or other abnormalities are seen. In particular, no suspicious mammographic findings in the subareolar region/anterior breast. Targeted ultrasound of the right breast was performed in the region of the nipple areolar complex and retroareolar region. Survey did not reveal dilated ducts or any other suspicious sonographic findings. LEFT BREAST: No significant masses, suspicious calcifications or other abnormalities are seen. US/US Breast RT Limited Mamm Only IMPRESSION: RIGHT BREAST: Negative, no evidence of malignancy. Clinical follow-up is recommended, independent of imaging findings. If the clinical concern persists, a breast MRI can be considered. Otherwise, normal interval follow-up mammogram is recommended in 12 months. LEFT BREAST: Negative, no mammographic evidence of malignancy. Normal interval follow-up is recommended in 12 months. ASSESSMENT: BI-RADS: Category 1: Negative RECOMMENDATION: 1. Patient should be managed based on the clinical impression. 2. Otherwise, routine annual screening mammography. Results were provided to the patient at time of visit by the technologist. This patient's information was entered into a reminder system with a target due date for their next mammogram. Electronically signed by: Bernice Leung MD 04/05/2025 09:45 AM [facility] [place]
--- OUTSIDE RECORDS SUMMARY | 2025-04-05 08:54 | XMS_ITS | Clinical Summary ---
Author Organization [facility] Facility Address [address] [address] Care Team Providers Care Funeral Home Makeup Artist Name Role Phone Ashia Ventura MD Primary Care Provider [phone] Allergies Active Allergy Reactions Criticality Noted Date [...] PCV) 07/15/1995 Influenza Vaccine (#1) 2024 Insurance [facility] Care Teams Funeral Home Makeup Artist Relationship Specialty Start Date End Date Ashia Ventura MD [address] [place], [place] PCP - General Internal Medicine 06/27/21
== END 2025-04-05 08:49 | disposition home or self-care (01) ==
LOC: HO.MAMMO 08:48
PROVIDERS: PCP Internal Medicine; Visit Provider Surgery
DX: N64.52 Nipple discharge (principal); C50.919 Malignant neoplasm of unspecified site of unspecified female breast; R92.30 Dense breasts, unspecified
CPT/HCPCS: 76642; 77062; 77066

== ENCOUNTER → 2025-04-05 09:00 | Outpatient (BNV) | payer OTHER, SELFPAY | PROVIDERS: PCP Internal Medicine; Visit Provider Radiology Body Imaging | DX: N64.52 Nipple discharge (principal) | CPT/HCPCS: 76642; 77062; 77066 ==